=== PATIENT | female | born 1960 | race Caucasian/White ===

== ENCOUNTER → 2017-10-12 07:47 | Outpatient (CLI) | payer OTHER, SELFPAY ==
--- NOTE | 2017-10-12 07:53 | RAD_ITS ---
STUDY: X-RAY - RIGHT CLAVICLE REASON FOR EXAM: Female, 57 years old. Mass of the anterior base of the neck. TECHNIQUE: 3 view(s) of the clavicle. COMPARISON: None. FINDINGS: Normal clavicle. Normal acromioclavicular articulation. Normal visualized sternoclavicular articulation. Normal visualized pulmonary apex. RAD/Clavicle IMPRESSION: No apparent bony abnormality of the clavicle or ribs in the [id number]. The sternoclavicular joint is a difficult joint to assess on plain film radiography. If pathology of that joint is suspected, arthritic changes such as protruding hypertrophic osteophytes, joint alignment, etc. are better imaged on CT exam. Electronically Signed: Jennifer Galindo MD at 20:42 EDT , Service support ,
== END ==
PROVIDERS: Family Provider Internal Medicine; PCP Internal Medicine; Visit Provider Nurse Practitioner Gerontology
DX: R22.2 Localized swelling, mass and lump, trunk (principal)
CPT/HCPCS: 73000

== ENCOUNTER → 2017-10-17 15:55 | Outpatient (CLI) | payer OTHER, SELFPAY ==
--- NOTE | 2017-10-17 16:03 | US_ITS ---
STUDY: THYROID ULTRASOUND REASON FOR EXAM: Female, 57 years old. Right supraclavicular neck mass. Mass palpable. TECHNIQUE: Ultrasound evaluation of the thyroid was performed with real-time and static strauss-scale imaging. COMPARISON: Right clavicle October 12, 2017. FINDINGS: There is a palpable abnormality overlying the head of the clavicle/supraclavicular region, in correlation with the drawling made by the animal herder, and the position of the the BB marker noted on the right clavicle series. No mass or cyst identified. Subjectively the animal herder reported irregular appearance of the right-sided soft tissue when compared to the contralateral side. US/Head/Neck Soft Tissue IMPRESSION: No mass or cyst medial right supraclavicular region. Consider correlation with CT of the neck with contrast, if not contraindicated. Electronically Signed: Patel Hinds MD at 5:17 EDT , Service support ,
== END ==
PROVIDERS: Family Provider Internal Medicine; PCP Internal Medicine; Visit Provider Nurse Practitioner Gerontology
DX: R22.2 Localized swelling, mass and lump, trunk (principal)
CPT/HCPCS: 76536

== ENCOUNTER → 2017-11-03 16:33 | Outpatient (CLI) | payer OTHER, SELFPAY ==
--- NOTE | 2017-11-03 16:36 | CT_ITS ---
STUDY: CT SOFT TISSUE NECK WITH CONTRAST REASON FOR EXAM: Female, 57 years old. Right clavicular enlargement x 1 month. No prior surgery, cancer, diabetes or hypertension.. RADIATION DOSAGE (If Supplied By Facility): CTDIvol = ( 27.75 ) mGy, DLP = ( 880.15 ) mGycm TECHNIQUE: The patient was scanned in a multi-detector CT scanner. High resolution transaxial imaging was performed following intravenous administration of 100mL ml of Isovue 300 contrast material. Sagittal and coronal images were reconstructed. Individualized dose optimization techniques were used for this CT. COMPARISON: None. FINDINGS: Normal bilateral parotid glands. Normal bilateral gas specialist spaces. Normal bilateral parapharyngeal spaces. Normal bilateral carotid spaces. Normal bilateral sublingual and submandibular glands and spaces. Normal visualized nasopharynx. Normal retropharyngeal space. Normal perivertebral space. Normal visualized bilateral faucial tonsils. The visualized tongue, tongue base and oropharynx are normal. The visualized cervical lymph nodes (levels I-) are within normal size limits, and maintain normal morphology. There is no demonstrated solid or cystic mass lesion. There is no abnormal contrast enhancement. Normal epiglottis, bilateral vallecula and hypopharynx. The pre-epiglottic and paraglottic adipose spaces are normal. Normal visualized bilateral piriform sinuses, aryepiglottic folds, vocal cords, and arytenoid-cricoid articulations. Normal subglottic trachea. Normal bilateral lobes of the thyroid gland. Normal visualized pulmonary apices. Normal visualized paranasal sinuses. There is multilevel degenerative changes of the cervical spine. There is degenerative changes of the right clavicular manubrial junction. CT/Soft Tissue Neck WITH Contrast IMPRESSION: No masses or lymphadenopathy. Electronically Signed: Claudia Remy MD at 15:55 EDT Tel , Service support ,
== END ==
PROVIDERS: Family Provider Internal Medicine; PCP Internal Medicine; Visit Provider Nurse Practitioner Gerontology
DX: M89.319 Hypertrophy of bone, unspecified shoulder (principal)
CPT/HCPCS: 70491; Q9967

== ENCOUNTER → 2018-03-27 14:12 | Outpatient (CLI) | payer OTHER, SELFPAY ==
--- NOTE | 2018-03-27 14:14 | BI_ITS ---
MAMMOGRAPHY - BILATERAL SCREENING REASON FOR EXAM: Female, 57 years old. Routine annual screening examination. PERTINENT HISTORY: Non-contributory. TECHNIQUE: Digital bilateral breast cassie (3D mammographic acquisition) in the CC and MLO projections. 2-D mediolateral oblique (MLO) and craniocaudad (CC) views of both breasts were obtained. CAD: Full Field Digital Mammography with Computer Added Detection was performed. COMPARISON: Comparison is made with prior examination dated February 27, 2008. FINDINGS: Breast Composition: The breasts are almost entirely fatty. There are stable scattered subcentimeter nodular densities in both breasts suggestive of possible tiny cysts or intramammary lymph nodes. Correlation with ultrasound is recommended. Stable small bilateral axillary lymph nodes. No other significant abnormalities are identified. There has been no significant change since the prior study. BI/SCREENING MAMM (CAD), BILAT IMPRESSION: Stable bilateral screening mammogram. Correlation with ultrasound of both breasts is recommended to evaluate the several small nodular densities in both breasts. ASSESSMENT CATEGORY: BIRADS Category 0: Incomplete. Need additional imaging evaluation. A letter regarding these results will be sent to the patient by the facility within 30 days. Approximately 10% of breast cancers are not detected by mammography. A normal mammogram should not delay biopsy of a clinically suspicious abnormality. [id number] Electronically Signed: Prakash Rivas MD at 15:48 EST Tel [phone], Service support ,
--- NOTE | 2018-03-27 14:21 | BD_ITS ---
STUDY: DUAL ENERGY X-RAY ABSORPTIOMETRY / DXA REASON FOR EXAM: Female, 57 years old. The patient is postmenopausal. Loss of height. TECHNIQUE: Bone Mineral Density (BMD) measurements of lumbar spine and bilateral hips were obtained. COMPARISON: None. FINDINGS: Lumbar Spine (L1-L4): g/cm2 (1.143) / T-score (-0.2) / Z-score (0.9) Findings are suggestive of normal bone density with a low fracture risk. Left Femur Total: g/cm2 (0.973) / T-score (-0.3) / Z-score (0.6) Left Femoral Neck: g/cm2 (0.878) / T-score (-1.2) / Z-score (0.0) Right Femur Total: g/cm2 (0.936) / T-score (-0.6) / Z-score (0.3) Right Femoral Neck: g/cm2 (0.899) / T-score (-1.0) / Z-score (0.2) BD/Dexa Bone Density Study IMPRESSION: The patient is considered osteopenic as outlined below according to World [place] Organization (WHO) criteria with a low fracture risk. Reference Information: The T-score is the number of standard deviations above or below the standard which is normal for young adults at their peak bone mineral density. The World Health Organization (WHO) interprets the T-scores as follows: Above -1 Normal bone density Between -1 and -2.5 Osteopenia Equal to / or below -2.5 Osteoporosis As a practical clinical guideline, osteopenia may be graded as follows: Mild -1 through -1.5 Moderate -1.6 through -2.0 Severe -2.1 through -2.4 The Z-score is the number of standard deviations above or below age-matched controls. A Z-score of less than -1.5 would be considered abnormal. References: 1. NIH Osteoporosis and Related Bone Diseases http://www.osteo.org 2. International Society for Clinical Densitometry http://www.iscd.org 3. National Osteoporosis Foundation http://www.nof.org Electronically Signed: Prakash Rivas MD at 15:49 EST Tel [phone], Service support ,
--- OUTSIDE RECORDS SUMMARY | 2018-06-29 01:54 | XMS RPT_ITS ---
:1960 Author Organization OHIP Care Team Providers Name Role Phone NEYHART KEENE, LETICIA Attending Unavailable NEYHART KEENE, LETICIA Attending Unavailable SHARON, INOCENCIA (COFFEE BAR ATTENDANT) Referring Unavailable SHARON, INOCENCIA (COFFEE BAR ATTENDANT) Attending Unavailable Michelle DO, Kristen Attending Unavailable Michelle DO, Kristen Consulting Unavailable Neyhart-Keene, Leticia Attending Unavailable Neyhart-Keene, Leticia Referring Unavailable Michelle, Kristen Primary Care Unavailable Michelle, Kristen Attending Unavailable Michelle, Kristen Referring Unavailable Michelle, Kristen Primary Care Unavailable Martinez, Morena SOFTWARE QUALITY ASSURANCE ENGINEER-C Attending Unavailable Martinez, Morena SOFTWARE QUALITY ASSURANCE ENGINEER-C Referring Unavailable Michelle, Kristen Primary Care Unavailable Martinez, Morena SOFTWARE QUALITY ASSURANCE ENGINEER-C Attending Unavailable Martinez, Morena SOFTWARE QUALITY ASSURANCE ENGINEER-C Referring Unavailable Michelle, Kristen Primary Care Unavailable Martinez, Morena SOFTWARE QUALITY ASSURANCE ENGINEER-C Attending Unavailable Martinez, Morena SOFTWARE QUALITY ASSURANCE ENGINEER-C Referring Unavailable Michelle, Kristen Primary Care Unavailable Michelle, Kristen Attending Unavailable Michelle, Kristen Referring Unavailable Michelle, Kristen Primary Care Unavailable PROBLEMS PROBLEMS DATE TYPE CONDITION / CODE ATTENDING STATUS SOURCE 03/19/2018 Active Unknown / NEYHART Active [facility] 03/08/2018 Active Postmenopausal NA Active [facility] bleeding / [facility] N95.0(ICD-10) Repository 03/08/2018 Active Polyp of cervix NA Active [facility] uteri / [facility] N84.1(ICD-10) Repository PROCEDURES PROCEDURES No Procedure Records FoundRESULTS RESULTS CNOV Observed: 04/13/2018 Status: COMPLETED Source: [place] 4:10 PM [facility] REPOSITORY Office Visit (WOOB) LIZ SANDHU ([id number]) 1960 F Date Time Provider Department 04/13/18 4:10 PM LETICIA TAO WOOB During your visit today, we recorded the following information about you: Blood pressure Weight 144/86 144.7 kg Leticia Potts MD 04/13/2018 4:47 PM Signed SUBJECTIVE: 57 year old female presents for 2 week post-op exam. Denies fever, chills, dysuria or abnormal discharge post op. OBJECTIVE: Incision: None Gen: female in NAD PLAN: RTO for annual exams and PRN BENIGN pathology reviewed- Proliferative EM reviewed. Endocervical polyp- Leiomyoma fragments. I have reviewed and updated past medical and surgical history, medications and allergies. Leticia Potts MD Referring Provider: SELF [200] Allergies As of Date: 04/13/2018 (No Known Allergies) Date Reviewed: 04/13/2018 Reviewed by: Juanita Green Ma - Fully Assessed Reason for Visit: Post-Op Visit [1236] Primary Visit Diagnosis:PMB (postmenopausal bleeding) [N95.0] Other Visit Diagnosis:Thickened endometrium [R93.89] Problem List As Of Date 04/13/2018 Noted Resolved Uterine prolapse without mention of vaginal wal*INVALID FOR* Vulvar pruritus [L29.2] INVALID FOR* Vulval lesion [N90.89] INVALID FOR* Encounter Status:Closed by LETICIA KEENE MD on 04/13/18 PROGRESS Observed: 04/13/2018 Status: COMPLETED Source: [place] 4:08 PM [facility] RE[facility] O ID: [id number] Author: Leticia Keene Service: (none) Author Type: Physician Type: Progress Notes Filed: 04/13/2018 4:47 PM Note Text: SUBJECTIVE: 57 year old female presents for 2 week post-op exam. Denies fever, chills, dysuria or abnormal discharge post op. OBJECTIVE: Incision: None Gen: female in NAD PLAN: RTO for annual exams and PRN BENIGN pathology reviewed- Proliferative EM reviewed. Endocervical polyp- Leiomyoma fragments. I have reviewed and updated past medical and surgical history, medications and allergies. Leticia Potts MD BREAST COMPLETE Observed: 04/02/2018 Status: F Source: [place] BILATER[place] 10:22 AM [facility] RE[facility]IT[facility] Imaging Services [facility] [address] Breast Complete Bilateral MR#: [id number] Acct: [id number] Name: LIZ SANDHU Rep #: [id number] : 1960 F 57 From: John Enriquez MD PCP: Kristen Martinez DO Status: REG CLI Study: Breast Complete Bilateral Date of Exam: 04/02/18 Exam# [id number] Ordering Dr: Kristen Martinez DO ADDENDUM by Prakash Rivas MD on 04/12/18 at 1257 ADDENDUM This is an addendum report. Mild dilatation of retroareolar ducts bilaterally. There is a 4 mm x 4 mm x 2 mm cyst at the 3:00 position of the right breast at 3 cm from the nipple. There is a 4 mm x 4 mm x 3 mm cyst at the 10:00 position of the left breast at 5 cm from the nipple. Electronically Signed: Prakash Rivas MD at 12:57 EST Tel [phone], Service support , 04/12/18 1257 Date cc: Kristen Martinez DO * Signed ADDENDUM by Prakash Rivas MD on 04/12/18 at 1257 US/Breast Complete Bilateral 04/12/18 1303 Date cc: Kristen Martinez DO * Signed STUDY: ULTRASOUND BREAST - RIGHT REASON FOR EXAM: Female, 57 years old. TECHNIQUE: Axial and longitudinal images of the RIGHT breast were performed with a high resolution ultrasound transducer. COMPARISON: None. FINDINGS: RIGHT Breast: There is a 0.38 x 0.22 x 0.32 cm hypoechoic slightly irregular lesion at 3:00 o'clock on the right side There is severe 0.35 x 0.34 x 0.4 cm hypoechoic lesion around 10:00 on the left without posterior enhancement or shadowing. Both could be cystic in nature. IMPRESSION: tiny hypoechoic areas in the right and left breast as described above may be cystic in nature follow-up is needed Electronically Signed: John Enriquez, at 16:22 EST Tel , Service support , US/Breast Complete Bilateral CC: Kristen Martinez DO Director Of Rehabilitative Services: Signed OPERATIVE REPORT Observed: 03/29/2018 Status: F Source: [place] 12:58 PM [facility] RE[facility]ITORY [facility] Medical Records Department [address] [place] [address] Operative Report 03/29/18 1253 MR#: [id number] Acct: [id number] Name: LIZ SANDHU Rep #: [id number] : 1960 57 From: Leticia Keene MD PCP: Kristen Martinez DO Status: REG [facility] [place] Location: [place] [address] Report of Operation Date of Procedure: 03/29/18 Pre-Operative Diagnosis: pmb, endocervical polyp Post-Operative Diagnosis: same Surgery/Procedure Performed:: hysteroscopy, D AND C, polypectomy with symphion Description of Surgical Findings:: uterine cavity 8cm, large endocervical polyp appreciated. both tubal ostia visualized. Type of Anesthesia:: MAC Specimen's removed: ECC, endocervical polyp Drains: none Estimated Blood Loss (mL): 5 Fluids Replaced: 800 Description of Procedure: Informed consent was obtained the patient was taken the operating room she was placed in supine position. She was given anesthesia. She was then placed in the [facility] where she was prepped and draped in the normal sterile fashion. bladder drained 25cc urine. At this time the weighted speculum was placed in the posterior fornix of vagina. Single-tooth tenaculum was used to gently grasp the anterior lip the cervix. At this time the uterine cavity was sounded to approximately 8cm. Gentle dilatation was performed once adequate dilatation of the cervix was achieved the hysteroscope using normal saline as a distention medium was placed. large endocervical polyp noted. both tubal ostia visualized. Otherwise no gross abnormalities. This time hysteroscopy was complete. operative symphion resecting device used to removed endocervical polyp down to base. next gentle sharp curettage was performed- scant amt of tissue expelled. This will be sent to pathology for evaluation. Procedure was deemed complete successful there are no complications. Anticipated normal postoperative course. Instrument lap count correct 2. fluid deficit 100cc. Vaginal Sweep was negative. Grafts/Implants Used: none - Complications none - Admit VTE Documentation VTE Present on Admission: Yes VTE Mechan Device Prophylaxis: SCD's VTE Pharm Prophylaxis ordered?: No 03/29/18 1258 <Electronically signed by Leticia Keene MD> Date Leticia Potts MD CC: Leticia Potts MD; Kristen Martinez DO Signed ENDOMETRIAL BX/CURETTINGS Observed: 03/29/2018 Status: F Source: [place] 12:45 PM [facility] RE[facility]ORY Patient: LIZ SANDHU : 1960 (57/F) Acct Num: [id number] Phys: Katlyn BERRIOS,Leticia Unit Num: [id number] Loc: [facility] Specimen: [id number] Received: 03/29/18 - 1506 Spec Type: ENDOM BX/C TISSUES 1 TISSUES: A. Endometrium, NOS B. Endocervical COMMENT B. The lesion may represent fragments of submucosal leiomyoma. GROSS DESCRIPTION A - Received in fixative is one container labeled with the patient's name and designated endometrial curettings. The specimen consists of multiple fragments of winchester hemorrhagic soft tissue that in aggregate measure 2 x 1.5 x 0.1 cm. The specimen is totally submitted in one cassette. B - Received in fixative is one container labeled with the patient's name and designated endocervical polyp. The specimen consists of multiple irregular fragments of [place], indurated tissue that in aggregate measure 3 x 2.5 x 0.3 cm. The entire specimen is submitted in one cassette. / SJ:nevaeh 03/30/18 TC:1 CPT: 18153 x2 HEADER OPERATION: Hysteroscopy, D AND C, polypectomy with Symphion PRE-OP DIAGNOSIS: Endometrial polyp; postmenopausal bleeding TISSUE SUBMITTED: A - Endometrial curettings, B - Endocervical polyp MICROSCOPIC DESCRIPTION Slides are reviewed. MICROSCOPIC DIAGNOSIS A. Endometrial curettings: Proliferative endometrium. Fragments of benign endocervical epithelium. B. Endocervical polyp: Fragments of leiomyoma with hyalinization. Fragments of benign endometrial tissue. Fragments of benign endocervical mucosa. See comment. SJ:nevaeh 04/02/18 Signed Checo Coats MD 04/02/18 <signature on file> Performed By: #### PEMB #### [facility] [address] [place], [address] DISCHARGE INSTRUCTION Observed: 03/29/2018 Status: F Source: [place] 12:16 PM [facility] REPOSITORY [facility] Medical Records Department [address] [place] [address] Instructions for Home/Discharge Instructions 03/29/18 1216 MR#: [id number] Acct: [id number] Name: PHOEBELIZ DOMINGO Rep #: [id number] : 1960 57 From: Leticia Keene MD PCP: Kristen Martinez DO Status: REG [facility] Discharge Diet: No Restrictions Discharge Activity: Return to Normal Activity, May Shower, May Take a Tub Bath - in 2 weeks. Allergies/Adverse Reactions: Allergies No Known Allergies Allergy (Verified 03/27/18 09:45) Medications to take at Discharge NK 03/27/18 Primary Care Physician: Kristen Martinez DO [Primary Care Provider] - Test Results: Test results from this visit will be discussed in further detail at your follow-up appointment, if applicable. 03/29/18 1216 <Electronically signed by Leticia Keene MD> Date Leticia Potts MD CC: Kristen Martienz DO CBC-COMPLETE BLOOD CNT Collected: 03/27/2018 Status: F Source: [place] NO DIFF 3:00 PM [facility] REPOSITORY TYPE CODE TESTS RESULT OUT OF RANGE REFERENCE UNITS LAB L100.1000 4.4-11.0 K/mm3 Normal WBC 6.0 LAB L100.1200 4.2-5.4 M/mm3 Normal RBC 4.69 LAB L100.1300 12.0-15.0 g/dl Normal HGB 14.1 LAB L100.1400 37-47 % Normal HCT 43.5 LAB L100.1500 81-99 fL Normal MCV 92.8 LAB L100.1600 27.0-32.0 pg Normal MCH 30.1 LAB L100.1700 32-36 g/gl Normal MCHC 32.4 LAB L100.1810 11.6-14.6 % Normal RDW CV 14.3 LAB L100.1820 35.1-43.9 fl High RDW SD 48.4 LAB L100.1900 150-450 K/mm3 Normal PLT 268 LAB L100.2000 6.2-12.0 fl Normal MPV 10.9 Performed By: #### L100.0500 #### [facility] [address] [place], [address] SCREENING MAMM (CAD), Observed: 03/27/2018 Status: F Source: [place] BIL[place] 2:14 PM [facility] RE[facility]ITORY [facility] Imaging Services [address] [place] [address] SCREENING MAMM (CAD), BILAT MR#: [id number] Acct: [id number] Name: LIZ SANDHU Rep #: [id number] : 1960 F 57 From: Prakash Rivas MD PCP: Kristen Martinez DO Status: REG CLI Study: SCREENING MAMM (CAD), BILAT Date of Exam: 03/27/18 Exam# [id number] Ordering Dr: Kristen Martinez DO MAMMOGRAPHY - BILATERAL SCREENING REASON FOR EXAM: Female, 57 years old. Routine annual screening examination. PERTINENT HISTORY: Non-contributory. TECHNIQUE: Digital bilateral breast cassie (3D mammographic acquisition) in the CC and MLO projections. 2-D mediolateral oblique (MLO) and craniocaudad (CC) views of both breasts were obtained. CAD: Full Field Digital Mammography with Computer Added Detection was performed. COMPARISON: Comparison is made with prior examination dated February 27, 2008. FINDINGS: Breast Composition: The breasts are almost entirely fatty. There are stable scattered subcentimeter nodular densities in both breasts suggestive of possible tiny cysts or intramammary lymph nodes. Correlation with ultrasound is recommended. Stable small bilateral axillary lymph nodes. No other significant abnormalities are identified. There has been no significant change since the prior study. BI/SCREENING MAMM (CAD), BILAT IMPRESSION: Stable bilateral screening mammogram. Correlation with ultrasound of both breasts is recommended to evaluate the several small nodular densities in both breasts. ASSESSMENT CATEGORY: BIRADS Category 0: Incomplete. Need additional imaging evaluation. A letter regarding these results will be sent to the patient by the facility within 30 days. Approximately 10% of breast cancers are not detected by mammography. A normal mammogram should not delay biopsy of a clinically suspicious abnormality. [id number] Electronically Signed: Prakash Rivas MD at 15:48 EST Tel [phone], Service support , CC: Kristen Martinez DO Director Of Rehabilitative Services: Signed DEXA BONE DENSITY Observed: 03/27/2018 Status: F Source: [place] STUDY 2:14 PM [facility] RE[facility]ITORY [facility] Imaging Services [address] [place] [address] Dexa Bone Density Study MR#: [id number] Acct: [id number] Name: LIZ SANDHU Rep #: [id number] : 1960 F 57 From: Prakash Rivas MD PCP: Kristen Martinez DO Status: REG CLI Study: Dexa Bone Density Study Date of Exam: 03/27/18 Exam# [id number] Ordering Dr: Kristen Martinez DO STUDY: DUAL ENERGY X-RAY ABSORPTIOMETRY / DXA REASON FOR EXAM: Female, 57 years old. The patient is postmenopausal. Loss of height. TECHNIQUE: Bone Mineral Density (BMD) measurements of lumbar spine and bilateral hips were obtained. COMPARISON: None. FINDINGS: Lumbar Spine (L1-L4): g/cm2 (1.143) / T-score (-0.2) / Z-score (0.9) Findings are suggestive of normal bone density with a low fracture risk. Left Femur Total: g/cm2 (0.973) / T-score (-0.3) / Z- score (0.6) Left Femoral Neck: g/cm2 (0.878) / T-score (-1.2) / Z- score (0.0) Right Femur Total: g/cm2 (0.936) / T-score (-0.6) / Z- score (0.3) Right Femoral Neck: g/cm2 (0.899) / T-score (-1.0) / Z-score (0.2) BD/Dexa Bone Density Study IMPRESSION: The patient is considered osteopenic as outlined below according to World [place] Organization (WHO) criteria with a low fracture risk. Reference Information: The T-score is the number of standard deviations above or below the standard which is normal for young adults at their peak bone mineral density. The World Health Organization (WHO) interprets the T-scores as follows: Above -1 Normal bone density Between -1 and -2.5 Osteopenia Equal to / or below -2.5 Osteoporosis As a practical clinical guideline, osteopenia may be graded as follows: Mild -1 through -1.5 Moderate -1.6 through -2.0 Severe -2.1 through -2.4 The Z-score is the number of standard deviations above or below age-matched controls. A Z-score of less than -1.5 would be considered abnormal. References: 1. NIH Osteoporosis and Related Bone Diseases http://www.osteo.org 2. International Society for Clinical Densitometry http://www.iscd.org 3. National Osteoporosis Foundation http://www.nof.org Electronically Signed: Prakash Rivas MD at 15:49 EST Tel [phone], Service support , CC: Kristen Martinez DO Director Of Rehabilitative Services: Signed CNCO Observed: 03/21/2018 Status: COMPLETED Source: [place] 12:00 AM [facility] REPOSITORY Letter Text Leticia Keene MD [facility] [address] [place] [phone] 03/21/2018 Liz Sandhu [facility] [place] [id number] [facility]#: [id number] Dear Liz, This letter is to confirm with you the dates and times of your upcoming surgery. You should have received a telephone call notifying you of this information. Surgery 03/29/18 at [facility]. The hospital will call you the day prior to surgery with your arrival time. [facility] will contact you by phone for pre-admission testing on 03/27/18 @ 9:00 a.m. 2 week post-operative appointment at Dr. Leticia Keene's office is scheduled on 04/13/18 @ 11:40 a.m. In addition, we will do a precertification approximately 1 week prior to your surgery. This means we will give your insurance company the medical information they need to make a predetermination. This is not a guarantee of payment and you will need to call your insurance company to verify benefits and coverage. We will only call you if there is a problem. If you have any questions, please feel free to call us at the phone number above. We appreciate your confidence in choosing the [facility] for your medical care and we look forward to seeing you at your next appointment. Thank you, [facility] HISTORY PHYSICAL Observed: 03/19/2018 Status: COMPLETED Source: [place] 4:57 PM [facility] REPOSITORY HNO ID: [id number] Author: Leticia Keene Service: (none) Author Type: Physician Type: HANDP Filed: 03/19/2018 5:04 PM Note Text: Liz Sandhu is a 57 year old female who presents for concerns regarding intermittent PMB- endocervical polyp noted on exam. EMB negative. Pt underwent ENDOSEE today- has large endocervical polyp, unable to remove in office. Pt would like to proceed with removal at [facility]. Pt will be scheduled for Hysteroscopy, DANDC, polypectomy with symphion. Consent signed. PAST MEDICAL HISTORY Diagnosis Date - NEGATIVE MEDICAL HISTORY PAST SURGICAL HISTORY Procedure Laterality Date - NONE FAMILY HISTORY Problem Relation Age of Onset - other (Heart problem [Other]) Father - other (Ascending aorta [Other]) Mother Social History Marital status: Spouse name: Years of education: Number of children: Social History Main Topics Smoking status: Never Smoker Smokeless tobacco: Never Used Alcohol use: Yes Comment: occasion use Drug use: No Sexual activity: Not Currently Partners with: Male No current outpatient prescriptions on file. No current facility-administered medications for this visit. Allergies As of Date: 03/19/2018 (No Known Allergies) Fully Assessed 03/19/2018 REVIEW OF SYSTEMS Abdomen: no pain Bladder: no dysuria .. Expanded ROS: GENERAL: No weight loss, malaise or fevers RESPIRATORY: Negative for cough, hemoptysis, wheezing, COPD, dyspnea or shortness of breath CARDIOVASCULAR: Negative for chest pain, leg swelling, hypertension, CHF or palpitations Allergies and current medication updated:Yes EXAM: BP 136/86 Wt 312 lb (141.5kg) GENERAL: pleasant, female in no apparent distress HEENT: Normocephalic and atraumatic NECK: full range of motion DERMATOLOGY: Normal, without lesions, non-icteric and non-hirsute PELVIC: external genitalia normal, normal Bartholin's glands, urethra, Kitt[place]'s glands, no vulvar lesions, no cervical lesions, good vaginal support, physiologic discharge present, normal appearing perineal body and perianal region. On endosee large endocervical polyp. NEURO: alert and oriented x3,exam grossly non-focal EXTREMITIES: normal ASSESSMENT AND PLAN: Encounter Diagnosis ICD-10-CM 1. Endocervical polyp N84.1 2. PMB (postmenopausal bleeding) N95.0 3. Hysteroscopy, DANDC, polypectomy with symphion - Pt has been counseled on risks/benefits and alternatives of surgery including but not limited to anesthesia, bleeding, infection, injury to pelvic structures including bowel, bladder, ureters and vessels. Pt wishes to proceed with surgery at this time. Leticia Potts MD CNOV Observed: 03/19/2018 Status: COMPLETED Source: [place] 4:10 PM [facility] REPOSITORY Office Visit (WOOB) LIZ SANDHU ([id number]) 1960 F Date Time Provider Department 03/19/18 4:10 PM LETICIA TAO WOOB During your visit today, we recorded the following information about you: Blood pressure Weight 136/86 141.5 kg Leticia Potts MD 03/19/2018 5:04 PM Signed Liz Sandhu presents for hysteroscopy. Indication: Postmenopausal bleeding and enodcervical polyp. Age: [age] year old LMP: No LMP recorded. Patient is postmenopausal. Contraception: none test: n/a VS: BP 136/86 Wt 312 lb (141.5kg) UNIVERSAL PROTOCOL / SAFETY CHECKLIST Procedure to be performed: ENDOSEE Sign in Communication: Completed Time Out: Team Confirms the Correct Patient, Correct Procedure, Correct Site and Site Marking, Correct Position (if applicable), Prep and Dry Time (if applicable). Time: 4:36pm Affirmation of Time Out: YES Sign Out Discussion: Completed OBJECTIVE: Cervix cleaned with betadine. A single tooth tenaculum was used to grasp cervix. Under sterile conditions, using 90 mL normal saline as distention, ENDOSEE hysteroscopy performed without incident. Endometrial lining is atrophic. Large endocervical polyp noted- unable to remove in office. PROCEDURE SUMMARY: Patient tolerated procedure well. ASSESMENT: Postmenopausal bleeding and endocervical polyp lesions on hysteroscopy. PLAN: Hysteroscopic polypectomy, DANDC in the OR. MD Leticia Lucero MD 03/19/2018 5:04 PM Signed Liz Sandhu is a 57 year old female who presents for concerns regarding intermittent PMB- endocervical polyp noted on exam. EMB negative. Pt underwent ENDOSEE today- has large endocervical polyp, unable to remove in office. Pt would like to proceed with removal at [facility]. Pt will be scheduled for Hysteroscopy, DANDC, polypectomy with symphion. Consent signed. PAST MEDICAL HISTORY Diagnosis Date - NEGATIVE MEDICAL HISTORY PAST SURGICAL HISTORY Procedure Laterality Date - NONE FAMILY HISTORY Problem Relation Age of Onset - other (Heart problem [Other]) Father - other (Ascending aorta [Other]) Mother Social History Marital status: Spouse name: Years of education: Number of children: Social History Main Topics Smoking status: Never Smoker Smokeless tobacco: Never Used Alcohol use: Yes Comment: occasion use Drug use: No Sexual activity: Not Currently Partners with: Male No current outpatient prescriptions on file. No current facility-administered medications for this visit. Allergies As of Date: 03/19/2018 (No Known Allergies) Fully Assessed 03/19/2018 REVIEW OF SYSTEMS Abdomen: no pain Bladder: no dysuria .. Expanded ROS: GENERAL: No weight loss, malaise or fevers RESPIRATORY: Negative for cough, hemoptysis, wheezing, COPD, dyspnea or shortness of breath CARDIOVASCULAR: Negative for chest pain, leg swelling, hypertension, CHF or palpitations Allergies and current medication updated:Yes EXAM: BP 136/86 Wt 312 lb (141.5kg) GENERAL: pleasant, female in no apparent distress HEENT: Normocephalic and atraumatic NECK: full range of motion DERMATOLOGY: Normal, without lesions, non-icteric and non-hirsute PELVIC: external genitalia normal, normal Bartholin's glands, urethra, Kittitas's glands, no vulvar lesions, no cervical lesions, good vaginal support, physiologic discharge present, normal appearing perineal body and perianal region. On endosee large endocervical polyp. NEURO: alert and oriented x3,exam grossly non-focal EXTREMITIES: normal ASSESSMENT AND PLAN: Encounter Diagnosis ICD-10-CM 1. Endocervical polyp N84.1 2. PMB (postmenopausal bleeding) N95.0 3. Hysteroscopy, DANDC, polypectomy with symphion - Pt has been counseled on risks/benefits and alternatives of surgery including but not limited to anesthesia, bleeding, infection, injury to pelvic structures including bowel, bladder, ureters and vessels. Pt wishes to proceed with surgery at this time. Leticia Potts MD Referring Provider: SELF [[id number]] Allergies As of Date: 03/19/2018 (No Known Allergies) Date Reviewed: 03/19/2018 Reviewed by: Juanita Green Ma - Fully Assessed Reason for Visit: endosee [Other] Primary Visit Diagnosis:Endocervical polyp [N84.1] Other Visit Diagnosis:PMB (postmenopausal bleeding) [N95.0] Problem List As Of Date 03/19/2018 Noted Resolved Uterine prolapse without mention of vaginal wal*INVALID FOR* Vulvar pruritus [L29.2] INVALID FOR* Vulval lesion [N90.89] INVALID FOR* Medications Discontinued During This Encounter miSOPROStol (CYTOTEC) 200 mcg tablet 4 ta* 0 03/13/2018 03/19/2018 Sig: Take two tablets PO night before procedure and two tablets morning of procedure Disc: Reason for discontinue is not on file. Encounter Status:Closed by LETICIA KEENE MD on 03/19/18 PROGRESS Observed: 03/19/2018 Status: COMPLETED Source: [place] 4:05 PM [facility] REPOSITORY HNO ID: [id number] Author: Leticia Keene Service: (none) Author Type: Physician Type: Progress Notes Filed: 03/19/2018 5:04 PM Note Text: Liz Sandhu presents for hysteroscopy. Indication: Postmenopausal bleeding and enodcervical polyp. Age: [age] year old LMP: No LMP recorded. Patient is postmenopausal. Contraception: none test: n/a VS: BP 136/86 Wt 312 lb (141.5kg) UNIVERSAL PROTOCOL / SAFETY CHECKLIST Procedure to be performed: ENDOSEE Sign in Communication: Completed Time Out: Team Confirms the Correct Patient, Correct Procedure, Correct Site and Site Marking, Correct Position (if applicable), Prep and Dry Time (if applicable). Time: 4:36pm Affirmation of Time Out: YES Sign Out Discussion: Completed OBJECTIVE: Cervix cleaned with betadine. A single tooth tenaculum was used to grasp cervix. Under sterile conditions, using 90 mL normal saline as distention, ENDOSEE hysteroscopy performed without incident. Endometrial lining is atrophic. Large endocervical polyp noted- unable to remove in office. PROCEDURE SUMMARY: Patient tolerated procedure well. ASSESMENT: Postmenopausal bleeding and endocervical polyp lesions on hysteroscopy. PLAN: Hysteroscopic polypectomy, DANDC in the OR. Leticia Potts MD US FEMALE PELVIS Observed: 03/08/2018 Status: F Source: [place] TRANSVAG 9:03 AM [facility] REPOSITORY * * *Final Report* * * DATE OF EXAM: Mar 08 2018 9:03AM [facility] 1060 - US FEMALE PELVIS TRANSVAG / PROCEDURE REASON: multiple diagnoses * * * * Physician Interpretation * * * * EXAMINATION: TRANSVAGINAL AND LIMITED TRANSABDOMINAL PELVIC ULTRASOUND HISTORY: Postmenopausal bleeding Cervical polyp Patient had endometrial biopsy 03/07/2018 1 day prior to this study TECHNIQUE: Sonography of the pelvis was performed by transvaginal and transabdominal (limited) techniques. Images were obtained and stored in a permanent archive. MQ: UFP_1 COMPARISON: None FLMP: Unknown RESULT: Uterus size: 9.4 x 3.8 x 5.2 cm -Orientation: Anteverted -Myometrium: Normal -Endometrial echo complex: 0.7 cm . Heterogeneous some of this may be due to recent biopsy. -Cervix: Polypoid lesion in the endocervical canal measuring 7 x 4 x 5 mm Neither ovary is identified. Pelvis free fluid: None seen IMPRESSION: 1. Study limited due to patient's body habitus 2. Heterogeneous texture of endometrium possibly related to recent biopsy. Other etiologies not excluded 3. Question of endocervical polypoid lesion Director Of Rehabilitative Services: ABDIAS Transcribe Date/Time: Mar 11 2018 7:19A Dictated by : DONTAE OLSON DO This examination was interpreted and the report reviewed and electronically signed by: DONTAE OLSON DO on Mar 11 2018 7:23AM EST [id number] PROGRESS Observed: 03/08/2018 Status: COMPLETED Source: [place] 8:25 AM [facility] REPOSITORY HNO ID: [id number] Author: Jade Jenkins Rdms Service: (none) Author Type: (none) Type: Progress Notes Filed: 03/08/2018 8:49 AM Note Text: Radiology Service Progress Note PATIENT NAME: Liz Sandhu DATE OF SERVICE: March 08, 2018 TIME: 8:25 AM PATIENT IDENTITY VERIFICATION COMPLETED USING TWO (2) METHODS: Patient confirmed name verbally and Date of . PATIENT GENDER DATA: Female. status: : No status: NO. PATIENT RELEVANT IMPLANT DATA REVIEWED: Not Applicable RADIOLOGY DEPARTMENT: Ultrasound PERIPHERAL IV DATA: Not applicable SIGNED BY: Jade Jenkins Rdms March 08, 2018 8:25 AM SURGICAL PATHOLOGY Observed: 03/07/2018 Status: F Source: [place] 3:28 PM [facility] REPOSITORY Specimen originated from [facility] Specimen #: [id number] Submitting Physician: INOCENCIA HERRERA FINAL DIAGNOSIS Endometrial, biopsy - Detached fragments of benign superficial endometrium Comment: The biopsy lacks intervening stroma between the endometrial strips and glands. Therefore, it is not possible to assess architectural arrangement. Rosalina Chase M.D. (Electronic Signature) SPECIMEN SUBMITTED A: ENDOMETRIAL, BIOPSY CLINICAL DATA PMB GROSS DESCRIPTION A. Received in formalin are multiple winchester-brown, soft feathery segments of tissue aggregating to 1.0 x 0.5 x 0.1 cm. Totally submitted in one cassette. Gross examination performed at [facility], [address] [place] [address] 03/09/2018 1:10:05 AM Date of Report: 03/09/2018 Date of Procedure: 03/07/2018 Date of Receipt: 03/08/2018 Submitted by: INOCENCIA HERRERA Location: [facility] Diagnostic interpretation performed at [facility], [facility] [address], [place] [address]. CNOV Observed: 03/07/2018 Status: COMPLETED Source: [place] 3:00 PM [facility] RE[facility] Office Visit (WOOB) LIZ SANDHU ([id number]) 1960 F Date Time Provider Department 03/07/18 3:00 PM INOCENCIA HERRERA (ROBERTO) WOOB During your visit today, we recorded the following information about you: Blood pressure Weight 120/76 143.6 kg Inocencia Herrera APRN.CNP 03/07/2018 3:47 PM Signed 57 year old who presents with complaints of postmenopausal bleeding. LMP: No LMP recorded. Patient is postmenopausal. no menses - postmenopausal Heavy bleeding? No Intermenstrual bleeding/spotting? Yes Dysmenorrhea? No History of fibroids? No History of endometrial polyps? No Sexually active: No PAST MEDICAL HISTORY Diagnosis Date - NEGATIVE MEDICAL HISTORY PAST SURGICAL HISTORY Procedure Laterality Date - NONE FAMILY HISTORY Problem Relation Age of Onset - other (Heart problem [Other]) Father - other (Ascending aorta [Other]) Mother SOCIAL HISTORY Social History Substance Use Topics - Smoking status: Never Smoker - Smokeless tobacco: Never Used - Alcohol use Yes Comment: occasion use REVIEW OF SYSTEMS No recent weight gain or weight loss. Abdomen: No abdominal pain, nausea, vomiting, diarrhea, or constipation. No bloating, early satiety, indigestion, or increased flatulence. Bladder: No dysuria, gross hematuria, urinary frequency, urinary urgency, or incontinence. EXAM: Wt 316 lb 9.6 oz (143.6kg) GENERAL: pleasant, female in no apparent distress CHEST: Normal inspiratory effort PELVIC: external genitalia normal, normal Bartholin's glands, urethra, Kittitas's glands, no vulvar lesions, no cervical lesions, physiologic discharge present, normal appearing perineal body and perianal region, cervical prolapse 2nd degree BIMANUAL: deferred RECTOVAGINAL: deferred. NEURO: alert and oriented x3,exam grossly non-focal ASSESSMENT: -postmenopausal bleeding possible related to cervical polyp PLAN: Endometrial biopsy Pelvic ultrasound Attempt to remove cervical polyp Inocencia Herrera APRN.ROBERTO Sandhu is a 57 year old female who presents today for an endometrial biopsy for post menopausal bleeding. test: n/a UNIVERSAL PROTOCOL / SAFETY CHECKLIST Procedure to be performed: EMB Sign in Communication: Completed Time Out: Team Confirms the Correct Patient, Correct Procedure, Correct Site and Site Marking, Correct Position (if applicable), Prep and Dry Time (if applicable). Time: 1513 Affirmation of Time Out: YES Sign Out Discussion: Completed Yancy Reese LPN PROCEDURE: EXTERNAL GENITALIA: Normal in appearance without lesions VAGINA: cervical polyp noted BIOPSY: Speculum placed into the vagina with excellent visualization of the cervix. Cervix cleaned with betadine. Anterior lip of cervix grasped with single toothed tenaculum. Uterus sounded to 9 cm. Pipelle inserted into the uterus without difficulty and endometrial biopsy obtained. Specimen labeled and sent to pathology. Hemostasis achieved. Procedure Summary: Patient tolerated procedure well. ASSESSMENT: post menopausal bleeding, unable to remove cervical polyp PLAN: Specimens labeled and sent to Pathology. Will notify patient of results in 1-2 weeks. Post-procedure instructions reviewed and written material given to the patient. Pelvic ultrasound for PMB and cervical polyp Inocencia Herrera APRN.ROBERTO Reese LPN 03/07/2018 2:59 PM Signed YOUR RECOVERY After your biopsy you may have: ? Vaginal bleeding (less than a normal menstrual period) ? Mild cramping Do NOT put anything in the vagina for 1 week after your endometrial biopsy. This includes: ? tampons ? douches ? and refraining from having sexual intercourse If you have any discomfort, you may take an over the counter pain medication (motrin, advil, ibuprofen, tylenol, etc). If this does not relieve your discomfort, contact the office. It is okay to wear a sanitary pad until the discharge and spotting stops. RISKS Although problems seldom occur with endometrial biopsies, there can be some complications. You may feel faint during and shortly after the procedure as well as have some bleeding after the procedure. There is also a risk of infection after the procedure. These complications are rare and can be easily treated. You should contact you doctor is you have any of the following: ? Heavy bleeding (more than your normal period) ? Bleeding with clots ? Severe abdominal pain ? Fever (more than 100.4F) ? Foul smelling vaginal discharge RESULTS We will have the results of your biopsy in 1-2 weeks. If you do not hear the results of your biopsy after 2 weeks, please contact the office for the results. If you have any additional questions or concerns please do not hesitate to contact the office. Referring Provider: SELF [200] Allergies As of Date: 03/07/2018 (No Known Allergies) Date Reviewed: 03/07/2018 Reviewed by: Yancy Reese LPN - Fully Assessed Reason for Visit: PMB [Other] Primary Visit Diagnosis:Postmenopausal bleeding [N95.0] Other Visit Diagnosis:Cervical polyp [N84.1] Order(s):ENDOMETRIAL BIOPSY [[id number]] Order #: [id number] SURGICAL PATHOLOGY [[id number]] Order #: [id number] FEMALE PELVIS TRANSVAG [[id number]] Order #: [id number] FUTURE Problem List As Of Date 03/07/2018 Noted Resolved Uterine prolapse without mention of vaginal wal*INVALID FOR* Vulvar pruritus [L29.2] INVALID FOR* Vulval lesion [N90.89] INVALID FOR* Other instructions from your clinician: YOUR RECOVERY After your biopsy you may have: ? Vaginal bleeding (less than a normal menstrual period) ? Mild cramping Do NOT put anything in the vagina for 1 week after your endometrial biopsy. This includes: ? tampons ? douches ? and refraining from having sexual intercourse If you have any discomfort, you may take an over the counter pain medication (motrin, advil, ibuprofen, tylenol, etc). If this does not relieve your discomfort, contact the office. It is okay to wear a sanitary pad until the discharge and spotting stops. RISKS Although problems seldom occur with endometrial biopsies, there can be some complications. You may feel faint during and shortly after the procedure as well as have some bleeding after the procedure. There is also a risk of infection after the procedure. These complications are rare and can be easily treated. You should contact you doctor is you have any of the following: ? Heavy bleeding (more than your normal period) ? Bleeding with clots ? Severe abdominal pain ? Fever (more than 100.4F) ? Foul smelling vaginal discharge RESULTS We will have the results of your biopsy in 1-2 weeks. If you do not hear the results of your biopsy after 2 weeks, please contact the office for the results. If you have any additional questions or concerns please do not hesitate to contact the office. Medications Discontinued During This Encounter clobetasol 0.05 % ointment 15 g 1 01/02/2013 03/07/2018 Route: TOPICAL Sig: Apply 1 application to affected area as directed. Use pea-sized amount. BID for 4 weeks, then daily x 2 weeks then twice weekly. Patient not taking: Reported on 03/07/2018 Disc: Reason for discontinue is not on file. Encounter Status:Closed by INOCENCIA HERRERA on 03/07/18 PROGRESS Observed: 03/07/2018 Status: COMPLETED Source: [place] 2:53 PM [facility] REPOSIT[facility] HNO ID: [id number] Author: Inocencia Connors) Sharon Service: (none) Author Type: Nurse Practitioner Type: Progress Notes Filed: 03/07/2018 3:47 PM Note Text: 57 year old who presents with complaints of postmenopausal bleeding. LMP: No LMP recorded. Patient is postmenopausal. no menses - postmenopausal Heavy bleeding? No Intermenstrual bleeding/spotting? Yes Dysmenorrhea? No History of fibroids? No History of endometrial polyps? No Sexually active: No PAST MEDICAL HISTORY Diagnosis Date - NEGATIVE MEDICAL HISTORY PAST SURGICAL HISTORY Procedure Laterality Date - NONE FAMILY HISTORY Problem Relation Age of Onset - other (Heart problem [Other]) Father - other (Ascending aorta [Other]) Mother SOCIAL HISTORY Social History Substance Use Topics - Smoking status: Never Smoker - Smokeless tobacco: Never Used - Alcohol use Yes Comment: occasion use REVIEW OF SYSTEMS No recent weight gain or weight loss. Abdomen: No abdominal pain, nausea, vomiting, diarrhea, or constipation. No bloating, early satiety, indigestion, or increased flatulence. Bladder: No dysuria, gross hematuria, urinary frequency, urinary urgency, or incontinence. EXAM: Wt 316 lb 9.6 oz (143.6kg) GENERAL: pleasant, female in no apparent distress CHEST: Normal inspiratory effort PELVIC: external genitalia normal, normal Bartholin's glands, urethra, Kittitas's glands, no vulvar lesions, no cervical lesions, physiologic discharge present, normal appearing perineal body and perianal region, cervical prolapse 2nd degree BIMANUAL: deferred RECTOVAGINAL: deferred. NEURO: alert and oriented x3,exam grossly non-focal ASSESSMENT: -postmenopausal bleeding possible related to cervical polyp PLAN: Endometrial biopsy Pelvic ultrasound Attempt to remove cervical polyp Inocencia Herrera APRN.ROBERTO Sandhu is a 57 year old female who presents today for an endometrial biopsy for post menopausal bleeding. test: n/a UNIVERSAL PROTOCOL / SAFETY CHECKLIST Procedure to be performed: EMB Sign in Communication: Completed Time Out: Team Confirms the Correct Patient, Correct Procedure, Correct Site and Site Marking, Correct Position (if applicable), Prep and Dry Time (if applicable). Time: 1513 Affirmation of Time Out: YES Sign Out Discussion: Completed Yancy Reese LPN PROCEDURE: EXTERNAL GENITALIA: Normal in appearance without lesions VAGINA: cervical polyp noted BIOPSY: Speculum placed into the vagina with excellent visualization of the cervix. Cervix cleaned with betadine. Anterior lip of cervix grasped with single toothed tenaculum. Uterus sounded to 9 cm. Pipelle inserted into the uterus without difficulty and endometrial biopsy obtained. Specimen labeled and sent to pathology. Hemostasis achieved. Procedure Summary: Patient tolerated procedure well. ASSESSMENT: post menopausal bleeding, unable to remove cervical polyp PLAN: Specimens labeled and sent to Pathology. Will notify patient of results in 1-2 weeks. Post-procedure instructions reviewed and written material given to the patient. Pelvic ultrasound for PMB and cervical polyp Inocencia Herrera APRN.ROBERTO SOFT TISSUE NECK WITH Observed: 11/03/2017 Status: F Source: [place] CONTRAST 4:36 PM [facility] RE[facility] Imaging Services [address] [place] [id number] Soft Tissue Neck WITH Contrast MR#: [id number] Acct: [id number] Name: LIZ SANDHU Rep #: [id number] : 1960 F 57 From: Claudia Remy PCP: Kristen Martinez DO Status: REG CLI Study: Soft Tissue Neck WITH Contrast Date of Exam: 11/03/17 Exam# [id number] Ordering Dr: Morena Martinez SOFTWARE QUALITY ASSURANCE ENGINEER-C STUDY: CT SOFT TISSUE NECK WITH CONTRAST REASON FOR EXAM: Female, 57 years old. Right clavicular enlargement x 1 month. No prior surgery, cancer, diabetes or hypertension.. RADIATION DOSAGE (If Supplied By Facility): CTDIvol = ( 27.75 ) mGy, DLP = ( 880.15 ) mGycm TECHNIQUE: The patient was scanned in a multi-detector CT scanner. High resolution transaxial imaging was performed following intravenous administration of 100mL ml of Isovue 300 contrast material. Sagittal and coronal images were reconstructed. Individualized dose optimization techniques were used for this CT. COMPARISON: None. FINDINGS: Normal bilateral parotid glands. Normal bilateral wildlife and game protector spaces. Normal bilateral parapharyngeal spaces. Normal bilateral carotid spaces. Normal bilateral sublingual and submandibular glands and spaces. Normal visualized nasopharynx. Normal retropharyngeal space. Normal perivertebral space. Normal visualized bilateral faucial tonsils. The visualized tongue, tongue base and oropharynx are normal. The visualized cervical lymph nodes (levels I-) are within normal size limits, and maintain normal morphology. There is no demonstrated solid or cystic mass lesion. There is no abnormal contrast enhancement. Normal epiglottis, bilateral vallecula and hypopharynx. The pre-epiglottic and paraglottic adipose spaces are normal. Normal visualized bilateral piriform sinuses, aryepiglottic folds, vocal cords, and arytenoid-cricoid articulations. Normal subglottic trachea. Normal bilateral lobes of the thyroid gland. Normal visualized pulmonary apices. Normal visualized paranasal sinuses. There is multilevel degenerative changes of the cervical spine. There is degenerative changes of the right clavicular manubrial junction. CT/Soft Tissue Neck WITH Contrast IMPRESSION: No masses or lymphadenopathy. Electronically Signed: Claudia Remy MD at 15:55 EDT Tel , Service support , CC: ALVIN Martinez; Kristen Martinez DO Director Of Rehabilitative Services: Signed HEAD/NECK SOFT TISSUE Observed: 10/17/2017 Status: F Source: [place] 4:03 PM [facility] RE[facility] Imaging Services [address] [place] [address] Head/Neck Soft Tissue MR#: [id number] Acct: [id number] Name: LIZ SANDHU Rep #: [id number] : 1960 F 57 From: Patel Hinds PCP: Kristen Martinez DO Status: REG CLI Study: Head/Neck Soft Tissue Date of Exam: 10/17/17 Exam# [id number] Ordering Dr: Morena Martinez STUDY: THYROID ULTRASOUND REASON FOR EXAM: Female, 57 years old. Right supraclavicular neck mass. Mass palpable. TECHNIQUE: Ultrasound evaluation of the thyroid was performed with real-time and static strauss-scale imaging. COMPARISON: Right clavicle October 12, 2017. FINDINGS: There is a palpable abnormality overlying the head of the clavicle/supraclavicular region, in correlation with the drawling made by the hot bread baker, and the position of the the BB marker noted on the right clavicle series. No mass or cyst identified. Subjectively the hot bread baker reported irregular appearance of the right-sided soft tissue when compared to the contralateral side. US/Head/Neck Soft Tissue IMPRESSION: No mass or cyst medial right supraclavicular region. Consider correlation with CT of the neck with contrast, if not contraindicated. Electronically Signed: Patel Hinds MD at 5:17 EDT , Service support , CC: ALVIN Martinez; Kristen Martinez DO Director Of Rehabilitative Services: Signed CLAVICLE Observed: 10/12/2017 Status: F Source: [place] 7:53 AM [facility] RE[facility] Imaging Services [address] [place] [address] Clavicle MR#: [id number] Acct: [id number] Name: LIZ SANDHU Rep #: [id number] : 1960 F 57 From: Jennifer Galindo MD PCP: Kristen Martinez DO Status: REG CLI Study: Clavicle Date of Exam: 10/12/17 Exam# [id number] Ordering Dr: Morena Martinez STUDY: X-RAY - RIGHT CLAVICLE REASON FOR EXAM: Female, 57 years old. Mass of the anterior base of the neck. TECHNIQUE: 3 view(s) of the clavicle. COMPARISON: None. FINDINGS: Normal clavicle. Normal acromioclavicular articulation. Normal visualized sternoclavicular articulation. Normal visualized pulmonary apex. RAD/Clavicle IMPRESSION: No apparent bony abnormality of the clavicle or ribs in the rymzv-ly-jfor. The sternoclavicular joint is a difficult joint to assess on plain film radiography. If pathology of that joint is suspected, arthritic changes such as protruding hypertrophic osteophytes, joint alignment, etc. are better imaged on CT exam. Electronically Signed: Jennifer Galindo MD at 20:42 EDT , Service support , CC: ALVIN Martinez; Kristen Martinez DO Director Of Rehabilitative Services: Signed ALLERGIES ALLERGIES DATE TYPE / CODE NAME / CODE REACTION SEVERITY SOURCE 03/27/2018 Drug No Known Unknown [facility] Allergy/416 Allergies/E51182 Hospital 019494(SNOM 0388(RXNORM) Repository ED CT) Drug NO KNOWN [facility] Class/63617 ALLERGIES [address] [place] 1003(SNOMED Repository CT) ENCOUNTERS ENCOUNTERS ADMIT/DISCHARGE ACCOUNT ADMITTING ENCOUNTER LOCATION SOURCE NUMBER CLASS 04/13/2018/04/16/19 [id number] Ambulatory [address] [place] Repository 04/13/2018 7788 Ambulatory Building:[facility] [place] Practices Repository 04/02/2018 [id number] [facility] ing:OPUS Repository 03/29/2018/03/29/[id number] ing:SDCRoom: Repository AC06 03/27/[id number] [facility] ing:OPBD Repository 03/19/2018/03/20/20 [id number] Ambulatory [address] Repository 03/08/2018/03/08/20 [id number] Ambulatory [address] Repository 03/07/2018/03/08/20 [id number] Ambulatory [address] Repository 11/03/[id number] [facility] ing:CT Repository 10/17/2017 [id number] [facility] ing:US Repository 10/12/[id number] [facility] ing:HPRAD Repository PAYERS PAYERS ENCOUNTER GUARANTOR PAYER SUBSCRIBER SOURCE 04/13/2018 Liz Dick [place] Practices GasserDOB: Insurance:Medical GasserDOB: Repository [id number] [facility] [id number] Long Number: [place], [place] [id number] [place], [place] [address]Est: 330) Date: [address]Szd: [id number] [phone] (HP) (HP)Tel: ([phone]) Name:[facility] [phone] () [address], [place] [id number]: 04/13/2018 Secondary Liz MCKENZIE Practices Insurance:Medical GasserDOB: Repository [facility] [id number] Number: 1 Long [id number] [place], [place] Date:2006-04-10 36311Vzn: [id number] ~(3 Name:[facility] [address] () [address] [place] [address] [id number]: 04/02/2018 LIZ Sequeira Primary JOMAR Dickinson [id number] LONG Insurance:[facility] GASSERDOB: [facility] [address]Smfqac [id number] [address]Tel: (330) Number: Repository [phone] () [id number] Date:[id number] [address]BB: 04/02/2018 Secondary NOT GIVENUNK [place] Insurance:SELF PAY [facility] Number: Effective Repository Date:2018-03-28 03/29/2018 LIZ Sequeira Primary JOMAR Dick [place] [id number] LONG Insurance:[facility] GASSERDOB: [facility] [address]Vzocep [id number] [place]ille [id number]: [phone] Number: Repository [phone] () [id number] Date:[id number] [address]TM: 03/29/2018 Secondary NOT GIVENUNK Alok Insurance:SELF PAY [facility] Number: Effective Repository Date:2018-03-21 03/27/2018 LIZ Sequeira Primary JOMAR A Alok [id number] LONG Insurance:UNITED TH GASSERDOB: [facility] [address]Mwakkc [id number] Ville [id number]: [phone] Number: Repository [phone] () [id number] Date:[id number] [address]IC: 03/27/2018 Secondary NOT GIVENUNK Grannis Insurance:SELF PAY [facility] Number: Effective Repository Date:2018-01-24 11/03/2017 LIZ Sequeira Primary JOMAR A Grannis [id number] LONG Insurance:UNITED HLTH GASSERDOB[facility] [place] [id number] [id number] [place]ille [id number]: [phone]) Number: Repository [phone] () [id number] Date:[id number] [address] [address]IW: 11/03/2017 Secondary NOT GIVENUNK Alok Insurance:SELF PAY [facility] Number: Effective Repository Date:2017-10-19 10/17/2017 LIZ Sequeira Primary JOMAR A Grannis [id number] LONG Insurance:UNITED HLTH GASSERDOB: [facility] [id number] [id number] [address]Ext: [phone] Number: Repository [phone] () [id number] Date:[id number] [address]PK: 10/17/2017 Secondary NOT GIVENUNK Grannis Insurance:SELF PAY [facility] Number: Effective Repository Date:2017-10-13 10/12/2017 LIZ Sequeira Primary JOMAR A Grannis [id number] LONG Insurance:UNITED TH GASSERDOB: [facility] [id number] [id number] [address]Kwu: [phone]) Number: Repository [phone] () [id number] Date:[id number] [address]WP: 10/12/2017 Secondary NOT GIVENUNK Alok Insurance:SELF PAY [facility]: Effective Repository Date:2017-10-12
== END ==
PROVIDERS: Family Provider Internal Medicine; PCP Internal Medicine; Referring Provider Internal Medicine; Visit Provider Internal Medicine
DX: Z12.31 Encounter for screening mammogram for malignant neoplasm of breast (principal); Z78.0 Asymptomatic menopausal state
CPT/HCPCS: 77063; 77067; 77080

== ENCOUNTER 2018-03-29 10:58 | Day surgery (SDC) | payer OTHER, SELFPAY ==
[2018-03-27 15:47] LABS: Hematocrit 43.5 % (37-47); Hemoglobin 14.1 g/dl (12.0-15.0); Mean Corp Hgb Conc 32.4 g/gl (32-36); Mean Corpuscular Hgb 30.1 pg (27.0-32.0); Mean Corpuscular Volume 92.8 fL (81-99); Mean Platelet Vol. 10.9 fl (6.2-12.0); Platelet Count 268 K/mm3 (150-450); RBC Distribution Width CV 14.3 % (11.6-14.6); RBC Distribution Width SD 48.4 fl (35.1-43.9); Red Blood Count 4.69 M/mm3 (4.2-5.4)
[2018-03-27 15:49] LABS: Scan Indicated on CBC? Y/N NO
[2018-03-29 11:42] VITALS: BP 153/95; PULSE 73; RESP 16; TEMP 36.2; O2SAT 95; BMI 48.4
--- NOTE | 2018-03-29 12:16 | DCINST_ITS ---
Discharge Diet: No Restrictions Discharge Activity: Return to Normal Activity, May Shower, May Take a Tub Bath - in 2 weeks. Allergies/Adverse Reactions: Allergies No Known Allergies Allergy (Verified 03/27/18 09:45) Medications to take at Discharge NK 03/27/18 Primary Care Physician: Kristen Martinez DO [Primary Care Provider] - Test Results: Test results from this visit will be discussed in further detail at your follow- up appointment, if applicable.
--- NOTE | 2018-03-29 12:45 | EMB_PTH ---
PATIENT: BRITT[place] SANDHU [place] [facility] [id number] AGE/SX: 57/F ROOM: RE03/29/[address]: Dr. Antonella Potts, MDDOB: 1960 BED: DIS: 03/29/2018 SPEC #: [id number] RECD: 03/29/18 15:06 STATUS: BRICE ANDREW #: [id number] ERIN: 03/29/18 12:[address]: Antonella Potts DEPT: SURGICAL PATHOLOGY RECD BY: Sabino Umaña ENTERED: 03/30/18 12:28 SP TYPE: ENDOM BX/C OTHR DR: Dr. Kristen Martinez, Tissues: A - Endometrium, NOS B - Endocervical Procedures: Surgery Specimen Level IV HEADER OPERATION: Hysteroscopy, D & C, polypectomy with Symphion PRE-OP DIAGNOSIS: Endometrial polyp; postmenopausal bleeding TISSUE SUBMITTED: A - Endometrial curettings, B - Endocervical polyp MICROSCOPIC DIAGNOSIS A. Endometrial curettings: Proliferative endometrium. Fragments of benign endocervical epithelium. B. Endocervical polyp: Fragments of leiomyoma with hyalinization. Fragments of benign endometrial tissue. Fragments of benign endocervical mucosa. See comment. HERBERTH:nevaeh 04/02/18 COMMENT B. The lesion may represent fragments of submucosal leiomyoma. MICROSCOPIC DESCRIPTION Slides are reviewed. GROSS DESCRIPTION A - Received in fixative is one container labeled with the patient's name and designated endometrial curettings. The specimen consists of multiple fragments of [place] hemorrhagic soft tissue that in aggregate measure 2 x 1.5 x 0.1 cm. The specimen is totally submitted in one cassette. B - Received in fixative is one container labeled with the patient's name and designated endocervical polyp. The specimen consists of multiple irregular fragments of [place], indurated tissue that in aggregate measure 3 x 2.5 x 0.3 cm. The entire specimen is submitted in one cassette. / HERBERTH:nevaeh 03/30/18 TC:1 CPT: 26529 x2
--- NOTE | 2018-03-29 12:58 | OP.PCM_ITS ---
Report of Operation Date of Procedure: 03/29/18 Pre-Operative Diagnosis: pmb, endocervical polyp Post-Operative Diagnosis: same Surgery/Procedure Performed:: hysteroscopy, D&C, polypectomy with symphion Description of Surgical Findings:: uterine cavity 8cm, large endocervical polyp appreciated. both tubal ostia visualized. Type of Anesthesia:: MAC Specimen's removed: ECC, endocervical polyp Drains: none Estimated Blood Loss (mL): 5 Fluids Replaced: 800 Description of Procedure: Informed consent was obtained the patient was taken the operating room she was placed in supine position. She was given anesthesia. She was then placed in the [facility] where she was prepped and draped in the normal sterile fashion. bladder drained 25cc urine. At this time the weighted speculum was placed in the posterior fornix of vagina. Single-tooth tenaculum was used to gently grasp the anterior lip the cervix. At this time the uterine cavity was sounded to approximately 8cm. Gentle dilatation was performed once adequate dilatation of the cervix was achieved the hysteroscope using normal saline as a distention medium was placed. large endocervical polyp noted. both tubal ostia visualized. Otherwise no gross abnormalities. This time hysteroscopy was complete. operative symphion resecting device used to removed endocervical polyp down to base. next gentle sharp curettage was performed- scant amt of tissue expelled. This will be sent to pathology for evaluation. Procedure was deemed complete successful there are no complications. Anticipated normal postoperative course. Instrument lap count correct ?2. fluid deficit 100cc. Vaginal Sweep was negative. Grafts/Implants Used: none - Complications none - Admit VTE Documentation VTE Present on Admission: Yes VTE Mechan Device Prophylaxis: SCD's VTE Pharm Prophylaxis ordered?: No
[2018-03-29 13:05] VITALS: BP 146/90; BP 153/89; PULSE 64; RESP 16; TEMP 36.6; O2SAT 99
[2018-03-29 13:10] VITALS: BP 138/99; BP 153/89; PULSE 57; RESP 16; O2SAT 100
[2018-03-29 13:15] VITALS: BP 149/88; BP 153/89; PULSE 59; RESP 16; O2SAT 100
[2018-03-29 13:20] VITALS: BP 134/86; BP 153/89; PULSE 51; RESP 16; TEMP 36.6; O2SAT 100
[2018-03-29 14:20] VITALS: BP 153/89
== END 2018-03-29 14:21 | disposition home or self-care (01) ==
LOC: SDC 10:59 → AC 11:00
PROVIDERS: Family Provider Internal Medicine; PCP Internal Medicine; Referring Provider Obstetrics & Gynecology; Visit Provider Obstetrics & Gynecology
PROC: 0UB98ZZ Excision of Uterus, Via Natural or Artificial Opening Endoscopic (ICD-10-PCS; CPT 58558; principal; 2018-03-29 12:35)
DX: D25.9 Leiomyoma of uterus, unspecified (principal)
CPT/HCPCS: 58558; 36415; 85027; 88305; J7120

== ENCOUNTER → 2018-04-02 10:20 | Outpatient (CLI) | payer OTHER, SELFPAY ==
[2018-03-29 11:42] VITALS: BMI 48.4
--- NOTE | 2018-04-02 10:22 | US_ITS ---
STUDY: ULTRASOUND BREAST - RIGHT REASON FOR EXAM: Female, 57 years old. TECHNIQUE: Axial and longitudinal images of the RIGHT breast were performed with a high resolution ultrasound transducer. COMPARISON: None. FINDINGS: RIGHT Breast: There is a 0.38 x 0.22 x 0.32 cm hypoechoic slightly irregular lesion at 3:00 o'clock on the right side There is severe 0.35 x 0.34 x 0.4 cm hypoechoic lesion around 10:00 on the left without posterior enhancement or shadowing. Both could be cystic in nature. IMPRESSION: tiny hypoechoic areas in the right and left breast as described above may be cystic in nature follow-up is needed Electronically Signed: John Enriquez, at 16:22 EST Tel , Service support , US/Breast Complete Bilateral
== END ==
PROVIDERS: Family Provider Internal Medicine; PCP Internal Medicine; Referring Provider Internal Medicine; Visit Provider Internal Medicine
DX: R92.2 Inconclusive mammogram (principal)
CPT/HCPCS: 76641

== ENCOUNTER → 2018-09-26 | Outpatient (CLI) | payer OTHER, SELFPAY ==
--- NOTE | 2018-09-26 13:57 | US_ITS ---
STUDY: ULTRASOUND BREAST - RIGHT REASON FOR EXAM: Female, 58 years old. Follow-up for bilateral breast cysts. TECHNIQUE: Axial and longitudinal images of the RIGHT breast were performed with a high resolution ultrasound transducer. COMPARISON: Comparison is made with prior ultrasound of the right breast dated April 02, 2018. FINDINGS: RIGHT Breast: There is a 5 mm x 5 mm x 3 mm cyst at the 3:00 position of the breast at 3 cm from the nipple. This is unchanged. Retroareolar ductal dilatation. IMPRESSION: Stable cyst in the dilatation of the retroareolar ducts. ASSESSMENT CATEGORY: BIRADS Category 2: Benign. A letter regarding these results will be sent to the patient by the facility within 30 days. Electronically Signed: Prakash Rob, at 15:25 EDT , Service support , STUDY: ULTRASOUND BREAST - LEFT REASON FOR EXAM: Female, 58 years old. Follow-up examination. TECHNIQUE: Axial and longitudinal images of the LEFT breast were performed with a high resolution ultrasound transducer. COMPARISON: None. FINDINGS: LEFT Breast: There is a 3 mm x 3 mm x 2 mm cyst at the 10:00 position the breast at 5 cm from the nipple. Dilated ducts. US/Breast Limited Unilateral IMPRESSION: 3 mm x 3 mm x 2 mm cyst at the 10:00 position of the breast at 5 cm from the nipple. Dilated retroareolar ducts. ASSESSMENT CATEGORY: BIRADS Category 2: Benign. A letter regarding these results will be sent to the patient by the facility within 30 days. Electronically Signed: Prakash Rivas, at 15:27 EDT , Service support ,
== END | disposition home or self-care (01) ==
PROVIDERS: Family Provider Internal Medicine; PCP Internal Medicine
DX: R92.8 Other abnormal and inconclusive findings on diagnostic imaging of breast (principal)
CPT/HCPCS: 76642

== ENCOUNTER 2021-01-13 16:07 | Emergency (ER) | payer OTHER, SELFPAY ==
[2021-01-13 16:08] VITALS: BP 148/95; PULSE 87; RESP 16; TEMP 36.8; O2SAT 100; BMI 45.6
--- NOTE | 2021-01-13 16:21 | EX.ED.DYSGE1 ---
HPI History of Present Illness Chief Complaint: Allergic Reaction Informant: patient Onset/Context/Timing Onset: Today and Hours (1) Context: Sudden Onset Timing: Continuous Quality: Swelling Location: Tongue Worsened by: Nothing Relieved by: Nothing Narrative Narrative: Patient presents with tongue swelling that began today. Patient states it began approximate 1 hour prior to arrival. Patient states that is mainly on the right side of her tongue. Patient states she started Bactrim 2 days ago for wound in her left foot. Patient states she is scheduled to see the wound center for that. Patient denies any prior history of allergies to sulfa. Patient denies any difficulty breathing. Patient states that she has some mild difficulty swallowing due to the tongue swelling but she does not feel any swelling in her throat. Patient denies any sore throat. Patient denies any rhinorrhea. Patient denies any nausea vomiting or diarrhea. Patient denies any chest pain. PFSH PFSH Home Medications prednisone 60 mg PO DAILY #15 tablet 01/13/21 [Rx Last Taken Unknown] Allergy/AdvReac Type Severity Reaction Status Date / Time No Known Allergies Allergy Verified 01/13/21 16:11 Surgical History (Updated 01/13/21 @ 16:[address] Bud Grossman DO) History of hysteroscopy Social History Smoking Status: Never smoker ROS ROS ED Constitutional Constitutional ED: Denies chills or fever(s) Eyes Eyes: Denies blurry vision or change in vision ENT ENT ED: Denies rhinorrhea or sore throat Cardiovascular Cardiovascular: Denies chest pain or palpitations Respiratory/Chest Respiratory/Chest: Denies cough or dyspnea Gastrointestinal Gastrointestinal: Denies nausea or vomiting Genitourinary Genitourinary ED: Denies dysuria or hematuria Musculoskeletal Musculoskeletal: Denies back pain or neck pain Integumentary Denies abscess or rash Neurologic Neurologic: Denies headache(s) or weakness Allergic/Immunologic Allergic/Immunologic ED: Reports tongue swelling; Denies mouth swelling or urticaria EXAM Physical Exam Const Vital Signs: 01/13/21 16:08 01/13/21 17:13 01/13/21 17:18 Temperature 98.3 F Temperature Source Temporal Pulse Rate 87 Respiratory Rate 16 Blood Pressure 148/95 H 180/110 H 171/85 H Blood Pressure Mean 112 133 113 Pulse Ox 100 99 99 Oxygen Delivery Method Room Air Room Air 01/13/21 19:27 Temperature Temperature Source Pulse Rate 68 Respiratory Rate Blood Pressure 140/76 H Blood Pressure Mean 97 Pulse Ox 96 Oxygen Delivery Method Room Air Positive well nourished and well developed General Appearance ED: well developed HEENT Reports moist mucous membranes HEENT Narrative: There is some edema over the right side of the tongue. There is no edema on the left side. Oropharynx is clear. Airway is patent. Neck supple and no JVD Extremity normal to inspection Neuro oriented x3, CN's II-XII intact bilaterally and no sensory deficits noted Sensorium / Orientation: alert Motor Exam: strength 5/5 throughout Psych mental status grossly normal MDM MDM MDM Narrative Medical decision making narrative: Patient was given a dose of prednisone here. Patient was observed in the emergency department. Patient's tongue swelling began to improve. Patient is feeling better on reevaluation. Patient was given a prescription for prednisone. Patient was also given a prescription for Keflex and was instructed to stop taking the Bactrim. Patient was instructed to follow-up with her primary care physician in 5 to 7 days. Patient was instructed return if worse in any way. Patient understood and was agreeable with the plan. All questions were answered. Discharge Plan Triage Chief Complaint: Allergic Reaction ED Provider: Bud Grossman Dx/Rx/DC Orders Clinical Impression: Angioedema Instructions: ED Angioedema Prescriptions: New prednisone 20 MG tablet 60 mg PO DAILY Qty: 15 RF: 0 Primary Care Provider: Kristen Martinez Referrals: Kristen Martinez DO [Primary Care Provider] - 5-7 Days Disposition Disposition: Home, Self Care
[2021-01-13] MEDS: predniSONE 20 MG Tablet 60 MG PO (16:25)
[2021-01-13 17:13] VITALS: BP 180/110; O2SAT 99
[2021-01-13 17:18] VITALS: BP 171/85; O2SAT 99
[2021-01-13 19:27] VITALS: BP 140/76; PULSE 68; O2SAT 96
[2021-01-13 19:50] VITALS: BP 150/80; PULSE 74; O2SAT 94
[2021-01-13 20:01] VITALS: BP 150/80; PULSE 67; RESP 16; O2SAT 95
== END 2021-01-13 20:04 | disposition home or self-care (01) ==
PROVIDERS: Emergency Provider Emergency Medicine; PCP Internal Medicine
DX: T78.3XXA Angioneurotic edema, initial encounter (principal); Z79.2 Long term (current) use of antibiotics
CPT/HCPCS: 99283

== ENCOUNTER → 2021-01-23 06:58 | Outpatient (CLI) | payer OTHER, SELFPAY ==
[2021-01-23 07:26] LABS: Absolute Lymphocyte Count 1.84 X10^3/uL (0.83-4.51); Absolute Neutrophil Count 3.2 X10^3/uL (2.0-7.7); Basophil# 0.02 X10^3/uL; Basophil% 0.4 % (0-1); Eosinophils% 3.5 % (0-5); Hematocrit 45.7 % (37-47); Hemoglobin 14.8 g/dL (12.0-15.0); Lymphocyte # 1.84 X10^3/ul (0.83-4.51); Lymphocyte % 32.5 % (19-41); Mean Corp Hgb Conc 32.4 g/dL (32-36); Mean Corpuscular Hgb 30.6 pg (27.0-32.0); Mean Corpuscular Volume 94.4 fL (81-99); Mean Platelet Vol. 10.2 fl (6.2-12.0); Monocyte# 0.39 X10^3/uL; Monocyte% 6.9 % (0-10); NRBC Flagged by Analyzer 0 % (0-5); Neutrophil % 56.5 % (47-70); Platelet Count 296 K/mm3 (150-450); RBC Distribution Width CV 13.9 % (11.6-14.6); RBC Distribution Width SD 48.4 fl (35.1-43.9); Red Blood Count 4.84 M/mm3 (4.2-5.4); White Blood Count 5.7 K/mm3 (4.4-11.0)
[2021-01-23 07:51] LABS: ALB/GLOB Ratio 0.8 RATIO (0.9-2.4); AST(SGOT) 25 U/L (15-37); Alanine Aminotransfer ALT/SGPT 37 U/L (13-56); Albumin, Serum 3.3 g/dL (3.2-5.0); Alkaline Phosphatase 64 U/L (45-117); Anion Gap 6 (5-15); BUN 16 mg/dL (7-18); BUN/Creat Ratio 15.8 RATIO (10-20); CRP 3.74 mg/L (0.0-3.0); Calcium,Total 8.8 mg/dL (8.5-10.1); Chloride 109 mmol/L (98-107); Creatinine, Serum 1.01 mg/dL (0.55-1.02); EST Glomerular Filtration Rate 59 mL/min (>60); Est Glom Filt Rate - Afr Amer 72 mL/min (>60); Glucose 108 mg/dL (74-106); Potassium 4.3 mmol/L (3.5-5.1); Prealbumin 18.5 mg/dL (20.0-40.0); Protein, Total 7.3 g/dL (6.4-8.2); Rheumatoid Factor < 10.0 IU/mL (<15); Sodium Level 141 mmol/L (136-145); Thyroid Stim Hormone (TSH) 9.76 uIU/mL (0.358-3.74); Uric Acid 5.6 mg/dL (2.6-6.0)
[2021-01-23 08:01] LABS: Erythrocyte Sedimentation Rate 15 mm/hr (0-30)
[2021-01-23 08:12] LABS: Hemoglobin A1c 5.6 % (3.8-5.6)
[2021-01-26 17:06] LABS: ANTINUCLEAR ANTIBODIES DIRECT Negative (Negative)
== END ==
PROVIDERS: PCP Internal Medicine; Visit Provider Family Medicine
DX: L97.929 Non-pressure chronic ulcer of unspecified part of left lower leg with unspecified severity (principal); L97.919 Non-pressure chronic ulcer of unspecified part of right lower leg with unspecified severity
CPT/HCPCS: 36415; 80053; 83036; 84134; 84443; 84550; 85025; 85652; 86038; 86140; 86225; 86235; 86431

== ENCOUNTER 2021-02-05 10:45 | Outpatient (RCR) | payer OTHER, SELFPAY ==
[2021-01-15 08:29] VITALS: BP 159/99; PULSE 102; RESP 18; TEMP 36.4; BMI 45.6
--- NOTE | 2021-01-15 13:14 | HP.PCM_ITS ---
History of Present Illness Date of Service: 01/15/21 Chief Complaint: nonhealing wounds to B/L lower legs History of Wound: Liz is a 60 yo pleasant woman that presents to the wound healing center today for evaluation and treatment of nonhealing wounds to her bilateral lower legs referred by her PCP Dr. Martinez. Liz states that these have been present since November. They started as mosquito bites and have never really healed. She continues to keep developing blisters and then areas that scab and then seem to heal but new areas develop. She was initially treated with cefdinir and did not have any improvement. She then was treated with Bactrim which caused her tongue to swell after 2 doses. She was treated for allergic reaction with prednisone and was referred here for further evaluation and treatment. Liz denies any previous history of having problems healing and also does not take any daily medications or have a history of any chronic medical conditions. She is active and works at [employer]. Spends a lot of time gardening and mowing. She denies use of chemicals or changes to skin products. She has tried applying triple antibiotic ointment, salves and vaseline to the areas without any improvement. She washes daily with antibacterial soap. She denies any fever, chills, odor or increased erythema. [facility] Medical History (Updated 01/15/21 @ 13:[address] Itzel Fisher DO) Angioedema Allergy/AdvReac Type Severity Reaction Status Date / Time sulfamethoxazole Allergy Swelling Verified 01/15/21 08:28 [From Bactrim] trimethoprim [From Bactrim] Allergy Swelling Verified 01/15/21 08:28 Surgical History History of hysteroscopy Social History Smoking Status: Never smoker ROS Constitutional Constitutional: Denies chills, fatigue, fever(s) or weakness Eyes Eyes: Denies blurry vision or loss of vision ENT HEENT: Denies dizziness, ear pain or headache(s) Cardiovascular Cardiovascular: Denies chest pain or edema Respiratory/Chest Respiratory/Chest: Denies cough or dyspnea Gastrointestinal Gastrointestinal: Denies abdominal pain, diarrhea, nausea or vomiting Musculoskeletal Musculoskeletal: Denies difficulty walking, extremity pain or numbness Integumentary Integumentary: Reports skin ulcer and wounds; Denies unusual bruising Neurologic Neurologic: Denies dizziness or headache(s) Psychiatric Psychiatric: Denies anxiety, depression or suicidal ideation Endocrine Endocrinology: Denies cold intolerance or heat intolerance Hematologic/Lymphatic Hematologic/Lymphatic: Denies easy bleeding or easy bruising Vital Signs Vital Signs Vital Signs: 01/15/21 08:29 Temperature 97.5 F L Temperature Source Temporal Pulse Rate 102 H Respiratory Rate 18 Blood Pressure 159/99 H Blood Pressure Mean 119 Blood Pressure Source Monitor Blood Pressure Position Semi-Fowlers Blood Pressure Location Left Arm Weight Weight: 136.078 kg Body Mass Index (BMI) 45.6 Physical Exam Const alert, oriented x3 and no apparent distress General Appearance: cooperative and comfortable HEENT normocephalic and head/scalp atraumatic Mouth: oral and palatal mucosa normal Eyes General Eye: normal appearance of both eyes Lymph Lymphatic: no lymphedema noted Resp normal respiratory effort Effort and Inspection: able to speak in complete sentences Auscultation: clear to auscultation bilaterally Cardio regular rate and regular rhythm GI soft to palpation Inspection: central obesity Extremity normal capillary refill General Extremity: edema bilateral lower extremity Details: mild Skin General Skin Exam: eschar and other pustular lesions b/l lower legs Neuro oriented x3 and no focal motor deficits Psych mental status grossly normal, thought process normal, cooperative and affect normal Debridement Note Debridement Note Wound debrided: right calf cluster Laterality: Right Type of Debridement: Excisional debridement Anesthesia Used: 4% Lidocaine Solution Depth: Down to and including healthy tissue and in the subcutaneous layer Percentage of wound debrided: 100 Instrument Used: 3mm curette Tissue Removed: Yellow slough, devitalized tissue Severity: Fat Layer Exposed Amount of bleeding with debridement: Mild Bleeding Controlled with: Compression and gauze Patient tolerated procedure: Patient tolerated procedure well Post-Debridement Measurements and Additional Note: Post-Debridement Measurements/Treatment - Nurse 1 - General Ulcer Assessment Start: 01/15/21 08:27 Freq: Status: Active Protocol: NATHALIE Activity Type Activity Date Activity User E-Sign Co-Sign Detail Recorded Client Recorded Date Recorded By Document 01/15/21 08:29 RB [id number] 01/15/21 08:37 RB 01/15/21 08:29 - Today's Visit Information Type of service Initial Visit Arrival Mode Ambulatory Transfer Assistance None Patient Identification Verified (Name & Yes ) Patient Requires Transmission-Based No Precautions Height and Weight Height 5 ft 8 in Weight 136.078 kg Weight in Pounds 300.0 lbs Body Mass Index (BMI) 45.6 BMI Classification Obese BSA - Laure 2.43 Vital Signs Temperature (97.8 F-99.1 F) 97.5 F L Temperature Source Temporal Pulse Rate (60-100) 102 H Pulse Location Monitor Respiratory Rate (12-18) 18 Respiratory rate source Observation Blood Pressure (90/60-120/80) 159/99 H Blood Pressure Mean 119 Source Monitor Position Semi-Fowlers Blood Pressure Location Left Arm History Since Last Visit- (Skip if this is Patient's initial visit) Have you changed medications since your No last visit? Any new allergies or adverse reactions No Had a fall/change in ADL's that may No increase risk of falls Signs or symptoms of abuse and/or No neglect since last visit Have you been in the hospital since your No last visit? Has dressing in place as prescribed Yes Has compression in place as prescribed No Has offloadiing in place as prescribed No Experienced any changes in pain level or No management Pain Scale: 0-10 Numeric Is Patient Pain Free? Yes Lower Extremity Assessment/ Foot Assessment/ Toe Nail Assessment Right -Posterior Tibial Palpable Yes -Posterior Tibial Doppler Multiphasic -Dorsalis Pedis Palpable Yes -Dorsalis Pedis Doppler Multiphasic -Extremity Color Normal -Hair Growth on Legs Yes -Hair Growth on Toes Yes -Temperature of Extremity Warm -Capillary Refill Less than 3 Seconds -Dependent Rubor No -Blanched when Elevated No -Lipodermatosclerosis No -Other Deformity No -Prior Foot Ulcer No -Charcot Joint No -Prior Amputation No -Thick No -Discolored No -Deformed No -Improper Length & Hygeine Yes Left -Posterior Tibial Palpable Yes -Posterior Tibial Doppler Multiphasic -Dorsalis Pedis Palpable Yes -Dorsalis Pedis Doppler Multiphasic -Extremity Color Normal -Hair Growth on Legs Yes -Hair Growth on Toes Yes -Temperature of Extremity Warm -Capillary Refill Less than 3 Seconds -Dependent Rubor No -Blanched when Elevated No -Lipodermatosclerosis No -Other Deformity No -Prior Foot Ulcer No -Charcot Joint No -Prior Amputation No -Thick No -Discolored No -Deformed No -Improper Length & Hygeine Yes Neuropathy Assessment Feet - Top Side and Bottom <Entered> (a) Communication Assessment Preferred language Lithuanian Inspector Poising Required No Able to Read Yes Able to Write Yes Communication Tools None Caregiver Communication Skills No Impairment Impairment Right Hearing Abillity Normal Left Hearing Abillity Normal Visual Assistive Devices Glasses, Contacts Teaching Assessment Preferences Verbal,Written, Audio/Visual Barriers to Learning None Willingness to Engage in Self Management Med Activies Readiness to Engage in Self Management Med Activities Anxiety Level Calm Cooperation Cooperative Perception Coherent Interest in Health Problem Asks Questions Education Importance Acknowledges Need Does Patient Smoke tobacco or other No substances Smoking Status Never smoker Is Patient Diabetic No Functional Assessment Recent Decline in Ability to Perform Denies Any Declines Culture/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 Customer Service Cashier to contact place of restorationism No Teaching: Wound Center *Welcome to the Wound Center -Person Taught Patient -Teaching Method Discussion, Demonstration -Response to teaching Verbalize understanding (a) 1 - + throughout - Nurse 1 - General Ulcer Measurement Start: 01/15/21 08:27 Freq: Status: Active Protocol: Activity Type Activity Date Activity User E-Sign Co-Sign Detail Recorded Client Recorded Date Recorded By Document 01/15/21 08:29 RB [id number] 01/15/21 08:37 RB 01/15/21 08:29 Wound Center Nurse 1 Lower Limb Edema Present Yes Right Calf (cm) 59.7 Point of Measurement (cm from the medial 25.7 instep) Left Calf (cm) 55 Left Ankle (cm) 26.3 - Nurse 2 - General Ulcer CM Notes Start: 01/15/21 08:27 Freq: Status: Active Protocol: Activity Type Activity Date Activity User E-Sign Co-Sign Detail Recorded Client Recorded Date Recorded By Document 01/15/21 08:50 MW [id number] 01/15/21 09:05 MW 01/15/21 08:50 Wound Center Nurse 2 #2 right calf cluster -Time 09:04 -Correct Patient Yes -Correct Side, Site, Position Yes -Correct Procedure Yes -Procedure Performed Yes -Type of Procedure Debridement -Clinical Debridement Subcutaneous -Tissue Removed Subcutaneous -Post Debridement (cm) - Length 0.7 -Post Debridement (cm) - Width 0.8 -Post Debridement (cm) - Depth 0.1 -Total Square (Post) (cm) 0.56 -Area of Debridement (cm) - Length 0.7 -Area of Debridement (cm) - Width 0.8 -Total Square (Area) (cm) 0.56 -Tunneling No -Undermining/Tunneling No -Circular Undermining No -Wound/Ulcer Outcome Not Healed -Ulcer Cleansing Rinsed/ Irrigated with Saline -Foul Odor after Cleansing No -Bioengineered Tissue No -Bleeding Controlled with Pressure -Offloading No -Treatment Response Procedure Tolerated Well -Debridement - Subq, 1st 20sq cm No #1 left leigh cluster -Time 09:03 -Correct Patient Yes -Correct Side, Site, Position Yes -Correct Procedure Yes -Procedure Performed Yes -Type of Procedure Debridement -Clinical Debridement Subcutaneous -Tissue Removed Subcutaneous -Post Debridement (cm) - Length 6.0 -Post Debridement (cm) - Width 1.0 -Post Debridement (cm) - Depth 0.1 -Total Square (Post) (cm) 6.00 -Area of Debridement (cm) - Length 6.0 -Area of Debridement (cm) - Width 1.0 -Total Square (Area) (cm) 6.00 -Tunneling No -Undermining/Tunneling No -Circular Undermining No -Wound/Ulcer Outcome Not Healed -Ulcer Cleansing Rinsed/ Irrigated with Saline -Foul Odor after Cleansing No -Bioengineered Tissue No -Bleeding Controlled with Pressure -Offloading No -Treatment Response Procedure Tolerated Well -Debridement - Subq, 1st 20sq cm Yes Pain Scale: 0-10 Numeric Is Patient Pain Free? Yes - Nurse 3 - General Ulcer D/C NN Start: 01/15/21 08:27 Freq: Status: Active Protocol: Activity Type Activity Date Activity User E-Sign Co-Sign Detail Recorded Client Recorded Date Recorded By Document 01/15/21 09:20 STEPHANIE [id number] 01/15/21 09:22 STEPHANIE 01/15/21 09:20 Wound Care Nurse 3 Right -Multi-Layered Wrap Application Unna Boot - Right ($) -Compression Wrap Unna Boot ($) ( single) Left -Multi-Layered Wrap Application Unna Boot - Right ($) -Compression Wrap Unna Boot ($) ( single) Pain Scale: 0-10 Numeric Is Patient Pain Free? Yes - Visit Discharge Discharge Condition Stable Ambulatory Status Ambulatory Transportation Private Auto Medication Reconcilliation completed & Yes provided to patient/care provider Clinical Summary of Care Provided Yes Additional Wound Wound debrided: left leigh cluster Laterality: Left Type of Debridement: Excisional debridement Anesthesia Used: 4% Lidocaine Solution Depth: Down to and including healthy tissue and in the subcutaneous layer Percentage of wound debrided: 100 Instrument Used: 3mm curette Tissue Removed: Yellow slough, devitalized tissue Severity: Fat Layer Exposed Amount of bleeding with debridement: Mild Bleeding Controlled with: Compression and gauze Patient tolerated procedure: Patient tolerated procedure well Assessment/Plan Assessment/Plan (1) Venous insufficiency of both lower extremities: CODE(S): I87.2 - Venous insufficiency (chronic) (peripheral) (2) Pustular dermatitis: CODE(S): L30.8 - Other specified dermatitis (3) Nonhealing ulcer of left lower extremity with fat layer exposed: CODE(S): L97.922 - Non-pressure chronic ulcer of unspecified part of left lower leg with fat layer exposed (4) Nonhealing ulcer of right lower extremity with fat layer exposed: CODE(S): L97.912 - Non-pressure chronic ulcer of unspecified part of right lower leg with fat layer exposed (5) Obesity, morbid, BMI 40.0-49.9: CODE(S): E66.01 - Morbid (severe) obesity due to excess calories PLAN: Liz's ulcers were evaluated and debrided today at the wound center as above in the clinical panel. She tolerated the procedure well. Wound culture was taken of the left leigh ulcer and she will be treated with antibiotic based on results. Unsure of the etiology of her skin ulcers/lesions. Possibly folliculitis or pustular dermatitis. Will try treatment with UNNA boot compression and have her come back on Monday for a change in the UNNA boots and to see if she is tolerating them well. She is aware not to get dressings wet. If she is not tolerating them well, then I would recommend treating the ulcers with Promogran and gauze and having her wear tubigrip compression. If there is no improvement with UNNA therapy would recommend biopsy of several lesions and checking labs to evaluate for autoimmune disease, thyroid disorder and diabetes. She was encouraged to increase protein intake in order to promote healing. She was encouraged to elevate her legs at or above the level of her heart when sitting. She was advised to call with any increased pain, erythema, drainage, fever or chills. Will have her follow up in 1 week.
[2021-01-18 15:20] VITALS: BP 156/114; PULSE 100; TEMP 36.2; BMI 45.6
--- NOTE | 2021-01-22 | LES_PTH ---
PATIENT: BRITTANY SANDHU LOC: U#:[id number] AGE/SX: 60/F ROOM: RE02/05/[address]: Dr. Itzel Fisher DO : 1960 BED: DIS: 02/07/2021 SPEC #: [id number] RECD: 01/22/21 10:57 STATUS: BRICE REQ #: [id number] ERIN: 01/22/21 00:[address]: Itzel Fisher DEPT: SURGICAL PATHOLOGY RECD BY: Bandar Das ENTERED: 01/22/21 10:58 SP TYPE: Lesion OTHR DR: Dr. Kristne Martinez DO Tissues: Skin of leg, NOS Procedures: Special Stain Group I Surgery Specimen Level IV AFB Stain (control) GMS Stain (control) HEADER OPERATION: Punch biopsy right calf ulcer PRE-OP DIAGNOSIS: Nonhealing ulcer right calf; pyoderma vs lupus vs SCC TISSUE SUBMITTED: Right calf MICROSCOPIC DIAGNOSIS Skin lesion of right calf, biopsy: Ulceration with associated acute and chronic inflammation and granulation. Fibrinopurulent material. Negative for acid fast bacilli and fungal organisms. See comment. AM:nevaeh 01/25/2021 COMMENT AFB and GMS stains with matched controls were used in the evaluation of this case. MICROSCOPIC DESCRIPTION Slides are reviewed. GROSS DESCRIPTION Received in fixative is one container labeled with the patient's name and designated right calf. The specimen consists of a piece of winchester-pink skin measuring 0.5 x 0.5 x 0.2 cm. The entire specimen is submitted in one cassette. / HERBERTH:nevaeh 01/22/21 TC:2 CPT: 67261, 65175 x2
[2021-01-22 08:46] VITALS: BP 144/98; PULSE 100; RESP 18; TEMP 36.1; BMI 45.6
--- NOTE | 2021-01-22 13:38 | PCM.WC.PN ---
History of Present Illness Date of Service: 01/22/21 Chief Complaint: nonhealing wounds to B/L lower legs History of Wound: Liz is a 60 yo pleasant woman that presents to the wound healing center today for evaluation and treatment of nonhealing wounds to her bilateral lower legs referred by her PCP Dr. Martinez. Liz states that these have been present since November. They started as mosquito bites and have never really healed. She continues to keep developing blisters and then areas that scab and then seem to heal but new areas develop. She was initially treated with cefdinir and did not have any improvement. She then was treated with Bactrim which caused her tongue to swell after 2 doses. She was treated for allergic reaction with prednisone and was referred here for further evaluation and treatment. Liz denies any previous history of having problems healing and also does not take any daily medications or have a history of any chronic medical conditions. She is active and works at [employer]. Spends a lot of time gardening and mowing. She denies use of chemicals or changes to skin products. She has tried applying triple antibiotic ointment, salves and vaseline to the areas without any improvement. She washes daily with antibacterial soap. She denies any fever, chills, odor or increased erythema. Subjective Subjective Liz is seen at the wound healing center today for follow up of nonhealing wounds of her bilateral lower legs. She tolerated treatment with Unna boot therapy for the last week with some improvement in her wounds but generally no change in the measurements of her calves and ankles. Wound culture results were reviewed with her and did not show any infection. She has had occasional pain and itching but no fever, chills or increased drainage or erythema. There are no new wounds since last week. Objective Data Objective Data Vital Signs: Vital Signs Temp Pulse Resp BP 97 F L 100 18 144/98 H 01/22/21 08:46 01/22/21 08:46 01/22/21 08:46 01/22/21 08:46 Weight: 136.078 kg Body Mass Index (BMI) 45.6 Lab / Micro Data Micro: Microbiology 01/15/21 09:00 Wound Abcess - Leg, Left Gram Stain - Final 01/15/21 09:00 Wound Abcess - Leg, Left Wound Culture - Final No growth aerobically. 01/15/21 09:00 Wound Abcess - Leg, Left Anaerobic Culture - Final No growth in 5 days. Physical Exam Const alert, oriented x3 and no apparent distress General Appearance: cooperative and comfortable HEENT normocephalic and head/scalp atraumatic Head and Scalp: normal to inspection and normocephalic Eyes General Eye: normal appearance of both eyes Lymph Lymphatic: no lymphedema noted Resp normal respiratory effort Effort and Inspection: able to speak in complete sentences Auscultation: clear to auscultation bilaterally Cardio regular rate and regular rhythm GI soft to palpation Inspection: central obesity Extremity normal capillary refill General Extremity: edema bilateral lower extremity Details: mild Skin General Skin Exam: dermatitis Wounds: wounds noted Wound Narrative: as in clinical panel Neuro oriented x3 and no focal motor deficits Psych mental status grossly normal and thought process normal Debridement Note Debridement Note Wound debrided: right leigh cluster Laterality: Right Type of Debridement: Excisional debridement Anesthesia Used: 4% Lidocaine Solution Depth: Down to and including healthy tissue and in the subcutaneous layer Percentage of wound debrided: 100 Instrument Used: 3mm curette Tissue Removed: Yellow slough, devitalized tissue Severity: Fat Layer Exposed Amount of bleeding with debridement: Mild Bleeding Controlled with: Compression and gauze Patient tolerated procedure: Patient tolerated procedure well Post-Debridement Measurements and Additional Note: Post-Debridement Measurements/Treatment - Nurse 1 - General Ulcer Assessment Start: 01/15/21 08:27 Freq: Status: Active Protocol: FABIAN.ADONIS Activity Type Activity Date Activity User E-Sign Co-Sign Detail Recorded Client Recorded Date Recorded By Document 01/15/21 08:29 RB [id number] 01/15/21 08:37 RB Document 01/18/21 15:20 AK [id number] 01/18/21 15:22 AK Document 01/22/21 08:46 RB [id number] 01/22/21 08:49 RB 01/15/21 01/18/21 01/22/21 08:29 15:20 08:46 - Today's Visit Information Type of service Initial Visit Nurse-only Follow-up Visit Visit (Physician/FORENSIC LOCKSMITH ) Arrival Mode Ambulatory Ambulatory Ambulatory Transfer Assistance None None Patient Identification Verified (Name & Yes Yes Yes ) Patient Requires Transmission-Based No No No Precautions Safety Precautions NA Height and Weight Height 5 ft 8 in Weight 136.078 kg Weight in Pounds 300.0 lbs Body Mass Index (BMI) 45.6 45.6 45.6 BMI Classification Obese Obese Obese BSA - Laure 2.43 Vital Signs Temperature (97.8 F-99.1 F) 97.5 F L 97.2 F L 97 F L Temperature Source Temporal Temporal Temporal Pulse Rate (60-100) 102 H 100 100 Pulse Location Monitor Monitor Monitor Respiratory Rate (12-18) 18 18 Respiratory rate source Observation Observation Blood Pressure (90/60-120/80) 159/99 H 156/114 H 144/98 H Blood Pressure Mean (mm Hg) 119 128 113 Source Monitor Monitor Monitor Position Semi-Fowlers Semi-Fowlers Blood Pressure Location Left Arm Left Arm History Since Last Visit- (Skip if this is Patient's initial visit) Have you changed medications since your No No No last visit? Any new allergies or adverse reactions No No No Had a fall/change in ADL's that may No No No increase risk of falls Signs or symptoms of abuse and/or No No No neglect since last visit Have you been in the hospital since your No No No last visit? Has dressing in place as prescribed Yes Yes Yes Has compression in place as prescribed No Yes Yes Has offloadiing in place as prescribed No N/A No Experienced any changes in pain level or No No No management Left Footwear Regular Shoe Regular Shoe Right Footwear Regular Shoe Regular Shoe Pain Scale: 0-10 Numeric Is Patient Pain Free? Yes Yes Lower Extremity Assessment/ Foot Assessment/ Toe Nail Assessment Right -Posterior Tibial Palpable Yes -Posterior Tibial Doppler Multiphasic -Dorsalis Pedis Palpable Yes -Dorsalis Pedis Doppler Multiphasic -Extremity Color Normal -Hair Growth on Legs Yes -Hair Growth on Toes Yes -Temperature of Extremity Warm -Capillary Refill Less than 3 Seconds -Dependent Rubor No -Blanched when Elevated No -Lipodermatosclerosis No -Other Deformity No -Prior Foot Ulcer No -Charcot Joint No -Prior Amputation No -Thick No -Discolored No -Deformed No -Improper Length & Hygeine Yes Left -Posterior Tibial Palpable Yes -Posterior Tibial Doppler Multiphasic -Dorsalis Pedis Palpable Yes -Dorsalis Pedis Doppler Multiphasic -Extremity Color Normal -Hair Growth on Legs Yes -Hair Growth on Toes Yes -Temperature of Extremity Warm -Capillary Refill Less than 3 Seconds -Dependent Rubor No -Blanched when Elevated No -Lipodermatosclerosis No -Other Deformity No -Prior Foot Ulcer No -Charcot Joint No -Prior Amputation No -Thick No -Discolored No -Deformed No -Improper Length & Hygeine Yes Neuropathy Assessment Feet - Top Side and Bottom <Entered> (a) Communication Assessment Preferred language Kinyarwanda Caser Required No Able to Read Yes Able to Write Yes Communication Tools None Caregiver Communication Skills No Impairment Impairment Right Hearing Abillity Normal Left Hearing Abillity Normal Visual Assistive Devices Glasses, Contacts Teaching Assessment Preferences Verbal,Written, Audio/Visual Barriers to Learning None Willingness to Engage in Self Management Med Activies Readiness to Engage in Self Management Med Activities Anxiety Level Calm Cooperation Cooperative Perception Coherent Interest in Health Problem Asks Questions Education Importance Acknowledges Need Does Patient Smoke tobacco or other No substances Smoking Status Never smoker Is Patient Diabetic No Functional Assessment Recent Decline in Ability to Perform Denies Any Declines Culture/Christian/Die Trouble Shooter Cultural/Christian Needs that may affect No Treatment Plan Would you allow our hospital kiln transfer operator to No meet you for the purpose of spiritual/ emotional support? Die Trouble Shooter to contact place of jew No Teaching: Wound Center *Welcome to the Wound Center -Person Taught Patient -Teaching Method Discussion, Demonstration -Response to teaching Verbalize understanding (a) 1 - + throughout WC - Nurse 1 - General Ulcer Measurement Start: 01/15/21 08:27 Freq: Status: Active Protocol: Activity Type Activity Date Activity User E-Sign Co-Sign Detail Recorded Client Recorded Date Recorded By Document 01/15/21 08:29 [id number] 01/15/21 08:37 RB Document 01/22/21 08:46 [id number] 01/22/21 08:49 RB 01/15/21 01/22/21 08:29 08:46 #2 right calf cluster -Combined with other wound No -Current Size (cm) - Length 3 -Current Size (cm) - Width 0.5 -Current Size (cm) - Depth 0.1 -Total Square Cm 1.5 -Tunneling No -Undermining/Tunneling No -Circular Undermining No -Exudate Amt Medium -Exudate Type Serosanguineous -Wound Margin Distinct, Outline Attached -Granulation Amt Medium (34-66%) -Granulation Quality [place] -Slough/Fibrin Yes -Necrosis Amt Large (67-100%) -Necrotic Tissue Type Eschar -Structure Exposed N/A -Texture (Cecelia-wound Skin Appearance) Assessed, Scarring -Moisture (Cecelia-wound Skin Appearance) Assessed -Color (Cecelia-wound Skin Appearance) Assessed -Temperature (Cecelia-wound Skin No Abnormality Appearance) (Pt Warm) -Tenderness on Palpation (Cecelia-wound No Skin Appearance) -Ulcer Cleansing Wound Cleanser -Foul Odor after Cleansing No -Anesthetic Used 4% Lidocaine Solution #1 left leigh cluster -Combined with other wound No -Current Size (cm) - Length 10.5 -Current Size (cm) - Width 7 -Current Size (cm) - Depth 0.1 -Total Square Cm 73.5 -Tunneling No -Undermining/Tunneling No -Circular Undermining No -Exudate Amt Medium -Exudate Type Serosanguineous -Wound Margin Distinct, Outline Attached -Granulation Amt Medium (34-66%) -Granulation Quality [place] -Slough/Fibrin Yes -Necrosis Amt Small (1-33%) -Necrotic Tissue Type Adherent Slough -Structure Exposed N/A -Texture (Cecelia-wound Skin Appearance) Assessed, Scarring -Moisture (Cecelia-wound Skin Appearance) Assessed -Color (Cecelia-wound Skin Appearance) Assessed -Temperature (Cecelia-wound Skin No Abnormality Appearance) (Pt Warm) -Tenderness on Palpation (Cecelia-wound No Skin Appearance) -Ulcer Cleansing Wound Cleanser -Foul Odor after Cleansing No -Anesthetic Used 4% Lidocaine Solution Wound Center Nurse 1 Lower Limb Edema Present Yes Yes Right Calf (cm) 59.7 64.5 Right Ankle (cm) 27 Point of Measurement (cm from the medial 25.7 instep) Left Calf (cm) 55 56 Left Ankle (cm) 26.3 27.5 WC - Nurse 2 - General Ulcer CM Notes Start: 01/15/21 08:27 Freq: Status: Active Protocol: Activity Type Activity Date Activity User E-Sign Co-Sign Detail Recorded Client Recorded Date Recorded By Document 01/15/21 08:50 MW [id number] 01/15/21 09:05 MW Document 01/22/21 08:57 MW [id number] 01/22/21 09:29 MW 01/15/21 01/22/21 08:50 08:57 Wound Center Nurse 2 #3 right leigh cluster -Time 09:09 -Correct Patient Yes -Correct Side, Site, Position Yes -Correct Procedure Yes -Procedure Performed Yes -Type of Procedure Debridement -Clinical Debridement Subcutaneous -Tissue Removed Subcutaneous -Post Debridement (cm) - Length 2.0 -Post Debridement (cm) - Width 2.7 -Post Debridement (cm) - Depth 0.1 -Total Square (Post) (cm) 5.40 -Area of Debridement (cm) - Length 2.0 -Area of Debridement (cm) - Width 2.7 -Total Square (Area) (cm) 5.40 -Tunneling No -Undermining/Tunneling No -Circular Undermining No -Wound/Ulcer Outcome Not Healed -Ulcer Cleansing Rinsed/ Irrigated with Saline -Foul Odor after Cleansing No -Bioengineered Tissue No -Bleeding Controlled with Pressure -Offloading No -Treatment Response Procedure Tolerated Well -Debridement - Subq, 1st 20sq cm No #2 right calf cluster -Time 09:04 09:08 -Correct Patient Yes Yes -Correct Side, Site, Position Yes Yes -Correct Procedure Yes Yes -Procedure Performed Yes -Type of Procedure Debridement Debridement -Clinical Debridement Subcutaneous Subcutaneous -Tissue Removed Subcutaneous Subcutaneous -Post Debridement (cm) - Length 0.7 3.3 -Post Debridement (cm) - Width 0.8 0.5 -Post Debridement (cm) - Depth 0.1 0.1 -Total Square (Post) (cm) 0.56 1.65 -Area of Debridement (cm) - Length 0.7 3.3 -Area of Debridement (cm) - Width 0.8 0.5 -Total Square (Area) (cm) 0.56 1.65 -Tunneling No No -Undermining/Tunneling No No -Circular Undermining No No -Wound/Ulcer Outcome Not Healed Not Healed -Ulcer Cleansing Rinsed/ Rinsed/ Irrigated with Irrigated with Saline Saline -Foul Odor after Cleansing No No -Bioengineered Tissue No No -Bleeding Controlled with Pressure Pressure -Offloading No No -Treatment Response Procedure Procedure Tolerated Well Tolerated Well -Debridement - Subq, 1st 20sq cm No Yes #1 left leigh cluster -Time 09:03 09:09 -Correct Patient Yes Yes -Correct Side, Site, Position Yes Yes -Correct Procedure Yes Yes -Procedure Performed Yes Yes -Type of Procedure Debridement Debridement -Clinical Debridement Subcutaneous Subcutaneous -Tissue Removed Subcutaneous Subcutaneous -Post Debridement (cm) - Length 6.0 5.5 -Post Debridement (cm) - Width 1.0 0.9 -Post Debridement (cm) - Depth 0.1 0.1 -Total Square (Post) (cm) 6.00 4.95 -Area of Debridement (cm) - Length 6.0 5.5 -Area of Debridement (cm) - Width 1.0 0.9 -Total Square (Area) (cm) 6.00 4.95 -Tunneling No No -Undermining/Tunneling No No -Circular Undermining No No -Wound/Ulcer Outcome Not Healed Not Healed -Ulcer Cleansing Rinsed/ Rinsed/ Irrigated with Irrigated with Saline Saline -Foul Odor after Cleansing No No -Bioengineered Tissue No No -Bleeding Controlled with Pressure Pressure -Offloading No No -Treatment Response Procedure Procedure Tolerated Well Tolerated Well -Debridement - Subq, 1st 20sq cm Yes No Pain Scale: 0-10 Numeric Is Patient Pain Free? Yes Yes WC - Nurse 3 - General Ulcer D/C NN Start: 01/15/21 08:27 Freq: Status: Active Protocol: Activity Type Activity Date Activity User E-Sign Co-Sign Detail Recorded Client Recorded Date Recorded By Document 01/15/21 09:20 JF [id number] 01/15/21 09:22 JF Edit Result 01/15/21 09:20 JF (1) [id number] 01/18/21 09:56 PL Document 01/18/21 15:20 AK [id number] 01/18/21 15:22 AK Document 01/22/21 10:02 RB [id number] 01/22/21 10:03 RB (1) Bilateral - Multi-Layered Wrap Application => Unna Boot - => Bilateral ($) - Unna Boots (Bilat) ($) => 2 Right - Multi-Layered Wrap Application Unna Boot - Right => ($) => - Compression Wrap Unna Boot ($) ( => single) => Left - Multi-Layered Wrap Application Unna Boot - Right => ($) => - Compression Wrap Unna Boot ($) ( => single) => 01/15/21 01/18/21 01/22/21 09:20 15:20 10:02 #3 right leigh cluster -Ulcer Cleansing Rinsed/ Irrigated with Saline -Primary Dressing Applied NonAdherent Contact Layer, Promogran -Primary Dressing Covered/Secured with Dry Gauze,Dry Gauze & Roll Gauze,Secured with Tape -Promogran 1 #2 right calf cluster -Ulcer Cleansing Rinsed/ Irrigated with Saline -Foul Odor after Cleansing No -Negative Pressure Wound Therapy N/A -Primary Dressing Applied NonAdherent Contact Layer -Other Dressing promogran -Primary Dressing Covered/Secured with Dry Gauze,Dry Gauze & Roll Gauze,Secured with Tape #1 left leigh cluster -Ulcer Cleansing Soap and Water -Foul Odor after Cleansing No -Negative Pressure Wound Therapy N/A -Primary Dressing Applied NonAdherent Contact Layer -Other Dressing promogran -Primary Dressing Covered/Secured with Dry Gauze,Dry Gauze & Roll Gauze,Secured with Tape Wound Care Nurse 3 Bilateral -Lotion applied to leg before No compression wrap -Multi-Layered Wrap Application Unna Boot - Unna Boot - Bilateral ($) Bilateral ($) -Unna Boots (Bilat) ($) 2 2 -Other jhonatan Vital Signs Temperature (97.8 F-99.1 F) 97.2 F L Temperature Source Temporal Pulse Rate (60-100) 100 Pulse Location Monitor Blood Pressure (90/60-120/80) 156/114 H Blood Pressure Mean (mm Hg) 128 Source Monitor Pain Scale: 0-10 Numeric Is Patient Pain Free? Yes WC - Visit Discharge Discharge Condition Stable Stable Stable Ambulatory Status Ambulatory Ambulatory Ambulatory Transportation Private Auto Private Auto Private Auto Medication Reconcilliation completed & Yes Yes No provided to patient/care provider Clinical Summary of Care Provided Yes Yes Yes Additional Wound Wound debrided: right calf cluster Laterality: Right Type of Debridement: Excisional debridement Anesthesia Used: 4% Lidocaine Solution Depth: Down to and including healthy tissue and in the subcutaneous layer Percentage of wound debrided: 100 Instrument Used: 3mm curette and - (5 mm punch biopsy) Tissue Removed: Yellow slough, devitalized tissue Severity: Fat Layer Exposed Amount of bleeding with debridement: Moderate Bleeding Controlled with: Compression and gauze and Silver Nitrate Patient tolerated procedure: Patient tolerated procedure well Additional Wound Wound debrided: left leigh cluster Laterality: Left Type of Debridement: Excisional debridement Anesthesia Used: 4% Lidocaine Solution Depth: Down to and including healthy tissue and in the subcutaneous layer Percentage of wound debrided: 100 Instrument Used: 3mm curette Tissue Removed: Yellow slough, devitalized tissue Severity: Fat Layer Exposed Amount of bleeding with debridement: Mild Bleeding Controlled with: Compression and gauze Patient tolerated procedure: Patient tolerated procedure well Assessment/Plan Assessment/Plan (1) Venous insufficiency of both lower extremities: CODE(S): I87.2 - Venous insufficiency (chronic) (peripheral) (2) Pustular dermatitis: CODE(S): L30.8 - Other specified dermatitis (3) Nonhealing ulcer of left lower extremity with fat layer exposed: CODE(S): L97.922 - Non-pressure chronic ulcer of unspecified part of left lower leg with fat layer exposed (4) Nonhealing ulcer of right lower extremity with fat layer exposed: CODE(S): L97.912 - Non-pressure chronic ulcer of unspecified part of right lower leg with fat layer exposed (5) Obesity, morbid, BMI 40.0-49.9: CODE(S): E66.01 - Morbid (severe) obesity due to excess calories PLAN: Liz's ulcers were evaluated and debrided today at the wound center as above in the clinical panel. She tolerated the procedure well. Wound culture was negative for infection. Unsure of the etiology of her skin ulcers/lesions. Possibly folliculitis or pustular dermatitis or lupus. Punch biopsy performed today on the right calf cluster. Area anesthetized with 3 cc 2% lidocaine injected into the subcutaneous tissue at the site of biopsy after area cleaned with betadine. 5 mm punch biopsy performed of lateral aspect of inferior wound without difficulty. Biopsy lifted with forceps and based excised with 15 blade scalpel. Bleeding controlled with pressure and gauze and silver nitrate used to cauterize the biopsy site. Tissue placed in formalin and sent to pathology for evaluation. Due to no improvement of her edema with Unna boot treatment, will change her dressings to Promogran covered with adaptic and gauze and secured either with roll gauze or an JHONATAN bandage. Labs also ordered to evaluate for autoimmune disease, thyroid disorder and diabetes. She was encouraged to increase protein intake in order to promote healing. She was encouraged to elevate her legs at or above the level of her heart when sitting. She was advised to call with any increased pain, erythema, drainage, fever or chills. Will have her follow up in 1 week.
[2021-01-29 11:28] VITALS: BP 166/91; PULSE 74; TEMP 36.7; BMI 45.6
--- NOTE | 2021-01-29 13:10 | WC ---
ladonna applied bilateral lower ext.
--- NOTE | 2021-01-29 15:21 | PCM.WC.PN ---
History of Present Illness Date of Service: 01/29/21 Chief Complaint: nonhealing wounds to B/L lower legs History of Wound: Liz is a 60 yo pleasant woman that presents to the wound healing center today for evaluation and treatment of nonhealing wounds to her bilateral lower legs referred by her PCP Dr. Martinez. Liz states that these have been present since November. They started as mosquito bites and have never really healed. She continues to keep developing blisters and then areas that scab and then seem to heal but new areas develop. She was initially treated with cefdinir and did not have any improvement. She then was treated with Bactrim which caused her tongue to swell after 2 doses. She was treated for allergic reaction with prednisone and was referred here for further evaluation and treatment. Liz denies any previous history of having problems healing and also does not take any daily medications or have a history of any chronic medical conditions. She is active and works at [employer]. Spends a lot of time gardening and mowing. She denies use of chemicals or changes to skin products. She has tried applying triple antibiotic ointment, salves and vaseline to the areas without any improvement. She washes daily with antibacterial soap. She denies any fever, chills, odor or increased erythema. Subjective Subjective Liz is seen at the wound healing center today for follow up of nonhealing wounds of her bilateral lower legs. She tolerated Promogran and adaptic. Biopsy done last week and is healing well. Biopsy results showed acute and chronic inflammation. Labs did not reveal and rheumatologic reason for her ulcers/wounds or poor healing. She has had occasional pain and itching but no fever, chills or increased drainage or erythema. There are no new wounds since last week. Objective Data Objective Data Vital Signs: Vital Signs Temp Pulse Resp BP 98.0 F 74 18 166/91 H 01/29/21 11:28 01/29/21 11:28 01/22/21 08:46 01/29/21 11:28 Weight: 136.078 kg Body Mass Index (BMI) 45.6 Lab / Micro Data Micro: Microbiology 01/15/21 09:00 Wound Abcess - Leg, Left Gram Stain - Final 01/15/21 09:00 Wound Abcess - Leg, Left Wound Culture - Final No growth aerobically. 01/15/21 09:00 Wound Abcess - Leg, Left Anaerobic Culture - Final No growth in 5 days. Physical Exam Const alert, oriented x3 and no apparent distress General Appearance: cooperative and comfortable HEENT normocephalic and head/scalp atraumatic Eyes General Eye: normal appearance of both eyes Lymph Lymphatic: no lymphedema noted Resp normal respiratory effort Effort and Inspection: able to speak in complete sentences Auscultation: clear to auscultation bilaterally Cardio regular rate and regular rhythm GI soft to palpation Inspection: central obesity Extremity normal capillary refill General Extremity: edema bilateral lower extremity Details: mild Skin General Skin Exam: eschar, dermatitis and other pustular lesions b/l lower legs Wounds: wounds noted Wound Narrative: as in clinical panel Neuro oriented x3 and no focal motor deficits Psych mental status grossly normal, thought process normal, cooperative and affect normal Debridement Note Debridement Note Wound debrided: right leigh Laterality: Right No debridement was completed: No debridement was completed today (healed) Post-Debridement Measurements and Additional Note: Post-Debridement Measurements/Treatment - Nurse 1 - General Ulcer Assessment Start: 01/15/21 08:27 Freq: Status: Active Protocol: NATHALIE Activity Type Activity Date Activity User E-Sign Co-Sign Detail Recorded Client Recorded Date Recorded By Document 01/15/21 08:29 RB [id number] 01/15/21 08:37 RB Document 01/18/21 15:20 AK [id number] 01/18/21 15:22 AK Document 01/22/21 08:46 RB [id number] 01/22/21 08:49 RB Document 01/29/21 11:28 KR [id number] 01/29/21 11:38 KR 01/15/21 01/18/21 01/22/21 08:29 15:20 08:46 - Today's Visit Information Type of service Initial Visit Nurse-only Follow-up Visit Visit (Physician/HIGHWAY INSPECTOR ) Arrival Mode Ambulatory Ambulatory Ambulatory Transfer Assistance None None Patient Identification Verified (Name & Yes Yes Yes ) Patient Requires Transmission-Based No No No Precautions Safety Precautions NA Height and Weight Height 5 ft 8 in Weight 136.078 kg Weight in Pounds 300.0 lbs Body Mass Index (BMI) 45.6 45.6 45.6 BMI Classification Obese Obese Obese BSA - Laure 2.43 Vital Signs Temperature (97.8 F-99.1 F) 97.5 F L 97.2 F L 97 F L Temperature Source Temporal Temporal Temporal Pulse Rate (60-100) 102 H 100 100 Pulse Location Monitor Monitor Monitor Respiratory Rate (12-18) 18 18 Respiratory rate source Observation Observation Blood Pressure (90/60-120/80) 159/99 H 156/114 H 144/98 H Blood Pressure Mean (mm Hg) 119 128 113 Source Monitor Monitor Monitor Position Semi-Fowlers Semi-Fowlers Blood Pressure Location Left Arm Left Arm History Since Last Visit- (Skip if this is Patient's initial visit) Have you changed medications since your No No No last visit? Any new allergies or adverse reactions No No No Had a fall/change in ADL's that may No No No increase risk of falls Signs or symptoms of abuse and/or No No No neglect since last visit Have you been in the hospital since your No No No last visit? Has dressing in place as prescribed Yes Yes Yes Has compression in place as prescribed No Yes Yes Has offloadiing in place as prescribed No N/A No Experienced any changes in pain level or No No No management Left Footwear Regular Shoe Regular Shoe Right Footwear Regular Shoe Regular Shoe Pain Scale: 0-10 Numeric Is Patient Pain Free? Yes Yes Lower Extremity Assessment/ Foot Assessment/ Toe Nail Assessment Right -Posterior Tibial Palpable Yes -Posterior Tibial Doppler Multiphasic -Dorsalis Pedis Palpable Yes -Dorsalis Pedis Doppler Multiphasic -Extremity Color Normal -Hair Growth on Legs Yes -Hair Growth on Toes Yes -Temperature of Extremity Warm -Capillary Refill Less than 3 Seconds -Dependent Rubor No -Blanched when Elevated No -Lipodermatosclerosis No -Other Deformity No -Prior Foot Ulcer No -Charcot Joint No -Prior Amputation No -Thick No -Discolored No -Deformed No -Improper Length & Hygeine Yes Left -Posterior Tibial Palpable Yes -Posterior Tibial Doppler Multiphasic -Dorsalis Pedis Palpable Yes -Dorsalis Pedis Doppler Multiphasic -Extremity Color Normal -Hair Growth on Legs Yes -Hair Growth on Toes Yes -Temperature of Extremity Warm -Capillary Refill Less than 3 Seconds -Dependent Rubor No -Blanched when Elevated No -Lipodermatosclerosis No -Other Deformity No -Prior Foot Ulcer No -Charcot Joint No -Prior Amputation No -Thick No -Discolored No -Deformed No -Improper Length & Hygeine Yes Neuropathy Assessment Feet - Top Side and Bottom <Entered> (a) Communication Assessment Preferred language [place] [employer] Required No Able to Read Yes Able to Write Yes Communication Tools None Caregiver Communication Skills No Impairment Impairment Right Hearing Abillity Normal Left Hearing Abillity Normal Visual Assistive Devices Glasses, Contacts Teaching Assessment Preferences Verbal,Written, Audio/Visual Barriers to Learning None Willingness to Engage in Self Management Med Activies Readiness to Engage in Self Management Med Activities Anxiety Level Calm Cooperation Cooperative Perception Coherent Interest in Health Problem Asks Questions Education Importance Acknowledges Need Does Patient Smoke tobacco or other No substances Smoking Status Never smoker Is Patient Diabetic No Functional Assessment Recent Decline in Ability to Perform Denies Any Declines 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 Cover Making Machine Operator to contact place of taoism No Teaching: Wound Center *Welcome to the Wound Center -Person Taught Patient -Teaching Method Discussion, Demonstration -Response to teaching Verbalize understanding 01/29/21 11:28 WC - Today's Visit Information Type of service Follow-up Visit (Physician/HIGHWAY INSPECTOR ) Arrival Mode Ambulatory Transfer Assistance Patient Identification Verified (Name & Yes ) Patient Requires Transmission-Based Precautions Safety Precautions Height and Weight Height Weight Weight in Pounds Body Mass Index (BMI) 45.6 BMI Classification Obese [facility] - Laure Vital Signs Temperature (97.8 F-99.1 F) 98.0 F Temperature Source Temporal Pulse Rate (60-100) 74 Pulse Location Monitor Respiratory Rate (12-18) Respiratory rate source Blood Pressure (90/60-120/80) 166/91 H Blood Pressure Mean (mm Hg) 116 Source Monitor Position Semi-Fowlers Blood Pressure Location Right Arm History Since Last Visit- (Skip if this is Patient's initial visit) Have you changed medications since your No last visit? Any new allergies or adverse reactions No Had a fall/change in ADL's that may No increase risk of falls Signs or symptoms of abuse and/or No neglect since last visit Have you been in the hospital since your No last visit? Has dressing in place as prescribed Yes Has compression in place as prescribed Yes Has offloadiing in place as prescribed N/A Experienced any changes in pain level or No management Left Footwear Regular Shoe Right Footwear Regular Shoe Pain Scale: 0-10 Numeric Is Patient Pain Free? Yes Lower Extremity Assessment/ Foot Assessment/ Toe Nail Assessment Right -Posterior Tibial Palpable -Posterior Tibial Doppler -Dorsalis Pedis Palpable -Dorsalis Pedis Doppler -Extremity Color -Hair Growth on Legs -Hair Growth on Toes -Temperature of Extremity -Capillary Refill -Dependent Rubor -Blanched when Elevated -Lipodermatosclerosis -Other Deformity -Prior Foot Ulcer -Charcot Joint -Prior Amputation -Thick -Discolored -Deformed -Improper Length & Hygeine Left -Posterior Tibial Palpable -Posterior Tibial Doppler -Dorsalis Pedis Palpable -Dorsalis Pedis Doppler -Extremity Color -Hair Growth on Legs -Hair Growth on Toes -Temperature of Extremity -Capillary Refill -Dependent Rubor -Blanched when Elevated -Lipodermatosclerosis -Other Deformity -Prior Foot Ulcer -Charcot Joint -Prior Amputation -Thick -Discolored -Deformed -Improper Length & Hygeine Neuropathy Assessment Feet - Top Side and Bottom Communication Assessment Preferred body man Required Able to Read Able to Write Communication Tools Caregiver Communication Skills Impairment Right Hearing Abillity Left Hearing Abillity Visual Assistive Devices Teaching Assessment Preferences Barriers to Learning Willingness to Engage in Self Management Activies Readiness to Engage in Self Management Activities Anxiety Level Cooperation Perception Interest in Health Problem Education Importance Does Patient Smoke tobacco or other substances Smoking Status Is Patient Diabetic Functional Assessment Recent Decline in Ability to Perform 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 Cover Making Machine Operator to contact place of taoism Teaching: Wound Center *Welcome to the Wound Center -Person Taught -Teaching Method -Response to teaching (a) 1 - + throughout WC - Nurse 1 - General Ulcer Measurement Start: 01/15/21 08:27 Freq: Status: Active Protocol: Activity Type Activity Date Activity User E-Sign Co-Sign Detail Recorded Client Recorded Date Recorded By Document 01/15/21 08:29 RB [id number] 01/15/21 08:37 RB Document 01/22/21 08:46 RB [id number] 01/22/21 08:49 RB Document 01/29/21 11:28 KR [id number] 01/29/21 11:38 KR 01/15/21 01/22/21 01/29/21 08:29 08:46 11:28 #3 right leigh cluster -Current Size (cm) - Length 5 -Current Size (cm) - Width 0.6 -Current Size (cm) - Depth 0.1 -Total Square Cm 3.0 -Exudate Amt Small -Exudate Type Serosanguineous -Wound Margin Distinct, Outline Attached -Granulation Amt Small (1-33%) -Granulation Quality Red -Necrosis Amt None Present (0 %) -Texture (Cecelia-wound Skin Appearance) Assessed, Scarring -Moisture (Cecelia-wound Skin Appearance) No Abnormality, Assessed -Color (Cecelia-wound Skin Appearance) No Abnormality, Assessed -Temperature (Cecelia-wound Skin No Abnormality Appearance) (Pt Warm) -Tenderness on Palpation (Cecelia-wound No Skin Appearance) -Ulcer Cleansing Rinsed/ Irrigated with Saline -Foul Odor after Cleansing No -Anesthetic Used 4% Lidocaine Solution #2 right calf cluster -Combined with other wound No -Current Size (cm) - Length 3 0.1 -Current Size (cm) - Width 0.5 0.1 -Current Size (cm) - Depth 0.1 0.1 -Total Square Cm 1.5 0.01 -Tunneling No -Undermining/Tunneling No -Circular Undermining No -Exudate Amt Medium None Present -Exudate Type Serosanguineous -Wound Margin Distinct, Distinct, Outline Outline Attached Attached -Granulation Amt Medium (34-66%) Small (1-33%) -Granulation Quality [place] -Slough/Fibrin Yes -Necrosis Amt Large (67-100%) None Present (0 %) -Necrotic Tissue Type Eschar -Structure Exposed N/A -Texture (Cecelia-wound Skin Appearance) Assessed, Assessed, Scarring Scarring -Moisture (Cecelia-wound Skin Appearance) Assessed No Abnormality, Assessed -Color (Cecelia-wound Skin Appearance) Assessed No Abnormality, Assessed -Temperature (Cecelia-wound Skin No Abnormality No Abnormality Appearance) (Pt Warm) (Pt Warm) -Tenderness on Palpation (Cecelia-wound No No Skin Appearance) -Ulcer Cleansing Wound Cleanser Rinsed/ Irrigated with Saline -Foul Odor after Cleansing No No -Anesthetic Used 4% Lidocaine 4% Lidocaine Solution Solution #1 left leigh cluster -Combined with other wound No -Current Size (cm) - Length 10.5 2.9 -Current Size (cm) - Width 7 0.6 -Current Size (cm) - Depth 0.1 0.1 -Total Square Cm 73.5 1.74 -Tunneling No -Undermining/Tunneling No -Circular Undermining No -Exudate Amt Medium Small -Exudate Type Serosanguineous Serosanguineous -Wound Margin Distinct, Distinct, Outline Outline Attached Attached -Granulation Amt Medium (34-66%) Medium (34-66%) -Granulation Quality [place] Red -Slough/Fibrin Yes -Necrosis Amt Small (1-33%) None Present (0 %) -Necrotic Tissue Type Adherent Slough -Structure Exposed N/A -Texture (Cecelia-wound Skin Appearance) Assessed, Assessed, Scarring Scarring -Moisture (Cecelia-wound Skin Appearance) Assessed No Abnormality, Assessed -Color (Cecelia-wound Skin Appearance) Assessed No Abnormality, Assessed -Temperature (Cecelia-wound Skin No Abnormality No Abnormality Appearance) (Pt Warm) (Pt Warm) -Tenderness on Palpation (Cecelia-wound No No Skin Appearance) -Ulcer Cleansing Wound Cleanser Rinsed/ Irrigated with Saline -Foul Odor after Cleansing No No -Anesthetic Used 4% Lidocaine 4% Lidocaine Solution Solution Wound Center Nurse 1 Lower Limb Edema Present Yes Yes Right Calf (cm) 59.7 64.5 68 Right Ankle (cm) 27 32 Point of Measurement (cm from the medial 25.7 instep) Left Calf (cm) 55 56 63 Left Ankle (cm) 26.3 27.5 30 WC - Nurse 2 - General Ulcer CM Notes Start: 01/15/21 08:27 Freq: Status: Active Protocol: Activity Type Activity Date Activity User E-Sign Co-Sign Detail Recorded Client Recorded Date Recorded By Document 01/15/21 08:50 MW [id number] 01/15/21 09:05 MW Document 01/22/21 08:57 MW [id number] 01/22/21 09:29 MW Document 01/29/21 12:44 MW [id number] 01/29/21 12:59 MW 01/15/21 01/22/21 01/29/21 08:50 08:57 12:44 Wound Center Nurse 2 #4 left posterior cluster -Time 12:52 -Correct Patient Yes -Correct Side, Site, Position Yes -Correct Procedure Yes -Procedure Performed Yes -Type of Procedure Debridement -Clinical Debridement Subcutaneous -Tissue Removed Subcutaneous -Post Debridement (cm) - Length 8.5 -Post Debridement (cm) - Width 0.5 -Post Debridement (cm) - Depth 0.1 -Total Square (Post) (cm) 4.25 -Area of Debridement (cm) - Length 8.5 -Area of Debridement (cm) - Width 0.5 -Total Square (Area) (cm) 4.25 -Tunneling No -Undermining/Tunneling No -Circular Undermining No -Wound/Ulcer Outcome Not Healed -Ulcer Cleansing Rinsed/ Irrigated with Saline -Foul Odor after Cleansing No -Bioengineered Tissue No -Bleeding Controlled with Pressure -Offloading No -Treatment Response Procedure Tolerated Well -Debridement - Subq, 1st 20sq cm No #3 right leigh cluster -Time 09: 12:46 -Correct Patient Yes Yes -Correct Side, Site, Position Yes Yes -Correct Procedure Yes Yes -Procedure Performed Yes No -Type of Procedure Debridement -Clinical Debridement Subcutaneous -Tissue Removed Subcutaneous -Post Debridement (cm) - Length 2.0 0 -Post Debridement (cm) - Width 2.7 0 -Post Debridement (cm) - Depth 0.1 0 -Total Square (Post) (cm) 5.40 0 -Area of Debridement (cm) - Length 2.0 -Area of Debridement (cm) - Width 2.7 -Total Square (Area) (cm) 5.40 -Tunneling No No -Undermining/Tunneling No No -Circular Undermining No No -Wound/Ulcer Outcome Not Healed Healed- Epithelialized -Ulcer Cleansing Rinsed/ Irrigated with Saline -Foul Odor after Cleansing No -Bioengineered Tissue No -Bleeding Controlled with Pressure -Offloading No -Treatment Response Procedure Tolerated Well -Debridement - Subq, 1st 20sq cm No #2 right calf cluster -Time 09:04 09:08 12:47 -Correct Patient Yes Yes Yes -Correct Side, Site, Position Yes Yes Yes -Correct Procedure Yes Yes Yes -Procedure Performed Yes Yes -Type of Procedure Debridement Debridement Debridement -Clinical Debridement Subcutaneous Subcutaneous Subcutaneous -Tissue Removed Subcutaneous Subcutaneous Subcutaneous -Post Debridement (cm) - Length 0.7 3.3 3.1 -Post Debridement (cm) - Width 0.8 0.5 1.3 -Post Debridement (cm) - Depth 0.1 0.1 0.2 -Total Square (Post) (cm) 0.56 1.65 4.03 -Area of Debridement (cm) - Length 0.7 3.3 3.1 -Area of Debridement (cm) - Width 0.8 0.5 1.3 -Total Square (Area) (cm) 0.56 1.65 4.03 -Tunneling No No No -Undermining/Tunneling No No No -Circular Undermining No No No -Wound/Ulcer Outcome Not Healed Not Healed Not Healed -Ulcer Cleansing Rinsed/ Rinsed/ Rinsed/ Irrigated with Irrigated with Irrigated with Saline Saline Saline -Foul Odor after Cleansing No No No -Bioengineered Tissue No No No -Bleeding Controlled with Pressure Pressure Pressure -Offloading No No No -Treatment Response Procedure Procedure Procedure Tolerated Well Tolerated Well Tolerated Well -Debridement - Subq, 1st 20sq cm No Yes No #1 left leigh cluster -Time 09:03 09:09 12:47 -Correct Patient Yes Yes Yes -Correct Side, Site, Position Yes Yes Yes -Correct Procedure Yes Yes Yes -Procedure Performed Yes Yes Yes -Type of Procedure Debridement Debridement Debridement -Clinical Debridement Subcutaneous Subcutaneous Subcutaneous -Tissue Removed Subcutaneous Subcutaneous Subcutaneous -Post Debridement (cm) - Length 6.0 5.5 5.2 -Post Debridement (cm) - Width 1.0 0.9 0.7 -Post Debridement (cm) - Depth 0.1 0.1 0.1 -Total Square (Post) (cm) 6.00 4.95 3.64 -Area of Debridement (cm) - Length 6.0 5.5 5.2 -Area of Debridement (cm) - Width 1.0 0.9 0.7 -Total Square (Area) (cm) 6.00 4.95 3.64 -Tunneling No No No -Undermining/Tunneling No No No -Circular Undermining No No No -Wound/Ulcer Outcome Not Healed Not Healed Not Healed -Ulcer Cleansing Rinsed/ Rinsed/ Rinsed/ Irrigated with Irrigated with Irrigated with Saline Saline Saline -Foul Odor after Cleansing No No No -Bioengineered Tissue No No No -Bleeding Controlled with Pressure Pressure Pressure -Offloading No No No -Treatment Response Procedure Procedure Procedure Tolerated Well Tolerated Well Tolerated Well -Debridement - Subq, 1st 20sq cm Yes No No Pain Scale: 0-10 Numeric Is Patient Pain Free? Yes Yes Yes - Nurse 3 - General Ulcer D/C NN Start: 01/15/21 08:27 Freq: Status: Active Protocol: Activity Type Activity Date Activity User E-Sign Co-Sign Detail Recorded Client Recorded Date Recorded By Document 01/15/21 09:20 JF [id number] 01/15/21 09:22 JF Edit Result 01/15/21 09:20 JF (1) [id number] 01/18/21 09:56 PL Document 01/18/21 15:20 AK [id number] 01/18/21 15:22 AK Document 01/22/21 10:02 RB [id number] 01/22/21 10:03 RB Document 01/29/21 13:06 ML [id number] 01/29/21 13:10 ML (1) Bilateral - Multi-Layered Wrap Application => Unna Boot - => Bilateral ($) - Unna Boots (Bilat) ($) => 2 Right - Multi-Layered Wrap Application Unna Boot - Right => ($) => - Compression Wrap Unna Boot ($) ( => single) => Left - Multi-Layered Wrap Application Unna Boot - Right => ($) => - Compression Wrap Unna Boot ($) ( => single) => 01/15/21 01/18/21 01/22/21 09:20 15:20 10:02 #4 left posterior cluster -Ulcer Cleansing -Primary Dressing Applied -Other Dressing -Primary Dressing Covered/Secured with #3 right leigh cluster -Ulcer Cleansing Rinsed/ Irrigated with Saline -Primary Dressing Applied NonAdherent Contact Layer, Promogran -Primary Dressing Covered/Secured with Dry Gauze,Dry Gauze & Roll Gauze,Secured with Tape -Promogran 1 #2 right calf cluster -Ulcer Cleansing Rinsed/ Irrigated with Saline -Foul Odor after Cleansing No -Negative Pressure Wound Therapy N/A -Primary Dressing Applied NonAdherent Contact Layer -Other Dressing promogran -Primary Dressing Covered/Secured with Dry Gauze,Dry Gauze & Roll Gauze,Secured with Tape -Promogran #1 left leigh cluster -Ulcer Cleansing Soap and Water -Foul Odor after Cleansing No -Negative Pressure Wound Therapy N/A -Primary Dressing Applied NonAdherent Contact Layer -Other Dressing promogran -Primary Dressing Covered/Secured with Dry Gauze,Dry Gauze & Roll Gauze,Secured with Tape -Promogran Wound Care Nurse 3 Bilateral -Lotion applied to leg before No compression wrap -Multi-Layered Wrap Application Unna Boot - Unna Boot - Bilateral ($) Bilateral ($) -Unna Boots (Bilat) ($) 2 2 -Other jhonatan Vital Signs Temperature (97.8 F-99.1 F) 97.2 F L Temperature Source Temporal Pulse Rate (60-100) 100 Pulse Location Monitor Blood Pressure (90/60-120/80) 156/114 H Blood Pressure Mean (mm Hg) 128 Source Monitor Pain Scale: 0-10 Numeric Is Patient Pain Free? Yes WC - Visit Discharge Discharge Condition Stable Stable Stable Ambulatory Status Ambulatory Ambulatory Ambulatory Transportation Private Auto Private Auto Private Auto Medication Reconcilliation completed & Yes Yes No provided to patient/care provider Clinical Summary of Care Provided Yes Yes Yes 01/29/21 13:06 #4 left posterior cluster -Ulcer Cleansing Rinsed/ Irrigated with Saline -Primary Dressing Applied C Hydrogel ($) -Other Dressing adaptic -Primary Dressing Covered/Secured with Dry Gauze, Secured with Tape #3 right leigh cluster -Ulcer Cleansing -Primary Dressing Applied -Primary Dressing Covered/Secured with -Promogran #2 right calf cluster -Ulcer Cleansing Rinsed/ Irrigated with Saline -Foul Odor after Cleansing -Negative Pressure Wound Therapy -Primary Dressing Applied Promogran -Other Dressing adaptic -Primary Dressing Covered/Secured with Dry Gauze,Dry Gauze & Roll Gauze,Secured with Tape -Promogran 1 #1 left leigh cluster -Ulcer Cleansing Rinsed/ Irrigated with Saline -Foul Odor after Cleansing -Negative Pressure Wound Therapy -Primary Dressing Applied Promogran -Other Dressing adaptic -Primary Dressing Covered/Secured with Dry Gauze,Dry Gauze & Roll Gauze,Secured with Tape -Promogran 0 Wound Care Nurse 3 Bilateral -Lotion applied to leg before compression wrap -Multi-Layered Wrap Application -Unna Boots (Bilat) ($) -Other Vital Signs Temperature (97.8 F-99.1 F) Temperature Source Pulse Rate (60-100) Pulse Location Blood Pressure (90/60-120/80) Blood Pressure Mean (mm Hg) Source Pain Scale: 0-10 Numeric Is Patient Pain Free? WC - Visit Discharge Discharge Condition Stable Ambulatory Status Ambulatory Transportation Medication Reconcilliation completed & No provided to patient/care provider Clinical Summary of Care Provided Yes 01/29/21 13:10 Wound Center by Sadie Blankenship ace bilateral lower ext. Initialized on 01/29/21 13:10 - END OF NOTE Additional Wound Wound debrided: right medial/posterior calf cluster Laterality: Right Type of Debridement: Excisional debridement Anesthesia Used: 4% Lidocaine Solution, 5% Lidocaine Gel and Cetacaine Depth: Down to and including healthy tissue and in the subcutaneous layer Percentage of wound debrided: 100 Instrument Used: 3mm curette Tissue Removed: Yellow slough, devitalized tissue Severity: Fat Layer Exposed Amount of bleeding with debridement: Mild Bleeding Controlled with: Compression and gauze Patient tolerated procedure: Patient tolerated procedure well Additional Wound Wound debrided: left leigh cluster Laterality: Left Type of Debridement: Excisional debridement Anesthesia Used: 4% Lidocaine Solution Depth: Down to and including healthy tissue and in the subcutaneous layer Percentage of wound debrided: 100 Instrument Used: 3mm curette Tissue Removed: Yellow slough, devitalized tissue Severity: Fat Layer Exposed Amount of bleeding with debridement: Mild Bleeding Controlled with: Compression and gauze Patient tolerated procedure: Patient tolerated procedure well Additional Wound Wound debrided: left posterior calf cluster Laterality: Left Type of Debridement: Excisional debridement Anesthesia Used: 4% Lidocaine Solution and 5% Lidocaine Gel Depth: Down to and including healthy tissue and in the subcutaneous layer Percentage of wound debrided: 100 Instrument Used: 3mm curette Tissue Removed: Yellow slough, devitalized tissue Severity: Fat Layer Exposed Amount of bleeding with debridement: Mild Bleeding Controlled with: Pressure and Compression and gauze Patient tolerated procedure: Patient tolerated procedure well Assessment/Plan Assessment/Plan (1) Venous insufficiency of both lower extremities: CODE(S): I87.2 - Venous insufficiency (chronic) (peripheral) (2) Pustular dermatitis: CODE(S): L30.8 - Other specified dermatitis (3) Nonhealing ulcer of left lower extremity with fat layer exposed: CODE(S): L97.922 - Non-pressure chronic ulcer of unspecified part of left lower leg with fat layer exposed (4) Nonhealing ulcer of right lower extremity with fat layer exposed: CODE(S): L97.912 - Non-pressure chronic ulcer of unspecified part of right lower leg with fat layer exposed (5) Obesity, morbid, BMI 40.0-49.9: CODE(S): E66.01 - Morbid (severe) obesity due to excess calories PLAN: Liz's ulcers were evaluated and debrided today at the wound center as above in the clinical panel. She tolerated the procedure well. Wound culture was negative for infection. Biopsy results and labs reviewed with the patient. She was advised to call her PCP regarding elevated TSH. Unsure of the etiology of her skin ulcers/lesions. Possibly folliculitis or pustular dermatitis. Will continue to have her use dressings of Promogran to anterior wounds and use hydrogel to posterior wounds and cover with adaptic and gauze and secured either with roll gauze or an JHONATAN bandage. She was encouraged to increase protein intake in order to promote healing. She was encouraged to elevate her legs at or above the level of her heart when sitting. She was advised to call with any increased pain, erythema, drainage, fever or chills. Will have her follow up in 1 week.
[2021-02-05 11:10] VITALS: BP 179/77; PULSE 75; RESP 18; TEMP 36; BMI 45.6
--- NOTE | 2021-02-05 13:16 | PN.PCM_ITS ---
History of Present Illness Date of Service: 02/05/21 Chief Complaint: nonhealing wounds to B/L lower legs History of Wound: Liz is a 60 yo pleasant woman that presents to the wound healing center today for evaluation and treatment of nonhealing wounds to her bilateral lower legs referred by her PCP Dr. Martinez. Liz states that these have been present since November. They started as mosquito bites and have never really healed. She continues to keep developing blisters and then areas that scab and then seem to heal but new areas develop. She was initially treated with cefdinir and did not have any improvement. She then was treated with Bactrim which caused her tongue to swell after 2 doses. She was treated for allergic reaction with prednisone and was referred here for further evaluation and treatment. Liz denies any previous history of having problems healing and also does not take any daily medications or have a history of any chronic medical conditions. She is active and works at [employer]. Spends a lot of time gardening and mowing. She denies use of chemicals or changes to skin products. She has tried applying triple antibiotic ointment, salves and vaseline to the areas without any improvement. She washes daily with antibacterial soap. She denies any fever, chills, odor or increased erythema. Subjective Subjective Liz is seen at the wound healing center today for follow up of nonhealing wounds of her bilateral lower legs. She tolerated Promogran and adaptic. Biopsy results showed acute and chronic inflammation. Labs did not reveal any rheumatologic reason for her ulcers/wounds or poor healing. She has had occasional pain and itching but no fever, chills or increased drainage or erythema. There are no new wounds since last week. Objective Data Objective Data Vital Signs: Vital Signs Temp Pulse Resp BP 96.8 F L 75 18 179/77 H 02/05/21 11:10 02/05/21 11:10 02/05/21 11:10 02/05/21 11:10 Weight: 136.078 kg Body Mass Index (BMI) 45.6 Lab / Micro Data Micro: Microbiology 01/15/21 09:00 Wound Abcess - Leg, Left Gram Stain - Final 01/15/21 09:00 Wound Abcess - Leg, Left Wound Culture - Final No growth aerobically. 01/15/21 09:00 Wound Abcess - Leg, Left Anaerobic Culture - Final No growth in 5 days. Physical Exam Const alert, oriented x3 and no apparent distress General Appearance: cooperative and comfortable HEENT normocephalic and head/scalp atraumatic Eyes General Eye: normal appearance of both eyes Lymph Lymphatic: no lymphedema noted Resp normal respiratory effort Effort and Inspection: able to speak in complete sentences Auscultation: clear to auscultation bilaterally Cardio regular rate and regular rhythm GI soft to palpation Inspection: central obesity Extremity normal capillary refill General Extremity: edema bilateral lower extremity Details: mild Skin General Skin Exam: eschar, dermatitis and other pustular lesions b/l lower legs Wounds: wounds noted Wound Narrative: as in clinical panel Neuro oriented x3 and no focal motor deficits Psych mental status grossly normal, thought process normal, cooperative and affect normal Debridement Note Debridement Note Wound debrided: Left posterior calf cluster Laterality: Left Type of Debridement: Selective debridement Anesthesia Used: 4% Lidocaine Solution Depth: Down to and including healthy tissue and in the subcutaneous layer Percentage of wound debrided: 100 Instrument Used: - (gauze) Tissue Removed: Yellow slough, devitalized tissue Severity: Fat Layer Exposed Amount of bleeding with debridement: Mild Bleeding Controlled with: Compression and gauze Patient tolerated procedure: Patient tolerated procedure well Post-Debridement Measurements and Additional Note: Post-Debridement Measurements/Treatment WC - Nurse 1 - General Ulcer Assessment Start: 01/15/21 08:27 Freq: Status: Active Protocol: NATHALIE Activity Type Activity Date Activity User E-Sign Co-Sign Detail Recorded Client Recorded Date Recorded By Document 01/15/21 08:29 RB [id number] 01/15/21 08:37 RB Document 01/18/21 15:20 AK [id number] 01/18/21 15:22 AK Document 01/22/21 08:46 RB [id number] 01/22/21 08:49 RB Document 01/29/21 11:28 KR [id number] 01/29/21 11:38 KR Document 02/05/21 11:10 RB [id number] 02/05/21 11:16 RB 01/15/21 01/18/21 01/22/21 08:29 15:20 08:46 - Today's Visit Information Type of service Initial Visit Nurse-only Follow-up Visit Visit (Physician/WEATHERSEAL TECHNICIAN ) Arrival Mode Ambulatory Ambulatory Ambulatory Transfer Assistance None None Patient Identification Verified (Name & Yes Yes Yes ) Patient Requires Transmission-Based No No No Precautions Safety Precautions NA Height and Weight Height 5 ft 8 in Weight 136.078 kg Weight in Pounds 300.0 lbs Body Mass Index (BMI) 45.6 45.6 45.6 BMI Classification Obese Obese Obese BSA - Laure 2.43 Vital Signs Temperature (97.8 F-99.1 F) 97.5 F L 97.2 F L 97 F L Temperature Source Temporal Temporal Temporal Pulse Rate (60-100) 102 H 100 100 Pulse Location Monitor Monitor Monitor Respiratory Rate (12-18) 18 18 Respiratory rate source Observation Observation Blood Pressure (90/60-120/80) 159/99 H 156/114 H 144/98 H Blood Pressure Mean (mm Hg) 119 128 113 Source Monitor Monitor Monitor Position Semi-Fowlers Semi-Fowlers Blood Pressure Location Left Arm Left Arm History Since Last Visit- (Skip if this is Patient's initial visit) Have you changed medications since your No No No last visit? Any new allergies or adverse reactions No No No Had a fall/change in ADL's that may No No No increase risk of falls Signs or symptoms of abuse and/or No No No neglect since last visit Have you been in the hospital since your No No No last visit? Has dressing in place as prescribed Yes Yes Yes Has compression in place as prescribed No Yes Yes Has offloadiing in place as prescribed No N/A No Experienced any changes in pain level or No No No management Left Footwear Regular Shoe Regular Shoe Right Footwear Regular Shoe Regular Shoe Pain Scale: 0-10 Numeric Is Patient Pain Free? Yes Yes Lower Extremity Assessment/ Foot Assessment/ Toe Nail Assessment Right -Posterior Tibial Palpable Yes -Posterior Tibial Doppler Multiphasic -Dorsalis Pedis Palpable Yes -Dorsalis Pedis Doppler Multiphasic -Extremity Color Normal -Hair Growth on Legs Yes -Hair Growth on Toes Yes -Temperature of Extremity Warm -Capillary Refill Less than 3 Seconds -Dependent Rubor No -Blanched when Elevated No -Lipodermatosclerosis No -Other Deformity No -Prior Foot Ulcer No -Charcot Joint No -Prior Amputation No -Thick No -Discolored No -Deformed No -Improper Length & Hygeine Yes Left -Posterior Tibial Palpable Yes -Posterior Tibial Doppler Multiphasic -Dorsalis Pedis Palpable Yes -Dorsalis Pedis Doppler Multiphasic -Extremity Color Normal -Hair Growth on Legs Yes -Hair Growth on Toes Yes -Temperature of Extremity Warm -Capillary Refill Less than 3 Seconds -Dependent Rubor No -Blanched when Elevated No -Lipodermatosclerosis No -Other Deformity No -Prior Foot Ulcer No -Charcot Joint No -Prior Amputation No -Thick No -Discolored No -Deformed No -Improper Length & Hygeine Yes Neuropathy Assessment Feet - Top Side and Bottom <Entered> (a) Communication Assessment Preferred language [place] Financial Sales Consultant Required No Able to Read Yes Able to Write Yes Communication Tools None Caregiver Communication Skills No Impairment Impairment Right Hearing Abillity Normal Left Hearing Abillity Normal Visual Assistive Devices Glasses, Contacts Teaching Assessment Preferences Verbal,Written, Audio/Visual Barriers to Learning None Willingness to Engage in Self Management Med Activies Readiness to Engage in Self Management Med Activities Anxiety Level Calm Cooperation Cooperative Perception Coherent Interest in Health Problem Asks Questions Education Importance Acknowledges Need Does Patient Smoke tobacco or other No substances Smoking Status Never smoker Is Patient Diabetic No Functional Assessment Recent Decline in Ability to Perform Denies Any Declines Culture/Mandaen/Senior Game Advisor Cultural/Mandaen Needs that may affect No Treatment Plan Would you allow our hospital unstacker to No meet you for the purpose of spiritual/ emotional support? Senior Game Advisor to contact place of [facility] No Teaching: Wound Center *Welcome to the Wound Center -Person Taught Patient -Teaching Method Discussion, Demonstration -Response to teaching Verbalize understanding 01/29/21 02/05/21 11:28 11:10 WC - Today's Visit Information Type of service Follow-up Visit Follow-up Visit (Physician/WEATHERSEAL TECHNICIAN (Physician/WEATHERSEAL TECHNICIAN ) ) Arrival Mode Ambulatory Ambulatory Transfer Assistance None Patient Identification Verified (Name & Yes Yes ) Patient Requires Transmission-Based No Precautions Safety Precautions Height and Weight Height Weight Weight in Pounds Body Mass Index (BMI) 45.6 45.6 BMI Classification Obese Obese BSA - Laure Vital Signs Temperature (97.8 F-99.1 F) 98.0 F 96.8 F L Temperature Source Temporal Temporal Pulse Rate (60-100) 74 75 Pulse Location Monitor Monitor Respiratory Rate (12-18) 18 Respiratory rate source Observation Blood Pressure (90/60-120/80) 166/91 H 179/77 H Blood Pressure Mean (mm Hg) 116 111 Source Monitor Monitor Position Semi-Fowlers Semi-Fowlers Blood Pressure Location Right Arm Left Arm History Since Last Visit- (Skip if this is Patient's initial visit) Have you changed medications since your No No last visit? Any new allergies or adverse reactions No No Had a fall/change in ADL's that may No No increase risk of falls Signs or symptoms of abuse and/or No No neglect since last visit Have you been in the hospital since your No No last visit? Has dressing in place as prescribed Yes Yes Has compression in place as prescribed Yes No Has offloadiing in place as prescribed N/A No Experienced any changes in pain level or No No management Left Footwear Regular Shoe Right Footwear Regular Shoe Pain Scale: 0-10 Numeric Is Patient Pain Free? Yes Yes Lower Extremity Assessment/ Foot Assessment/ Toe Nail Assessment Right -Posterior Tibial Palpable -Posterior Tibial Doppler -Dorsalis Pedis Palpable -Dorsalis Pedis Doppler -Extremity Color -Hair Growth on Legs -Hair Growth on Toes -Temperature of Extremity -Capillary Refill -Dependent Rubor -Blanched when Elevated -Lipodermatosclerosis -Other Deformity -Prior Foot Ulcer -Charcot Joint -Prior Amputation -Thick -Discolored -Deformed -Improper Length & Hygeine Left -Posterior Tibial Palpable -Posterior Tibial Doppler -Dorsalis Pedis Palpable -Dorsalis Pedis Doppler -Extremity Color -Hair Growth on Legs -Hair Growth on Toes -Temperature of Extremity -Capillary Refill -Dependent Rubor -Blanched when Elevated -Lipodermatosclerosis -Other Deformity -Prior Foot Ulcer -Charcot Joint -Prior Amputation -Thick -Discolored -Deformed -Improper Length & Hygeine Neuropathy Assessment Feet - Top Side and Bottom Communication Assessment Preferred relationship assoc Required Able to Read Able to Write Communication Tools Caregiver Communication Skills Impairment Right Hearing Abillity Left Hearing Abillity Visual Assistive Devices Teaching Assessment Preferences Barriers to Learning Willingness to Engage in Self Management Activies Readiness to Engage in Self Management Activities Anxiety Level Cooperation Perception Interest in Health Problem Education Importance Does Patient Smoke tobacco or other substances Smoking Status Is Patient Diabetic Functional Assessment Recent Decline in Ability to Perform Culture/Mandaen/Senior Game Advisor Cultural/Mandaen Needs that may affect Treatment Plan Would you allow our hospital unstacker to meet you for the purpose of spiritual/ emotional support? Senior Game Advisor to contact place of [facility] Teaching: Wound Center *Welcome to the Wound Center -Person Taught -Teaching Method -Response to teaching (a) 1 - + throughout WC - Nurse 1 - General Ulcer Measurement Start: 01/15/21 08:27 Freq: Status: Active Protocol: Activity Type Activity Date Activity User E-Sign Co-Sign Detail Recorded Client Recorded Date Recorded By Document 01/15/21 08:29 RB [id number] 01/15/21 08:37 RB Document 01/22/21 08:46 RB [id number] 01/22/21 08:49 RB Document 01/29/21 11:28 KR [id number] 01/29/21 11:38 KR Document 02/05/21 11:10 RB [id number] 02/05/21 11:16 RB 01/15/21 01/22/21 01/29/21 08:29 08:46 11:28 #4 left posterior cluster -Combined with other wound -Current Size (cm) - Length -Current Size (cm) - Width -Current Size (cm) - Depth -Total Square Cm -Tunneling -Undermining/Tunneling -Circular Undermining -Exudate Amt -Exudate Type -Wound Margin -Granulation Amt -Granulation Quality -Slough/Fibrin -Necrosis Amt -Necrotic Tissue Type -Structure Exposed -Texture (Cecelia-wound Skin Appearance) -Moisture (Cecelia-wound Skin Appearance) -Color (Cecelia-wound Skin Appearance) -Temperature (Cecelia-wound Skin Appearance) -Tenderness on Palpation (Cecelia-wound Skin Appearance) -Ulcer Cleansing -Foul Odor after Cleansing -Anesthetic Used #3 right leigh cluster -Current Size (cm) - Length 5 -Current Size (cm) - Width 0.6 -Current Size (cm) - Depth 0.1 -Total Square Cm 3.0 -Exudate Amt Small -Exudate Type Serosanguineous -Wound Margin Distinct, Outline Attached -Granulation Amt Small (1-33%) -Granulation Quality Red -Necrosis Amt None Present (0 %) -Texture (Cecelia-wound Skin Appearance) Assessed, Scarring -Moisture (Cecelia-wound Skin Appearance) No Abnormality, Assessed -Color (Cecelia-wound Skin Appearance) No Abnormality, Assessed -Temperature (Cecelia-wound Skin No Abnormality Appearance) (Pt Warm) -Tenderness on Palpation (Cecelia-wound No Skin Appearance) -Ulcer Cleansing Rinsed/ Irrigated with Saline -Foul Odor after Cleansing No -Anesthetic Used 4% Lidocaine Solution #2 right calf cluster -Combined with other wound No -Current Size (cm) - Length 3 0.1 -Current Size (cm) - Width 0.5 0.1 -Current Size (cm) - Depth 0.1 0.1 -Total Square Cm 1.5 0.01 -Tunneling No -Undermining/Tunneling No -Circular Undermining No -Exudate Amt Medium None Present -Exudate Type Serosanguineous -Wound Margin Distinct, Distinct, Outline Outline Attached Attached -Granulation Amt Medium (34-66%) Small (1-33%) -Granulation Quality [place] -Slough/Fibrin Yes -Necrosis Amt Large (67-100%) None Present (0 %) -Necrotic Tissue Type Eschar -Structure Exposed N/A -Texture (Cecelia-wound Skin Appearance) Assessed, Assessed, Scarring Scarring -Moisture (Cecelia-wound Skin Appearance) Assessed No Abnormality, Assessed -Color (Cecelia-wound Skin Appearance) Assessed No Abnormality, Assessed -Temperature (Cecelia-wound Skin No Abnormality No Abnormality Appearance) (Pt Warm) (Pt Warm) -Tenderness on Palpation (Cecelia-wound No No Skin Appearance) -Ulcer Cleansing Wound Cleanser Rinsed/ Irrigated with Saline -Foul Odor after Cleansing No No -Anesthetic Used 4% Lidocaine 4% Lidocaine Solution Solution #1 left leigh cluster -Combined with other wound No -Current Size (cm) - Length 10.5 2.9 -Current Size (cm) - Width 7 0.6 -Current Size (cm) - Depth 0.1 0.1 -Total Square Cm 73.5 1.74 -Tunneling No -Undermining/Tunneling No -Circular Undermining No -Exudate Amt Medium Small -Exudate Type Serosanguineous Serosanguineous -Wound Margin Distinct, Distinct, Outline Outline Attached Attached -Granulation Amt Medium (34-66%) Medium (34-66%) -Granulation Quality [place] Red -Slough/Fibrin Yes -Necrosis Amt Small (1-33%) None Present (0 %) -Necrotic Tissue Type Adherent Slough -Structure Exposed N/A -Texture (Cecelia-wound Skin Appearance) Assessed, Assessed, Scarring Scarring -Moisture (Cecelia-wound Skin Appearance) Assessed No Abnormality, Assessed -Color (Cecelia-wound Skin Appearance) Assessed No Abnormality, Assessed -Temperature (Cecelia-wound Skin No Abnormality No Abnormality Appearance) (Pt Warm) (Pt Warm) -Tenderness on Palpation (Cecelia-wound No No Skin Appearance) -Ulcer Cleansing Wound Cleanser Rinsed/ Irrigated with Saline -Foul Odor after Cleansing No No -Anesthetic Used 4% Lidocaine 4% Lidocaine Solution Solution Wound Center Nurse 1 Lower Limb Edema Present Yes Yes Right Calf (cm) 59.7 64.5 68 Right Ankle (cm) 27 32 Point of Measurement (cm from the medial 25.7 instep) Left Calf (cm) 55 56 63 Left Ankle (cm) 26.3 27.5 30 02/05/21 11:10 #4 left posterior cluster -Combined with other wound No -Current Size (cm) - Length 0.1 -Current Size (cm) - Width 0.1 -Current Size (cm) - Depth 0.1 -Total Square Cm 0.01 -Tunneling No -Undermining/Tunneling No -Circular Undermining No -Exudate Amt Large -Exudate Type Serosanguineous -Wound Margin Flat & Intact -Granulation Amt Medium (34-66%) -Granulation Quality [place] -Slough/Fibrin Yes -Necrosis Amt Small (1-33%) -Necrotic Tissue Type Adherent Slough -Structure Exposed N/A -Texture (Cecelia-wound Skin Appearance) Assessed -Moisture (Cecelia-wound Skin Appearance) Assessed -Color (Cecelia-wound Skin Appearance) Assessed -Temperature (Cecelia-wound Skin No Abnormality Appearance) (Pt Warm) -Tenderness on Palpation (Cecelia-wound No Skin Appearance) -Ulcer Cleansing Wound Cleanser -Foul Odor after Cleansing No -Anesthetic Used 4% Lidocaine Solution #3 right leigh cluster -Current Size (cm) - Length -Current Size (cm) - Width -Current Size (cm) - Depth -Total Square Cm -Exudate Amt -Exudate Type -Wound Margin -Granulation Amt -Granulation Quality -Necrosis Amt -Texture (Cecelia-wound Skin Appearance) -Moisture (Cecelia-wound Skin Appearance) -Color (Cecelia-wound Skin Appearance) -Temperature (Cecelia-wound Skin Appearance) -Tenderness on Palpation (Cecelia-wound Skin Appearance) -Ulcer Cleansing -Foul Odor after Cleansing -Anesthetic Used #2 right calf cluster -Combined with other wound No -Current Size (cm) - Length 3 -Current Size (cm) - Width 1 -Current Size (cm) - Depth 0.1 -Total Square Cm 3 -Tunneling No -Undermining/Tunneling No -Circular Undermining No -Exudate Amt Medium -Exudate Type Serosanguineous -Wound Margin Flat & Intact -Granulation Amt Medium (34-66%) -Granulation Quality [place] -Slough/Fibrin Yes -Necrosis Amt Small (1-33%) -Necrotic Tissue Type Adherent Slough -Structure Exposed N/A -Texture (Cecelia-wound Skin Appearance) Assessed -Moisture (Cecelia-wound Skin Appearance) Assessed -Color (Cecelia-wound Skin Appearance) Assessed -Temperature (Cecelia-wound Skin No Abnormality Appearance) (Pt Warm) -Tenderness on Palpation (Cecelia-wound No Skin Appearance) -Ulcer Cleansing Wound Cleanser -Foul Odor after Cleansing No -Anesthetic Used 4% Lidocaine Solution #1 left leigh cluster -Combined with other wound No -Current Size (cm) - Length 5.3 -Current Size (cm) - Width 1 -Current Size (cm) - Depth 0.1 -Total Square Cm 5.3 -Tunneling No -Undermining/Tunneling No -Circular Undermining No -Exudate Amt Medium -Exudate Type Serosanguineous -Wound Margin Flat & Intact -Granulation Amt Medium (34-66%) -Granulation Quality [place] -Slough/Fibrin Yes -Necrosis Amt Medium (34-66%) -Necrotic Tissue Type Adherent Slough -Structure Exposed N/A -Texture (Cecelia-wound Skin Appearance) Assessed -Moisture (Cecelia-wound Skin Appearance) Assessed -Color (Cecelia-wound Skin Appearance) Assessed -Temperature (Cecelia-wound Skin No Abnormality Appearance) (Pt Warm) -Tenderness on Palpation (Cecelia-wound No Skin Appearance) -Ulcer Cleansing Wound Cleanser -Foul Odor after Cleansing No -Anesthetic Used 4% Lidocaine Solution Wound Center Nurse 1 Lower Limb Edema Present Yes Right Calf (cm) 59 Right Ankle (cm) 28 Point of Measurement (cm from the medial instep) Left Calf (cm) 59 Left Ankle (cm) 27.5 WC - Nurse 2 - General Ulcer CM Notes Start: 01/15/21 08:27 Freq: Status: Active Protocol: Activity Type Activity Date Activity User E-Sign Co-Sign Detail Recorded Client Recorded Date Recorded By Document 01/15/21 08:50 MW [id number] 01/15/21 09:05 MW Document 01/22/21 08:57 MW [id number] 01/22/21 09:29 MW Document 01/29/21 12:44 MW [id number] 01/29/21 12:59 MW Edit Result 01/29/21 12:44 MW (1) [id number] 02/02/21 15:19 PL Document 02/05/21 11:22 MW [id number] 02/05/21 11:32 MW (1) #1 left leigh cluster - Debridement - Subq, 1st 20sq cm No => Yes 01/15/21 01/22/21 01/29/21 08:50 08:57 12:44 Wound Center Nurse 2 #4 left posterior cluster -Time 12:52 -Correct Patient Yes -Correct Side, Site, Position Yes -Correct Procedure Yes -Procedure Performed Yes -Type of Procedure Debridement -Clinical Debridement Subcutaneous -Tissue Removed Subcutaneous -Post Debridement (cm) - Length 8.5 -Post Debridement (cm) - Width 0.5 -Post Debridement (cm) - Depth 0.1 -Total Square (Post) (cm) 4.25 -Area of Debridement (cm) - Length 8.5 -Area of Debridement (cm) - Width 0.5 -Total Square (Area) (cm) 4.25 -Tunneling No -Undermining/Tunneling No -Circular Undermining No -Wound/Ulcer Outcome Not Healed -Ulcer Cleansing Rinsed/ Irrigated with Saline -Foul Odor after Cleansing No -Bioengineered Tissue No -Bleeding Controlled with Pressure -Offloading No -Treatment Response Procedure Tolerated Well -Debridement - Open, 1st 20sq cm -Debridement - Subq, 1st 20sq cm No #3 right leigh cluster -Time 09:09 12:46 -Correct Patient Yes Yes -Correct Side, Site, Position Yes Yes -Correct Procedure Yes Yes -Procedure Performed Yes No -Type of Procedure Debridement -Clinical Debridement Subcutaneous -Tissue Removed Subcutaneous -Post Debridement (cm) - Length 2.0 0 -Post Debridement (cm) - Width 2.7 0 -Post Debridement (cm) - Depth 0.1 0 -Total Square (Post) (cm) 5.40 0 -Area of Debridement (cm) - Length 2.0 -Area of Debridement (cm) - Width 2.7 -Total Square (Area) (cm) 5.40 -Tunneling No No -Undermining/Tunneling No No -Circular Undermining No No -Wound/Ulcer Outcome Not Healed Healed- Epithelialized -Ulcer Cleansing Rinsed/ Irrigated with Saline -Foul Odor after Cleansing No -Bioengineered Tissue No -Bleeding Controlled with Pressure -Offloading No -Treatment Response Procedure Tolerated Well -Debridement - Subq, 1st 20sq cm No #2 right calf cluster -Time 09:04 09:08 12:47 -Correct Patient Yes Yes Yes -Correct Side, Site, Position Yes Yes Yes -Correct Procedure Yes Yes Yes -Procedure Performed Yes Yes -Type of Procedure Debridement Debridement Debridement -Clinical Debridement Subcutaneous Subcutaneous Subcutaneous -Tissue Removed Subcutaneous Subcutaneous Subcutaneous -Post Debridement (cm) - Length 0.7 3.3 3.1 -Post Debridement (cm) - Width 0.8 0.5 1.3 -Post Debridement (cm) - Depth 0.1 0.1 0.2 -Total Square (Post) (cm) 0.56 1.65 4.03 -Area of Debridement (cm) - Length 0.7 3.3 3.1 -Area of Debridement (cm) - Width 0.8 0.5 1.3 -Total Square (Area) (cm) 0.56 1.65 4.03 -Tunneling No No No -Undermining/Tunneling No No No -Circular Undermining No No No -Wound/Ulcer Outcome Not Healed Not Healed Not Healed -Ulcer Cleansing Rinsed/ Rinsed/ Rinsed/ Irrigated with Irrigated with Irrigated with Saline Saline Saline -Foul Odor after Cleansing No No No -Bioengineered Tissue No No No -Bleeding Controlled with Pressure Pressure Pressure -Offloading No No No -Treatment Response Procedure Procedure Procedure Tolerated Well Tolerated Well Tolerated Well -Debridement - Open, 1st 20sq cm -Debridement - Subq, 1st 20sq cm No Yes No #1 left leigh cluster -Time 09:03 09:09 12:47 -Correct Patient Yes Yes Yes -Correct Side, Site, Position Yes Yes Yes -Correct Procedure Yes Yes Yes -Procedure Performed Yes Yes Yes -Type of Procedure Debridement Debridement Debridement -Clinical Debridement Subcutaneous Subcutaneous Subcutaneous -Tissue Removed Subcutaneous Subcutaneous Subcutaneous -Post Debridement (cm) - Length 6.0 5.5 5.2 -Post Debridement (cm) - Width 1.0 0.9 0.7 -Post Debridement (cm) - Depth 0.1 0.1 0.1 -Total Square (Post) (cm) 6.00 4.95 3.64 -Area of Debridement (cm) - Length 6.0 5.5 5.2 -Area of Debridement (cm) - Width 1.0 0.9 0.7 -Total Square (Area) (cm) 6.00 4.95 3.64 -Tunneling No No No -Undermining/Tunneling No No No -Circular Undermining No No No -Wound/Ulcer Outcome Not Healed Not Healed Not Healed -Ulcer Cleansing Rinsed/ Rinsed/ Rinsed/ Irrigated with Irrigated with Irrigated with Saline Saline Saline -Foul Odor after Cleansing No No No -Bioengineered Tissue No No No -Bleeding Controlled with Pressure Pressure Pressure -Offloading No No No -Treatment Response Procedure Procedure Procedure Tolerated Well Tolerated Well Tolerated Well -Debridement - Open, 1st 20sq cm -Debridement - Subq, 1st 20sq cm Yes No Yes Pain Scale: 0-10 Numeric Is Patient Pain Free? Yes Yes Yes 02/05/21 11:22 Wound Center Nurse 2 #4 left posterior cluster -Time 11:25 -Correct Patient Yes -Correct Side, Site, Position Yes -Correct Procedure Yes -Procedure Performed Yes -Type of Procedure Debridement -Clinical Debridement Epidermis / Dermis -Tissue Removed Epidermis -Post Debridement (cm) - Length 8.5 -Post Debridement (cm) - Width 0.4 -Post Debridement (cm) - Depth 0.1 -Total Square (Post) (cm) 3.40 -Area of Debridement (cm) - Length 8.5 -Area of Debridement (cm) - Width 0.4 -Total Square (Area) (cm) 3.40 -Tunneling No -Undermining/Tunneling No -Circular Undermining No -Wound/Ulcer Outcome Not Healed -Ulcer Cleansing Rinsed/ Irrigated with Saline -Foul Odor after Cleansing No -Bioengineered Tissue No -Bleeding Controlled with Pressure -Offloading No -Treatment Response Procedure Tolerated Well -Debridement - Open, 1st 20sq cm Yes -Debridement - Subq, 1st 20sq cm #3 right leigh cluster -Time -Correct Patient -Correct Side, Site, Position -Correct Procedure -Procedure Performed -Type of Procedure -Clinical Debridement -Tissue Removed -Post Debridement (cm) - Length -Post Debridement (cm) - Width -Post Debridement (cm) - Depth -Total Square (Post) (cm) -Area of Debridement (cm) - Length -Area of Debridement (cm) - Width -Total Square (Area) (cm) -Tunneling -Undermining/Tunneling -Circular Undermining -Wound/Ulcer Outcome -Ulcer Cleansing -Foul Odor after Cleansing -Bioengineered Tissue -Bleeding Controlled with -Offloading -Treatment Response -Debridement - Subq, 1st 20sq cm #2 right calf cluster -Time 11:26 -Correct Patient Yes -Correct Side, Site, Position Yes -Correct Procedure Yes -Procedure Performed Yes -Type of Procedure Debridement -Clinical Debridement Epidermis / Dermis -Tissue Removed Epidermis -Post Debridement (cm) - Length 3.0 -Post Debridement (cm) - Width 1.1 -Post Debridement (cm) - Depth 0.1 -Total Square (Post) (cm) 3.30 -Area of Debridement (cm) - Length 3.0 -Area of Debridement (cm) - Width 1.1 -Total Square (Area) (cm) 3.30 -Tunneling No -Undermining/Tunneling No -Circular Undermining No -Wound/Ulcer Outcome Not Healed -Ulcer Cleansing Rinsed/ Irrigated with Saline -Foul Odor after Cleansing No -Bioengineered Tissue No -Bleeding Controlled with Pressure -Offloading No -Treatment Response -Debridement - Open, 1st 20sq cm No -Debridement - Subq, 1st 20sq cm #1 left leigh cluster -Time 11:26 -Correct Patient Yes -Correct Side, Site, Position Yes -Correct Procedure Yes -Procedure Performed Yes -Type of Procedure Debridement -Clinical Debridement Epidermis / Dermis -Tissue Removed Epidermis -Post Debridement (cm) - Length 0.6 -Post Debridement (cm) - Width 0.5 -Post Debridement (cm) - Depth 0.1 -Total Square (Post) (cm) 0.30 -Area of Debridement (cm) - Length 0.6 -Area of Debridement (cm) - Width 0.5 -Total Square (Area) (cm) 0.30 -Tunneling No -Undermining/Tunneling No -Circular Undermining No -Wound/Ulcer Outcome Not Healed -Ulcer Cleansing Rinsed/ Irrigated with Saline -Foul Odor after Cleansing No -Bioengineered Tissue No -Bleeding Controlled with Pressure -Offloading No -Treatment Response Procedure Tolerated Well -Debridement - Open, 1st 20sq cm No -Debridement - Subq, 1st 20sq cm Pain Scale: 0-10 Numeric Is Patient Pain Free? Yes WC - Nurse 3 - General Ulcer D/C NN Start: 01/15/21 08:27 Freq: Status: Active Protocol: Activity Type Activity Date Activity User E-Sign Co-Sign Detail Recorded Client Recorded Date Recorded By Document 01/15/21 09:20 JF [id number] 01/15/21 09:22 JF Edit Result 01/15/21 09:20 JF (1) [id number] 01/18/21 09:56 PL Document 01/18/21 15:20 AK [id number] 01/18/21 15:22 AK Document 01/22/21 10:02 RB [id number] 01/22/21 10:03 RB Document 01/29/21 13:06 ML [id number] 01/29/21 13:10 ML Document 02/05/21 11:52 BMF [id number] 02/05/21 11:53 BMF (1) Bilateral - Multi-Layered Wrap Application => Unna Boot - => Bilateral ($) - Unna Boots (Bilat) ($) => 2 Right - Multi-Layered Wrap Application Unna Boot - Right => ($) => - Compression Wrap Unna Boot ($) ( => single) => Left - Multi-Layered Wrap Application Unna Boot - Right => ($) => - Compression Wrap Unna Boot ($) ( => single) => 01/15/21 01/18/21 01/22/21 09:20 15:20 10:02 #4 left posterior cluster -Ulcer Cleansing -Foul Odor after Cleansing -Primary Dressing Applied -Other Dressing -Primary Dressing Covered/Secured with -Promogran #3 right leigh cluster -Ulcer Cleansing Rinsed/ Irrigated with Saline -Primary Dressing Applied NonAdherent Contact Layer, Promogran -Primary Dressing Covered/Secured with Dry Gauze,Dry Gauze & Roll Gauze,Secured with Tape -Promogran 1 #2 right calf cluster -Ulcer Cleansing Rinsed/ Irrigated with Saline -Foul Odor after Cleansing No -Negative Pressure Wound Therapy N/A -Primary Dressing Applied NonAdherent Contact Layer -Other Dressing promogran -Primary Dressing Covered/Secured with Dry Gauze,Dry Gauze & Roll Gauze,Secured with Tape -Promogran #1 left leigh cluster -Ulcer Cleansing Soap and Water -Foul Odor after Cleansing No -Negative Pressure Wound Therapy N/A -Primary Dressing Applied NonAdherent Contact Layer -Other Dressing promogran -Primary Dressing Covered/Secured with Dry Gauze,Dry Gauze & Roll Gauze,Secured with Tape -Promogran Wound Care Nurse 3 Bilateral -Lotion applied to leg before No compression wrap -Multi-Layered Wrap Application Unna Boot - Unna Boot - Bilateral ($) Bilateral ($) -Compression Wrap -Unna Boots (Bilat) ($) 2 2 -Other dago Treatment Response Vital Signs Temperature (97.8 F-99.1 F) 97.2 F L Temperature Source Temporal Pulse Rate (60-100) 100 Pulse Location Monitor Blood Pressure (90/60-120/80) 156/114 H Blood Pressure Mean (mm Hg) 128 Source Monitor Pain Scale: 0-10 Numeric Is Patient Pain Free? Yes WC - Visit Discharge Discharge Condition Stable Stable Stable Ambulatory Status Ambulatory Ambulatory Ambulatory Transportation Private Auto Private Auto Private Auto Medication Reconcilliation completed & Yes Yes No provided to patient/care provider Clinical Summary of Care Provided Yes Yes Yes 01/29/21 02/05/21 13:06 11:52 #4 left posterior cluster -Ulcer Cleansing Rinsed/ Rinsed/ Irrigated with Irrigated with Saline Saline -Foul Odor after Cleansing No -Primary Dressing Applied C Hydrogel ($) NonAdherent Contact Layer, Promogran -Other Dressing adaptic -Primary Dressing Covered/Secured with Dry Gauze, Dry Gauze & Secured with Roll Gauze, Tape Secured with Tape -Promogran 1 #3 right leigh cluster -Ulcer Cleansing -Primary Dressing Applied -Primary Dressing Covered/Secured with -Promogran #2 right calf cluster -Ulcer Cleansing Rinsed/ Rinsed/ Irrigated with Irrigated with Saline Saline -Foul Odor after Cleansing No -Negative Pressure Wound Therapy -Primary Dressing Applied Promogran NonAdherent Contact Layer, Promogran -Other Dressing adaptic -Primary Dressing Covered/Secured with Dry Gauze,Dry Dry Gauze & Gauze & Roll Roll Gauze, Gauze,Secured Secured with with Tape Tape -Promogran 1 0 #1 left leigh cluster -Ulcer Cleansing Rinsed/ Rinsed/ Irrigated with Irrigated with Saline Saline -Foul Odor after Cleansing No -Negative Pressure Wound Therapy -Primary Dressing Applied Promogran NonAdherent Contact Layer, Promogran -Other Dressing adaptic -Primary Dressing Covered/Secured with Dry Gauze,Dry Dry Gauze & Gauze & Roll Roll Gauze, Gauze,Secured Secured with with Tape Tape -Promogran 0 0 Wound Care Nurse 3 Bilateral -Lotion applied to leg before compression wrap -Multi-Layered Wrap Application -Compression Wrap Dago Wrap -Unna Boots (Bilat) ($) -Other Treatment Response Procedure Tolerated Well Vital Signs Temperature (97.8 F-99.1 F) Temperature Source Pulse Rate (60-100) Pulse Location Blood Pressure (90/60-120/80) Blood Pressure Mean (mm Hg) Source Pain Scale: 0-10 Numeric Is Patient Pain Free? Yes WC - Visit Discharge Discharge Condition Stable Stable Ambulatory Status Ambulatory Ambulatory Transportation Private Auto Medication Reconcilliation completed & No provided to patient/care provider Clinical Summary of Care Provided Yes 01/29/21 13:10 Wound Center by Sadie Blankenship ace applied bilateral lower ext. Initialized on 01/29/21 13:10 - END OF NOTE Additional Wound Wound debrided: right medial calf cluster Laterality: Right Type of Debridement: Selective debridement Anesthesia Used: 4% Lidocaine Solution Depth: Down to and including healthy tissue and in the subcutaneous layer Percentage of wound debrided: 100 Instrument Used: - (gauze) Tissue Removed: Yellow slough, devitalized tissue Severity: Fat Layer Exposed Amount of bleeding with debridement: Mild Bleeding Controlled with: Compression and gauze Patient tolerated procedure: Patient tolerated procedure well Additional Wound Wound debrided: Left leigh cluster Laterality: Left Type of Debridement: Selective debridement Anesthesia Used: 4% Lidocaine Solution Depth: Down to and including healthy tissue and in the subcutaneous layer Percentage of wound debrided: 100 Instrument Used: - (gauze) Tissue Removed: Yellow slough, devitalized tissue Severity: Fat Layer Exposed Amount of bleeding with debridement: Mild Bleeding Controlled with: Compression and gauze Patient tolerated procedure: Patient tolerated procedure well Assessment/Plan Assessment/Plan (1) Venous insufficiency of both lower extremities: CODE(S): I87.2 - Venous insufficiency (chronic) (peripheral) (2) Pustular dermatitis: CODE(S): L30.8 - Other specified dermatitis (3) Nonhealing ulcer of left lower extremity with fat layer exposed: CODE(S): L97.922 - Non-pressure chronic ulcer of unspecified part of left lower leg with fat layer exposed (4) Nonhealing ulcer of right lower extremity with fat layer exposed: CODE(S): L97.912 - Non-pressure chronic ulcer of unspecified part of right lower leg with fat layer exposed (5) Obesity, morbid, BMI 40.0-49.9: CODE(S): E66.01 - Morbid (severe) obesity due to excess calories PLAN: Liz's ulcers were evaluated and debrided today at the wound center as above in the clinical panel. She tolerated the procedure well. Unsure of the etiology of her skin ulcers/lesions. Possibly folliculitis or pustular dermatitis. Possibly pyoderma gangrenosum. Will continue to have her use dressings of Promogran to anterior wounds and use hydrogel to posterior wounds and cover with adaptic and gauze and secured either with roll gauze or an DAGO bandage. She was encouraged to increase protein intake in order to promote healing. She was encouraged to elevate her legs at or above the level of her heart when sitting. She was advised to call with any increased pain, erythema, drainage, fever or chills. Will have her follow up in 2 weeks.
== END 2021-02-07 23:59 ==
LOC: WC 10:45
PROVIDERS: PCP Internal Medicine; Referring Provider Family Medicine; Visit Provider Family Medicine
DX: I87.2 Venous insufficiency (chronic) (peripheral) (principal); L97.922 Non-pressure chronic ulcer of unspecified part of left lower leg with fat layer exposed; L97.912 Non-pressure chronic ulcer of unspecified part of right lower leg with fat layer exposed; L30.8 Other specified dermatitis; E66.01 Morbid (severe) obesity due to excess calories; Z68.41 Body mass index [BMI] 40.0-44.9, adult; Z88.2 Allergy status to sulfonamides
CPT/HCPCS: 11042; 29580; 87070; 87075; 87205; 88305; 88312; 97597; 99213; G0463

== ENCOUNTER 2021-02-19 09:00 | Outpatient (RCR) | payer OTHER, SELFPAY ==
[2021-02-08 00:32] VITALS: BP 179/77; PULSE 75; RESP 18; TEMP 36; BMI 45.6
[2021-02-19 09:06] VITALS: BP 171/96; PULSE 82; RESP 18; TEMP 36.8; BMI 45.6
--- NOTE | 2021-02-19 09:53 | PCM.WC.PN ---
History of Present Illness Date of Service: 02/19/21 Chief Complaint: nonhealing wounds to B/L lower legs History of Wound: Liz is a 60 yo pleasant woman that presents to the wound healing center today for evaluation and treatment of nonhealing wounds to her bilateral lower legs referred by her PCP Dr. Martinez. Liz states that these have been present since November. They started as mosquito bites and have never really healed. She continues to keep developing blisters and then areas that scab and then seem to heal but new areas develop. She was initially treated with cefdinir and did not have any improvement. She then was treated with Bactrim which caused her tongue to swell after 2 doses. She was treated for allergic reaction with prednisone and was referred here for further evaluation and treatment. Liz denies any previous history of having problems healing and also does not take any daily medications or have a history of any chronic medical conditions. She is active and works at [employer]. Spends a lot of time gardening and mowing. She denies use of chemicals or changes to skin products. She has tried applying triple antibiotic ointment, salves and vaseline to the areas without any improvement. She washes daily with antibacterial soap. She denies any fever, chills, odor or increased erythema. Subjective Subjective Liz is seen at the wound healing center today for follow up of nonhealing wounds of her bilateral lower legs. She is tolerating Promogran and adaptic to right leg and collagen hydrogel to left leg. Biopsy results showed acute and chronic inflammation. Labs did not reveal any rheumatologic reason for her ulcers/wounds or poor healing. She has had occasional pain and itching but no fever, chills or increased drainage or erythema. There are no new wounds since last visit. Objective Data Objective Data Vital Signs: Vital Signs Temp Pulse Resp BP 98.2 F 82 18 171/96 H 02/19/21 09:06 02/19/21 09:06 02/19/21 09:06 02/19/21 09:06 Weight: 136.078 kg Body Mass Index (BMI) 45.6 Physical Exam Const alert, oriented x3 and no apparent distress General Appearance: cooperative and comfortable Nutritional Appearance: morbidly obese HEENT normocephalic and head/scalp atraumatic Extremity General Extremity: edema bilateral lower extremity Details: moderate Skin Wounds: wounds noted Wound Narrative: as in clinical panel Neuro oriented x3, no focal motor deficits and gait normal Psych mental status grossly normal, thought process normal and cooperative Debridement Note Debridement Note Wound debrided: left posterior cluster Laterality: Left No debridement was completed: No debridement was completed today (due to pyoderma) Post-Debridement Measurements and Additional Note: Post-Debridement Measurements/Treatment FABIAN - Nurse 1 - General Ulcer Assessment Start: 02/19/21 09:06 Freq: Status: Active Protocol: NATHALIE Activity Type Activity Date Activity User E-Sign Co-Sign Detail Recorded Client Recorded Date Recorded By Document 02/19/21 09:06 RB [id number] 02/19/21 09:16 RB 02/19/21 09:06 WC - Today's Visit Information Type of service Follow-up Visit (Physician/DIRECTOR OF 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 ) Arrival Mode Ambulatory Transfer Assistance None Patient Identification Verified (Name & Yes ) Patient Requires Transmission-Based No Precautions Height and Weight Body Mass Index (BMI) 45.6 BMI Classification Obese Vital Signs Temperature (97.8 F-99.1 F) 98.2 F Temperature Source Temporal Pulse Rate (60-100) 82 Pulse Location Monitor Respiratory Rate (12-18) 18 Respiratory rate source Observation Blood Pressure (90/60-120/80) 171/96 H Blood Pressure Mean (mm Hg) 121 Source Monitor Position Sitting Blood Pressure Location Left Forearm History Since Last Visit- (Skip if this is Patient's initial visit) Have you changed medications since your No last visit? Any new allergies or adverse reactions No Had a fall/change in ADL's that may No increase risk of falls Signs or symptoms of abuse and/or No neglect since last visit Have you been in the hospital since your No last visit? Has dressing in place as prescribed Yes Has compression in place as prescribed Yes Has offloadiing in place as prescribed No Experienced any changes in pain level or No management Left Footwear Regular Shoe Right Footwear Regular Shoe Pain Scale: 0-10 Numeric Is Patient Pain Free? Yes - Nurse 1 - General Ulcer Measurement Start: 02/19/21 09:06 Freq: Status: Active Protocol: Activity Type Activity Date Activity User E-Sign Co-Sign Detail Recorded Client Recorded Date Recorded By Document 02/19/21 09:06 RB [id number] 02/19/21 09:16 GURU 02/19/21 09:06 Wound Center Nurse 1 #4 left posterior cluster -Combined with other wound No -Current Size (cm) - Length 0.1 -Current Size (cm) - Width 0.1 -Current Size (cm) - Depth 0.1 -Total Square Cm 0.01 -Tunneling No -Undermining/Tunneling No -Circular Undermining No -Exudate Amt Medium -Exudate Type Serosanguineous -Wound Margin Flat & Intact -Granulation Amt Medium (34-66%) -Granulation Quality Stamping Ground -Slough/Fibrin Yes -Necrosis Amt Small (1-33%) -Necrotic Tissue Type Adherent Slough -Structure Exposed N/A -Texture (Cecelia-wound Skin Appearance) Assessed -Moisture (Cecelia-wound Skin Appearance) Assessed -Color (Cecelia-wound Skin Appearance) Assessed -Temperature (Cecelia-wound Skin No Abnormality Appearance) (Pt Warm) -Tenderness on Palpation (Cecelia-wound No Skin Appearance) -Ulcer Cleansing Wound Cleanser -Foul Odor after Cleansing No -Anesthetic Used 5% Lidocaine Gel #2 right calf cluster -Combined with other wound No -Current Size (cm) - Length 0.1 -Current Size (cm) - Width 0.1 -Current Size (cm) - Depth 0.1 -Total Square Cm 0.01 -Tunneling No -Undermining/Tunneling No -Circular Undermining No -Exudate Amt Small -Exudate Type Serosanguineous -Wound Margin Distinct, Outline Attached -Granulation Amt Medium (34-66%) -Granulation Quality Stamping Ground -Slough/Fibrin Yes -Necrosis Amt Small (1-33%) -Necrotic Tissue Type Adherent Slough -Structure Exposed N/A -Texture (Cecelia-wound Skin Appearance) Assessed -Moisture (Cecelia-wound Skin Appearance) Assessed -Color (Cecelia-wound Skin Appearance) Assessed -Tenderness on Palpation (Cecelia-wound Yes Skin Appearance) -Ulcer Cleansing Wound Cleanser -Foul Odor after Cleansing No -Anesthetic Used 5% Lidocaine Gel #1 left leigh cluster -Combined with other wound No -Current Size (cm) - Length 3 -Current Size (cm) - Width 0.7 -Current Size (cm) - Depth 0.1 -Total Square Cm 2.1 -Tunneling No -Undermining/Tunneling No -Circular Undermining No -Exudate Amt Medium -Exudate Type Serosanguineous -Wound Margin Distinct, Outline Attached -Granulation Amt Medium (34-66%) -Granulation Quality Stamping Ground -Slough/Fibrin Yes -Necrosis Amt Medium (34-66%) -Necrotic Tissue Type Adherent Slough -Structure Exposed N/A -Texture (Cecelia-wound Skin Appearance) Assessed -Moisture (Cecelia-wound Skin Appearance) Assessed -Color (Cecelia-wound Skin Appearance) Assessed -Temperature (Cecelia-wound Skin No Abnormality Appearance) (Pt Warm) -Tenderness on Palpation (Cecelia-wound No Skin Appearance) -Ulcer Cleansing Wound Cleanser -Foul Odor after Cleansing No -Anesthetic Used 5% Lidocaine Gel Lower Limb Edema Present Yes Right Calf (cm) 53.5 Right Ankle (cm) 27.2 Left Calf (cm) 59.5 Left Ankle (cm) 28 FABIAN - Nurse 2 - General Ulcer CM Notes Start: 02/19/21 09:06 Freq: Status: Active Protocol: Activity Type Activity Date Activity User E-Sign Co-Sign Detail Recorded Client Recorded Date Recorded By Document 02/19/21 09:21 MW [id number] 02/19/21 09:27 MW 02/19/21 09:21 Wound Center Nurse 2 #4 left posterior cluster -Time 09:23 -Correct Patient Yes -Correct Side, Site, Position Yes -Correct Procedure Yes -Procedure Performed No -Post Debridement (cm) - Length 0.3 -Post Debridement (cm) - Width 0.3 -Post Debridement (cm) - Depth 0.1 -Total Square (Post) (cm) 0.09 #2 right calf cluster -Time 09:26 -Correct Patient Yes -Correct Side, Site, Position Yes -Correct Procedure Yes -Procedure Performed No -Post Debridement (cm) - Length 0.8 -Post Debridement (cm) - Width 0.8 -Post Debridement (cm) - Depth 0.1 -Total Square (Post) (cm) 0.64 #1 left leigh cluster -Time 09:27 -Correct Patient Yes -Correct Side, Site, Position Yes -Correct Procedure Yes -Procedure Performed No -Post Debridement (cm) - Length 0.5 -Post Debridement (cm) - Width 0.5 -Post Debridement (cm) - Depth 0.1 -Total Square (Post) (cm) 0.25 Pain Scale: 0-10 Numeric Is Patient Pain Free? Yes FABIAN - Nurse 3 - General Ulcer D/C NN Start: 02/19/21 09:06 Freq: Status: Active Protocol: Activity Type Activity Date Activity User E-Sign Co-Sign Detail Recorded Client Recorded Date Recorded By Document 02/19/21 09:41 DL [id number] 02/19/21 09:47 DL 02/19/21 09:41 Wound Care Nurse 3 #4 left posterior cluster -Ulcer Cleansing Soap and Water -Foul Odor after Cleansing No -Primary Dressing Applied NonAdherent Contact Layer -Other Dressing hydrogel -Primary Dressing Covered/Secured with Dry Gauze, Secured with Tape #2 right calf cluster -Ulcer Cleansing Soap and Water -Foul Odor after Cleansing No -Primary Dressing Applied NonAdherent Contact Layer, Promogran Alice Matter -Primary Dressing Covered/Secured with Dry Gauze, Secured with Tape -Promogran Alice Matter 1 #1 left leigh cluster -Ulcer Cleansing Soap and Water -Foul Odor after Cleansing No -Primary Dressing Applied NonAdherent Contact Layer -Other Dressing hydrogel -Primary Dressing Covered/Secured with Dry Gauze, Secured with Tape Treatment Response Procedure Tolerated Well Pain Scale: 0-10 Numeric Is Patient Pain Free? Yes WC - Visit Discharge Discharge Condition Stable Ambulatory Status Ambulatory Transportation Private Auto Notes: Aces left off today per sent home with pt for now to use if edema get worse. Additional Wound Wound debrided: left leigh cluster Laterality: Left Operative Diagnosis: no debridement due to pyoderma Additional Wound Wound debrided: right medial calf cluster Laterality: Right Operative Diagnosis: no debridement - pyoderma Assessment/Plan Assessment/Plan (1) Venous insufficiency of both lower extremities: CODE(S): I87.2 - Venous insufficiency (chronic) (peripheral) (2) Nonhealing ulcer of left lower extremity with fat layer exposed: CODE(S): L97.922 - Non-pressure chronic ulcer of unspecified part of left lower leg with fat layer exposed (3) Nonhealing ulcer of right lower extremity with fat layer exposed: CODE(S): L97.912 - Non-pressure chronic ulcer of unspecified part of right lower leg with fat layer exposed (4) Obesity, morbid, BMI 40.0-49.9: CODE(S): E66.01 - Morbid (severe) obesity due to excess calories (5) Pyoderma gangrenosum: CODE(S): L88 - Pyoderma gangrenosum PLAN: Liz's ulcers were evaluated and debrided today at the wound center as above in the clinical panel. She tolerated the procedure well. Unsure of the etiology of her skin ulcers/lesions. Possibly folliculitis or pustular dermatitis. 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 Will continue to have her use dressings of Promogran to right calf wounds and use hydrogel to posterior wounds and cover with adaptic and gauze and secured either with roll gauze or an JHONATAN bandage. She was encouraged to increase protein intake in order to promote healing. She was encouraged to elevate her legs at or above the level of her heart when sitting. She was advised to call with any increased pain, erythema, drainage, fever or chills. Will have her follow up in 3 weeks.
== END 2021-03-09 23:59 ==
LOC: WC 09:00
PROVIDERS: PCP Internal Medicine; Referring Provider Family Medicine; Visit Provider Family Medicine
DX: I87.2 Venous insufficiency (chronic) (peripheral) (principal); L97.922 Non-pressure chronic ulcer of unspecified part of left lower leg with fat layer exposed; L97.912 Non-pressure chronic ulcer of unspecified part of right lower leg with fat layer exposed; E66.01 Morbid (severe) obesity due to excess calories; L88 Pyoderma gangrenosum; Z68.41 Body mass index [BMI] 40.0-44.9, adult
CPT/HCPCS: 99213; G0463

== ENCOUNTER 2021-02-24 02:41 | Emergency (ER) | payer OTHER, SELFPAY ==
[2021-02-24 02:42] VITALS: BP 193/106; PULSE 101; RESP 18; TEMP 36.1; O2SAT 99; BMI 50.3
--- NOTE | 2021-02-24 02:54 | EDS_ITS ---
HPI History of Present Illness Chief Complaint: Allergic Reaction Narrative Narrative: 60-year-old female presenting with right-sided tongue swelling. She states this started little while ago while she was sleeping. She states she does not take any medicines whatsoever. She had this happen to her a month ago when she was on Bactrim. She took 1 dose of prednisone in the ER and the symptoms did improve. 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 This did resolve on its own after this. Patient has not had return of it. She denies no history of angioedema or allergic reaction. She does not know of any new soaps, dyes, detergents, linens, food etc. Patient states currently her tongue swelling is getting better. PFSH PFSH Medical History Angioedema Venous insufficiency of both lower extremities Home Medications prednisone 50 mg PO DAILY 5 Days #5 tab 02/24/21 [Rx Last Taken Unknown] Allergy/AdvReac Type Severity Reaction Status Date / Time sulfamethoxazole Allergy Swelling Verified 02/24/21 02:47 [From Bactrim] trimethoprim [From Bactrim] Allergy Swelling Verified 02/24/21 02:47 Surgical History History of hysteroscopy Social History Smoking Status: Never smoker ROS ROS ED Constitutional Constitutional ED: Denies chills or fever(s) Eyes Eyes: Denies blurry vision or change in vision ENT ENT ED: Reports other Details: Minor tongue swelling improving ; Denies ear pain or rhinorrhea Cardiovascular Cardiovascular: Denies chest pain or palpitations Respiratory/Chest Respiratory/Chest: Denies cough or dyspnea Gastrointestinal Gastrointestinal: Denies abdominal pain, nausea or vomiting Genitourinary Genitourinary ED: Denies dysuria or hematuria Musculoskeletal Musculoskeletal: Denies arthralgias or myalgias Neurologic Neurologic: Denies headache(s) or paresthesias EXAM Physical Exam Const Vital Signs: 02/24/21 02:42 Temperature 96.9 F L Temperature Source Temporal Pulse Rate 101 H Respiratory Rate 18 Blood Pressure 193/106 H Blood Pressure Mean 135 Pulse Ox 99 Oxygen Delivery Method Room Air Positive well nourished General Appearance ED: NAD HEENT Reports moist mucous membranes HEENT Narrative: Right side of tongue slightly swollen. Oropharynx is patent without stridor. Patient speaking in full sentences. No difficulty swallowing. Lips are nonswollen. Negative for trauma Eyes PERRL and EOMs intact bilaterally Neck no lymphadenopathy and supple Resp normal respiratory effort and clear to auscultation bilaterally Cardio regular rate and regular rhythm GI normal to inspection, nondistended, normoactive bowel sounds Neuro oriented x3, CN's II-XII intact bilaterally and no sensory deficits noted Sensorium / Orientation: alert Motor Exam: strength 5/5 throughout Psych mental status grossly normal Skin no rashes or lesions noted MDM MDM MDM Narrative Medical decision making narrative: Patient is swelling of the right side of her tongue which is actually improving currently. She will be given a dose of prednisone which she states helped her last time. I will give her a prescription for this for home. Since it is already improving I do not believe she is to stay. She is given return precautions. Impression: 1. Tongue swelling Discharge Plan Triage Chief Complaint: Allergic Reaction ED Provider: Mushtaq Gutierrez Dx/Rx/DC Orders Instructions: ED General Allergic Reactions Prescriptions: New prednisone 50 mg tablet 50 mg PO DAILY 5 Days Qty: 5 RF: 0 Primary Care Provider: Kristen Martinez Referrals: Kristen Martinez DO [Primary Care Provider] - Disposition Disposition: Home, Self Care
[2021-02-24] MEDS: predniSONE 20 MG Tablet 60 MG PO (02:55)
== END 2021-02-24 03:34 | disposition home or self-care (01) ==
LOC: ED 03:05
PROVIDERS: Emergency Provider Student in an Organized Health Care Education/Training Program; PCP Internal Medicine
DX: R22.0 Localized swelling, mass and lump, head (principal)
CPT/HCPCS: 99283

== ENCOUNTER 2021-03-26 08:15 | Outpatient (RCR) | payer OTHER, SELFPAY ==
[2021-03-10 00:34] VITALS: BP 171/96; PULSE 82; RESP 18; TEMP 36.8; BMI 45.6
[2021-03-12 08:58] VITALS: BP 171/91; PULSE 80; RESP 18; TEMP 36.2; BMI 45.6
--- NOTE | 2021-03-12 14:14 | PN.PCM_ITS ---
History of Present Illness Date of Service: 03/12/21 Chief Complaint: nonhealing wounds to B/L lower legs History of Wound: Liz is a 60 yo pleasant woman that presents to the wound healing center today for evaluation and treatment of nonhealing wounds to her bilateral lower legs referred by her PCP Dr. Martinez. Liz states that these have been present since November. They started as mosquito bites and have never really healed. She continues to keep developing blisters and then areas that scab and then seem to heal but new areas develop. She was initially treated with cefdinir and did not have any improvement. She then was treated with Bactrim which caused her tongue to swell after 2 doses. She was treated for allergic reaction with prednisone and was referred here for further evaluation and treatment. Liz denies any previous history of having problems healing and also does not take any daily medications or have a history of any chronic medical conditions. She is active and works at [employer]. Spends a lot of time gardening and mowing. She denies use of chemicals or changes to skin products. She has tried applying triple antibiotic ointment, salves and vaseline to the areas without any improvement. She washes daily with antibacterial soap. She denies any fever, chills, odor or increased erythema. Subjective Subjective Liz is seen at the wound healing center today for follow up of nonhealing wounds of her bilateral lower legs. She is tolerating Promogran and adaptic to right leg and collagen hydrogel to left leg. Biopsy results showed acute and chronic inflammation. Labs did not reveal any rheumatologic reason for her ulcers/wounds or poor healing. She has had occasional pain and itching but no fever, chills or increased drainage or erythema. There are no new wounds since last visit. Objective Data Objective Data Vital Signs: Vital Signs Temp Pulse Resp BP 97.1 F L 80 18 171/91 H 03/12/21 08:58 03/12/21 08:58 03/12/21 08:58 03/12/21 08:58 Weight: 136.078 kg Body Mass Index (BMI) 45.6 Physical Exam Const alert, oriented x3 and no apparent distress Nutritional Appearance: morbidly obese HEENT normocephalic and head/scalp atraumatic Mouth: oral and palatal mucosa normal Resp normal respiratory effort Effort and Inspection: able to speak in complete sentences Cardio regular rate and regular rhythm Extremity General Extremity: edema bilateral lower extremity Details: mild Skin Wounds: wounds noted Wound Narrative: as in clinical panel Psych mental status grossly normal, thought process normal, cooperative and affect normal Debridement Note Debridement Note Wound debrided: left posterior cluster Laterality: Left No debridement was completed: No debridement was completed today (healed) Post-Debridement Measurements and Additional Note: Post-Debridement Measurements/Treatment FABIAN - Nurse 1 - General Ulcer Assessment Start: 03/12/21 08:58 Freq: Status: Active Protocol: NATHALIE Activity Type Activity Date Activity User E-Sign Co-Sign Detail Recorded Client Recorded Date Recorded By Document 03/12/21 08:58 [facility] [id number] 03/12/21 09:05 [facility] 03/12/21 08:58 WC - Today's Visit Information Type of service Follow-up Visit (Physician/[employer] ) Arrival Mode Ambulatory Transfer Assistance None Patient Identification Verified (Name & Yes ) Patient Requires Transmission-Based No Precautions Height and Weight Body Mass Index (BMI) 45.6 BMI Classification Obese Vital Signs Temperature (97.8 F-99.1 F) 97.1 F L Temperature Source Temporal Pulse Rate (60-100) 80 Pulse Location Monitor Respiratory Rate (12-18) 18 Respiratory rate source Observation Blood Pressure (90/60-120/80) 171/91 H Blood Pressure Mean (mm Hg) 117 Source Monitor Position Semi-Fowlers Blood Pressure Location Left Arm History Since Last Visit- (Skip if this is Patient's initial visit) Have you changed medications since your No last visit? Any new allergies or adverse reactions No Had a fall/change in ADL's that may No increase risk of falls Signs or symptoms of abuse and/or No neglect since last visit Have you been in the hospital since your No last visit? Has dressing in place as prescribed Yes Has compression in place as prescribed No Has offloadiing in place as prescribed No Experienced any changes in pain level or No management Left Footwear Regular Shoe Right Footwear Regular Shoe Pain Scale: 0-10 Numeric Is Patient Pain Free? Yes FABIAN Emmanuel Nurse 1 - General Ulcer Measurement Start: 03/12/21 08:58 Freq: Status: Active Protocol: Activity Type Activity Date Activity User E-Sign Co-Sign Detail Recorded Client Recorded Date Recorded By Document 03/12/21 08:58 [facility] [id number] 03/12/21 09:05 [facility] 03/12/21 08:58 Wound Center Nurse 1 #4 left posterior cluster -Combined with other wound No -Current Size (cm) - Length 0.1 -Current Size (cm) - Width 0.1 -Current Size (cm) - Depth 0.1 -Total Square Cm 0.01 -Tunneling No -Undermining/Tunneling No -Circular Undermining No -Exudate Amt Small -Exudate Type Serosanguineous -Wound Margin Flat & Intact -Granulation Amt Medium (34-66%) -Granulation Quality [place] -Slough/Fibrin Yes -Necrosis Amt Small (1-33%) -Necrotic Tissue Type Adherent Slough -Structure Exposed N/A -Texture (Cecelia-wound Skin Appearance) Assessed -Moisture (Cecelia-wound Skin Appearance) Assessed -Color (Cecelia-wound Skin Appearance) Assessed -Temperature (Cecelia-wound Skin No Abnormality Appearance) (Pt Warm) -Tenderness on Palpation (Cecelia-wound No Skin Appearance) -Ulcer Cleansing Wound Cleanser -Foul Odor after Cleansing No -Anesthetic Used 4% Lidocaine Solution #2 right medial calf cluster -Combined with other wound No -Current Size (cm) - Length 0.3 -Current Size (cm) - Width 0.3 -Current Size (cm) - Depth 0.1 -Total Square Cm 0.09 -Tunneling No -Undermining/Tunneling No -Circular Undermining No -Exudate Amt Medium -Exudate Type Serosanguineous -Wound Margin Flat & Intact -Granulation Amt Medium (34-66%) -Granulation [place] -Slough/Fibrin Yes -Necrosis Amt Small (1-33%) -Necrotic Tissue Type Adherent Slough -Structure Exposed N/A -Texture (Cecelia-wound Skin Appearance) Assessed -Moisture (Cecelia-wound Skin Appearance) Assessed -Color (Cecelia-wound Skin Appearance) Assessed -Temperature (Cecelia-wound Skin No Abnormality Appearance) (Pt Warm) -Tenderness on Palpation (Cecelia-wound No Skin Appearance) -Ulcer Cleansing Wound Cleanser -Foul Odor after Cleansing No -Anesthetic Used 4% Lidocaine Solution #1 left leigh cluster -Combined with other wound No -Current Size (cm) - Length 0.1 -Current Size (cm) - Width 0.1 -Current Size (cm) - Depth 0.1 -Total Square Cm 0.01 -Tunneling No -Undermining/Tunneling No -Circular Undermining No -Exudate Amt Medium -Exudate Type Serosanguineous -Wound Margin Flat & Intact -Granulation Amt Medium (34-66%) -Granulation Quality [place] -Slough/Fibrin Yes -Necrosis Amt Small (1-33%) -Necrotic Tissue Type Adherent Slough -Structure Exposed N/A -Texture (Cecelia-wound Skin Appearance) Assessed -Moisture (Cecelia-wound Skin Appearance) Assessed -Color (Cecelia-wound Skin Appearance) Assessed -Temperature (Cecelia-wound Skin No Abnormality Appearance) (Pt Warm) -Tenderness on Palpation (Cecelia-wound No Skin Appearance) -Ulcer Cleansing Wound Cleanser -Foul Odor after Cleansing No -Anesthetic Used 4% Lidocaine Solution Lower Limb Edema Present Yes Right Calf (cm) 62.1 Right Ankle (cm) 27.9 Left Calf (cm) 56.7 Left Ankle (cm) 27.8 WC - Nurse 2 - General Ulcer CM Notes Start: 03/12/21 08:58 Freq: Status: Active Protocol: Activity Type Activity Date Activity User E-Sign Co-Sign Detail Recorded Client Recorded Date Recorded By Document 03/12/21 09:41 [id number] 03/12/21 09:54 03/12/21 09:41 Wound Center Nurse 2 5-right leigh ulcer cluster -Time 09:52 -Correct Patient Yes -Correct Side, Site, Position Yes -Correct Procedure Yes -Procedure Performed Yes -Type of Procedure Debridement -Clinical Debridement Subcutaneous -Tissue Removed Subcutaneous -Post Debridement (cm) - Length 0.5 -Post Debridement (cm) - Width 0.5 -Post Debridement (cm) - Depth 0.2 -Total Square (Post) (cm) 0.25 -Area of Debridement (cm) - Length 0.5 -Area of Debridement (cm) - Width 0.5 -Total Square (Area) (cm) 0.25 -Tunneling No -Undermining/Tunneling No -Circular Undermining No -Wound/Ulcer Outcome Not Healed -Ulcer Cleansing Rinsed/ Irrigated with Saline -Foul Odor after Cleansing No -Bioengineered Tissue No -Bleeding Controlled with Pressure -Offloading No -Treatment Response Procedure Tolerated Well -Debridement - Subq, 1st 20sq cm No #4 left posterior cluster -Correct Patient No -Correct Side, Site, Position No -Correct Procedure No -Procedure Performed No -Post Debridement (cm) - Length 0 -Post Debridement (cm) - Width 0 -Post Debridement (cm) - Depth 0 -Total Square (Post) (cm) 0 -Area of Debridement (cm) - Length 0 -Area of Debridement (cm) - Width 0 -Total Square (Area) (cm) 0 -Tunneling No -Undermining/Tunneling No -Wound/Ulcer Outcome Healed- Epithelialized #2 right medial calf cluster -Time 09:45 -Correct Patient Yes -Correct Side, Site, Position Yes -Correct Procedure Yes -Procedure Performed Yes -Type of Procedure Debridement -Clinical Debridement Subcutaneous -Tissue Removed Subcutaneous -Post Debridement (cm) - Length 2 -Post Debridement (cm) - Width 2.5 -Post Debridement (cm) - Depth 0.2 -Total Square (Post) (cm) 5.0 -Area of Debridement (cm) - Length 2 -Area of Debridement (cm) - Width 2.5 -Total Square (Area) (cm) 5.0 -Tunneling No -Undermining/Tunneling No -Circular Undermining No -Wound/Ulcer Outcome Not Healed -Ulcer Cleansing Rinsed/ Irrigated with Saline -Foul Odor after Cleansing No -Bioengineered Tissue No -Bleeding Controlled with Pressure -Offloading No -Treatment Response Procedure Tolerated Well -Debridement - Subq, 1st 20sq cm Yes #1 left leigh cluster -Correct Patient No -Correct Side, Site, Position No -Correct Procedure No -Procedure Performed No -Post Debridement (cm) - Length 0 -Post Debridement (cm) - Width 0 -Post Debridement (cm) - Depth 0 -Total Square (Post) (cm) 0 -Area of Debridement (cm) - Length 0 -Area of Debridement (cm) - Width 0 -Total Square (Area) (cm) 0 -Wound/Ulcer Outcome Healed- Epithelialized Pain Scale: 0-10 Numeric Is Patient Pain Free? Yes WC - Nurse 3 - General Ulcer D/C NN Start: 03/12/21 08:58 Freq: Status: Active Protocol: Activity Type Activity Date Activity User E-Sign Co-Sign Detail Recorded Client Recorded Date Recorded By Document 03/12/21 09:58 RB [id number] 03/12/21 10:00 RB 03/12/21 09:58 Wound Care Nurse 3 5-right leigh ulcer cluster -Other Dressing hydrogel -Primary Dressing Covered/Secured with Dry Gauze, Secured with Tape #2 right medial calf cluster -Primary Dressing Applied C Hydrogel ($) -Other Dressing hydrogel -Primary Dressing Covered/Secured with Dry Gauze, Secured with Tape Right -Tubular Bandage Single Layer -Size of Tubigrip Used Size F -Size F ($) 1 Left -Tubular Bandage Single Layer -Size of Tubigrip Used Size F -Size F ($) 1 Pain Scale: 0-10 Numeric Is Patient Pain Free? Yes WC - Visit Discharge Discharge Condition Stable Ambulatory Status Ambulatory Transportation Private Auto Medication Reconcilliation completed & No provided to patient/care provider Clinical Summary of Care Provided Yes Additional Wound Wound debrided: left leigh Laterality: Left Operative Diagnosis: no debridement - healed Additional Wound Wound debrided: right leigh cluster Laterality: Right Type of Debridement: Excisional debridement Anesthesia Used: 4% Lidocaine Solution and 5% Lidocaine Gel Depth: Down to and including healthy tissue and in the subcutaneous layer Percentage of wound debrided: 100 Instrument Used: - (2 mm) Tissue Removed: Yellow slough, devitalized tissue Severity: Fat Layer Exposed Amount of bleeding with debridement: Mild Bleeding Controlled with: Compression and gauze Patient tolerated procedure: Patient tolerated procedure well Additional Wound Wound debrided: right medial calf cluster Laterality: Right Type of Debridement: Excisional debridement Anesthesia Used: 4% Lidocaine Solution Depth: Down to and including healthy tissue and in the subcutaneous layer Percentage of wound debrided: 100 Instrument Used: - (2 mm curette) Tissue Removed: Yellow slough, devitalized tissue Severity: Fat Layer Exposed Amount of bleeding with debridement: Mild Bleeding Controlled with: Compression and gauze Patient tolerated procedure: Patient tolerated procedure well Assessment/Plan Assessment/Plan (1) Venous insufficiency of both lower extremities: CODE(S): I87.2 - Venous insufficiency (chronic) (peripheral) (2) Pustular dermatitis: CODE(S): L30.8 - Other specified dermatitis (3) Nonhealing ulcer of left lower extremity with fat layer exposed: CODE(S): L97.922 - Non-pressure chronic ulcer of unspecified part of left lower leg with fat layer exposed (4) Nonhealing ulcer of right lower extremity with fat layer exposed: CODE(S): L97.912 - Non-pressure chronic ulcer of unspecified part of right lower leg with fat layer exposed (5) Obesity, morbid, BMI 40.0-49.9: CODE(S): E66.01 - Morbid (severe) obesity due to excess calories (6) Pyoderma gangrenosum: CODE(S): L88 - Pyoderma gangrenosum PLAN: Liz's ulcers were evaluated and debrided today at the wound center as above in the clinical panel. She tolerated the procedure well. Unsure of the etiology of her skin ulcers/lesions. Possibly folliculitis or pust ular dermatitis. 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 Will continue to have her use hydrogel to wounds and cover with adaptic and gauze. Will have her use single layer tubigrip compression. She was encouraged to increase protein intake in order to promote healing. She was encouraged to elevate her legs at or above the level of her heart when sitting. She was advised to call with any increased pain, erythema, drainage, fever or chills. Will have her follow up in 2 weeks.
[2021-03-26 08:16] VITALS: BP 174/97; PULSE 88; RESP 18; TEMP 36.1; BMI 45.6
--- NOTE | 2021-03-26 21:17 | PN.PCM_ITS ---
History of Present Illness Date of Service: 03/26/21 Chief Complaint: nonhealing wounds to B/L lower legs History of Wound: Liz is a 60 yo pleasant woman that presents to the wound healing center today for evaluation and treatment of nonhealing wounds to her bilateral lower legs referred by her PCP Dr. Martinez. Liz states that these have been present since November. They started as mosquito bites and have never really healed. She continues to keep developing blisters and then areas that scab and then seem to heal but new areas develop. She was initially treated with cefdinir and did not have any improvement. She then was treated with Bactrim which caused her tongue to swell after 2 doses. She was treated for allergic reaction with prednisone and was referred here for further evaluation and treatment. Liz denies any previous history of having problems healing and also does not take any daily medications or have a history of any chronic medical conditions. She is active and works at [employer]. Spends a lot of time gardening and mowing. She denies use of chemicals or changes to skin products. She has tried applying triple antibiotic ointment, salves and vaseline to the areas without any improvement. She washes daily with antibacterial soap. She denies any fever, chills, odor or increased erythema. Objective Data Objective Data Vital Signs: Vital Signs Temp Pulse Resp BP 97 F L 88 18 174/97 H 03/26/21 08:16 03/26/21 08:16 03/26/21 08:16 03/26/21 08:16 Weight: 136.078 kg Body Mass Index (BMI) 45.6 Physical Exam Const alert, oriented x3 and no apparent distress Nutritional Appearance: morbidly obese HEENT normocephalic and head/scalp atraumatic Resp normal respiratory effort Effort and Inspection: able to speak in complete sentences Cardio regular rate and regular rhythm Extremity General Extremity: edema bilateral lower extremity Details: mild Skin Wounds: wounds noted Wound Narrative: as in clinical panel Psych mental status grossly normal, thought process normal, cooperative and affect normal Debridement Note Debridement Note Wound debrided: right leigh cluster Laterality: Right Type of Debridement: Excisional debridement Anesthesia Used: 4% Lidocaine Solution Depth: Down to and including healthy tissue and in the subcutaneous layer Percentage of wound debrided: 100 Instrument Used: 3mm curette Tissue Removed: Yellow slough, devitalized tissue Severity: Fat Layer Exposed Amount of bleeding with debridement: Mild Bleeding Controlled with: Compression and gauze Patient tolerated procedure: Patient tolerated procedure well Post-Debridement Measurements and Additional Note: Post-Debridement Measurements/Treatment - Nurse 1 - General Ulcer Assessment Start: 03/12/21 08:58 Freq: Status: Active Protocol: NARINDERT Activity Type Activity Date Activity User E-Sign Co-Sign Detail Recorded Client Recorded Date Recorded By Document 03/12/21 08:58 [facility] [id number] 03/12/21 09:05 BM Document 03/26/21 08:16 [id number] 03/26/21 08:26 RB 03/12/21 03/26/21 08:58 08:16 WC - Today's Visit Information Type of service Follow-up Visit Follow-up Visit (Physician/SILVER [employer]IXER (Physician/SILVER [employer] MIXER ) ) Arrival Mode Ambulatory Ambulatory Transfer Assistance None None Patient Identification Verified (Name & Yes Yes ) Patient Requires Transmission-Based No No Precautions Height and Weight Body Mass Index (BMI) 45.6 45.6 BMI Classification Obese Obese Vital Signs Temperature (97.8 F-99.1 F) 97.1 F L 97 F L Temperature Source Temporal Temporal Pulse Rate (60-100) 80 88 Pulse Location Monitor Monitor Respiratory Rate (12-18) 18 18 Respiratory rate source Observation Observation Blood Pressure (90/60-120/80) 171/91 H 174/97 H Blood Pressure Mean (mm Hg) 117 122 Source Monitor Monitor Position Semi-Fowlers Semi-Fowlers Blood Pressure Location Left Arm Left Arm History Since Last Visit- (Skip if this is Patient's initial visit) Have you changed medications since your No No last visit? Any new allergies or adverse reactions No No Had a fall/change in ADL's that may No No increase risk of falls Signs or symptoms of abuse and/or No No neglect since last visit Have you been in the hospital since your No No last visit? Has dressing in place as prescribed Yes Yes Has compression in place as prescribed No Yes Has offloadiing in place as prescribed No No Experienced any changes in pain level or No No management Left Footwear Regular Shoe Right Footwear Regular Shoe Pain Scale: 0-10 Numeric Is Patient Pain Free? Yes Yes - Nurse 1 - General Ulcer Measurement Start: 03/12/21 08:58 Freq: Status: Active Protocol: Activity Type Activity Date Activity User E-Sign Co-Sign Detail Recorded Client Recorded Date Recorded By Document 03/12/21 08:58 [facility] [id number] 03/12/21 09:05 BM Document 03/26/21 08:16 RB [id number] 03/26/21 08:26 RB 03/12/21 03/26/21 08:58 08:16 Wound Center Nurse 1 5-right leigh ulcer cluster -Combined with other wound No -Current Size (cm) - Length 0.1 -Current Size (cm) - Width 0.1 -Current Size (cm) - Depth 0.1 -Total Square Cm 0.01 -Tunneling No -Undermining/Tunneling No -Circular Undermining No -Exudate Amt Small -Exudate Type Serosanguineous -Wound Margin Flat & Intact -Granulation Amt Medium (34-66%) -Granulation Quality [place] -Necrosis Amt Small (1-33%) -Necrotic Tissue Type Adherent Slough -Structure Exposed N/A -Texture (Cecelia-wound Skin Appearance) Scarring -Moisture (Cecelia-wound Skin Appearance) Assessed -Color (Cecelia-wound Skin Appearance) Assessed -Temperature (Cecelia-wound Skin No Abnormality Appearance) (Pt Warm) -Tenderness on Palpation (Cecelia-wound No Skin Appearance) -Ulcer Cleansing Wound Cleanser -Foul Odor after Cleansing No -Anesthetic Used 4% Lidocaine Solution #4 left posterior cluster -Combined with other wound No -Current Size (cm) - Length 0.1 -Current Size (cm) - Width 0.1 -Current Size (cm) - Depth 0.1 -Total Square Cm 0.01 -Tunneling No -Undermining/Tunneling No -Circular Undermining No -Exudate Amt Small -Exudate Type Serosanguineous -Wound Margin Flat & Intact -Granulation Amt Medium (34-66%) -Granulation Quality [place] -Slough/Fibrin Yes -Necrosis Amt Small (1-33%) -Necrotic Tissue Type Adherent Slough -Structure Exposed N/A -Texture (Cecelia-wound Skin Appearance) Assessed -Moisture (Cecelia-wound Skin Appearance) Assessed -Color (Cecelia-wound Skin Appearance) Assessed -Temperature (Cecelia-wound Skin No Abnormality Appearance) (Pt Warm) -Tenderness on Palpation (Cecelia-wound No Skin Appearance) -Ulcer Cleansing Wound Cleanser -Foul Odor after Cleansing No -Anesthetic Used 4% Lidocaine Solution #2 right medial calf cluster -Combined with other wound No -Current Size (cm) - Length 0.3 0.1 -Current Size (cm) - Width 0.3 0.1 -Current Size (cm) - Depth 0.1 0.1 -Total Square Cm 0.09 0.01 -Tunneling No No -Undermining/Tunneling No No -Circular Undermining No No -Exudate Amt Medium Small -Exudate Type Serosanguineous Serosanguineous -Wound Margin Flat & Intact Flat & Intact -Granulation Amt Medium (34-66%) Medium (34-66%) -Granulation Quality [place] Dover -Slough/Fibrin Yes Yes -Necrosis Amt Small (1-33%) Small (1-33%) -Necrotic Tissue Type Adherent Slough Adherent Slough -Structure Exposed N/A N/A -Texture (Cecelia-wound Skin Appearance) Assessed Assessed, Scarring -Moisture (Cecelia-wound Skin Appearance) Assessed Assessed -Color (Cecelia-wound Skin Appearance) Assessed Assessed -Temperature (Cecelia-wound Skin No Abnormality No Abnormality Appearance) (Pt Warm) (Pt Warm) -Tenderness on Palpation (Cecelia-wound No No Skin Appearance) -Ulcer Cleansing Wound Cleanser Wound Cleanser -Foul Odor after Cleansing No No -Anesthetic Used 4% Lidocaine 4% Lidocaine Solution Solution #1 left leigh cluster -Combined with other wound No -Current Size (cm) - Length 0.1 -Current Size (cm) - Width 0.1 -Current Size (cm) - Depth 0.1 -Total Square Cm 0.01 -Tunneling No -Undermining/Tunneling No -Circular Undermining No -Exudate Amt Medium -Exudate Type Serosanguineous -Wound Margin Flat & Intact -Granulation Amt Medium (34-66%) -Granulation Quality [place] -Slough/Fibrin Yes -Necrosis Amt Small (1-33%) -Necrotic Tissue Type Adherent Slough -Structure Exposed N/A -Texture (Cecelia-wound Skin Appearance) Assessed -Moisture (Cecelia-wound Skin Appearance) Assessed -Color (Cecelia-wound Skin Appearance) Assessed -Temperature (Cecelia-wound Skin No Abnormality Appearance) (Pt Warm) -Tenderness on Palpation (Cecelia-wound No Skin Appearance) -Ulcer Cleansing Wound Cleanser -Foul Odor after Cleansing No -Anesthetic Used 4% Lidocaine Solution Lower Limb Edema Present Yes Yes Right Calf (cm) 62.1 59 Right Ankle (cm) 27.9 29 Left Calf (cm) 56.7 59.5 Left Ankle (cm) 27.8 29 WC - Nurse 2 - General Ulcer CM Notes Start: 03/12/21 08:58 Freq: Status: Active Protocol: Activity Type Activity Date Activity User E-Sign Co-Sign Detail Recorded Client Recorded Date Recorded By Document 03/12/21 09:41 JF [id number] 03/12/21 09:54 JF Document 03/26/21 08:48 MW [id number] 03/26/21 08:56 MW 03/12/21 03/26/21 09:41 08:48 Wound Center Nurse 2 #6 left leigh cluster -Time 08:55 -Correct Patient Yes -Correct Side, Site, Position Yes -Correct Procedure Yes -Procedure Performed Yes -Type of Procedure Debridement -Clinical Debridement Subcutaneous -Tissue Removed Subcutaneous -Post Debridement (cm) - Length 0.5 -Post Debridement (cm) - Width 0.3 -Post Debridement (cm) - Depth 0.2 -Total Square (Post) (cm) 0.15 -Area of Debridement (cm) - Length 0.5 -Area of Debridement (cm) - Width 0.3 -Total Square (Area) (cm) 0.15 -Tunneling No -Undermining/Tunneling No -Circular Undermining No -Wound/Ulcer Outcome Not Healed -Ulcer Cleansing Rinsed/ Irrigated with Saline -Foul Odor after Cleansing No -Bioengineered Tissue No -Bleeding Controlled with Pressure -Offloading No -Treatment Response Procedure Tolerated Well -Debridement - Subq, 1st 20sq cm No 5-right leigh ulcer cluster -Time 09:52 08:53 -Correct Patient Yes Yes -Correct Side, Site, Position Yes Yes -Correct Procedure Yes Yes -Procedure Performed Yes Yes -Type of Procedure Debridement Debridement -Clinical Debridement Subcutaneous Subcutaneous -Tissue Removed Subcutaneous Subcutaneous -Post Debridement (cm) - Length 0.5 0.7 -Post Debridement (cm) - Width 0.5 0.5 -Post Debridement (cm) - Depth 0.2 0.1 -Total Square (Post) (cm) 0.25 0.35 -Area of Debridement (cm) - Length 0.5 0.7 -Area of Debridement (cm) - Width 0.5 0.5 -Total Square (Area) (cm) 0.25 0.35 -Tunneling No No -Undermining/Tunneling No No -Circular Undermining No No -Wound/Ulcer Outcome Not Healed Not Healed -Ulcer Cleansing Rinsed/ Rinsed/ Irrigated with Irrigated with Saline Saline -Foul Odor after Cleansing No No -Bioengineered Tissue No No -Bleeding Controlled with Pressure Pressure -Offloading No No -Treatment Response Procedure Procedure Tolerated Well Tolerated Well -Debridement - Subq, 1st 20sq cm No Yes #4 left posterior cluster -Correct Patient No -Correct Side, Site, Position No -Correct Procedure No -Procedure Performed No -Post Debridement (cm) - Length 0 -Post Debridement (cm) - Width 0 -Post Debridement (cm) - Depth 0 -Total Square (Post) (cm) 0 -Area of Debridement (cm) - Length 0 -Area of Debridement (cm) - Width 0 -Total Square (Area) (cm) 0 -Tunneling No -Undermining/Tunneling No -Wound/Ulcer Outcome Healed- Epithelialized #2 right medial calf cluster -Time 09:45 08:53 -Correct Patient Yes Yes -Correct Side, Site, Position Yes Yes -Correct Procedure Yes Yes -Procedure Performed Yes Yes -Type of Procedure Debridement Debridement -Clinical Debridement Subcutaneous Subcutaneous -Tissue Removed Subcutaneous Subcutaneous -Post Debridement (cm) - Length 2 0.3 -Post Debridement (cm) - Width 2.5 0.3 -Post Debridement (cm) - Depth 0.2 0.1 -Total Square (Post) (cm) 5.0 0.09 -Area of Debridement (cm) - Length 2 0.3 -Area of Debridement (cm) - Width 2.5 0.3 -Total Square (Area) (cm) 5.0 0.09 -Tunneling No No -Undermining/Tunneling No No -Circular Undermining No No -Wound/Ulcer Outcome Not Healed Not Healed -Ulcer Cleansing Rinsed/ Rinsed/ Irrigated with Irrigated with Saline Saline -Foul Odor after Cleansing No No -Bioengineered Tissue No No -Bleeding Controlled with Pressure Pressure -Offloading No No -Treatment Response Procedure Procedure Tolerated Well Tolerated Well -Debridement - Subq, 1st 20sq cm Yes No #1 left leigh cluster -Correct Patient No -Correct Side, Site, Position No -Correct Procedure No -Procedure Performed No -Post Debridement (cm) - Length 0 -Post Debridement (cm) - Width 0 -Post Debridement (cm) - Depth 0 -Total Square (Post) (cm) 0 -Area of Debridement (cm) - Length 0 -Area of Debridement (cm) - Width 0 -Total Square (Area) (cm) 0 -Wound/Ulcer Outcome Healed- Epithelialized Pain Scale: 0-10 Numeric Is Patient Pain Free? Yes Yes - Nurse 3 - General Ulcer D/C NN Start: 03/12/21 08:58 Freq: Status: Active Protocol: Activity Type Activity Date Activity User E-Sign Co-Sign Detail Recorded Client Recorded Date Recorded By Document 03/12/21 09:58 RB [id number] 03/12/21 10:00 RB Document 03/26/21 09:12 RB [id number] 03/26/21 09:14 RB 03/12/21 03/26/21 09:58 09:12 Wound Care Nurse 3 #6 left leigh cluster -Ulcer Cleansing Wound Cleanser -Primary Dressing Applied Promogran -Other Dressing hydrogel -Primary Dressing Covered/Secured with Dry Gauze, Secured with Tape -Promogran 1 5-right leigh ulcer cluster -Ulcer Cleansing Wound Cleanser -Other Dressing hydrogel promogran then hydrogel -Primary Dressing Covered/Secured with Dry Gauze, Dry Gauze, Secured with Secured with Tape Tape #2 right medial calf cluster -Ulcer Cleansing Wound Cleanser -Primary Dressing Applied C Hydrogel ($) -Other Dressing hydrogel promogran then hydrogel -Primary Dressing Covered/Secured with Dry Gauze, Dry Gauze, Secured with Secured with Tape Tape Right -Tubular Bandage Single Layer Single Layer -Size of Tubigrip Used Size F Size F -Size F ($) 1 1 Left -Tubular Bandage Single Layer Single Layer -Size of Tubigrip Used Size F Size F -Size F ($) 1 1 Treatment Response Procedure Tolerated Well Pain Scale: 0-10 Numeric Is Patient Pain Free? Yes Yes WC - Visit Discharge Discharge Condition Stable Stable Ambulatory Status Ambulatory Ambulatory Transportation Private Auto Private Auto Medication Reconcilliation completed & No No provided to patient/care provider Clinical Summary of Care Provided Yes Yes Additional Wound Wound debrided: right medial calf cluster Laterality: Right Type of Debridement: Excisional debridement Anesthesia Used: 4% Lidocaine Solution Depth: Down to and including healthy tissue and in the subcutaneous layer Percentage of wound debrided: 100 Instrument Used: 3mm curette Tissue Removed: Yellow slough, devitalized tissue Severity: Fat Layer Exposed Amount of bleeding with debridement: Mild Bleeding Controlled with: Compression and gauze Patient tolerated procedure: Patient tolerated procedure well Additional Wound Wound debrided: left calf cluster Laterality: Left Type of Debridement: Excisional debridement Anesthesia Used: 4% Lidocaine Solution Depth: Down to and including healthy tissue Percentage of wound debrided: 100 Instrument Used: 3mm curette Tissue Removed: Yellow slough, devitalized tissue Severity: Fat Layer Exposed Amount of bleeding with debridement: Mild Bleeding Controlled with: Compression and gauze Patient tolerated procedure: Patient tolerated procedure well Assessment/Plan Assessment/Plan (1) Venous insufficiency of both lower extremities: CODE(S): I87.2 - Venous insufficiency (chronic) (peripheral) (2) Pustular dermatitis: CODE(S): L30.8 - Other specified dermatitis (3) Nonhealing ulcer of left lower extremity with fat layer exposed: CODE(S): L97.922 - Non-pressure chronic ulcer of unspecified part of left lower leg with fat layer exposed (4) Nonhealing ulcer of right lower extremity with fat layer exposed: CODE(S): L97.912 - Non-pressure chronic ulcer of unspecified part of right lower leg with fat layer exposed (5) Obesity, morbid, BMI 40.0-49.9: CODE(S): E66.01 - Morbid (severe) obesity due to excess calories (6) Pyoderma gangrenosum: CODE(S): L88 - Pyoderma gangrenosum PLAN: Liz's ulcers were evaluated and debrided today at the wound center as above in the clinical panel. She tolerated the procedure well. Unsure of the etiology of her skin ulcers/lesions. Possibly folliculitis or pustular dermatitis. 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 Will continue to have her use hydrogel to wounds and cover with adaptic and gauze. Will have her use single layer tubigrip compression. She was encouraged to increase protein intake in order to promote healing. She was encouraged to elevate her legs at or above the level of her heart when sitting. She was advised to call with any increased pain, erythema, drainage, fever or chills. Will have her follow up in 2 weeks.
== END 2021-04-09 23:59 ==
LOC: WC 08:15
PROVIDERS: PCP Internal Medicine; Referring Provider Family Medicine; Visit Provider Family Medicine
DX: I87.2 Venous insufficiency (chronic) (peripheral) (principal); L30.8 Other specified dermatitis; L97.912 Non-pressure chronic ulcer of unspecified part of right lower leg with fat layer exposed; L97.922 Non-pressure chronic ulcer of unspecified part of left lower leg with fat layer exposed; E66.01 Morbid (severe) obesity due to excess calories; L88 Pyoderma gangrenosum; Z68.41 Body mass index [BMI] 40.0-44.9, adult
CPT/HCPCS: 11042

== ENCOUNTER → 2022-04-14 | Outpatient (CLI) | payer OTHER, SELFPAY ==
[2022-04-19 16:17] LABS: HPV APTIMA, High Risk Negative (Negative)
== END | disposition home or self-care (01) ==
PROVIDERS: PCP Internal Medicine; Visit Provider Obstetrics & Gynecology
DX: Z12.4 Encounter for screening for malignant neoplasm of cervix (principal); Z78.0 Asymptomatic menopausal state
CPT/HCPCS: 87624; 88175; G0145

== ENCOUNTER → 2022-04-29 | Outpatient (CLI) | payer OTHER, SELFPAY ==
--- NOTE | 2022-04-29 14:42 | BI_ITS ---
MAMMOGRAPHY - BILATERAL SCREENING REASON FOR EXAM: Female, 61 years old. Routine annual screening examination. PERTINENT HISTORY: Non-contributory. TECHNIQUE: Digital bilateral breast ashok (3D mammographic acquisition) in the CC and MLO projections. 2-D mediolateral oblique (MLO) and craniocaudad (CC) views of both breasts were obtained. CAD: Full Field Digital Mammography with Computer Added Detection was performed. COMPARISON: Comparison is made with prior study dated 03/27/2018. FINDINGS: Breast Composition: The breasts are almost entirely fatty. There are no dominant masses or suspicious calcifications. Stable benign-appearing bilateral axillary lymph nodes. No other significant abnormalities are identified. There has been no significant change since the prior study. BI/SCRN MAMM (CAD)W/ASHOK BILAT IMPRESSION: Stable bilateral screening mammogram. Yearly follow-up mammogram recommended. (A) ASSESSMENT CATEGORY: BIRADS Category 2: Benign. A letter regarding these results will be sent to the patient by the facility within 30 days. Approximately 10% of breast cancers are not detected by mammography. A normal mammogram should not delay biopsy of a clinically suspicious abnormality. [id number] Electronically Signed: Prakash Rivas MD at 15:37 EST ,
== END | disposition home or self-care (01) ==
LOC: OPBI 14:42
PROVIDERS: PCP Internal Medicine; Referring Provider Obstetrics & Gynecology; Visit Provider Obstetrics & Gynecology
DX: Z12.31 Encounter for screening mammogram for malignant neoplasm of breast (principal)
CPT/HCPCS: 77063; 77067

== ENCOUNTER → 2022-12-28 | Outpatient (CLI) | payer OTHER, SELFPAY ==
[2022-12-28 16:15] LABS: Thyroid Stim Hormone (TSH) 7.98 uIU/mL (0.358-3.74)
== END | disposition home or self-care (01) ==
LOC: LAB 14:19
PROVIDERS: PCP Internal Medicine; Referring Provider Internal Medicine; Visit Provider Internal Medicine
DX: R79.89 Other specified abnormal findings of blood chemistry (principal)
CPT/HCPCS: 36415; 84443

== ENCOUNTER → 2023-02-06 | Outpatient (CLI) | payer OTHER, SELFPAY ==
--- NOTE | 2023-02-06 07:40 | RAD_ITS ---
STUDY: X-RAY - ESOPHAGUS (BARIUM SWALLOW) WITH FLUOROSCOPY REASON FOR EXAM: Female, 62 years old. DYSPHAGIA -- -- INTERMITTENT DYSPHAGIA, FEELS LIKE FOOD STICKS MID ESOPH, SYMPTOMS HAVE IMPROVED SOME SINCE BEING PUT ON MEDS TECHNIQUE: 19 view(s) of the esophagus were obtained following swallowing of barium. FLUOROSCOPY TIME (if supplied): (36 seconds) minutes/seconds. 36.05 mGy COMPARISON: None. FINDINGS: There is no demonstrated esophageal foreign body. Is evidence of narrowing at the gastroesophageal junction. The patient ingested a 12 mm tablet at bedtime. The tablet is trapped at the gastroesophageal junction. Normal gastroesophageal junction, without a demonstrated hiatal hernia. There is atherosclerotic calcification of the aortic arch with tortuosity of the descending aorta. Normal visualized pulmonary parenchyma. Normal visualized osseous structures of the thorax. RAD/Esophagus Dual Contrast IMPRESSION: Narrowing at the gastroesophageal junction with trapping of the ingested 12 mm tablet of barium. Endoscopic correlation recommended. Electronically Signed: Prakash Rivas MD at 9:10 EDT ,
== END | disposition home or self-care (01) ==
LOC: RAD 07:39
PROVIDERS: PCP Internal Medicine; Referring Provider Internal Medicine; Visit Provider Internal Medicine
DX: R13.10 Dysphagia, unspecified (principal)
CPT/HCPCS: 74221

== ENCOUNTER → 2023-11-10 | Outpatient (CLI) | payer OTHER, SELFPAY ==
[2023-11-10 16:07] LABS: Albumin, Serum 2.8 g/dL (3.2-5.0); BUN 12 mg/dL (7-18); Calcium,Total 8.8 mg/dL (8.5-10.1); Chloride 107 mmol/L (98-107); EST Glomerular Filtration Rate 59 mL/min (>60); Est Glom Filt Rate - Afr Amer 72 mL/min (>60); Glucose 107 mg/dL (74-106); Phosphorus 2.7 mg/dL (2.5-4.9); Potassium 3.6 mmol/L (3.5-5.1); Sodium Level 142 mmol/L (136-145)
== END | disposition home or self-care (01) ==
PROVIDERS: PCP Internal Medicine
DX: E87.6 Hypokalemia (principal)
CPT/HCPCS: 36415; 80069

== ENCOUNTER → 2023-12-22 | Outpatient (CLI) | payer OTHER, SELFPAY ==
--- NOTE | 2023-12-22 13:44 | VDLE_ITS ---
Reason For Study: LYMPHEDEMA RIGHT LEFT GSV is normal. GSV is normal. CFV is compressible, spontaneous, phasic, CFV is compressible, spontaneous, phasic, competent and demonstrates normal competent, and demonstrates normal augmentation. augmentation. FV is compressible, spontaneous, phasic, FV is compressible, spontaneous, phasic, competent and demonstrates normal competent and demonstrates normal augmentation. augmentation. POP V is compressible, spontaneous, phasic, POP V is compressible, spontaneous, phasic, competent and demonstrates normal competent and demonstrates normal augmentation. augmentation. T/P Trunk is compressible. T/P Trunk is compressible. PTV is compressible. PTV is compressible. RT PerV is compressible. LT PerV is compressible. Procedure This is a venous duplex using B-mode, color flow and spectral Doppler. Exam performed in department. A preliminary report was called and/or faxed to Dr. Martinez @ [phone] @ 14:40. VL/Venous Duplex US - Diaz Extrem Interpretation Summary Deep veins of the lower extremities are bilaterally patent and compressible seg mentally. There is no evidence of deep vein thrombosis on either side. Valvular competence appears in tact within the proximal deep venous systems bilaterally. The great saphenous veins appear bila terally patent and compressible segmentally. Ordering Physician: Kristen Martinez Referring Physician: Kristen Martinez Performed By: Salima Iglesias, RDCS, RVT
== END | disposition home or self-care (01) ==
LOC: CVS 13:43
PROVIDERS: PCP Internal Medicine; Referring Provider Internal Medicine; Visit Provider Internal Medicine
DX: I89.0 Lymphedema, not elsewhere classified (principal)
CPT/HCPCS: 93970

== ENCOUNTER 2024-01-08 14:30 | Outpatient (RCR) | payer OTHER, SELFPAY ==
--- NOTE | 2023-11-15 15:57 | HP.PTEVAL ---
Patient's Visit Information Visit Information Visit Information: BRITTANY SANDHU is a 63 year old F referred to Physical Therapy by Dr. Kristen Martinez DO with a diagnosis of Generalized weakness. Date of Evaluation: 11/15/23 Physical Therapist: Bud Montiel, TONIT, OCS, CSCS Visit Plan Frequency: 2x /Week Duration: 4-6 Weeks Plan: 2x/week x 4 -6 starting aquatic for balance and confidence with gait, strength of core and LE emphasizing hips flexion, step ups, may progress to gym after 4 weeks if doing well. Pt to visit doctor regarding swollen legs HEP: given LAQ, AP and seated flexion today and please give HEP at counter as soon as tolerates. Subjective Subjective: Was in hospital due to dehydration from sphincter problem and was in there 4 days and got out two weeks ago. She had been hard to eat and vomitting and dehydrated for months prior though. Had procedure to try and fix it and seems to be better. Got out of hospital around 10/28 and trying to get strength back for last couplke weeks and not bouncing back quick. Sleep is OK, no pain. Feels tired and weak. 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 Moving around can be a challenge. Basic aDLS: dressing and bathroom are I, Cannot step into tub to take a shower, maybe dangerous. lives alone in one story and 3 steps enter with railing x 2. Steps are one at a time and weak, has knee OA. hobbies: reading sewing crocheting and they are good. Exercises: none Yard work: not able right now. No falls but feels wobbly. Feels 30% better since leaving hospital. Objective Objective: B legs swollen with pitting slight edema and says that was not that way last week upon seeing doctor, Pt to let doctor know. Sit to stand with with UE only Steps preferring to use R LE adn needing rails to pull and push and steady. Hips very weak flexion at 3/5, abd and ext at 3+ B. no pain. knees L painful to extend 3+ and R 4-, flexion 3+ B without pain AROM 0-100 degrees OL and 0-105 R. ankles wFL B LE ptting edema and swollen adn patient to let doctor know as this is new. reflexes 2/3 achilles B sensation LE WFL to gross lgiht touch. UE aROM weak but WFL at shoulders. hard time elevating hips in sitting, scoots easily. Balance/Special Test Scores Functional Gait Assessment Score: 20 % Disability: 33.3400 Lower Extremity Functional Score: 19 TUG Test Time Seconds: 18 Goals Goal 1:: FGA 24/30 Goal Time Frame: 4-6 Weeks Goal 2:: TUG 12 or less Goal Time Frame: 4-6 Weeks Goal 3:: I approp Poool /gym gneeral ex to maintain health Goal Time Frame: 4-6 Weeks Goal 4:: Pt feel 90% back to normal activity Goal Time Frame: 4-6 Weeks Goal 5:: LEFS 40 or above Goal Time Frame: 4-6 Weeks Rehabilitation Potential Physical Therapy Diagnosis: weakness effecting function Rehabilitation Potential: Fair Anticipated Interventions Patient/Client Instruction: Educate patient on: Condition and Plan of Care For the Purpose of:: To improve muscle performance and motor function, To increase tolerance to activity/condition/position, To improve ability of physical actions for home/community/work/leisure and To improve gait and locomotor functions Therapeutic Exercise to Include: Strength training, Balance training, Flexibilty training, In an aquatic setting, Passive ROM and Active ROM For the Purpose of:: To increase ROM, To improve nutrient delivery to tissue, To improve muscle performance and motor function, To increase tolerance to activity/condition/position, To improve gait and locomotor functions and To improve safety Text: Thank you for the opportunity to evaluate your patient. For Medicare and Medicare HMO plans, please review the plan of care and approve it. It will need to be FAXED BACK to us at [phone] for Medicare purposes. For Medicare only, by signing this I certify the plan of care. Please let me know if there are questions or concerns regarding this plan of care. Physician Signature: Date:
--- NOTE | 2024-01-08 15:19 | HP.PTDCSUM ---
Discharge Summary D/C summary: It has been my pleasure to treat BRITTANY SANDHU referred by Dr. Kristen Martinez DO, with the diagnosis of Generalized weakness for a total of 15 visit(s). Discharge Date: 01/08/24 Please see the following information for a summary of their discharge status. Subjective Subjective: Doing pretty good. Gym exercises are harder than the pool. Joined [employer] for a month and will continue in gym. Not sure she can be dedicated to the pool. 3x/week. No pain, discomfort in knees transiently. Sleep is OK. Activities at home are pretty normal but increased time. Back to normal activities as prior to sickness, just slow.To Michelle in February. Pain Bilat knees: Pain Intensity (Out of 10): 1 Overall Improvement % Improvement: 95 Objective Objective/Function: FGa is same, TUG is 2 seconds better. Overall feeling better and back to normal activity with slower speed and less confidence. Feels like she can continue on her own in gym as member. Goals Goal 1:: FGA Goal Progress: Progressing Goal 2:: TUG 12 or less Goal Progress: Goal Met Goal 3:: I approp Po[place] /gym gneeral ex to maintain health Goal Progress: Goal Met Goal 4:: Pt feel 90% back to normal activity Goal Progress: 98 Goal 5:: LEFS 40 or above Goal Progress: Goal Met in past Plan Plan: d/c to gym ex D/C Information d/c sentence: If there are questions or concerns regarding this patient's physical therapy, please feel free to call me at [phone]. Thank you for the referral of this patient. Sincerely, Bud Montiel, DPT, OCS, CSCS Balance/Gait/Functional tests Balance/Special Test Scores Functional Gait Assessment Score: 22 % Disability: 26.6700 Lower Extremity Functional Score: 36 TUG Test Time Seconds: 12 Tug Test: <20 sec.=mostly independent Improvement % Improvement: 95
== END 2024-01-08 15:40 | disposition home or self-care (01) ==
LOC: PT 14:30
PROVIDERS: PCP Internal Medicine; Referring Provider Internal Medicine; Visit Provider Internal Medicine
DX: R53.1 Weakness (principal)
CPT/HCPCS: 97110; 97113; 97161; 97530

== ENCOUNTER → 2024-01-30 | Outpatient (CLI) | payer OTHER, SELFPAY ==
--- NOTE | 2024-01-30 14:37 | VDLE_ITS ---
Reason For Study: BLE Swelling RIGHT LEFT CFV is compressible, spontaneous, phasic, CFV is compressible, spontaneous, phasic, competent and demonstrates normal competent, and demonstrates normal augmentation. augmentation. FV is compressible, spontaneous, phasic, FV is compressible, spontaneous, phasic, competent and demonstrates normal competent and demonstrates normal augmentation. augmentation. POP V is compressible, spontaneous, phasic, POP V is compressible, spontaneous, phasic, competent and demonstrates normal competent and demonstrates normal augmentation. augmentation. T/P Trunk is compressible. T/P Trunk is compressible. PTV is compressible. PTV is compressible. RT PerV is compressible. LT PerV is compressible. SFJ is competent and measures 0.81 cm. SFJ is competent and measures 0.77 cm. GSV proximal thigh measures 0.65 x 0.66 cm. GSV proximal thigh measures 0.55 x 0.54 cm. GSV at knee measures 0.40 x 0.43 cm. GSV at knee measures 0.41 x 0.39 cm. GSV is competent throughout. GSV is competent throughout. SSV mid calf is competent and measures 0.44 x SSV mid calf is competent and measures 0.38 x 0.44 cm. 0.41 cm. Procedure Exam performed in department. This is a venous duplex using B-mode, color flow and spectral Doppler. The exam was diagnostic. Patient was scanned in reverse Trendelenburg position during reflux assessment. VL/Venous Duplex US - Diaz Extrem Interpretation Summary Deep veins of the bilateral lower extremities are patent and compressible segme ntally. There is no evidence of bilateral lower extremity deep vein thrombosis. The bilateral great saphenous veins appear patent and compressible segmentally. Negative for reflux bilateral Ordering Physician: Sujata Isidro Referring Physician: Kristen Martinez M.D. Performed By: Irving Chiang RVT
== END | disposition home or self-care (01) ==
LOC: CVS 14:36
PROVIDERS: PCP Internal Medicine; Referring Provider Physician Assistant; Visit Provider Physician Assistant
DX: R60.0 Localized edema (principal)
CPT/HCPCS: 93970

== ENCOUNTER 2024-08-15 08:48 | Outpatient (RCR) | payer SELFPAY | END 2024-09-07 23:59 | LOC: NS 08:48 | PROVIDERS: PCP Internal Medicine | DX: Z71.3 Dietary counseling and surveillance (principal) ==

== ENCOUNTER → 2024-11-26 | Outpatient (CLI) | payer MEDICARE, OTHER, SELFPAY ==
--- NOTE | 2024-11-26 14:52 | BI_ITS ---
EXAM: SCRN MAMM (CAD)W/ASHOK BILAT DATE: 11/26/2024 CLINICAL HISTORY: F, Age 64 y/o , SCRN MAMM (CAD)W/ASHOK BILAT TECHNIQUE: SCRN MAMM (CAD)W/ASHOK BILAT COMPARISON: Prior exam(s) were compared FINDINGS: TISSUE DENSITY: There are scattered areas of fibroglandular density. Bilateral Breast Mammographic Findings: No suspicious masses, calcifications or other abnormalities are identified. BI/SCRN MAMM (CAD)W/ASHOK BILAT IMPRESSION: No mammographic evidence of malignancy in either breast OVERALL FINAL ASSESSMENT BI-RADS 1: NEGATIVE. RECOMMENDATION: Routine annual follow-up in 1 Year A letter with findings and recommendations will be mailed to the patient. Reading Location: [id number]
== END | disposition home or self-care (01) ==
LOC: OPBI 14:46
PROVIDERS: PCP Internal Medicine; Referring Provider Internal Medicine; Visit Provider Internal Medicine
DX: Z12.31 Encounter for screening mammogram for malignant neoplasm of breast (principal)
CPT/HCPCS: 77063; 77067

== ENCOUNTER → 2025-01-07 | Outpatient (CLI) | payer MEDICARE, OTHER, SELFPAY ==
--- NOTE | 2025-01-07 14:45 | BD_ITS ---
PROCEDURE: DEXA BONE DENSITY STUDY 01/07/2025 REASON FOR EXAM: F, age 64 y/o . Postmenopausal screening. TECHNIQUE: Procedure Code: BDDBD Modality: DX Procedure: DEXA BONE DENSITY STUDY COMPARISON: 2017 FINDINGS: BMD and T-SCORES Lumbar spine: 0.943 g/cm2, T-score -0.9 Levels: L1 through L4 Change from prior: Decrease of 10.4%. Left femoral neck: 0.666 g/cm2, T-score -1.6 Femoral neck comparison data not recommended for monitoring change. Prior T-score Left total hip: 0.846 g/cm2, T-score -0.8 Change from prior: Decrease of 6.8%. Right femoral neck: 0.720 g/cm2, T-score -1.2 Femoral neck comparison data not recommended for monitoring change. Prior T-score Right total hip: 0.831 g/cm2, T-score -0.9 Change from prior: Decrease of 4.7%. The World Health Organization has defined the following categories based on bone density: Normal bone density: T-score equal to or greater than -1.0 Osteopenia: T-score between -1.0 and -2.5 Osteoporosis: T-score equal to or less than -2.5 FRAX (or Comparable) Fracture Risk Assessment: 10 Year Probability of Fracture: Major Osteoporotic Fracture: 12% Hip Fracture: 0.9% (Note: FRAX is not to be reported in setting of normal range bone density, osteoporosis on DEXA, known history of osteoporosis, prior osteoporotic hip or vertebral fracture, or for any patient undergoing pharmacological treatment for bone loss.) The National Osteoporosis Foundation (NOF) recommends pharmacological treatment for patients with a FRAX 10-year risk of 3% or higher for a hip fracture, or 20% or higher for a major osteoporotic fracture, to prevent osteoporosis and reduce fracture risk. The patient does not meet the pharmacological treatment recommendations for prevention of osteoporosis. BD/Dexa Bone Density Study IMPRESSION: OSTEOPENIA. Recommend follow-up as clinically warranted. Reading Location: [id number]
== END | disposition home or self-care (01) ==
LOC: OPBD 14:45
PROVIDERS: PCP Internal Medicine; Referring Provider Internal Medicine; Visit Provider Internal Medicine
DX: Z78.0 Asymptomatic menopausal state (principal)
CPT/HCPCS: 77080

== ENCOUNTER → 2025-02-05 | Outpatient (CLI) | payer MEDICARE, OTHER, SELFPAY ==
--- OUTSIDE RECORDS SUMMARY | 2025-02-05 06:51 | XMS RPT_ITS | CCD ---
Author Organization [facility] Care Team Providers Care Mathematician Research Name Role Phone Glory Kamara Mathew Unavailable Glory Kamara Mathew Unavailable Kristen Santiago Unavailable Kali Winslow Unavailable Gilbert Raya Unavailable Dipti Carrasquillo Unavailable Unavailable Unavailable Unavailable Gwyn Silva Unavailable long, wen Unavailable Unavailable ADILSON, INOCENCIA (CONTENT SPECIALIST) Unavailable Unavailable ADILSON, INOCENCIA (CONTENT SPECIALIST) Unavailable Unavailable NEYHART JASSI ANTONELLA Unavailable Unavail able ANTONELLA TAO Unavailable Unavail able Kristen Santiago Unavailable Luigi, wen Unavailable Unavailable Gravius, Litzy Unavailable Unavailable Unavailable Unavailable Gravius, Litzy Unavailable Unavailable Kristen Santiago Primary Care Provider [phone] Kristen Santiago DO Unavailable Dr. Sabra Daugherty Unavailable Migel OLSEN, Morena Unavailable Unavailable Fredo Briscoe LPN Unavailable Unavailable Toya Stout CNP Unavailable Unavailable [facility] Unava ilable Viridiana Hugo LPN Unavailable Unavailable Kristen Santiago DO Unavailable [phone] Kristen Santiago DO Attending Unavailable Kristen Santiago DO Consulting Unavailable Dr. Kristen Santiago Primary Care Provider Dr. Kristen Santiago Referring Provider Dr. Pat Castro Attending Provider Dr. Kali Winslow Unavailable [phone] [facility] Unavailable Unavailable PAMELA MCCORMICK, DR PETERSON Primary Care [phone] NAYLA BERRIOS, DR HAILE Attending Unavailabl e PAMELA DO, DR PETERSON Primary Care Unavailab le Pamela DO, Kristen Berg Primary Care Provider Pamela DO, Kristen Berg Primary Care Provider OLASEHINDE, MARIVEL O Referring Unavailab KRISTEN Garcia Primary Care Unavailable Kristen Santiago DO Unavailable [phone] Kristen Santiago DO Primary Care Provider [phone] ALEJANDRO SEGOVIA Attending Unavailable OLASEHINDE, MARIVEL O Referring Unavailab STEVEN Dixon Attending Unavailable OLASEHISTACIEE, MARIVEL O Referring Unavailab le KRISTEN SANTIAGO Primary Care Unavailable STEVEN COBIAN Attending Unavailable KRISTEN SANTIAGO Primary Care Unavailable Pretty Gonzales RN Unavailable Unavailab le Pamela MCCORMICK, Dr. Peterson Primary Care Provider Referred, Self Attending Provider Unavailable KALI WINSLOW Referring Unavailable ADOMPMARIUSZ CABALLERO Admitting Unavailabl e OLASEHINDE, MARIVEL O Attending Unavailab GIA Farnsworth Referring Unavailable STEVEN COBIAN Admitting Unavailable STEVEN COBIAN Attending Unavailable KRISTEN SANTIAGO Primary Care Unavailable KRISTEN SANTIAGO Primary Care Unavailable STEVEN COBIAN Attending Unavailable STEVEN COBIAN Referring Unavailable KRISTEN SANTIAGO Primary Care Unavailable Pamela MCCORMICK, Dr. Peterson Attending Provider [phone] Pamela MCCORMICK, Dr. Peterson Referring Provider [phone] Kristen Santiago DO Unavailable [phone] Kristen Santiago Primary Care Unavailable Referred, Self Attending Unavailable Referred, Self Attending Unavailable Ami Santiagohleen Primary Care Unavailable Pamela, Kristen Referring Unavailable Pamela, Kristen Attending Unavailable Pamela, Kristen Primary Care Unavailable Pamela, Kristen Primary Care Unavailable Pamela, Kristen Referring Unavailable Pamela, Kristen Attending Unavailable Pamela, Kristen Referring Unavailable Pamela, Kristen Primary Care Unavailable Sujata Isidro Attending Unavailable Allergies Allergy Classification Reported Allergen(s) Allergy Type Date of Onset Reaction(s) Facility (13 sources) Sulfamethoxazole; Translations: [SULFAMETHOXAZOLE] Drug Allergy 1 [facility] (13 sources) Trimethoprim; Translations: [TRIMETHOPRIM] Drug Allergy 1 [facility] (1 source) Sulfamethoxazole Drug Allergy 4 [facility] (1 source) Trimethoprim Drug Allergy 4 [facility] Medications Current Medications Medication Drug Class(es) Dates Sig (Normalized) Sig (Original) acetaminophen 325 mg oral tablet (1 source) Start: 02-09-2024 take 1 tablet by mouth every six hours 650 mg, oral, Every 6 hours, First dose on Mon02/09/24 at 1845, If ordered PRN for pain, nurse is permitted to administer this medication for higher pain scores based on patient preference? Yes docusate sodium 50 mg / sennosides, fdc 8.6 mg oral tablet (1 source) Start: 02-09-2024 0.4 ml enoxaparin sodium 100 mg/ml prefilled syringe (1 source) Low Molecular Weight Heparin Start: 02-10-2024 inject 40 mg by subcutaneous injection once daily 40 mg, subcutaneous, Daily, First dose on Mon02/10/24 at 0900 fluconazole 200 mg oral tablet (20 sources) Azole Antifungal Start: 02-05-2024 End: 02-10-2024 take 1 tablet by mouth once fluconazole (Diflucan) 200 mg tablet Indications: Achalasia Take 1 tablet (200 mg) by mouth 1 time for 1 dose. 1 tablet 02/05/2024 02/10/2024 Discontinued (Stop Taking at Discharge) Start: 09-24-2012 End: 12-26-2012 DIFLUCAN, 150MG (Oral Tablet ) 1 Tablet qod x 4 doses for 0 days Quantity: 4 {Tablet} Refills: 0 Ordered: 18-Sep-2013 Start : 24-Sep-2012 End : 26-Dec-2012 Inactive Start: 10-12-2006 End: 10-04-2007 take 1 tablet by mouth once daily DIFLUCAN, 100MG (Oral Tablet) 1 (one) Tablet Daily for 0 days Quantity: 3 {Tablet} Refills: 0 Ordered: 12-Oct-2006 Morena Lainez RN Start : 12-Oct-2006 End : 04-Oct-2007 Inactive furosemide 20 mg oral tablet (8 sources) Loop Diuretic Start: 12-01-2023 take 1 tablet by mouth once daily furosemide (Lasix) 20 mg tablet Take 1 tablet (20 mg) by mouth once daily. 12/01/2023 Active ibuprofen 200 mg oral tablet (1 source) Nonsteroidal Anti-inflammatory Drug ibuprofen (ADVIL;MOTRIN) 200 MG tablet Take 200 mg by mouth as needed for Pain 0 Active levothyroxine sodium 0.075 mg oral tablet (20 sources) l-Thyroxine Start: 02-10-2024 take 75 ug by mouth once daily 75 mcg, oral, Daily, First dose on 02/10/24 at 0600 Start: 01-10-2024 Levothyroxine 50 mcg capsule Discontinued 75 ug PO DAILY January 10, 2024 2:26pm Start: 11-01-2023 End: 01-06-2024 take 1.5 tablets by mouth in the morning levothyroxine (Synthroid, Levoxyl) 50 mcg tablet Indications: Hypothyroidism, unspecified type Take 1.5 tablets (75 mcg) by mouth early in the morning.. 45 tablet 1 12/07/2023 10:59 AM EDT 11/01/2023 Active Start: 01-11-2023 Synthroid 50 m cg oral tablet 1 (one) Tablet qd empty stomach and 2tabs on monday for 30 days Quantity: 34 {Tablet} Refills: 3 Ordered: 11-Jan-2023 Kristen Santiago DO, DO, Kathleen Start : 11-Jan-2023 Active Comments: needs #34 - disregard prev rx dispensing #30 Start: 04-14-2022 End: 01-10-2024 take 1 capsule by mouth once daily Levothyroxine 50 mcg capsule Discontinued 50 ug PO DAILY April 14, 2022 1:00am January 10, 2024 2:27pm Start: 02-04-2022 take 1 tablet by santiago th once daily Synthroid 50 MCG Oral Tablet 1 (one) Tablet qd empty stomach for 0 days Quantity: 30 {Tablet} Refills: 3 Ordered: 04-Feb-2022 Kristen Santiago DO, DO, Kathleen Start : 04-Feb-2022 Active Start: 04-08-2021 End: 01-20-2022 take 1 tablet by mouth once daily Synthroid 50 MCG Oral Tablet 1 (one) Tablet qd empty stomach for 0 days Quantity: 30 {Tablet} Refills: 3 Ordered: 20-Jan-2022 Fredo Briscoe LPN Start : 08-Apr-2021 End : 20-Jan-2022 Inactive Comment on above: needs #34 - disregar d prev rx dispensing #30 Naloxone (1 source) Opioid Antagonist Start: 02-09-2024 nystatin [id number] unt/ml oral suspension (20 sources) Polyene Antifungal Start: 02-05-2024 End: 02-10-2024 take 5 mL by mouth four times daily nystatin (Mycostatin) 100,000 unit/mL suspension Indications: Achalasia Take 5 mL (500,000 Units) by mouth 4 times a day for 3 days. 60 mL 02/05/2024 02/10/2024 Discontinued (Stop Taking at Discharge) Start: 10-12-2006 End: 09-24-2012 NYAMYC, [id number]/GM (Exter nal Powder) apply to affected area Powder bid for 0 days Quantity: 1 {Gram(s)} Refills: 0 Ordered: 24-Sep-2012 Morena Lainez RN Start : 21-Oct-2010 End : 24-Sep-2012 Inactive Comments: one large bottle Start: 10-12-2006 End: 10-21-2010 NYSTATIN (External Powder) U AD Powder Twice daily for 0 days Quantity: 1 {Powder} Refills: 0 Ordered: 12-Oct-2006 Kristen Santiago DO, DO, Kathleen Start : 12-Oct-2006 End : 21-Oct-2010 Discontinued Comments: This order discontinued per [facility]. Comment on above: one large bottle This order discontin ued per [facility]. Ondansetron (1 source) Serotonin-3 Receptor Antagonist Start: 02-09-20 take 1 tablet by mouth every eight hours as needed ondansetron (Zofran) tablet 4 mg oxyCODONE hydrochloride 5 mg oral tablet (1 source) Opioid Agonist Start: 02-09-20 take 1 tablet by mouth every four hours as needed pantoprazole 40 mg delayed release oral tablet (1 source) Proton Pump Inhibitor Start: 02-10-20 take 40 mg by mouth once daily before breakfast 40 mg, oral, Daily before breakfast, First dose on 02/10/24 at 0700, Do not crush, chew, or split. traMADol hydrochloride 50 mg oral tablet (5 sources) Opioid Agonist Start: 02-09-20 take 1 tablet by mouth every six hours for pain traMADol (Ultram) 50 mg tablet Indications: Achalasia of cardia Take 1 tablet (50 mg) by mouth every 6 hours if needed for severe pain (7 - 10). 15 tablet 02/10/2024 Active Completed/Discontinued Medications Medication Drug Class(es) Dates Sig (Normalized) Sig (Original) amoxicillin 875 mg / clavulanate 125 mg oral tablet (13 sources) Penicillin-class Antibacterial Start: 05-06-2013 End: 10-12-2017 take 1 tablet by mouth twice daily Augmentin 875-125 MG Oral Tablet 1 Tablet bid for 0 days Quantity: 20 {Tablet} Refills: 0 Ordered: 12-Oct-2017 Fredo Briscoe LPN Start : 06-May-2013 End : 12-Oct-2017 Inactive barium sulfate (E-Z-Paque) 96 % (w/w) suspension 176 mL (1 source) Start: 12-04-2023 End: 12-04-2023 take 176 mL by mouth once 176 mL, oral, Once in imaging, Starting on Mon12/04/23 at 0955, For 1 dose barium sulfate (EZ HD BARIUM) 98 % suspension 347 mL (1 source) Start: 12-04-2023 End: 12-04-2023 347 mL (rounded from 346.9388 mL = 340 g), oral, Once in imaging, Starting on Mon12/04/23 at 0954, For 1 dose butenafine hydrochloride 10 mg/ml topical cream (13 sources) Benzylamine Antifungal Start: 10-21-2010 End: 09-24-2012 LOTRIMIN ULTRA, 1% (External Cream) apply to affected area Cream qd for 0 days Quantity: 30 {Gram(s)} Refills: 0 Ordered: 24-Sep-2012 Morena Lainez RN Start : 21-Oct-2010 End : 24-Sep-2012 Inactive calcium chloride 0.0014 meq/ml / potassium chloride 0.004 meq/ml / sodium chloride 0.103 meq/ml / sodium lactate 0.028 meq/ml injectable solution (2 sources) Start: 02-09-2024 End: 02-10-2024 take 50 mL intravenously every hour 50 mL/hr, intravenous, Continuous, Starting on Mon02/09/24 at 1900, For 10 hours, To finish current bag that's already running cefdinir 300 mg oral capsule (7 sources) Cephalosporin Antibacterial Start: 12-25-2020 End: 01-04-2021 take 1 capsule by mouth twice daily Cefdinir 300 MG Oral Capsule 1 (one) Capsule bid for 10 days Quantity: 20 {Capsule} Refills: 0 Ordered: 25-Dec-2020 Girish Toya Start : 25-Dec-2020 End : 04-Jan-2021 Inactive Start: 08-10-2020 take 1 capsule by [facility] twice daily Cefdinir 300 MG Oral Capsule 1 (one) Capsule bid for 10 days Quantity: 20 {Capsule} Refills: 0 Ordered: 10-Aug-2020 Girish MEJIAToya Start : 10-Aug-2020 Active crisaborole 0.02 mg/mg topical ointment (7 sources) Start: 05-10-2019 End: 08-10-2020 Eucrisa 2 % External Ointment 1 Application to affected area on knee and left arm for 0 days Quantity: 15 {Gram} Refills: 1 Ordered: 10-Aug-2020 Fredo Briscoe LPN Start : 10-May-2019 End : 10-Aug-2020 Inactive diphenhydrAMINE hydrochloride 25 mg oral tablet (13 sources) Histamine-1 Receptor Antagonist Start: 12-26-2012 End: 10-12-2017 take 1 tablet by mouth every eight hours as needed BENADRYL, 25MG (Oral Tablet) 1 Tablet Tablet q8 hrs prn for 0 days Quantity: 30 {Tablet} Refills: 0 Ordered: 12-Oct-2017 Fredo Briscoe LPN Start : 26-Dec-2012 End : 12-Oct-2017 Discontinued Comments: This order discontinued per [facility]. Comment on above: This order discontin ued per [facility]. econazole nitrate 10 mg/ml topical cream (13 sources) Azole Antifungal Start: 10-12-2006 End: 10-21-2010 SPECTAZOLE, 1% (External Cream) UAD Cream QHS / HS for 0 days Quantity: 45 {Cream} Refills: 0 Ordered: 12-Oct-2006 Kristen Santiago DO Pamela MCCORMICK Kristen Start : 12-Oct-2006 End : 21-Oct-2010 Discontinued Comments: This order discontinued per [facility]. Comment on above: This order discontin ued per [facility]. 1 ml HYDROmorphone hydrochloride 1 mg/ml cartridge (1 source) Opioid Agonist Start: 02-09-2024 End: 02-09-2024 0.5 mg, intravenous, Every 5 min PRN, pain severe (7-10), first line, Starting on Mon02/09/24 at 1023, Recovery (only), Max total of 4 mg regardless of dose. iohexol (OMNIPaque) 12 mg iodine/mL oral contrast 500 mL (1 source) Start: 12-04-2023 End: 12-04-2023 500 mL, oral, Once in imaging, Starting on Mon12/04/23 at 0924, For 1 dose, Administer over 20-60 minutes as directed by imaging protocol and/or imaging provider. CONTRAST - for procedural imaging use only. levocetirizine dihydrochloride 5 mg oral tablet (13 sources) Histamine-1 Receptor Antagonist Start: 12-26-2012 End: 10-12-2017 take 1 tablet by mouth once daily Xyzal 5 MG Oral Tablet 1 Tablet Tablet daily for 0 days Quantity: 30 {Tablet} Refills: 0 Ordered: 12-Oct-2017 Fredo Briscoe LPN Start : 26-Dec-2012 End : 12-Oct-2017 Inactive lidocaine hydrochloride 0.02 mg/mg topical gel (2 sources) Antiarrhythmic, Amide Local Anesthetic Start: 10-23-2023 End: 10-24-2023 As needed, Starting on Mon10/23/23 at 0725, Intraprocedure loratadine 10 mg oral tablet (13 sources) Start: 12-26-2012 End: 10-12-2017 take 1 tablet by mouth once daily Claritin 10 MG Oral Tablet 1 Tablet daily for 360 days Refills: 0 Ordered: 12-Oct-2017 Fredo Briscoe LPN Start : 26-Dec-2012 End : 12-Oct-2017 Inactive 10 ml methocarbamol 100 mg/ml injection (1 source) Muscle Relaxant Start: 02-09-2024 End: 02-09-2024 1,000 mg, intravenous, Administer over 5 Minutes, Once, On Mon02/09/24 at 1100, For 1 dose, Recovery (only) Start: 02-09-2024 End: 02-09-2024 1,000 mg, intravenous, Admin ister over 5 Minutes, Once, On Mon02/09/24 at 1100, For 1 dose, Recovery (only) methylPREDNISolone 4 mg oral tablet (13 sources) Corticosteroid Start: 12-26-2012 End: 05-06-2013 MEDROL, 4MG (Oral Tablet) 1 Tablet TAD for 0 days Quantity: 1 {Package(s)} Refills: 0 Ordered: 06-May-2013 Morena Lainez RN Start : 26-Dec-2012 End : 06-May-2013 Inactive mometasone furoate 0.05 mg/actuat metered dose nasal spray (13 sources) Corticosteroid Start: 10-21-2010 End: 09-24-2012 NASONEX, 50MCG/ACT (Nasal Suspension) 2 (two) Suspension qd for 0 days Quantity: 1 {Suspension} Refills: 0 Ordered: 24-Sep-2012 Morena Lainez RN Start : 21-Oct-2010 End : 24-Sep-2012 Inactive omeprazole 40 mg delayed release oral capsule (14 sources) Proton Pump Inhibitor Start: 01-11-2023 take 1 capsule by mouth once daily Omeprazole 40 mg capsule,delayed release(DR/EC) Discontinued 40 mg PO daily January 10, 2024 12:00am oxygen (O2) therapy (1 source) Start: 02-09-2024 End: 02-09-2024 inhalation, Continuous - Inhalation, First dose on Mon02/09/24 at 1045, Recovery (only), Device: Nasal Cannula, Rate in liters per minute: Other, Custom Value: 1-6 LPM, Keep O2 Sat Above: 92% predniSONE 50 mg oral tablet (12 sources) Start: 02-24-2021 End: 12-23-2021 take 1 tablet by mouth once daily Prednisone 50 mg tablet Discontinued 50 mg PO DAILY 5 5 0 February 24, 2021 1:00am December 23, 2021 3:28pm Start: 01-13-2021 End: 01-15-2021 take 3 tablets by mouth once daily Prednisone 20 MG tablet Discontinued 60 mg PO DAILY 15 January 13, 2021 12:00am January 15, 2021 8:29am Start: 01-13-2021 End: 01-15-2021 take 60 mg by mouth once daily Prednisone Discontinued 60 MG PO DAILY January 13, 2021 12:00am January 15, 2021 8:29am 1000 ml sodium chloride 9 mg/ml injection (1 source) Start: 02-12-2019 End: 02-12-2019 0.9 % sodium chloride infusion sulfamethoxazole 800 mg / trimethoprim 160 mg oral tablet (6 sources) Dihydrofolate Reductase Inhibitor Antibacterial, Sulfonamide Antimicrobial Start: 01-11-2021 End: 04-08-2021 take 1 tablet by mouth once daily Bactrim DS 800-160 MG Oral Tablet 1 (one) Tablet daily, for 0 days Quantity: 20 {Tablet} Refills: 0 Ordered: 08-Apr-2021 Viridiana Hugo LPN Start : 11-Jan-2021 End : 08-Apr-2021 Inactive terbinafine 250 mg oral tablet (13 sources) Allylamine Antifungal Start: 12-26-2012 take 1 tablet by mouth once daily TERBINAFINE HCL, 250MG (Oral Tablet) 1 daily (250 MG) Start : 26-Dec-2012 Inactive NEGATED: Highlighted row has not occurred!drug or medication (6 sources) No Known Historical Medications NEGATED: Highlighted row has not occurred!No Known Historical Medications (2 sources) No Known Historical Medications Problems Active Problems Problem Classification Problem Date Documented Da te Episodic/Chronic Administrative/social admission (18 sources) Medical examinations/reports status; Translations: [Patient encounter status] Resolved: 8 11-15-2017 Episodic Allergic reactions (20 sources) Urticaria; Translations: [Eczema] Resolved: 8 11-15-2017 Episodic Anxiety disorders (20 sources) Anxiety; Translations: [Anxiety] Resolved: 8 11-15-2017 Chronic Chronic ulcer of skin (12 sources) Ulcer of lower extremity; Translations: [Non-pressure chronic ulcer of unspecified part of left lower leg with fat layer exposed] 01-15-2021 Chronic Contraceptive and procreative management (20 sources) Unspecified contraceptive management; Translations: [Contraception ] Resolved: 8 11-15-2017 Episodic Esophageal disorders (15 sources) Gastroesophageal reflux disease; Translations: [Chronic GERD] Onset: 4 01-11-2023 Chronic Comment on above: intermittent and ran dom so never took meds Esophageal disorders (20 sources) Achalasia of cardia; Translations: [Achalasia of esophagus] Onset: 4 Resolved: 4 Episodic Joint disorders and dislocations; trauma-related (2 sources) Derangement of knee; Translations: [Unspecified internal derangement of left knee] Onset: 7 08-10-2016 Chronic Menopausal disorders (1 source) Postmenopausal bleeding; Translations: [Postmenopausal bleeding] Onset: 8 Chronic Mycoses (20 sources) Candidiasis; Translations: [Onychomycosis] Onset: 1 Resolved: 8 11-15-2017 Episodic Nonspecific chest pain (20 sources) Chest pain; Translations: [Chest pain] Resolved: 8 11-15-2017 Episodic Comment on above: PT THINKS STRESS REL ATED AND HAS NOT RECURRED Other bone disease and musculoskeletal deformities (14 sources) Hypertrophy of bone, unspecified shoulder; Translations: [Large clavicle] 04-09-2018 Episodic Other connective tissue disease (12 sources) Pain in right foot; Translations: [Right foot pain] Resolved: 2 08-10-2020 Episodic Other diseases of veins and lymphatics (6 sources) Venous insufficiency of leg; Translations: [Venous insufficiency (chronic) (peripheral)] 01-15-2021 Episodic Other female genital disorders (1 source) Polyp of cervix uteri; Translations: [Polyp of cervix uteri] Onset: 8 Episodic Other gastrointestinal disorders (8 sources) Dysphagia; Translations: [Dysphagia] 01-11-2023 Episodic Other inflammatory condition of skin (20 sources) Itching ; Translations: [Itching] Resolved: 8 11-15-2017 Episodic Other inflammatory condition of skin (18 sources) Pruritus of vagina; Translations: [Vaginal itching] Resolved: 8 11-15-2017 Episodic Other injuries and conditions due to external causes (11 sources) Multiple open wounds of multiple body regions; Translations: [Multiple open wounds of multiple body regions] Resolved: 2 04-08-2021 Episodic Comment on above: b./l lower extrem - from mosquito bites not healing and celluilitis - Other injuries and conditions due to external causes (6 sources) Angioedema; Translations: [Angioneurotic edema, initial encounter] 01-21-2021 Episodic Other non-traumatic joint disorders (18 sources) Disorder of joint of shoulder region; Translations: [Enlargement of sternoclavicular joint, right] 04-09-2018 Episodic Other nutritional; endocrine; and metabolic disorders (20 sources) Body mass index 40+ - severely obese; Translations: [BMI 45.0-49.9, adult] Resolved: 1 04-09-2018 Chronic Other nutritional; endocrine; and metabolic disorders (18 sources) Body mass index 30+ - obesity; Translations: [BMI 36.0-36.9,adult] Resolved: 8 04-09-2018 Chronic Other nutritional; endocrine; and metabolic disorders (1 source) Morbid obesity 05-05-2023 Chronic Other screening for suspected conditions (not mental disorders or infectious disease) (20 sources) Other abnormal and inconclusive findings on diagnostic imaging of breast; Translations: [Ultrasonography of breast abnormal] Onset: 5 Resolved: 0 04-09-2018 Episodic Comment on above: last mamm apr 2022 Other skin disorders (16 sources) Skin lesion; Translations: [Non-healing skin lesion] Resolved: 2 04-08-2021 Episodic Other skin disorders (5 sources) Mass of neck; Translations: [Supraclavicular mass] Episodic Other upper respiratory disease (8 sources) Pain in throat Episodic Other upper respiratory infections (20 sources) Sore throat symptom; Translations: [Acute sinusitis] 04-09-2018 Episodic Prolapse of female genital organs (11 sources) Third degree uterine prolapse; Translations: [Complete uterovaginal prolapse] Onset: 3 12-31-2021 Chronic Comment on above: discussed surgical m anagement, due to anatomy and severity- not a candidate for a pessary. discussed surgery if desired but consider weight loss prior. Residual codes; unclassified (20 sources) Postmenopausal state; Translations: [Postmenopausal (Renamed from Postmenopausal status)] 04-09-2018 Episodic Residual codes; unclassified (20 sources) Non-smoker; Translations: [Nonsmoker] 08-10-2020 Episodic Residual codes; unclassified (4 sources) Influenza vaccination declined; Translations: [Influenza vaccination declined (Renamed from Refused influenza vaccine)] 01-11-2023 Episodic Residual codes; unclassified (2 sources) Bilateral lower limb edema; Translations: [Localized edema] 01-11-2024 Episodic Residual codes; unclassified (1 source) Asymptomatic menopausal state; Translations: [Asymptomatic menopausal state] Onset: Episodic Skin and subcutaneous tissue infections (20 sources) Cellulitis; Translations: [Cellulitis] Resolved: 2 08-10-2020 Episodic Thyroid disorders (20 sources) Hypothyroidism; Translations: [Adult hypothyroidism] Onset: 4 04-08-2021 Chronic Unclassified (16 sources) Encounter for screening for lipid disorder; Translations: [Patient encounter status] 04-09-2018 Unclassified (20 sources) Yeast Infection: Candidiasis of Unspecified Site (112.9) Unclassified (20 sources) Unclassified (20 sources) Screening status; Translations: [Encounter for screening for malignant neoplasm of colon (Renamed from Special screening for malignant neoplasms, colon)] 04-09-2018 Unclassified (20 sources) Patient encounter status; Translations: [Encounter for screening mammogram for breast cancer (Renamed from Encounter for screening mammogram for malignant neoplasm of breast)] Resolved: 8 04-09-2018 Unclassified (20 sources) Non-smoker; Translations: [Nonsmoker] 04-09-2018 Unclassified (8 sources) Onchomycosis (110.1) Unclassified (8 sources) Vaginal Itching (698.1) Unclassified (20 sources) BMI 45.0-49.9, adult Unclassified (17 sources) Abnormal ultrasound of breast Unclassified (16 sources) Postmenopausal (Renamed from Postmenopausal status) Unclassified (1 source) Unknown / UNK(Unknown) Onset: 8 Past or Other Problems Problem Classification Problem Date Documented Da te Episodic/Chronic Abdominal pain (6 sources) Generalized abdominal pain; Translations: [Generalized abdominal pain] Onset: 4 Episodic Fluid and electrolyte disorders (11 sources) Hypokalemia; Translations: [Hypokalemia] Onset: 4 11-01-2023 Episodic Nausea and vomiting (12 sources) Regurgitation; Translations: [Vomiting, unspecified] Onset: 4 Resolved: 4 02-10-2024 Episodic Other bone disease and musculoskeletal deformities (4 sources) Large clavicle; Translations: [Clavicle enlargement] 10-01-2018 Other connective tissue disease (2 sources) Bursitis of knee; Translations: [Other bursitis of knee, left knee] Onset: 7 07-14-2016 Episodic Other female genital disorders (3 sources) Lesion of vulva; Translations: [Other specified noninflammatory disorders of vulva and perineum] Onset: 3 11-14-2012 Episodic Other gastrointestinal disorders (2 sources) Dysphagia, unspecified; Translations: [Dysphagia, unspecified] Onset: 4 Episodic Other inflammatory condition of skin (3 sources) Pruritus of vulva; Translations: [Pruritus vulvae] Onset: 3 11-14-2012 Episodic Other nutritional; endocrine; and metabolic disorders (4 sources) Abnormal weight loss; Translations: [Abnormal weight loss] Onset: 4 Episodic Other nutritional; endocrine; and metabolic disorders (2 sources) Weight loss; Translations: [Abnormal weight loss] 11-23-2023 Episodic Unclassified (13 sources) Pregnancies (); Translations: [Pregnancies ()] 04-09-2018 Comment on above: 2 Unclassified (2 sources) Patient examined; Translations: [School physical exam] 04-09-2018 Unclassified (8 sources) Well Women Exam (V72.31)( Pap, Mammo, Routine Female and Dexa) (Renamed from Well Woman V72.31 (p,m,d)) Unclassified (13 sources) Unspecified Diagnosis 04-09-2018 Unclassified (8 sources) SCHOOL PHYSICAL (V70.5) Unclassified (8 sources) SINUSITIS, ACUTE NOS (461.9) Unclassified (8 sources) Clavicle enlargement Unclassified (8 sources) BMI 36.0-36.9,adult Unclassified (8 sources) Supraclavicular mass Unclassified (8 sources) Enlargement of sternoclavicular joint, right Unclassified (6 sources) Encntr for general adult medical exam w/o abnormal findings Unclassified (5 sources) BMI 50.0-59.9, adult Unclassified (2 sources) Right foot pain Unclassified (1 source) Abnormal TSH Unclassified (1 source) Adult hypothyroidism Unclassified (2 sources) Non-healing skin lesion Unclassified (1 source) Multiple open wounds of multiple body regions Results Test Name Value Interpretation Reference Range Facility Dexa Bone Density Studyon Dexa Bone Density Study [facility] [address] [place], [place] [id number] Dexa Bone Density Study MR#: [id number] Acct: [id number] Name: LIZ PEREZ Rep #: [id number] : 1960 F 64 From: Cordell Mason MD PCP: Dr. Kristen Santiago DO Status: REG CLI Study: Dexa Bone Density Study Date of Exam: 01/07/25 Exam# [id number] Ordering Dr: Kristen Santiago DO PROCEDURE: DEXA BONE DENSITY STUDY 01/07/2025 REASON FOR EXAM: F, age 64 y/o . Postmenopausal screening. TECHNIQUE: Procedure Code: BDDBD Modality: DX Procedure: DEXA BONE DENSITY STUDY COMPARISON: 2017 FINDINGS: BMD and T-SCORES Lumbar spine: 0.943 g/cm2, T-score -0.9 Levels: L1 through L4 Change from prior: Decrease of 10.4%. Left femoral neck: 0.666 g/cm2, T-score -1.6 Femoral neck comparison data not recommended for monitoring change. Prior T-score Left total hip: 0.846 g/cm2, T-score -0.8 Change from prior: Decrease of 6.8%. Right femoral neck: 0.720 g/cm2, T-score -1.2 Femoral neck comparison data not recommended for monitoring change. Prior T-score Right total hip: 0.831 g/cm2, T-score -0.9 Change from prior: Decrease of 4.7%. The World Health Organization has defined the following categories based on bone density: Normal bone density: T-score equal to or greater than -1.0 Osteopenia: T-score between -1.0 and -2.5 Osteoporosis: T-score equal to or less than -2.5 FRAX (or Comparable) Fracture Risk Assessment: 10 Year Probability of Fracture: Major Osteoporotic Fracture: 12% Hip Fracture: 0.9% (Note: FRAX is not to be reported in setting of normal range bone density, osteoporosis on DEXA, known history of osteoporosis, prior osteoporotic hip or vertebral fracture, or for any patient undergoing pharmacological treatment for bone loss.) The National Osteoporosis Foundation (NOF) recommends pharmacological treatment for patients with a FRAX 10-year risk of 3% or higher for a hip fracture, or 20% or higher for a major osteoporotic fracture, to prevent osteoporosis and reduce fracture risk. The patient does not meet the pharmacological treatment recommendations for prevention of osteoporosis. BD/Dexa Bone Density Study IMPRESSION: OSTEOPENIA. Recommend follow-up as clinically warranted. Reading Location: [id number] CC: Dr. Kristen Santiago DO Hospice [facility] Aide: Signed Normal [facility] Breast imaging reportOrdered By: Eleni Antonio on 11-26-2024 Study report [facility] [address] [place] [address] SCRN MAMM (CAD)W/ASHOK BILAT MR#: [id number] Acct: [id number] Name: LIZ PEREZ Rep #: [id number] : 1960 F 64 From: James Miranda MD PCP: Dr. Kristen Santiago DO Status: RE G CLI Study:SCRN MAMM (CAD)W/ASHOK BILAT Date of Exa m: 11/26/24 Exam# [id number] Ordering Dr: Misha Santiago DO EXAM: SCRN MAMM (CAD)W/ASHOK BILAT DATE: 11/26/2024 CLINICAL HISTORY: F, Age 64 y/o , SCRN MAMM (CAD)W/ASHOK BILAT TECHNIQUE: SCRN MAMM (CAD)W/ASHOK BILAT COMPARISON: Prior exam(s) were compared FINDINGS: TISSUE DENSITY: There are scattered areas of fibroglandular density. Bilateral Breast Mammographic Findings: No suspicious masses, calcifications or other abnormalities are identified. BI/SCRN MAMM (CAD)W/ASHOK BILAT IMPRESSION: No mammographic evidence of malignancy in either breast OVERALL FINAL ASSESSMENT BI-RADS 1: NEGATIVE. RECOMMENDATION: Routine annual follow-up in 1 Year A letter with findings and recommendations will be mailed to the patient. Reading Location: [id number] CC: Dr. Kristen Santiago DO ~ Hospice Home Health Aide: Signed [facility] SCRN MAMM (CAD)W/ASHOK BILATo n 11-26-2024 SCRN MAMM (CAD)W/ASHOK BILAT [facility] Imaging Services [address] [place], [place] [id number] SCRN MAMM (CAD)W/ASHOK BILAT MR#: [id number] Acct: [id number] Name: LIZ PEREZ Rep #: [id number] : 1960 F 64 From: Eleni Magallanes i, MD PCP: Dr. Kristen Santiago DO Status: REG CLI Study: SCRN MAMM (CAD)W/ASHOK BILAT Date of Exam: 11/08 01/02 Exam# [id number] Ordering Dr: Kristen Santiago DO EXAM: SCRN MAMM (CAD)W/ASHOK BILAT DATE: 11/26/2024 CLINICAL HISTORY: F, Age 64 y/o , SCRN MAMM (CAD)W/ASHOK BILAT TECHNIQUE: SCRN MAMM (CAD)W/ASHOK BILAT COMPARISON: Prior exam(s) were compared FINDINGS: TISSUE DENSITY: There are scattered areas of fibroglandular density. Bilateral Breast Mammographic Findings: No suspicious masses, calcifications or other abnormalities are identified. BI/SCRN MAMM (CAD)W/ASHOK BILAT IMPRESSION: No mammographic evidence of malignancy in either breast OVERALL FINAL ASSESSMENT BI-RADS 1: NEGATIVE. RECOMMENDATION: Routine annual follow-up in 1 Year A letter with findings and recommendations will be mailed to the patient. Reading Location: [id number] CC: Dr. Kristen Santiago DO Hospice Home [facility] Aide: Signed Normal [facility] Tg 09-26-2024 Table formatting fro m the original result was not included. Images from the original result were not included. Patient: Liz Perez //[id number] Gender: Female Physician: Effie Stephens MD Age: 64 Referred by: Steven Cobian MD : 1960 Brush Holder Inspector: Marisol Cano RN Height: 5 ft 8 in Medication: Off Weight: 300 lb Date: 09/04/2024 Interpretations This study done off of medications demonstrates minimal GERD with no evidence of pathologic reflux. REFLUX MONITORING SUMMARY Acid Exposure Summary Total Normal Upright Normal Supine Normal Acid exposure time (%) 0.9 <4.9 1.4 <7.3 0.0 <1.4 Longest reflux (min) 11.9 <16.0 11.9 N/A DeMeester Score 4.1 <14.7 Note: pH normal values in the report are from publications wherein subjects are not taking acid suppressive medication, irrespective of the medication selection in the Diary. DETAIL TABLES Total Period Durations (HH:MM) Total Upright Supine Post-prandial Total Time 92:29 67:25 25:04 18:03 Analysis Time 52:27 33:39 18:48 18:03 Analysis Thresholds Ch 1 Threshold, pH 4.0 Acid Reflux Analysis Total Upright Supine Post-prandial Acid exposure time (HH:MM) 00:29 00:29 00:00 00:19 Acid exposure time (%) 0.9 1.4 0.0 1.7 Number of refluxes 7 7 0 4 Number of long refluxes 2 2 0 1 Longest reflux (min) 11.9 11.9 N/A 11.9 DeMeester Score Score Normal* Ch 1 4.1 <14.7 * 95th percentile Day 1 Period Durations (HH:MM) Total Upright Supine Post-prandial Total Time 24:00 15:49 08:11 04:16 Analysis Time 21:33 14:43 06:50 04:16 Analysis Thresholds Ch 1 Threshold, pH 4.0 Acid Reflux Analysis Total Upright Supine Post-prandial Acid exposure time (HH:MM) 00:29 00:29 00:00 00:19 Acid exposure time (%) 2.3 3.3 0.0 7.3 Number of refluxes 7 7 0 4 Number of long refluxes 2 2 0 1 Longest reflux (min) 11.9 11.9 N/A 11.9 DeMeester Score Score Normal* Ch 1 7.3 <14.7 * 95th percentile Day 2 Period Durations (HH:MM) Total Upright Supine Post-prandial Total Time 24:00 15:33 08:27 10:20 Analysis Time 19:58 12:57 07:01 10:20 Analysis Thresholds Ch 1 Threshold, pH 4.0 Acid Reflux Analysis Total Upright Supine Post-prandial Acid exposure time (HH:MM) 00:00 00:00 00:00 00:00 Acid exposure time (%) 0.0 0.0 0.0 0.0 Number of refluxes 0 0 0 0 Number of long refluxes 0 0 0 0 Longest reflux (min) N/A N/A N/A N/A DeMeester Score Score Normal* Ch 1 0.3 <14.7 * 95th percentile Day 3 Period Durations (HH:MM) Total Upright Supine Post-prandial Total Time 24:00 15:34 08:26 03:27 Analysis Time 10:05 05:08 04:57 03:27 Analysis Thresholds Ch 1 Threshold, pH 4.0 Acid Reflux Analysis Total Upright Supine Post-prandial Acid exposure time (HH:MM) 00:00 00:00 00:00 00:00 Acid exposure time (%) 0.0 0.0 0.0 0.0 Number of refluxes 0 0 0 0 Number of long refluxes 0 0 0 0 Longest reflux (min) N/A N/A N/A N/A DeMeester Score Score Normal* Ch 1 0.3 <14.7 * 95th percentile Day 4 Period Durations (HH:MM) Total Upright Total Time 20:29 20:29 Analysis Time 00:52 00:52 Analysis Thresholds Ch 1 Threshold, pH 4.0 Acid Reflux Analysis Total Upright Acid exposure time (HH:MM) 00:00 00:00 Acid exposure time (%) 0.0 0.0 Number of refluxes 0 0 Number of long refluxes 0 0 Longest reflux (min) N/A N/A DeMeester Score Score Normal* Ch 1 0.3 <14.7 * 95th percentile [facility] Work Phone: BRAVOOrdered By: Effie lopez on 09-26-2024 [facility] Work Phone: Flory 09-04-2024 Esophagogastroduodenos copy Table formatting from the original result was not included. Impression The esophagus, stomach and duodenum appeared normal. Healthy previous peroral endoscopic myotomy in the middle third of the esophagus A pH capsule was placed successfully in the esophagus (30 cm from the incisors, 6 cm from the GE junction). Findings The esophagus, stomach and duodenum appeared normal. Healthy previous peroral endoscopic myotomy in the middle third of the esophagus; no bleeding was observed The GE junction was visualized. A pH capsule was placed successfully in the esophagus (30 cm from the incisors, 6 cm from the GE junction). LES widely gaping and patulous s/p POEM. No evidence of esophagitis Recommendation Follow up with me in clinic, due: 09/26/2024 Patient to remain off PPIs for 4 days May use Tums/Rolaids as needed Regular diet Follow up with me in two weeks for discussion of Bruno results Indication Achalasia Post-Op Diagnosis None Staff Staff Role Steven Cobian MD Proceduralist Medications See Anesthesia Record. Preprocedure A history and physical has been performed, and patient medication allergies have been reviewed. The patient's tolerance of previous anesthesia has been reviewed. The risks and benefits of the procedure and the sedation options and risks were discussed with the patient. All questions were answered and informed consent obtained. Details of the Procedure The patient underwent monitored anesthesia care, which was administered by an anesthesia professional. The patient's blood pressure, ECG, ETCO2, heart rate, level of consciousness, oxygen and respirations were monitored throughout the procedure. The scope was introduced through the mouth and advanced to the second part of the duodenum. Retroflexion was performed in the cardia. Prior to the procedure, the patient's H. Pylori status was unknown. The patient experienced no blood loss. The procedure was not difficult. The patient tolerated the procedure well. There were no apparent adverse events. Events Procedure Events Event Event Time ENDO SCOPE IN TIME 09/04/2024 9:21 AM Specimens No specimens collected Procedure Location [facility] [address] [facility] [address] Referring Provider Steven Cobian MD Procedure Provider Steven Cobian MD [facility] EGD Study observation Narryuly ruiz 09-04-2024 Table formatting fro m the original result was not included. Impression The esophagus, stomach and duodenum appeared normal. Healthy previous peroral endoscopic myotomy in the middle third of the esophagus A pH capsule was placed successfully in the esophagus (30 cm from the incisors, 6 cm from the GE junction). Findings The esophagus, stomach and duodenum appeared normal. Healthy previous peroral endoscopic myotomy in the middle third of the esophagus; no bleeding was observed The GE junction was visualized. A pH capsule was placed successfully in the esophagus (30 cm from the incisors, 6 cm from the GE junction). LES widely gaping and patulous s/p POEM. No evidence of esophagitis Recommendation Follow up with me in clinic, due: 09/26/2024 Patient to remain off PPIs for 4 days May use Tums/Rolaids as needed Regular diet Follow up with me in two weeks for discussion of Bruno results Indication Achalasia Post-Op Diagnosis None Staff Staff Role Steven Cobian MD Proceduralist Medications See Anesthesia Record. Preprocedure A history and physical has been performed, and patient medication allergies have been reviewed. The patient's tolerance of previous anesthesia has been reviewed. The risks and benefits of the procedure and the sedation options and risks were discussed with the patient. All questions were answered and informed consent obtained. Details of the Procedure The patient underwent monitored anesthesia care, which was administered by an anesthesia professional. The patient's blood pressure, ECG, ETCO2, heart rate, level of consciousness, oxygen and respirations were monitored throughout the procedure. The scope was introduced through the mouth and advanced to the second part of the duodenum. Retroflexion was performed in the cardia. Prior to the procedure, the patient's H. Pylori status was unknown. The patient experienced no blood loss. The procedure was not difficult. The patient tolerated the procedure well. There were no apparent adverse events. Events Procedure Events Event Event Time ENDO SCOPE IN TIME 09/04/2024 9:21 AM Specimens No specimens collected Procedure Location [facility] [place] [id number] Referring Provider Steven Cobian MD Procedure Provider Steven Cobian MD [facility] Work Phone: [facility] Work Phone: No Panel Informationon 09-04 Radiology Study observation (narrative) [facility] Work Phone: Blood type and Indirect anti body screen panel (Bld)on 02-09-2024 ABO group Nom (Bld) A [facility] Blood group antibody screen Ql Negative [facility] D Ag Ql (Bld) Positive [facility] ABO group Nom (Bld) A Normal [facility] Comment on above: Order Comment: Patie nt admitted for surgery associated with significant blood loss OR per blood bankrequest. Performed By: #### 2 4323-8 #### TIFFANIE Bain ([id number]) [facility] ([facility]) [address] [place] [address] Blood group antibody screen Ql Negative [facility] Comment on above: Order Comment: Patie nt admitted for surgery associated with significant blood loss OR per blood bankrequest. Performed By: #### 2 4323-8 #### TIFFANIE Bain ([id number]) [facility] ([facility]) [address] [place] [address] D Ag Ql (Bld) Positive [facility] Comment on above: Order Comment: Patie nt admitted for surgery associated with significant blood loss OR per blood bankrequest. Performed By: #### 2 4323-8 #### TIFFANIE Bain ([id number]) [facility] ([facility]) [address] [place], [place] [id number] VERAB/VERIFY ABORHon 024 ABO group Nom (Bld) A Normal [facility] Comment on above: Performed By: #### 2 4323-8 #### TIFFANIE Bain ([id number]) [facility] ([facility]) [address] [place] [address] D Ag Ql (Bld) Positive Normal [facility] Comment on above: Performed By: #### 2 4323-8 #### TIFFANIE Bain ([id number]) [facility] ([facility]) [address] [place] [address] Verify ABO/Rh Group Test (VE RAB)on 02-09-2024 ABO group Nom (Bld) A [facility] D Ag Ql (Bld) Positive [facility] CBC panel Auto (Bld)on 01-30 Erythrocyte distribution width (RBC) [Ratio] 13.8 % Normal 11.5-14.5 [facility] Comment on above: Performed By: #### 2 5833-8 #### TIFFANIE Bain ([id number]) [facility] ([facility]) [address] [place] [address] Hematocrit (Bld) [Volume fraction] 43.9 % Normal 36.0-46.0 [facility] Comment on above: Performed By: #### 2 4323-8 #### TIFFANIE Bain ([id number]) [facility] ([facility]) [address] [place] [address] Hemoglobin (Bld) [Mass/Vol] 13.9 g/dL Normal 12.0-16.0 [facility] Comment on above: Performed By: #### 2 5803-8 #### TIFFANIE Bain ([id number]) [facility] ([facility]) [address] [place] [address]282 MCH (RBC) [Entitic mass] 30.3 pg Normal 26.0-34.0 [facility] Comment on above: Performed By: #### 2 8953-8 #### TIFFANIE Bain ([id number]) [facility] ([facility]) [address] [place] [address]01 MCHC (RBC) [Mass/Vol] 31.7 g/dL Low 32.0-36.0 [facility] Comment on above: Performed By: #### 2 0873-8 #### TIFFANIE Bain ([id number]) [facility] ([facility]) [address] [place] [address] MCV (RBC) [Entitic vol] 96 fL Normal 80-100 [facility] Comment on above: Performed By: #### 2 432-8 #### TIFFANIE Bain ([id number]) [facility] ([facility]) [address] [place] [address] 24871 Nucleated RBC/100 WBC (Bld) [Ratio] 0.0 /100 WBCs Normal 0.0-0.0 [facility] Comment on above: Performed By: #### 2 432-8 #### TIFFANIE Bain ([id number]) [facility] ([facility]) [address] [place] [address] Platelets (Bld) [#/Vol] 248 x10*3/uL Normal 150-450 [facility] Comment on above: Performed By: #### 2 432-8 #### TIFFANIE Bain ([id number]) [facility] ([facility]) [address] [place] [address] 16163 RBC (Bld) [#/Vol] 4.59 x10*6/uL Normal 4.00-5.20 [facility] Comment on above: Performed By: #### 2 4323-8 #### TIFFANIE Bain ([id number]) [facility] ([facility]) [address] [place] [address] WBC (Bld) [#/Vol] 5.3 x10*3/uL Normal 4.4-11.3 [facility] Comment on above: Performed By: #### 2 4323-8 #### TIFFANIE Bain ([id number]) [facility] ([facility]) [address] [place] [address] 11931 Comprehensive metabolic 2000 panelon 01-31-2024 Albumin BCP dye [Mass/Vol] 4.0 g/dL Normal 3.4-5.0 [facility] Comment on above: Performed By: #### 2 4323-8 #### TIFFANIE Bain ([id number]) [facility] ([facility]) [address] [place] [address] ALP [Catalytic activity/Vol] 69 U/L Normal 33-136 [facility] Comment on above: Performed By: #### 2 4323-8 #### TIFFANIE BLANCO L ([id number]) [facility] ([facility]) [address] [place] [address] ALT With P-5'-P [Catalytic activity/Vol] 19 U/L Normal 7-45 [facility] Comment on above: Result Comment: Arabella ents treated with Sulfasalazine may generate falsely decreased results for ALT. Performed By: #### 2 4323-8 #### TIFFANIE Bain ([id number]) [facility] ([facility]) [address] [place] [address] Anion gap [Moles/Vol] 12 mmol/L Normal 10-20 [facility] Comment on above: Performed By: #### 2 4323-8 #### TIFFANIE Bain ([id number]) [facility] ([facility]) [address] [place] [address] AST With P-5'-P [Catalytic activity/Vol] 25 U/L Normal 9-39 [facility] Comment on above: Performed By: #### 2 4323-8 #### TIFFANIE Bain ([id number]) [facility] ([facility]) [address] [place] [address] Bilirubin [Mass/Vol] 0.6 mg/dL Normal 0.0-1.2 [facility] Comment on above: Performed By: #### 2 4323-8 #### TIFFANIE Bain ([id number]) [facility] ([facility]) [id number] [place] [address] Calcium [Mass/Vol] 9.5 mg/dL Normal 8.6-10.3 [facility] Comment on above: Performed By: #### 2 4323-8 #### TIFFANIE Bain ([id number]) [facility] ([facility]) [address] [place] [address] Chloride [Moles/Vol] 105 mmol/L Normal 98-107 [facility] Comment on above: Performed By: #### 2 4323-8 #### TIFFANIE PENALOZAER L ([id number]) [facility] ([facility]) [address] [place] [address] CO2 [Moles/Vol] 26 mmol/L Normal 21-32 [facility] Comment on above: Performed By: #### 2 4323-8 #### TIFFANIE BLANCO L ([id number]) [facility] ([facility]) [address] [place] [address] Creatinine [Mass/Vol] 0.77 mg/dL Normal 0.50-1.05 [facility] Comment on above: Performed By: #### 2 4323-8 #### TIFFANIE BLANCO L ([id number]) [facility] ([facility]) [address] [place] [address] Glomerular filtration rate/1.73 sq M.predicted 86 mL/min/1.73m*2 Normal >60 [facility] Comment on above: Result Comment: Calc ulations of estimated GFR are performed using the 2020 CKD-EPI Study Refit equation without the race variable for the IDMS-Traceable creatinine methods. https://jasn.asnjournals.org/content//ASN.06785 62116 Performed By: #### 2 4323-8 #### TIFFANIE BLANCO L ([id number]) [facility] ([facility]) [address] [place] [address] Glucose [Mass/Vol] 99 mg/dL Normal 74-99 [facility] Comment on above: Performed By: #### 2 4323-8 #### TIFFANIE PENALOZAER L ([id number]) [facility] ([facility]) [address] [place] [address] Potassium [Moles/Vol] 4.2 mmol/L Normal 3.5-5.3 [facility] Comment on above: Performed By: #### 2 4323-8 #### TIFFANIE BLANCO L ([id number]) [facility] ([facility]) [address] [place] [address] Protein [Mass/Vol] 6.7 g/dL Normal 6.4-8.2 [facility] Comment on above: Performed By: #### 2 4323-8 #### TIFFANIE BLANCO L ([id number]) [facility] ([facility]) [address] [place] [address] Sodium [Moles/Vol] 139 mmol/L Normal 136-145 [facility] Comment on above: Performed By: #### 2 4323-8 #### TIFFANIE BLANCO L ([id number]) [facility] ([facility]) [address] [place] [address] Urea nitrogen [Mass/Vol] 15 mg/dL Normal 6-23 [facility] Comment on above: Performed By: #### 2 4323-8 #### TIFFANIE Bain ([id number]) [facility] ([facility]) [address] [place] [address] 96003 PT and aPTT panel Coag (PPP) on 01-31-2024 aPTT Coag (PPP) [Time] 32 s Normal 27-38 Un [facility] Comment on above: Order Comment: The A PTT is no longer used for monitoring Unfractionated Heparin Therapy. For monitoring Heparin Therapy, use the Heparin Assay. Performed By: #### 2 4323-8 #### TIFFANIE BLANCO L ([id number]) [facility] ([facility]) [address] [place] [address] 91999 INR Coag (PPP) [Relative time] 1.0 Normal 0.9-1.1 [facility] Comment on above: Order Comment: The A PTT is no longer used for monitoring Unfractionated Heparin Therapy. For monitoring Heparin Therapy, use the Heparin Assay. Performed By: #### 2 4323-8 #### TIFFANIE Bain ([id number]) [facility] ([facility]) [address] [place] [address] 15267 PT Coag (PPP) [Time] 12.1 s Normal 9.8-12.8 [facility] Comment on above: Order Comment: The A PTT is no longer used for monitoring Unfractionated Heparin Therapy. For monitoring Heparin Therapy, use the Heparin Assay. Performed By: #### 2 4323-8 #### TIFFANIE Bain ([id number]) [facility] ([facility]) [address] [place] [address] CT CHEST ABDOMEN PELVIS WO C ONTRASTon 12-04-2023 CT CHEST ABDOMEN PELVIS WO CONTRAST Interpreted By: Susan Oliver, STUDY: CT CHEST ABDOMEN PELVIS WO CONTRAST; 12/04/2023 9:22 am INDICATION: Signs/Symptoms:pre op for achalasis - r/o pseudoachalasia. COMPARISON: None. ACCESSION NUMBER(S): [id number] ORDERING CLINICIAN: MARIVEL GONZALEZ TECHNIQUE: CT of the chest, abdomen, and pelvis was performed. Sagittal and coronal reconstructions were generated. No intravenous contrast given for the examination. FINDINGS: CHEST: Hilar, vessel, and solid organ evaluation limited without IV contrast. CHEST WALL AND LOWER NECK: Subcentimeter bilateral axillary lymph nodes. Portion of the left chest wall excluded from imaging field. MEDIASTINUM AND KAM: Limited hilar assessment on unenhanced exam. No significant mediastinal or hilar adenopathy within limits of unenhanced study. The esophagus is mildly distended with air and has a mildly thickened wall. HEART AND VESSELS: Lack of IV contrast precludes vascular luminal assessment. The heart is normal in size. No significant pericardial effusion. Scattered atherosclerotic calcifications. LUNGS, PLEURA, LARGE AIRWAYS: Moderate emphysematous changes. The central airways are patent. No significant pleural effusion. faint linear densities scattered in both lung short. BONES: Kyphosis and degenerative endplate spurring in the thoracic spine. ABDOMEN/PELVIS: Solid organ and vessel evaluation limited without IV contrast. ABDOMINAL ORGANS: LIVER: No focal lesion within limits of unenhanced exam GALL BLADDER AND BILIARY TREE: No calcified gallstone SPLEEN: No focal lesion within limits of unenhanced exam PANCREAS: No focal lesion within limits of unenhanced exam ADRENALS: No adrenal mass KIDNEYS AND URETERS: No renal mass or hydronephrosis within limits of unenhanced exam BOWEL: Stomach is decompressed. Positive enteric contrast in nondilated loops of small bowel and colon. Mild distal colon diverticulosis. PERITONEUM, RETROPERITONEUM, NODES: No significant free fluid. No free air. No significant retroperitoneal adenopathy within limits of unenhanced exam. VESSELS: Lack of IV contrast precludes vascular luminal assessment. The abdominal aorta is normal in caliber. Trace atherosclerotic calcifications. PELVIS: Artifact related to patient's body habitus slightly limits evaluation. Partially distended bladder and anteverted uterus are grossly normal in contour. Subcentimeter lymph nodes along both pelvic sidewalls. ABDOMINAL WALL: No sizable abdominal wall hernia. Subcentimeter bilateral inguinal lymph nodes. BONES: Scoliosis and degenerative changes of the lumbar spine. IMPRESSION: CHEST: Mildly distended thick-walled esophagus. Correlate with esophagram or endoscopy for possible esophagitis or obstruction/stricture. Emphysematous changes and mild probable scarring or atelectasis in both lungs. ABDOMEN AND PELVIS: No evidence of bowel obstruction or free fluid. Mild distal colon diverticulosis. No definite focal abdominal visceral mass lesion within limits of unenhanced exam. Small presumably reactive lymph nodes in the pelvis and inguinal regions. MACRO: None. Signed by: Susan Oliver 12/05/2023 3:22 PM Dictation workstation: [id number] [facility] GI ESOPHAGRAMon [place] GI ESOPHAGRAM Interpreted By: Gwyn Valdez, STUDY: [place] GI ESOPHAGRAM; 12/04/2023 9:53 am INDICATION: Signs/Symptoms:timed esophogram, evaluate for achalasia. COMPARISON: None. ACCESSION NUMBER(S): [id number] ORDERING CLINICIAN: MARIVEL GONZALEZ TECHNIQUE: Initial pan washer hand radiograph of the esophagus was obtained. Multiple fluoroscopic spot images were obtained after the administration of effervescent crystals and 100 mL of barium contrast. The patient tolerated the procedure well. FINDINGS: Initial pan washer hand image is grossly unremarkable. Fluoroscopic images demonstrate normal peristalsis with free flow of barium through the pharynx and esophagus without evidence of obstruction or stricture. There is no evidence of extraluminal contrast suggestive of leak. No intraluminal mass lesions or hiatal hernia is appreciated. There is no evidence of extrinsic compression of the esophagus or pharynx. Tertiary contractions are seen throughout the mid to distal esophagus, consistent with esophageal dysmotility. There is mild persistent narrowing of the gastroesophageal junction without evidence of obstruction. IMPRESSION: 1. Mild persistent narrowing of the gastroesophageal junction without evidence of obstruction. 2. Findings consistent with esophageal dysmotility. MACRO: None Signed by: Gwyn Valdez 12/04/2023 11:35 AM Dictation workstation: [id number] [facility] RF Esophagus Views W barium contrast Hever 12-04-2023 1. Mild persistent narrowing of the gastroesophageal junction without evidence of obstruction. 2. Findings consistent with esophageal dysmotility. MACRO: None Signed by: Gwyn Valdez 12/04/2023 11:35 AM Dictation workstation: [id number] MMODAL Interpreted By: Gwyn Valdez, STUDY: [place] GI ESOPHAGRAM; 12/04/2023 9:53 am INDICATION: Signs/Symptoms:timed esophogram, evaluate for achalasia. COMPARISON: None. ACCESSION NUMBER(S): [id number] ORDERING CLINICIAN: MARIVEL TAVAREZASEMICK TECHNIQUE: Initial pan washer hand radiograph of the esophagus was obtained. Multiple fluoroscopic spot images were obtained after the administration of effervescent crystals and 100 mL of barium contrast. The patient tolerated the procedure well. FINDINGS: Initial pan washer hand image is grossly unremarkable. Fluoroscopic images demonstrate normal peristalsis with free flow of barium through the pharynx and esophagus without evidence of obstruction or stricture. There is no evidence of extraluminal contrast suggestive of leak. No intraluminal mass lesions or hiatal hernia is appreciated. There is no evidence of extrinsic compression of the esophagus or pharynx. Tertiary contractions are seen throughout the mid to distal esophagus, consistent with esophageal dysmotility. There is mild persistent narrowing of the gastroesophageal junction without evidence of obstruction. [facility] MMODAL Gwyn Valdez MD - 12/04/2023 Interpreted By: Gwyn Valdez, STUDY: [place] GI ESOPHAGRAM; 12/04/2023 9:53 am INDICATION: Signs/Symptoms:timed esophogram, evaluate for achalasia. COMPARISON: None. ACCESSION NUMBER(S): [id number] ORDERING CLINICIAN: MARIVEL OLASEHINDE TECHNIQUE: Initial pan washer hand radiograph of the esophagus was obtained. Multiple fluoroscopic spot images were obtained after the administration of effervescent crystals and 100 mL of barium contrast. The patient tolerated the procedure well. FINDINGS: Initial pan washer hand image is grossly unremarkable. Fluoroscopic images demonstrate normal peristalsis with free flow of barium through the pharynx and esophagus without evidence of obstruction or stricture. There is no evidence of extraluminal contrast suggestive of leak. No intraluminal mass lesions or hiatal hernia is appreciated. There is no evidence of extrinsic compression of the esophagus or pharynx. Tertiary contractions are seen throughout the mid to distal esophagus, consistent with esophageal dysmotility. There is mild persistent narrowing of the gastroesophageal junction without evidence of obstruction. IMPRESSION: 1. Mild persistent narrowing of the gastroesophageal junction without evidence of obstruction. 2. Findings consistent with esophageal dysmotility. MACRO: None Signed by: Gwyn Valdez 12/04/2023 11:35 AM Dictation workstation: [id number] [facility] Work Phone: Radiology Study observation (narrative) [facility] Work Phone: RF Esophagus Views W barium contrast POOrdered By: Gwyn Valdez on 12-04-2023 [facility] Work Phone: Esophageal Manometryon 11-07 Images from the original result were not included. 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 Daily dysphagia to liquids & solids with contents sticking in mid chest. Will vomit after a couple of hours. Experiences thick mucus with a cough and burping. Denies chest pain and heartburn. Rapid Drink Challenge: patient consumed 95cc/200cc H2O in 30 seconds. Details of the Session I have reviewed the indications for the procedure, the manometric recordings for the procedure, and the measured/calculated manometric parameters and other findings included in the accompanying motility nursing note. I concur with the findings indicated on the nurse report except as indicated below: Separate exam findings: - The LES pressure is elevated at 60 mmHg and it does not appear to relax normally with a markedly elevated median IRP at 63 mmHg. The median IRP in the upright swallows is also elevated at 47 mmHg - There is no evidence of a hiatal hernia - The study of the esophageal peristalsis shows complete absent contractility with evidence of panesophageal pressurization in 100% of the swallows. Rapid drink challenge shows an elevated IRP > 12 mmHg accompanied by corral-esophageal pressurization > 20-30 mmHg - The impedance study shows complete bolus transit in 0% of the swallows Procedure Location [facility] [address] [facility] [address] Referring Provider Kali Winslow MD [address] [place] [address] [facility] Work Phone: Esophageal ManometryOrdered By: Hayden Bello on 11-08-2023 [facility] Work Phone: CBC W Auto Differential pane l (Bld)on 11-01-2023 Basophils (Bld) [#/Vol] 0.03 x10*3/uL Normal 0.00-0.10 [facility] Comment on above: Performed By: #### 2 4323-8 #### TIFFANIE BLANCO L ([id number]) [facility] ([facility]) [id number] [place] [address] 51352 Basophils/100 WBC (Bld) 0.5 % Normal 0.0-2.0 [facility] Comment on above: Performed By: #### 2 4323-8 #### TIFFANIE AGUDELOMOTZER L ([id number]) [facility] ([facility]) [id number] [place] [address] 41445 Eosinophils (Bld) [#/Vol] 0.20 x10*3/uL Normal 0.00-0.70 [facility] Comment on above: Performed By: #### 2 4323-8 #### TIFFANIE AGUDELOMOTZER L ([id number]) [facility] ([facility]) [id number] [place] [address] 68928 Eosinophils/100 WBC (Bld) 3.0 % Normal 0.0-6.0 [facility] Comment on above: Performed By: #### 2 4323-8 #### TIFFANIE Bain ([id number]) [facility] ([facility]) [address] [place] [address] 14478 Erythrocyte distribution width (RBC) [Ratio] 14.3 % Normal 11.5-14.5 [facility] Comment on above: Performed By: #### 2 4323-8 #### TIFFANIE Bain ([id number]) [facility] ([facility]) [address] [place] [address] 98841 Hematocrit (Bld) [Volume fraction] 41.9 % Normal 36.0-46.0 [facility] Comment on above: Performed By: #### 2 4323-8 #### TIFFANIE Bain ([id number]) [facility] ([facility]) [address] [place] [address] 75261 Hemoglobin (Bld) [Mass/Vol] 13.4 g/dL Normal 12.0-16.0 [facility] Comment on above: Performed By: #### 2 4323-8 #### TIFFANIE Bain ([id number]) [facility] ([facility]) [address] [place] [address] 28648 Immature granulocytes (Bld) [#/Vol] 0.03 x10*3/uL Normal 0.00-0.70 [facility] Comment on above: Performed By: #### 2 4323-8 #### TIFFANIE Bain ([id number]) [facility] ([facility]) [address] [place] [address] 52316 Immature granulocytes/100 WBC (Bld) 0.5 % Normal 0.0-0.9 [facility] Comment on above: Result Comment: Maritza ture Granulocyte Count (IG) includes promyelocytes, myelocytes and metamyelocytes but does not include bands. Percent differential counts (%) should be interpreted in the context of the absolute cell counts (cells/UL). Performed By: #### 2 4323-8 #### TIFFANIE BLANCO L ([id number]) [facility] ([facility]) [address] [place] [address] 60318 Lymphocytes (Bld) [#/Vol] 1.54 x10*3/uL Normal 1.20-4.80 [facility] Comment on above: Performed By: #### 2 4323-8 #### TIFFANIE Bain ([id number]) [facility] ([facility]) [id number] [place] [address] 43195 Lymphocytes/100 WBC (Bld) 23.5 % Normal 13.0-44.0 [facility] Comment on above: Performed By: #### 2 4323-8 #### TIFFANIE Bain ([id number]) [facility] ([facility]) [address] [place] [address] 42337 MCH (RBC) [Entitic mass] 30.0 pg Normal 26.0-34.0 [facility] Comment on above: Performed By: #### 2 4323-8 #### TIFFANIE Bain ([id number]) [facility] ([facility]) [address] [place] [address] 12231 MCHC (RBC) [Mass/Vol] 32.0 g/dL Normal 32.0-36.0 [facility] Comment on above: Performed By: #### 2 4323-8 #### TIFFANIE Bain ([id number]) [facility] ([facility]) [address] [place] [address] 16136 MCV (RBC) [Entitic vol] 94 fL Normal 80-100 [facility] Comment on above: Performed By: #### 2 4323-8 #### TIFFANIE Bain ([id number]) [facility] ([facility]) [address] [place] [address] 24009 Monocytes (Bld) [#/Vol] 0.36 x10*3/uL Normal 0.10-1.00 [facility] Comment on above: Performed By: #### 2 4323-8 #### TIFFANIE Bain ([id number]) [facility] ([facility]) [address] [place] [address] 18083 Monocytes/100 WBC (Bld) 5.5 % Normal 2.0-10.0 [facility] Comment on above: Performed By: #### 2 4323-8 #### TIFFANIE Bain ([id number]) [facility] ([facility]) [address] [place] [address] 65937 Neutrophils (Bld) [#/Vol] 4.40 x10*3/uL Normal 1.20-7.70 [facility] Comment on above: Result Comment: Perc ent differential counts (%) should be interpreted in the context of the absolute cell counts (cells/uL). Performed By: #### 2 4323-8 #### TIFFANIE Bain ([id number]) [facility] ([facility]) [id number] [place] [address] 76585 Neutrophils/100 WBC (Bld) 67.0 % Normal 40.0-80.0 [facility] Comment on above: Performed By: #### 2 4323-8 #### TIFFANIE Bain ([id number]) [facility] ([facility]) [id number] [place] [address] 30645 Nucleated RBC/100 WBC (Bld) [Ratio] 0.0 /100 WBCs Normal 0.0-0.0 [facility] Comment on above: Performed By: #### 2 4323-8 #### TIFFANIE Bain ([id number]) [facility] ([facility]) [id number] [place] [address] 39977 Platelets (Bld) [#/Vol] 187 x10*3/uL Normal 150-450 [facility] Comment on above: Performed By: #### 2 4323-8 #### TIFFANIE BLANCO L ([id number]) [facility] ([facility]) [address] [place] [address] RBC (Bld) [#/Vol] 4.47 x10*6/uL Normal 4.00-5.20 [facility] Comment on above: Performed By: #### 2 4323-8 #### TIFFANIE Bain ([id number]) [facility] ([facility]) [address] [place] [address] WBC (Bld) [#/Vol] 6.6 x10*3/uL Normal 4.4-11.3 [facility] Comment on above: Performed By: #### 2 4323-8 #### TIFFANIE Bain ([id number]) [facility] ([facility]) [id number] [place] [address] 00947 Magnesiumon 11-01-2023 Magnesium [Mass/Vol] 1.81 mg/dL Normal 1.60-2.40 [facility] Comment on above: Performed By: #### 2 4323-8 #### TIFFANIE Bain ([id number]) [facility] ([facility]) [address] [place] [address] 37091 Renal function 2000 panelon 11-01-2023 Albumin BCP dye [Mass/Vol] 2.9 g/dL Low 3.4-5.0 [facility] Comment on above: Performed By: #### 2 4323-8 #### TIFFANIE Bain ([id number]) [facility] ([facility]) [address] [place] [address] 83185 Anion gap [Moles/Vol] 10 mmol/L Normal 10-20 [facility] Comment on above: Performed By: #### 2 4323-8 #### TIFFANIE Bain ([id number]) [facility] ([facility]) [address] [place] [address] 16667 Calcium [Mass/Vol] 8.2 mg/dL Low 8.6-10.6 [facility] Comment on above: Performed By: #### 2 4323-8 #### TIFFANIE Bain ([id number]) [facility] ([facility]) [id number] [place] [address] 57967 Chloride [Moles/Vol] 103 mmol/L Normal 98-107 [facility] Comment on above: Performed By: #### 2 4323-8 #### TIFFANIE Bain ([id number]) [facility] ([facility]) [id number] [place] [address] 19204 CO2 [Moles/Vol] 30 mmol/L Normal 21-32 [facility] Comment on above: Performed By: #### 2 4323-8 #### TIFFANIE BLANCO L ([id number]) [facility] ([facility]) [address] [place] [address] Creatinine [Mass/Vol] 0.81 mg/dL Normal 0.50-1.05 [facility] Comment on above: Performed By: #### 2 4323-8 #### TIFFANIE BLANCO L ([id number]) [facility] ([facility]) [address] [place] [address] 57429 Glomerular filtration rate/1.73 sq M.predicted 81 mL/min/1.73m*2 Normal >60 [facility] Comment on above: Result Comment: Calc ulations of estimated GFR are performed using the 2020 CKD-EPI Study Refit equation without the race variable for the IDMS-Traceable creatinine methods. https://jasn.asnjournals.org/content///ASN.13588 70671 Performed By: #### 2 4323-8 #### TIFFANIE BLANCO L ([id number]) [facility] ([facility]) [id number] [place] [address] 12695 Glucose [Mass/Vol] 85 mg/dL Normal 74-99 [facility] Comment on above: Performed By: #### 2 4323-8 #### TIFFANIE BLANCO L ([id number]) [facility] ([facility]) [id number] [place] [address] 35072 Phosphate [Mass/Vol] 2.8 mg/dL Normal 2.5-4.9 [facility] Comment on above: Result Comment: The performance characteristics of phosphorus testing in heparinized plasma have been validated by the individual laboratory site where testing is performed. Testing on heparinized plasma is not approved by the FDA; however, such approval is not necessary. Performed By: #### 2 4323-8 #### TIFFANIE Bain ([id number]) [facility] ([facility]) [address] [place] [address] Potassium [Moles/Vol] 3.2 mmol/L Low 3.5-5.3 [facility] Comment on above: Performed By: #### 2 4323-8 #### TIFFANIE Bain ([id number]) [facility] ([facility]) [address] [place] [address] 95535 Sodium [Moles/Vol] 140 mmol/L Normal 136-145 [facility] Comment on above: Performed By: #### 2 4323-8 #### TIFFANIE Bain ([id number]) [facility] ([facility]) [address] [place] [address] 87447 Urea nitrogen [Mass/Vol] 4 mg/dL Low 6-23 [facility] Comment on above: Performed By: #### 2 4323-8 #### TIFFANIE Bain ([id number]) [facility] ([facility]) [address] [place] [address] 02563 CBC panel Auto (Bld)on 10-30 Erythrocyte distribution width (RBC) [Ratio] 14.2 % Normal 11.5-14.5 [facility] Comment on above: Performed By: #### 5 8410-2 #### TIFFANIE Bain ([id number]) [facility] ([facility]) [address] [place] [address] 40482 Hematocrit (Bld) [Volume fraction] 41.9 % Normal 36.0-46.0 [facility] Comment on above: Performed By: #### 5 8410-2 #### TIFFANIE Bain ([id number]) [facility] ([facility]) [address] [place] [address] 15361 Hemoglobin (Bld) [Mass/Vol] 13.9 g/dL Normal 12.0-16.0 [facility] Comment on above: Performed By: #### 5 8410-2 #### TIFFANIE Bain ([id number]) [facility] ([facility]) [address] [place] [address] 78605 MCH (RBC) [Entitic mass] 29.4 pg Normal 26.0-34.0 [facility] Comment on above: Performed By: #### 5 8410-2 #### TIFFANIE Bain ([id number]) [facility] ([facility]) [address] [place] [address] MCHC (RBC) [Mass/Vol] 33.2 g/dL Normal 32.0-36.0 [facility] Comment on above: Performed By: #### 5 8410-2 #### TIFFANIE Bain ([id number]) [facility] ([facility]) [id number] [place] [address] 54745 MCV (RBC) [Entitic vol] 89 fL Normal 80-100 [facility] Comment on above: Performed By: #### 5 8410-2 #### TIFFANIE Bain ([id number]) [facility] ([facility]) [address] [place] [address] 96235 Nucleated RBC/100 WBC (Bld) [Ratio] 0.0 /100 WBCs Normal 0.0-0.0 [facility] Comment on above: Performed By: #### 5 8410-2 #### TIFFANIE Bain ([id number]) [facility] ([facility]) [id number] [place] [address] 69205 Platelets (Bld) [#/Vol] 224 x10*3/uL Normal 150-450 [facility] Comment on above: Performed By: #### 5 8410-2 #### TIFFANIE Bain ([id number]) [facility] ([facility]) [id number] [place] [address] 41443 RBC (Bld) [#/Vol] 4.72 x10*6/uL Normal 4.00-5.20 [facility] Comment on above: Performed By: #### 5 8410-2 #### TIFFANIE BLANCO L ([id number]) [facility] ([facility]) [id number] [place] [address] 58199 WBC (Bld) [#/Vol] 7.4 x10*3/uL Normal 4.4-11.3 [facility] Comment on above: Performed By: #### 5 8410-2 #### TIFFANIE Bain ([id number]) [facility] ([facility]) [address] [place] [address] Flory 10-31-2023 Esophagogastroduodenos copy Table formatting from the original result was not included. 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 The duodenal bulb and 2nd part of the duodenum appeared normal. Findings Moderate dilation in the upper third of the esophagus and middle third of the esophagus. The esophagus is tortuous and dilated with fluid noted and suctioned. Benign-appearing intrinsic stricture (traversable) in the GE junction (GE junction). There is resistance to passing the endoscope into the stomach at the GE junction and this area is narrowed. The mucosa appears normal. This is consistent with diagnosis of achalasia. Injected 100 total units of Botox in the GE junction (GE junction) using a four-quadrant injection method The stomach appeared normal. The duodenal bulb and 2nd part of the duodenum appeared normal. Recommendation Follow up with primary services account manager Follow up as per inpatient team with Dr. Bill and Dr. Ceballos. Indication Regurgitation of stomach contents Staff Staff Role Lev Jhaveri MD Proceduralist Medications See Anesthesia Record. Preprocedure A history and physical has been performed, and patient medication allergies have been reviewed. The patient's tolerance of previous anesthesia has been reviewed. The risks and benefits of the procedure and the sedation options and risks were discussed with the patient. All questions were answered and informed consent obtained. Details of the Procedure The patient underwent monitored anesthesia care, which was administered by an anesthesia professional. The patient's blood pressure, ECG, ETCO2, heart rate, level of consciousness, oxygen and respirations were monitored throughout the procedure. The scope was introduced through the mouth and advanced to the second part of the duodenum. Retroflexion was performed in the cardia. Prior to the procedure, the patient's H. Pylori status was negative. The patient's estimated blood loss was minimal (<5 mL). The procedure was not difficult. The patient tolerated the procedure well. There were no apparent adverse events. Events Procedure Events Event Event Time ENDO SCOPE IN TIME 10/31/2023 1:04 PM ENDO SCOPE OUT TIME 10/31/2023 1:10 PM Specimens No specimens collected Procedure Location [facility] [id number] [place] [id number] Referring Provider Krysta Ceballos MD Procedure Provider Lev Jhaveri MD Normal [facility] Magnesiumon 10-31-2023 Magnesium [Mass/Vol] 1.93 mg/dL Normal 1.60-2.40 [facility] Comment on above: Performed By: #### 1 9123-9 #### TIFFANIE Bain ([id number]) [facility] ([facility]) [id number] [place] [address]242 Renal function 2000 panelon 10-31-2023 Albumin BCP dye [Mass/Vol] 3.5 g/dL Normal 3.4-5.0 [facility] Comment on above: Performed By: #### 2 4362-6 #### TIFFANIE Bain ([id number]) [facility] ([facility]) [address] [place] [address] 72427 Anion gap [Moles/Vol] 12 mmol/L Normal 10-20 [facility] Comment on above: Performed By: #### 2 4362-6 #### TIFFANIE Bain ([id number]) [facility] ([facility]) [address] [place] [address] 00199 Calcium [Mass/Vol] 8.7 mg/dL Normal 8.6-10.6 [facility] Comment on above: Performed By: #### 2 4362-6 #### TIFFANIE Bain ([id number]) [facility] ([facility]) [id number] [place] [address] 49648 Chloride [Moles/Vol] 99 mmol/L Normal 98-107 [facility] Comment on above: Performed By: #### 2 4362-6 #### TIFFANIE Bain ([id number]) [facility] ([facility]) [id number] [place] [address] 07863 CO2 [Moles/Vol] 31 mmol/L Normal 21-32 [facility] Comment on above: Performed By: #### 2 4362-6 #### TIFFANIE Bain ([id number]) [facility] ([facility]) [address] [place] [address] Creatinine [Mass/Vol] 0.79 mg/dL Normal 0.50-1.05 [facility] Comment on above: Performed By: #### 2 4362-6 #### TIFFANIE Bain ([id number]) [facility] ([facility]) [address] [place] [address] Glomerular filtration rate/1.73 sq M.predicted 84 mL/min/1.73m*2 Normal >60 [facility] Comment on above: Result Comment: Calc ulations of estimated GFR are performed using the 2020 CKD-EPI Study Refit equation without the race variable for the IDMS-Traceable creatinine methods. https://jasn.asnjournals.org/content/early//ASN.85616 48285 Performed By: #### 2 4362-6 #### TIFFANIE Bain ([id number]) [facility] ([facility]) [address] [place] [address] Glucose [Mass/Vol] 84 mg/dL Normal 74-99 [facility] Comment on above: Performed By: #### 2 4362-6 #### TIFFANIE Bain ([id number]) [facility] ([facility]) [address] [place] [address] Phosphate [Mass/Vol] 2.9 mg/dL Normal 2.5-4.9 [facility] Comment on above: Result Comment: The performance characteristics of phosphorus testing in heparinized plasma have been validated by the individual laboratory site where testing is performed. Testing on heparinized plasma is not approved by the FDA; however, such approval is not necessary. Performed By: #### 2 4362-6 #### TIFFANIE Bain ([id number]) [facility] ([facility]) [address] [place] [address] Potassium [Moles/Vol] 3.2 mmol/L Low 3.5-5.3 [facility] Comment on above: Performed By: #### 2 4362-6 #### TIFFANIE Bain ([id number]) [facility] ([facility]) [address] [place] [address] Sodium [Moles/Vol] 139 mmol/L Normal 136-145 [facility] Comment on above: Performed By: #### 2 4362-6 #### TIFFANIE Bain ([id number]) [facility] ([facility]) [address] [place] [address] 46733 Urea nitrogen [Mass/Vol] 6 mg/dL Normal 6-23 [facility] Comment on above: Performed By: #### 2 4362-6 #### TIFFANIE Bain ([id number]) [facility] ([facility]) [address] [place] [address] 86763 Comprehensive metabolic 2000 panelon 10-30-2023 Albumin BCP dye [Mass/Vol] 3.2 g/dL Low 3.4-5.0 [facility] Comment on above: Performed By: #### 2 4323-8 #### TIFFANIE Bain ([id number]) [facility] ([facility]) [id number] [place] [address] 72393 ALP [Catalytic activity/Vol] 45 U/L Normal 33-136 [facility] Comment on above: Performed By: #### 2 4323-8 #### TIFFANIE Bain ([id number]) [facility] ([facility]) [id number] [place] [address] 91234 ALT With P-5'-P [Catalytic activity/Vol] 13 U/L Normal 7-45 [facility] Comment on above: Result Comment: Arabella ents treated with Sulfasalazine may generate falsely decreased results for ALT. Performed By: #### 2 4323-8 #### TIFFANIE Bain ([id number]) [facility] ([facility]) [address] [place] [address] 39209 Anion gap [Moles/Vol] 18 mmol/L Normal 10-20 [facility] Comment on above: Performed By: #### 2 4323-8 #### TIFFANIE Bian ([id number]) [facility] ([facility]) [address] [place] [address] AST With P-5'-P [Catalytic activity/Vol] 28 U/L Normal 9-39 [facility] Comment on above: Result Comment: MILD HEMOLYSIS DETECTED. The result may be falsely elevated due to hemolysis or other interferents. Clinical correlation is recommended. Repeat testing may be considered. Performed By: #### 2 4323-8 #### TIFFANIE Bain ([id number]) [facility] ([facility]) [address] [place] [address] Bilirubin [Mass/Vol] 0.8 mg/dL Normal 0.0-1.2 [facility] Comment on above: Performed By: #### 2 4323-8 #### TIFFANIE Bain ([id number]) [facility] ([facility]) [address] [place] [address] Calcium [Mass/Vol] 8.4 mg/dL Low 8.6-10.6 [facility] Comment on above: Performed By: #### 2 4323-8 #### TIFFANIE Bain ([id number]) [facility] ([facility]) [address] [place] [address] Chloride [Moles/Vol] 99 mmol/L Normal 98-107 [facility] Comment on above: Performed By: #### 2 4323-8 #### TIFFANIE Bain ([id number]) [facility] ([facility]) [address] [place] [address] CO2 [Moles/Vol] 26 mmol/L Normal 21-32 [facility] Comment on above: Performed By: #### 2 4323-8 #### TIFFANIE Bain ([id number]) [facility] ([facility]) [address] [place] [address] Creatinine [Mass/Vol] 0.81 mg/dL Normal 0.50-1.05 [facility] Comment on above: Performed By: #### 2 4323-8 #### TIFFANIE Bain ([id number]) [facility] ([facility]) [address] [place] [address] Glomerular filtration rate/1.73 sq M.predicted 81 mL/min/1.73m*2 Normal >60 [facility] Comment on above: Result Comment: Calc ulations of estimated GFR are performed using the 2020 CKD-EPI Study Refit equation without the race variable for the IDMS-Traceable creatinine methods. https://jasn.asnjournals.org/content/early//ASN.80874 20589 Performed By: #### 2 4323-8 #### TIFFANIE Bain ([id number]) [facility] ([facility]) [id number] [place] [address] 48622 Glucose [Mass/Vol] 85 mg/dL Normal 74-99 [facility] Comment on above: Performed By: #### 2 4323-8 #### TIFFANIE Bain ([id number]) [facility] ([facility]) [address] [place] [address] 01778 Potassium [Moles/Vol] 4.0 mmol/L Normal 3.5-5.3 [facility] Comment on above: Result Comment: MILD HEMOLYSIS DETECTED. The result may be falsely elevated due to hemolysis or other interferents. Clinical correlation is recommended. Repeat testing may be considered. Performed By: #### 2 4323-8 #### TIFFANIE Bain ([id number]) [facility] ([facility]) [address] [place] [address] Protein [Mass/Vol] 6.3 g/dL Low 6.4-8.2 [facility] Comment on above: Performed By: #### 2 4323-8 #### TIFFANIE BLANCO L ([id number]) [facility] ([facility]) [id number] [place] [address] 07813 Sodium [Moles/Vol] 139 mmol/L Normal 136-145 [facility] Comment on above: Performed By: #### 2 4323-8 #### TIFFANIE BLANCO L ([id number]) [facility] ([facility]) [address] [place] [address] Urea nitrogen [Mass/Vol] 8 mg/dL Normal 6-23 [facility] Comment on above: Performed By: #### 2 4323-8 #### TIFFANIE Bain ([id number]) [facility] ([facility]) [address] [place] [address] 07872 CBC W Auto Differential pane l (Bld)on 10-29-2023 Basophils (Bld) [#/Vol] 0.04 x10*3/uL Normal 0.00-0.10 [facility] Comment on above: Performed By: #### 5 7021-8 #### TIFFANIE Bain ([id number]) [facility] ([facility]) [address] [place] [address] 31046 Basophils/100 WBC (Bld) 0.4 % Normal 0.0-2.0 [facility] Comment on above: Performed By: #### 5 7021-8 #### TIFFANIE Bain ([id number]) [facility] ([facility]) [address] [place] [address] 04552 Eosinophils (Bld) [#/Vol] 0.14 x10*3/uL Normal 0.00-0.70 [facility] Comment on above: Performed By: #### 5 7021-8 #### TIFFANIE Bain ([id number]) [facility] ([facility]) [address] [place] [address] 26650 Eosinophils/100 WBC (Bld) 1.3 % Normal 0.0-6.0 [facility] Comment on above: Performed By: #### 5 7021-8 #### TIFFANIE Bain ([id number]) [facility] ([facility]) [address] [place] [address] 35075 Erythrocyte distribution width (RBC) [Ratio] 14.1 % Normal 11.5-14.5 [facility] Comment on above: Performed By: #### 5 7021-8 #### TIFFANIE Bain ([id number]) [facility] ([facility]) [address] [place] [address] 74177 Hematocrit (Bld) [Volume fraction] 44.4 % Normal 36.0-46.0 [facility] Comment on above: Performed By: #### 5 7021-8 #### TIFFANIE Bain ([id number]) [facility] ([facility]) [address] [place] [address] 97459 Hemoglobin (Bld) [Mass/Vol] 15.2 g/dL Normal 12.0-16.0 [facility] Comment on above: Performed By: #### 5 7021-8 #### TIFFANIE Bain ([id number]) [facility] ([facility]) [address] [place] [address] 18922 Immature granulocytes (Bld) [#/Vol] 0.04 x10*3/uL Normal 0.00-0.70 [facility] Comment on above: Performed By: #### 5 7021-8 #### TIFFANIE Bain ([id number]) [facility] ([facility]) [address] [place] [address] 72229 Immature granulocytes/100 WBC (Bld) 0.4 % Normal 0.0-0.9 [facility] Comment on above: Result Comment: Maritza ture Granulocyte Count (IG) includes promyelocytes, myelocytes and metamyelocytes but does not include bands. Percent differential counts (%) should be interpreted in the context of the absolute cell counts (cells/UL). Performed By: #### 5 7021-8 #### TIFFANIE Bain ([id number]) [facility] ([facility]) [address] [place] [address] 39270 Lymphocytes (Bld) [#/Vol] 2.25 x10*3/uL Normal 1.20-4.80 [facility] Comment on above: Performed By: #### 5 7021-8 #### TIFFANIE Bain ([id number]) [facility] ([facility]) [address] [place] [address] 66792 Lymphocytes/100 WBC (Bld) 21.5 % Normal 13.0-44.0 [facility] Comment on above: Performed By: #### 5 7021-8 #### TIFFANIE Bain ([id number]) [facility] ([facility]) [address] [place] [address] 23273 MCH (RBC) [Entitic mass] 30.0 pg Normal 26.0-34.0 [facility] Comment on above: Performed By: #### 5 7021-8 #### TIFFANIE Bain ([id number]) [facility] ([facility]) [address] [place] [address] 22247 MCHC (RBC) [Mass/Vol] 34.2 g/dL Normal 32.0-36.0 [facility] Comment on above: Performed By: #### 5 7021-8 #### TIFFANIE Bain ([id number]) [facility] ([facility]) [address] [place] [address] 54414 MCV (RBC) [Entitic vol] 88 fL Normal 80-100 [facility] Comment on above: Performed By: #### 5 7021-8 #### TIFFANIE Bain ([id number]) [facility] ([facility]) [address] [place] [address] 21469 Monocytes (Bld) [#/Vol] 0.61 x10*3/uL Normal 0.10-1.00 [facility] Comment on above: Performed By: #### 5 7021-8 #### TIFFANIE Bain ([id number]) [facility] ([facility]) [address] [place] [address] 68393 Monocytes/100 WBC (Bld) 5.8 % Normal 2.0-10.0 [facility] Comment on above: Performed By: #### 5 7021-8 #### TIFFANIE Bain ([id number]) [facility] ([facility]) [address] [place] [address] 10194 Neutrophils (Bld) [#/Vol] 7.40 x10*3/uL Normal 1.20-7.70 [facility] Comment on above: Result Comment: Perc ent differential counts (%) should be interpreted in the context of the absolute cell counts (cells/uL). Performed By: #### 5 7021-8 #### TIFFANIE Bain ([id number]) [facility] ([facility]) [address] [place] [address] 92161 Neutrophils/100 WBC (Bld) 70.6 % Normal 40.0-80.0 [facility] Comment on above: Performed By: #### 5 7021-8 #### TIFFANIE Bain ([id number]) [facility] ([facility]) [address] [place] [address] 33330 Nucleated RBC/100 WBC (Bld) [Ratio] 0.0 /100 WBCs Normal 0.0-0.0 [facility] Comment on above: Performed By: #### 5 7021-8 #### TIFFANIE Bain ([id number]) [facility] ([facility]) [address] [place] [address] 13356 Platelets (Bld) [#/Vol] 276 x10*3/uL Normal 150-450 [facility] Comment on above: Performed By: #### 5 7021-8 #### TIFFANIE Bain ([id number]) [facility] ([facility]) [address] [place] [address] 21537 RBC (Bld) [#/Vol] 5.07 x10*6/uL Normal 4.00-5.20 [facility] Comment on above: Performed By: #### 5 7021-8 #### TIFFANIE Bain ([id number]) [facility] ([facility]) [address] [place] [address] 11817 WBC (Bld) [#/Vol] 10.5 x10*3/uL Normal 4.4-11.3 [facility] Comment on above: Performed By: #### 5 7021-8 #### TIFFANIE Bain ([id number]) [facility] ([facility]) [address] [place] [address] 26581 Comprehensive metabolic 2000 panelon 10-29-2023 Albumin BCP dye [Mass/Vol] 3.9 g/dL Normal 3.4-5.0 [facility] Comment on above: Performed By: #### 2 4323-8 #### TIFFANIE Bain ([id number]) [facility] ([facility]) [address] [place] [address] ALP [Catalytic activity/Vol] 54 U/L Normal 33-136 [facility] Comment on above: Performed By: #### 2 4323-8 #### TIFFANIE Bain ([id number]) [facility] ([facility]) [id number] [place] [address] 09180 ALT With P-5'-P [Catalytic activity/Vol] 14 U/L Normal 7-45 [facility] Comment on above: Result Comment: Arabella ents treated with Sulfasalazine may generate falsely decreased results for ALT. Performed By: #### 2 4323-8 #### TIFFANIE Bain ([id number]) [facility] ([facility]) [address] [place] [address] 86706 Anion gap [Moles/Vol] 19 mmol/L Normal 10-20 [facility] Comment on above: Performed By: #### 2 4323-8 #### TIFFANIE Bain ([id number]) [facility] ([facility]) [address] [place] [address] 36439 AST With P-5'-P [Catalytic activity/Vol] 22 U/L Normal 9-39 [facility] Comment on above: Performed By: #### 2 4323-8 #### TIFFANIE Bain ([id number]) [facility] ([facility]) [id number] [place] [address] 60090 Bilirubin [Mass/Vol] 0.9 mg/dL Normal 0.0-1.2 [facility] Comment on above: Performed By: #### 2 4323-8 #### TIFFANIE Bain ([id number]) [facility] ([facility]) [id number] [place] [address] 97148 Calcium [Mass/Vol] 9.7 mg/dL Normal 8.6-10.6 [facility] Comment on above: Performed By: #### 2 4323-8 #### TIFFANIE Bain ([id number]) [facility] ([facility]) [address] [place] [address] Chloride [Moles/Vol] 94 mmol/L Low 98-107 [facility] Comment on above: Performed By: #### 2 4323-8 #### TIFFANIE BLANCO L ([id number]) [facility] ([facility]) [address] [place] [address] CO2 [Moles/Vol] 28 mmol/L Normal 21-32 [facility] Comment on above: Performed By: #### 2 4323-8 #### TIFFANIE Bain ([id number]) [facility] ([facility]) [address] [place] [address] Creatinine [Mass/Vol] 0.92 mg/dL Normal 0.50-1.05 [facility] Comment on above: Performed By: #### 2 4323-8 #### TIFFANIE BLANCO L ([id number]) [facility] ([facility]) [address] [place] [address] Glomerular filtration rate/1.73 sq M.predicted 70 mL/min/1.73m*2 Normal >60 [facility] Comment on above: Result Comment: Calc ulations of estimated GFR are performed using the 2020 CKD-EPI Study Refit equation without the race variable for the IDMS-Traceable creatinine methods. https://jasn.asnjournals.org/content//ASN.53804 22435 Performed By: #### 2 4323-8 #### TIFFANIE BLANCO L ([id number]) [facility] ([facility]) [address] [place] [address] Glucose [Mass/Vol] 111 mg/dL High 74-99 [facility] Comment on above: Performed By: #### 2 4323-8 #### TIFFANIE BLANCO L ([id number]) [facility] ([facility]) [address] [place] [address] Potassium [Moles/Vol] 2.6 mmol/L Critically low 3.5-5.3 [facility] Comment on above: Performed By: #### 2 4323-8 #### TIFFANIE BLANCO L ([id number]) [facility] ([facility]) [id number] [place] [address] 45354 Protein [Mass/Vol] 7.6 g/dL Normal 6.4-8.2 [facility] Comment on above: Performed By: #### 2 4323-8 #### TIFFANIE BLANCO L ([id number]) [facility] ([facility]) [address] [place] [address] Sodium [Moles/Vol] 138 mmol/L Normal 136-145 [facility] Comment on above: Performed By: #### 2 4323-8 #### TIFFANIE BLANCO L ([id number]) [facility] ([facility]) [address] [place] [address] 28008 Urea nitrogen [Mass/Vol] 8 mg/dL Normal 6-23 [facility] Comment on above: Performed By: #### 2 4323-8 #### TIFFANIE BLANCO L ([id number]) [facility] ([facility]) [id number] [place] [address] 12072 ECG 12-LEADon 10-29-2023 ECG 12-LEAD Ventricular Rate 66 Atrial Rate 66 P-R Interval 122 QRS Duration 100 Q-T Interval 444 QTC Calculation(Bazett) 465 P [place] 46 R [place] 2 T [place] 27 QRS Count 11 Q Onset 209 P Onset 148 P Offset 196 T Offset 431 QTC Fredericia 458 Diagnosis Normal sinus rhythm Minimal voltage criteria for LVH, may be normal variant ( R in aVL ) Cannot rule out Anterior infarct , age undetermined ST & T wave abnormality, consider lateral ischemia Abnormal ECG No previous ECGs available See ED provider note for full interpretation and clinical correlation Confirmed by Nataliia Lees ([id number]) on 11/01/2023 5:48:26 AM Normal [facility] HbA1c (Bld) [Mass fraction]o n 10-29-2023 Average glucose Estimated from glycated hemoglobin (Bld) [Mass/Vol] 117 mg/dL Normal Not Established [facility] Comment on above: Order Comment: Diagn osis of Diabetes-Adults Non-Diabetic: < or = 5.6% Increased risk for developing diabetes: 5.7-6.4% Diagnostic of diabetes: > or = 6.5% Performed By: #### 4 548-4 #### TIFFANIE Bain ([id number]) [facility] ([facility]) [address] [place] [address] 95165 Hemoglobin A1c/Hemoglobin.to oly 10-29-2023 HbA1c (Bld) [Mass fraction] 5.7 % High see below [facility] Comment on above: Order Comment: Diagn osis of Diabetes-Adults Non-Diabetic: < or = 5.6% Increased risk for developing diabetes: 5.7-6.4% Diagnostic of diabetes: > or = 6.5% Performed By: #### 4 548-4 #### TIFFANIE Bain ([id number]) [facility] ([facility]) [address] [place] [address] 17565 Magnesiumon 10-29-2023 Magnesium [Mass/Vol] 2.02 mg/dL Normal 1.60-2.40 [facility] Comment on above: Performed By: #### 1 9123-9 #### TIFFANIE Bain ([id number]) [facility] ([facility]) [address] [place] [address] 03767 TSH WITH REFLEX TO FREE T4 I F ABNORMALon 10-29-2023 TSH Qn 7.85 m[IU]/L High 0.44-3.98 [facility] Comment on above: Order Comment: TSH t esting is performed using different testing methodology at [facility] (Former[facility])[3] than at other [facility]. Direct result comparisons should only be made within the same method. Performed By: #### T HYDS #### TIFFANIE Bain ([id number]) [facility] ([facility]) [address] [place] [id number] Thyroxine.freeon 10-29-2023 Free T4 [Mass/Vol] 1.29 ng/dL Normal 0.78-1.48 [facility] Comment on above: Order Comment: Thyro xine Free testing is performed using different testing methodology at [facility] ([facility])[3] than at other [facility]. Direct result comparisons should only be made within the same method. Performed By: #### 3 024-7 #### TIFFANIE Bain ([id number]) [facility] ([facility]) [address] [place], [place] [id number] Esophageal Manometryon 10-22 Radiology Study observation (narrative) [facility] Work Phone: CNPNon 08-08-2023 CNPN Telephone (AGGENS4) LIZ PEREZ ([id number]) 1960 F Date Time Provider Department 08/08/23 KADI MUNOZ4 During your visit today, we recorded the following information about you: Jagdeep Quijano, RAÚL 08/08/2023 9:49 AM Signed I called patient and informed her that her insurance is out of network (OON) here at [facility]. I recommended that we cancel her esophageal manometry testing on 08/10 and that she contact Dr. Winslow's office. I suggested Dr. Winslow's office could try to get the manometry scheduled at [facility], as they might be in network. Patient agreed and thanked me for the call. I called Dr. Winslow's office and alerted them to the OON status and cancellation of the esophageal manometry on 08/11/23. I suggested they try to get this patient scheduled at [facility]. They thanked me for the call. Jagdeep Quijano RN Allergies As of Date: 08/08/2023 (No Known Allergies) Date Reviewed: 04/13/2018 Reviewed by: Juanita Green) - Fully Assessed Reason for Visit: Future Appointment [256] Cmt: Esophageal manometry not covered-OON Problem List As Of Date 08/08/2023 Noted Resolved Uterine prolapse without mention of vaginal wal*11/14/2012 Vulvar pruritus [L29.2] 11/14/2012 Vulval lesion [N90.89] 11/14/2012 Encounter Status:Closed by JAGDEEP QUIJANO on 08/08/23 [facility] Paul 07-29-2023 CNPN Telephone (AGGENS4) LIZ PEREZ ([id number]) 1960 F Date Time Provider Department 07/29/23 KADI MUNOZ AGGENS4 During your visit today, we recorded the following information about you: Weight Height 154.2 kg 1.727 m Jagdeep Quijano RN 07/29/2023 12:22 PM Signed I called the patient and verbally discussed and reviewed the information about esophageal manometry. All of patient's questions were answered. Patient agreed to be scheduled on 08/11/23 at 10 AM. I sent the patient written information via [employer] about esophageal manometry and the prep instructions, including holding NSAIDs for 7 days before the test, and directions for the appointment. Patient was informed that she will need to follow up with Dr. Winslow for test results. Jagdeep Quijano RN Allergies As of Date: 07/29/2023 (No Known Allergies) Date Reviewed: 04/13/2018 Reviewed by: Juanita Green (Dionicio) - Fully Assessed Reason for Visit: Future Appointment [256] Cmt: Esophageal mano Problem List As Of Date 07/29/2023 Noted Resolved Uterine prolapse without mention of vaginal wal*11/14/2012 Vulvar pruritus [L29.2] 11/14/2012 Vulval lesion [N90.89] 11/14/2012 Encounter Status:Closed by JAGDEEP QUIJANO on 07/29/23 [facility] No Panel InformationOrdered By: Kristen Santiago on 12-28-2022 Thyroid Stimulating Hormone (TSH) 7.98 uIU/mL 0.358-3.74 [facility] Cervical or vagninal specime n microscopic examination by cytology stain (reported asOrdered By: Dr. Castro on 04-14-2022 Cytology report Cyto stain Doc (Cvx/Vag) Comment . [facility] Comment on above: The Pap smear is a s creening test designed to aid in thedetection of premalignant and malignant conditions of theuterine cervix. It is not a diagnostic procedure andshould not be used as the sole means of detecting cervicalcancer. Both false-positive and false-negative reports dooccur. Detection in cervical specim en of any of human papilloma virus (HPV) 16, 18, 31, 33,Ordered By: Dr. Castro on 04-14-2022 HPV 16+18+31+33+35+39+45+5 1+52+56+58+59+66+68 DNA Probe+sig amp Ql (Cvx) Negative Negative [facility] Comment on above: This nucleic acid am plification test detects fourteen high- risk HPV types (16,18,31,33,35,39,45,51,52,56,58,59,66,68)without differentiation. Laboratory - CytologyOrdered By: Dr. Castro on 04-14-2022 Threat Monitoring Analyst Cyto stain Nom (Cvx/Vag) [ID] Comment . [facility] Comment on above: Glory Singh, Cyto technologist (ASCP) Laboratory - Miscellaneous t estsOrdered By: Dr. Castro on 04-14-2022 Service comment (Unsp spec) [Interp] Comment . [facility] Comment on above: This liquid based Th inPrep(R) pap test was screened withthe use of an image guided system. Service comment (Unsp spec) [Interp] . . [facility] Liquid-based cerv Pap + CT/G C by VIANEY w reflex to high-risk HPV for ASCUSOrdered By: Dr. Castro on 04-14-2022 Cytology report Cyto stain.thin prep Doc (Cvx/Vag) Comment . [facility] Comment on above: Criteria not met, HP V Genotype not performed.Performed at: [address] [id number] Director: Alicia Martel MD, Phone: [phone] at: =[facility] StreetShay brand, [place] [id number] Director: Alicia Martel MD, Phone: [phone] No Panel InformationOrdered By: Dr. Castro on 04-14-2022 Pathology report final diagnosis Narrative Comment . [facility] Comment on above: NEGATIVE FOR INTRAEP ITHELIAL LESION OR MALIGNANCY. T3, FREE (TRIDOTHYRONINE) ([id number])Ordered By: Automobile Mechanic on 01-28-2022 Free T3 [Mass/Vol] 2.7 pg/mL Normal 2.0-4.4 [facility]; [facility] Work Phone: Comment on above: PATIENT NOT FASTINGP ERFORMED BY: [employer] [place] [id number] T4, FREE (THYROXINE) ([id number]) Ordered By: Automobile Mechanic on 01-28-2022 Free T4 [Mass/Vol] 0.85 ng/dL Normal 0.82-1.77 [facility]; [facility] Work Phone: Comment on above: PATIENT NOT FASTINGP ERFORMED BY: [employer] [address] [place] [id number] TSH (35767)Ordered By: ArtsAppe m Transportation Worker on 01-28-2022 TSH Qn 7.930 {uIU/mL} Abnormal 0.450-4.500 [facility]; [facility] Work Phone: Comment on above: PATIENT NOT FASTINGP ERFORMED BY: [employer] [place] [id number] HgA1C , Office ([id number])Ordere d By: Litzy Celeste on 12-25-2020 HbA1c (Bld) [Mass fraction] 5.4 % Normal 4.6 - 7.1 [facility]; [facility] Work Phone: Surgical Pathologyon 019 Surgical Pathology [id number] [facility] PATHOLOGY AND LABORATORY MEDICINE [address] [place] [address]. [place] [address] Fax - FINAL SURGICAL PATHOLOGY REPORT NAME: LIZ PEREZ : 1960 58 Y F BILLING NO.: [id number] LOCATION: [facility] PROCEDURE 02/12/2019 DATE: SURGEON: FCO SON MD RECEIVED 02/12/2019 DATE: ATTENDING: FCO SON MD REPORT DATE: 02/13/2019 COPIES TO: DIAGNOSIS: COLON, MID TRANSVERSE, POLYPECTOMY - BENIGN COLONIC MUCOSA WITH A SMALL REACTIVE LYMPHOID AGGREGATE NEGATIVE FOR DYSPLASIA JAW/KMS1 Signature> CARISSA SANFORD M.D. CLINICAL INFORMATION: Screening for colorectal malignant neoplasm SPECIMEN: COLON POLYP, BIOPSY GROSS DESCRIPTION: Mid transverse Received in formalin are two segments of strauss tissue 0.1 and 0.2 cm. Submitted in toto. (2 ns, 1) JCK/0RW Disclaimer: The following statement applies to all immunohistochemistry, in situ hybridization, molecular studies, and immunofluorescence testing. The use of one or more reagents in the above tests is regulated as an analyte specific reagent (ASR). These tests were developed and their performance characteristics determined by the clinical laboratories of [facility]. They have not been cleared by the US Food and Drug Administration (FDA). The FDA has determined that such clearance or approval is not necessary. All the above immunostains were performed on paraffin embedded tissue. Appropriate positive and negative controls (where applicable) were run in parallel with the patient's specimen; these controls showed expected staining pattern, with acceptable intensity of staining. Immunohistochemical assays have not been validated on decalcified tissues. Results should be interpreted with caution given the raised possibility of false negativity on decalcified specimens. Case reviewed at [address] [address]. DEPARTMENT OF PATHOLOGY AND LABORATORY MEDICINE [place], [place] [address] Normal [facility] CNOVon 04-13-2018 CNOV Office Visit (WOOB) LIZ NIXON ([id number]) 1960 FDate Time Provider Department04/13/18 4:10 PM ANTONELLA TAO WOOB During your visit today, we recorded the following information about you: Blood pressure Weight 144/86 144.7 kgAntonella Potts MD 04/13/2018 4:47 PM SignedSUBJECTIVE:57 year old female presents for 2 week post-op exam. Denies fever, chills,dysuria or abnormal discharge post op.OBJECTIVE:Incision: NoneGen: female in NADPLAN:RTO for annual exams and PRNBENIGN pathology reviewed- Proliferative EM reviewed. Endocervical polyp-Leiomyoma fragments.I have reviewed and updated past medical and surgical history, medications andallergies.Antonella Potts MDReferring Provider: SELF [200]Allergies As of Date: 04/13/2018(No Known Allergies)Date Reviewed: 04/13/2018Reviewed by: Juanita Green Ma - Fully AssessedReason for Visit: Post-Op Visit [1236]Primary Visit Diagnosis:PMB (postmenopausal bleeding) [N95.0] Other Visit Diagnosis:Thickened endometrium [R93.89]Problem List As Of Date 04/13/2018 Noted Resolved Uterine prolapse without mention of vaginal wal*INVALID FOR* Vulvar pruritus [L29.2] INVALID FOR* Vulval lesion [N90.89] INVALID FOR* Status:Closed by ANTONELLA KEENE MD on 04/13/18 Normal [facility] PROGRESSon 04-13-2018 Protein mass conc HNO ID: [id number]: Antonella KeeneService: (none)Author Type: PhysicianType: Progress NotesFiled: 04/13/2018 4:47 PMNote Text:SUBJECTIVE:57 year old female presents for 2 week post-op exam. Denies fever, chills,dysuria or abnormal discharge post op.OBJECTIVE:Incision: NoneGen: female in NADPLAN:RTO for annual exams and PRNBENIGN pathology reviewed- Proliferative EM reviewed. Endocervical polyp-Leiomyoma fragments.I have reviewed and updated past medical and surgical history, medicationsand allergies.Antonella Potts MD Normal [facility] ENDOMETRIAL BX/CURETTINGSon 03-29-2018 ENDOMETRIAL BX/CURETTINGS See Note Normal [facility] Work Phone: Comment on above: Patient: MELANY PEREZ : 1960 (57/F) Acct Num: [id number] Phys: Katlyn BERRIOS,Antonella Unit Num: [id number] Loc: [facility] Specimen: [id number] Received: 03/29/18 - 1506 Spec Type: ENDOM [...] in aggregate measure 2 x 1.5 x 0.1cm. The specimen is totally submitted in one cassette. B - Received in fixative is one container labeled with the patient's name and designated endocervical polyp. The specimen consists of multiple irregular fragments of winchester, indurated tissue that in aggregate measure 3 x 2.5 x 0.3 cm. The entire specimen is submitted in one cassette. / HERBERTH:nevaeh 03/30/18 TC:1 CPT: 96444 x2 HEADER OPERATION: Hysteroscopy, D AND C, [...] SJ:nevaeh 04/02/18 Signed Checo Coats MD 04/02/18 CBC-Complete Blood Cnt No Di ffon 03-27-2018 Erythrocyte distribution width Auto Ratio (RBC) 14.3 % Normal 11.6-14.6 [facility] Work Phone: Hematocrit Auto Volume Fraction (Bld) 43.5 % Normal 37-47 [facility] Work Phone: Hemoglobin mass conc (Bld) 14.1 g/dL Normal 12.0-15.0 [facility] Work Phone: MCH Auto Entitic mass (RBC) 30.1 pg Normal 27.0-32.0 [facility] Work Phone: MCHC Auto mass conc (RBC) 32.4 {g/gl} Normal 32-36 [facility] Work Phone: MCV Auto Entitic volume (RBC) 92.8 fL Normal 81-99 [facility] Work Phone: Platelet mean volume Auto Entitic volume (Bld) 10.9 fL Normal 6.2-12.0 [facility] Work Phone: Platelets Auto #/vol (Bld) 268 10*3/uL Normal 150-450 [facility] Work Phone: RBC Auto #/vol (Bld) 4.69 {M/mm3} Normal 4.2-5.4 Co [facility] Work Phone: WBC Auto #/vol (Bld) 6.0 10*3/uL Normal 4.4-11.0 Com [facility] Work Phone: CBC-Complete Blood Cnt No Diff 48.4 fL Abnormal 35.1-43.9 [facility] Work Phone: CNCOon 03-21-2018 CNCO Letter [facility] [place] [id number]: [phone]/22/2017Melany [address] [id number]#: [id number] Liz, This letter is to confirm with you the dates and times of your upcomingsurgery. You should have received a telephone call notifying you of thisinformation.Surger y 03/29/18 at [facility]. The hospital will call youthe day prior to surgery with your arrival time.[facility] will contact you by phone for pre-admissiontesting on 03/27/18 @ 9:00 a.m.2 week post-operative appointment at Dr. Antonella Keene's office isscheduled on 04/13/18 @ 11:40 a.m. In addition, we will do a precertification approximately 1 week prior toyour surgery. This means we will give your insurance company the medicalinformation they need to make a predetermination. This is not a guarantee ofpayment and you will need to call your insurance company to verify benefitsand coverage. We will only call you if there is a problem. If you have anyquestions, please feel free to call us at the phone number above. We appreciate your confidence in choosing the [facility] for your medical care and we look forward to seeing youat your next appointment.Thank you,[facility] Normal [facility] CNOVon 03-19-2018 CNOV Office Visit (WOOB) GUILLE HERNADEZLIZ Sequeira ([id number]) 1960 FDate Time Provider Egljischrm86/10/18 4:10 PM ANTONELLA TAO During your visit today, we recorded the following information about you: Blood pressure Weight 136/86 141.5 kgAntonella Potts MD 03/19/2018 5:04 PM Kailee Perez presents for hysteroscopy. Indication: Postmenopausal bleedingand enodcervical polyp.Age: [age] year old LMP: No LMP recorded. Patient is postmenopausal. Contraception: nonePregnancy test: n/aVS: BP 136/86 Wt 312 lb (141.5kg)UNIVERSAL PROTOCOL / SAFETY CHECKLISTProcedure to be performed: ENDOSEESign in Communication: CompletedTime Out: Team Confirms the Correct Patient, Correct Procedure, Correct Siteand Site Marking, Correct Position (if applicable), Prep and Dry Time (ifapplicable). Time: 4:36pmAffirmation of Time Out: YESSign Out Discussion: CompletedOBJECTIVE: Cervix cleaned with betadine. A single tooth tenaculum was used tograsp cervix. Under sterile conditions, using 90 mL normal saline asdistention, ENDOSEE hysteroscopy performed without incident. Endometriallining is atrophic. Large endocervical polyp noted- unable to remove in office.PROCEDURE SUMMARY: Patient tolerated procedure well.ASSESMENT: Postmenopausal bleeding and endocervical polyp lesions onhysteroscopy.PLAN: Hysteroscopic polypectomy, DANDC in the OR.Luan Lcuero MD 03/19/2018 5:04 PM SignedLiz Hua Perez is a 57 year old female who presents for concerns regardingintermittent PMB- endocervical polyp noted on exam. EMB negative. Pt underwentENDOSEE today- has large endocervical polyp, unable to remove in office. Ptwould like to proceed with removal at [facility]. Pt will be scheduled forHysteroscopy, DANDC, polypectomy with symphion. Consent signed.PAST MEDICAL HISTORYDiagnosis Date- NEGATIVE MEDICAL HISTORYPAST SURGICAL HISTORYProcedure Laterality Date- NONEFAMILY HISTORYProblem Relation Age of Onset- other (Heart problem [Other]) Father- other (Ascending aorta [Other]) MotherSocial History Marital status: Spouse name: Years of education: Number of children:Social History Main Topics Smoking status: Never Smoker Smokeless tobacco: Never Used Alcohol use: Yes Comment: occasion use Drug use: No Sexual activity: Not Currently Partners with: [place] current outpatient prescriptions on file.No current facility-administered medications for this visit.Allergies As of Date: 03/19/2018(No Known Allergies)Fully Assessed 03/19/2018REVIEW OF SYSTEMSAbdomen: no painBladder: no dysuria ..Expanded ROS: GENERAL: No weight loss, malaise or feversRESPIRATORY: Negative for cough, hemoptysis, wheezing, COPD, dyspnea orshortness of breathCARDIOVASCULAR: Negative for chest pain, leg swelling, hypertension, CHF orpalpitationsAllergie s and current medication updated:YesEXAM: BP 136/86 Wt 312 lb (141.5kg)GENERAL: pleasant, female in no apparent distressHEENT: Normocephalic and atraumaticNECK: full range of motionDERMATOLOGY: Normal, without lesions, non-icteric and non-hirsutePELVIC: external genitalia normal, normal Bartholin's glands, urethra, Weldon Spring'sglands, no vulvar lesions, no cervical lesions, good vaginal support,physiologic discharge present, normal appearing perineal body and perianalregion. On endosee large endocervical polyp.NEURO: alert and oriented x3,exam grossly non-focalEXTREMITIES: normalASSESSMENT AND PLAN:Encounter Diagnosis ICD-10-CM1. Endocervical polyp N84.12. PMB (postmenopausal bleeding) N95.03. Hysteroscopy, DANDC, polypectomy with symphion -Pt has been counseled on risks/benefits and alternatives of surgery includingbut not limited to anesthesia, bleeding, infection, injury to pelvic structuresincluding bowel, bladder, ureters and vessels. Pt wishes to proceed withsurgery at this time.Antonella Stark-LEILA Keeneeferring Provider: SELF [200]Allergies As of Date: 03/19/2018(No Known Allergies)Date Reviewed: 03/19/2018Reviewed by: Juanita Green Ma - Fully AssessedReason for Visit: endosee [Other]Primary Visit Diagnosis:Endocervical polyp [N84.1] Other Visit Diagnosis:PMB (postmenopausal bleeding) [N95.0]Problem List As Of Date 03/19/2018 Noted Resolved Uterine prolapse without mention of vaginal wal*INVALID FOR* Vulvar pruritus [L29.2] INVALID FOR* Vulval lesion [N90.89] INVALID FOR*Medications Discontinued During This Encounter miSOPROStol (CYTOTEC) 200 mcg tablet 4 ta* 0 03/13/2018 03/19/2018 Sig: Take two tablets PO night before procedure and two tablets morning of procedure Disc: Reason for discontinue is not on file. Status:Closed by ANTONELLA KEENE MD on 03/19/18 Normal [facility] HISTORY PHYSICALon HISTORY PHYSICAL HNO ID: [id number]: Antonella KeeneService: (none)Author Type: PhysicianType: HANDPFiled: 03/19/2018 5:04 PMNote Text:Liz Perez is a 57 year old female who presents for concerns regardingintermittent PMB- endocervical polyp noted on exam. EMB negative. Ptunderwent ENDOSEE today- has large endocervical polyp, unable to remove inoffice. Pt would like to proceed with removal at [facility]. Pt will be scheduledfor Hysteroscopy, DANDC, polypectomy with symphion. Consent signed.PAST MEDICAL HISTORYDiagnosis Date- NEGATIVE MEDICAL HISTORYPAST SURGICAL HISTORYProcedure Laterality Date- NONEFAMILY HISTORYProblem Relation Age of Onset- other (Heart problem [Other]) Father- other (Ascending aorta [Other]) MotherSocial History Marital status: Spouse name: Years of education: Number of children:Social History Main Topics Smoking status: Never Smoker Smokeless tobacco: Never Used Alcohol use: Yes Comment: occasion use Drug use: No Sexual activity: Not Currently Partners with: [place] current outpatient prescriptions on file.No current facility-administered medications for this visit.Allergies As of Date: 03/19/2018(No Known Allergies)Fully Assessed 03/19/2018REVIEW OF SYSTEMSAbdomen: no painBladder: no dysuria ..Expanded ROS: GENERAL: No weight loss, malaise or feversRESPIRATORY: Negative for cough, hemoptysis, wheezing, COPD, dyspnea orshortness of breathCARDIOVASCULAR: Negative for chest pain, leg swelling, hypertension, CHFor palpitationsAllergies and current medication updated:YesEXAM: BP 136/86 Wt 312 lb (141.5kg)GENERAL: pleasant, female in no apparent distressHEENT: Normocephalic and atraumaticNECK: full range of motionDERMATOLOGY: Normal, without lesions, non-icteric and non-hirsutePELVIC: external genitalia normal, normal Bartholin's glands, urethra,Weldon Spring's glands, no vulvar lesions, no cervical lesions, good vaginalsupport, physiologic discharge present, normal appearing perineal body andperianal region. On endosee large endocervical polyp.NEURO: alert and oriented x3,exam grossly non-focalEXTREMITIES: normalASSESSMENT AND PLAN:Encounter Diagnosis ICD-10-CM1. Endocervical polyp N84.12. PMB (postmenopausal bleeding) N95.03. Hysteroscopy, DANDC, polypectomy with symphion -Pt has been counseled on risks/benefits and alternatives of surgeryincluding but not limited to anesthesia, bleeding, infection, injury topelvic structures including bowel, bladder, ureters and vessels. Ptwishes to proceed with surgery at this time.Antonella Potts MD Normal [facility] PROGRESSon 03-19-2018 Protein mass conc HNO ID: [id number]: Antonella KeeneService: (none)Author Type: PhysicianType: Progress NotesFiled: 03/19/2018 5:04 PMNote Text:Liz R Chris presents for hysteroscopy. Indication: Postmenopausalbleeding and enodcervical polyp.Age: [age] year old LMP: No LMP recorded. Patient is postmenopausal. Contraception: nonePregnancy test: n/aVS: BP 136/86 Wt 312 lb (141.5kg)UNIVERSAL PROTOCOL / SAFETY CHECKLISTProcedure to be performed: ENDOSEESign in Communication: CompletedTime Out: Team Confirms the Correct Patient, Correct Procedure, CorrectSite and Site Marking, Correct Position (if applicable), Prep and Dry Time(if applicable). Time: 4:36pmAffirmation of Time Out: YESSign Out Discussion: CompletedOBJECTIVE: Cervix cleaned with betadine. A single tooth tenaculum was usedto grasp cervix. Under sterile conditions, using 90 mL normal saline asdistention, ENDOSEE hysteroscopy performed without incident. Endometriallining is atrophic. Large endocervical polyp noted- unable to remove inoffice.PROCEDURE SUMMARY: Patient tolerated procedure well.ASSESMENT: Postmenopausal bleeding and endocervical polyp lesions onhysteroscopy.PLAN: Hysteroscopic polypectomy, DANDC in the OR.Antonella Potts MD [facility] PROGRESSon 03-08-2018 Protein mass conc HNO ID: [id number]: Jade Arnolde: (none)Author Type: (none)Type: Progress NotesFiled: 03/08/2018 8:49 AMNote Text: Radiology Service Progress NotePATIENT NAME: Liz PerezMRN: [id number] OF SERVICE: March 08, 2018TIME: 8:25 AMPATIENT IDENTITY VERIFICATION COMPLETED USING TWO (2) METHODS: Patientconfirmed name verbally and Date of .PATIENT GENDER DATA: Female. status: : NoBreastfeeding status: NO.PATIENT RELEVANT IMPLANT DATA REVIEWED: Not ApplicableRADIOLOGY DEPARTMENT: UltrasoundPERIPHERAL IV DATA: Not applicableSIGNED BY: Jade Oleary2017 8:25 AM [facility] US FEMALE PELVIS TRANSVAGon 03-08-2018 US FEMALE PELVIS TRANSVAG * * *Final Report* * *DATE OF EXAM: Mar 08 2018 9:03AM WRU 1060 - US FEMALE PELVIS TRANSVAG / REASON: multiple diagnoses * * * * Physician Interpretation * * * * EXAMINATION: TRANSVAGINAL AND LIMITED TRANSABDOMINAL PELVIC ULTRASOUNDHISTORY: Postmenopausal bleeding Cervical polypPatient had endometrial biopsy 03/07/2018 1 day prior to this studyTECHNIQUE: Sonography of the pelvis was performed by transvaginal and transabdominal (limited) techniques. Images were obtained and stored in a permanent archive.MQ: [id number]: NoneFLMP: UnknownRESULT:Uterus size: 9.4 x 3.8 x 5.2 cm -Orientation: Anteverted -Myometrium: Normal -Endometrial echo complex: 0.7 cm . Heterogeneous some of this may be due to recent biopsy. -Cervix: Polypoid lesion in the endocervical canal measuring 7 x 4 x 5 mmNeither ovary is identified.Pelvis free fluid: None seenIMPRESSION:1. Study limited due to patient's body habitus2. Heterogeneous texture of endometrium possibly related to recent biopsy. Other etiologies not excluded3. Question of endocervical polypoid lesionTranscriptionist : ABDIAS Transcribe Date/Time: Mar 11 2018 7:19ADictated by : Dayna FRAGA examination was interpreted and the report reviewed and electronically signed by: DONTAE OLSON DO on Mar 11 2018 7:23AM [id number] Normal [facility] CNOVon 03-07-2018 CNOV Office Visit (WOOB) LIZ NIXON ([id number]) 1960 FDate Time Provider Xvgpqioxlu30/28/18 3:00 PM INOCENCIA DE ANDA (ROBERTO) WOOB During your visit today, we recorded the following information about you: Blood pressure Weight 120/76 143.6 kgRenewaleska De Anda APRN.CNP 03/07/2018 3:47 PM Aermpn37 year old who presents with complaints of postmenopausal bleeding.LMP: No LMP recorded. Patient is postmenopausal.no menses - postmenopausalHeavy bleeding? NoIntermenstrual bleeding/spotting? YesDysmenorrhea? NoHistory of fibroids? NoHistory of endometrial polyps? NoSexually active: NoPAST MEDICAL HISTORYDiagnosis Date- NEGATIVE MEDICAL HISTORYPAST SURGICAL HISTORYProcedure Laterality Date- NONEFAMILY HISTORYProblem Relation Age of Onset- other (Heart problem [Other]) Father- other (Ascending aorta [Other]) MotherSOCIAL HISTORYSocial HistorySubstance Use Topics- Smoking status: Never Smoker- Smokeless tobacco: Never Used- Alcohol use Yes Comment: occasion useREVIEW OF SYSTEMSNo recent weight gain or weight loss.Abdomen: No abdominal pain, nausea, vomiting, diarrhea, or constipation. Nobloating, early satiety, indigestion, or increased flatulence.Bladder: No dysuria, gross hematuria, urinary frequency, urinary urgency, orincontinence.EXAM: Wt 316 lb 9.6 oz (143.6kg)GENERAL: pleasant, female in no apparent distressCHEST: Normal inspiratory effortPELVIC: external genitalia normal, normal Bartholin's glands, urethra, Weldon Spring'sglands, no vulvar lesions, no cervical lesions, physiologic discharge present,normal appearing perineal body and perianal region, cervical prolapse 2nd degreeBIMANUAL: deferredRECTOVAGINAL: deferred.NEURO: alert and oriented x3,exam grossly non-focalASSESSMENT:-p ostmenopausal bleeding possible related to cervical polypPLAN:Endometrial biopsyPelvic ultrasoundAttempt to remove cervical polypInocencia De Anda APRN.Selvin Hua Perez is a 57 year old female who presents today for an endometrialbiopsy for post menopausal bleeding. test: n/aUNIVERSAL PROTOCOL / SAFETY CHECKLISTProcedure to be performed: EMBSign in Communication: CompletedTime Out: Team Confirms the Correct Patient, Correct Procedure, Correct Siteand Site Marking, Correct Position (if applicable), Prep and Dry Time (ifapplicable). Time: 1513Affirmation of Time Out: YESSign Out Discussion: Sarah Reese LPNPROCEDURE:EXTERNAL GENITALIA: Normal in appearance without lesionsVAGINA: cervical polyp notedBIOPSY: Speculum placed into the vagina with excellent visualization of thecervix. Cervix cleaned with betadine. Anterior lip of cervix grasped withsingle toothed tenaculum. Uterus sounded to 9 cm. Pipelle inserted into theuterus without difficulty and endometrial biopsy obtained. Specimen labeled andsent to pathology. Hemostasis achieved.Procedure Summary: Patient tolerated procedure well.ASSESSMENT: post menopausal bleeding, unable to remove cervical polypPLAN:Specimens labeled and sent to Pathology. Will notify patient of results in1-2 weeks. Post-procedure instructions reviewed and written material given tothe patient.Pelvic ultrasound for PMB and cervical polypRenee PORFIRIO De Anda.Barbie Reese LPN 03/07/2018 2:59 PM SignedYOUR RECOVERYAfter your biopsy you may have:? Vaginal bleeding (less than a normal menstrual period)? Mild crampingDo NOT put anything in the vagina for 1 week after your endometrial biopsy.This includes:? tampons? douches? and refraining from having sexual intercourseIf you have any discomfort, you may take an over the counter pain medication(motrin, advil, ibuprofen, tylenol, etc). If this does not relieve yourdiscomfort, contact the office.It is okay to wear a sanitary pad until the discharge and spotting stops.RISKSAlthough problems seldom occur with endometrial biopsies, there can be somecomplications. You may feel faint during and shortly after the procedure aswell as have some bleeding after the procedure. There is also a risk ofinfection after the procedure. These complications are rare and can be easilytreated.You should contact you doctor is you have any of the following:? Heavy bleeding (more than your normal period)? Bleeding with clots? Severe abdominal pain? Fever (more than 100.4F)? Foul smelling vaginal dischargeRESULTSWe will have the results of your biopsy in 1-2 weeks. If you do not hear theresults of your biopsy after 2 weeks, please contact the office for theresults.If you have any additional questions or concerns please do not hesitate tocontact the office.Referring Provider: SELF [[id number]]Allergies As of Date: 03/07/2018(No Known Allergies)Date Reviewed: 03/07/2018Reviewed by: Yancy Reese LPN - Fully AssessedReason for Visit: PMB [Other]Primary Visit Diagnosis:Postmenopaus al bleeding [N95.0] Other Visit Diagnosis:Cervical polyp [N84.1]Order(s):ENDOME TRIAL BIOPSY [[id number]] Order #: [id number] SURGICAL PATHOLOGY [[id number]] Order #: [id number] FEMALE PELVIS TRANSVAG [[id number]] Order #: [id number] FUTUREProblem List As Of Date 03/07/2018 Noted Resolved [...] please do not hesitate to contact the office.Medications Discontinued During This Encounter clobetasol 0.05 % ointment 15 g 1 01/02/2013 03/07/2018 Route: TOPICAL Sig: Apply 1 application to affected area as directed. Use pea-sized amount. BID for 4 weeks, then daily x 2 weeks then twice weekly. Patient not taking: Reported on 03/07/2018 Disc: Reason for discontinue is not on file. Status:Closed by INOCENCIA DE ANDA on 03/07/18 Normal [facility] PROGRESSon 03-07-2018 Protein mass conc HNO ID: [id number]: Inocencia Connors) KaitfService: (none)Author Type: Nurse PractitionerType: Progress NotesFiled: 03/07/2018 3:47 PMNote Text:57 year old who presents with complaints of postmenopausalbleeding .LMP: No LMP recorded. Patient is postmenopausal.no menses - postmenopausalHeavy bleeding? NoIntermenstrual bleeding/spotting? YesDysmenorrhea? NoHistory of fibroids? NoHistory of endometrial polyps? NoSexually active: NoPAST MEDICAL HISTORYDiagnosis Date- NEGATIVE MEDICAL HISTORYPAST SURGICAL HISTORYProcedure Laterality Date- NONEFAMILY HISTORYProblem Relation Age of Onset- other (Heart problem [Other]) Father- other (Ascending aorta [Other]) MotherSOCIAL HISTORYSocial HistorySubstance Use Topics- Smoking status: Never Smoker- Smokeless tobacco: Never Used- Alcohol use Yes Comment: occasion useREVIEW OF SYSTEMSNo recent weight gain or weight loss.Abdomen: No abdominal pain, nausea, vomiting, diarrhea, or constipation.No bloating, early satiety, indigestion, or increased flatulence.Bladder: No dysuria, gross hematuria, urinary frequency, urinary urgency,or incontinence.EXAM: Wt 316 lb 9.6 oz (143.6kg)GENERAL: pleasant, female in no apparent distressCHEST: Normal inspiratory effortPELVIC: external genitalia normal, normal Bartholin's glands, urethra,Weldon Spring's glands, no vulvar lesions, no cervical lesions, physiologicdischarge present, normal appearing perineal body and perianal region,cervical prolapse 2nd degreeBIMANUAL: deferredRECTOVAGINAL: deferred.NEURO: alert and oriented x3,exam grossly non-focalASSESSMENT:-p ostmenopausal bleeding possible related to cervical polypPLAN:Endometrial biopsyPelvic ultrasoundAttempt to remove cervical polypRenee Kenia De Andabroderick Perez is a 57 year old female who presents today for anendometrial biopsy for post menopausal bleeding. test: n/aUNIVERSAL PROTOCOL / SAFETY CHECKLISTProcedure to be performed: EMBSign in Communication: CompletedTime Out: Team Confirms the Correct Patient, Correct Procedure, CorrectSite and Site Marking, Correct Position (if applicable), Prep and Dry Time(if applicable). Time: 1513Affirmation of Time Out: YESSign Out Discussion: CompletedYancy Reese LPNPROCEDURE:EXTERNAL GENITALIA: Normal in appearance without lesionsVAGINA: cervical polyp notedBIOPSY: Speculum placed into the vagina with excellent visualization ofthe cervix. Cervix cleaned with betadine. Anterior lip of cervix graspedwith single toothed tenaculum. Uterus sounded to 9 cm. Pipelle insertedinto the uterus without difficulty and endometrial biopsy obtained.Specimen labeled and sent to pathology. Hemostasis achieved.Procedure Summary: Patient tolerated procedure well.ASSESSMENT: post menopausal bleeding, unable to remove cervical polypPLAN:Specimens labeled and sent to Pathology. Will notify patient of resultsin 1-2 weeks. Post-procedure instructions reviewed and written materialgiven to the patient.Pelvic ultrasound for PMB and cervical polypRenee PORFIRIO De Anda.CONTENT SPECIALIST Normal [facility] SURGICAL PATHOLOGYon 03-07- 018 SURGICAL PATHOLOGY [facility]: [id number] Physician: INOCENCIA DE ANDA FINAL DIAGNOSISEndometrial, biopsy - Detached fragments of benign superficial endometriumComment: The biopsy lacks intervening stroma between the endometrial stripsand glands. Therefore, it is not possible to assess architecturalarrangeme nt.Rosalina Chase M.D.(Electronic Signature) SPECIMEN SUBMITTEDA: ENDOMETRIAL, BIOPSY CLINICAL DATAPMBGROSS DESCRIPTIONA. Received in formalin are multiple winchester-brown, soft feathery segments oftissue aggregating to 1.0 x 0.5 x 0.1 cm. Totally submitted in onecassette.Gross examination performed at [facility], [address] [place], [place] [address] 03/09/2018 1:10:05 AMPatient ID #: [id number] of Report: 03/09/2018Date of Procedure: 03/07/2018Date of Receipt: 03/08/2018Submitted by: INOCENCIA METCALFLocation: WOREFDiagnostic interpretation performed at [facility], [address],[place] [address]. Normal [facility] LIPID PANEL ([id number])on 2017 Cholesterol in HDL mass conc 56 mg/dL Normal [facility] Work Phone: Comment on above: PATIENT WAS FASTINGP ERFORMED BY: FELICITY [employer] [address] [place] [id number] Cholesterol in LDL mass conc 97 mg/dL Normal 0-99 [facility] Work Phone: Comment on above: PATIENT WAS FASTINGP ERFORMED BY: FELICITY [employer] [address] [place] [id number] Cholesterol in LDL/Cholesterol in HDL mass ratio 1.7 {ratio} Normal 0.0-3.2 [facility] Work Phone: Comment on above: LDL/HDL Ratio Men Wo men 1/2 Avg.Risk 1.0 1.5 Avg.Risk 3.6 3.2 2X Avg.Risk 6.2 5.0 3X Avg.Risk 8.0 6.1 PATIENT WAS FASTINGP ERFORMED BY: FELICITY [facility] [address]qkjc[address] [place] [id number] Cholesterol in VLDL mass conc 19 mg/dL Normal 5-40 [facility] Work Phone: Comment on above: PATIENT WAS FASTINGP ERFORMED BY: [employer] LabRegalBoxrp [address] [place] [id number] Cholesterol mass conc 172 mg/dL Normal 100-199 [facility] Work Phone: Comment on above: PATIENT WAS FASTINGP ERFORMED BY: FELICITY [facility] Csjaep7801 [facility] [id number] Triglyceride mass conc 94 mg/dL Normal 0-149 Co m[facility] Work Phone: Comment on above: PATIENT WAS FASTINGP ERFORMED BY: [facility] Tvhewb6840 [facility] [id number] Office Visit: Left knee pain on 07-14-2016 Documentation of current medications (procedure) Done Invalid Interpretation Code [facility] Work Phone: Documentation of current medications (procedure) T Invalid Interpretation Code [facility] Work Phone: Rapid Strep Test, Office ([phone])Ordered By: Dipti Carrasquillo on 05-06-2013 S. pyogenes Ag EIA Ql (Throat) Negative [facility]; [facility] Work Phone: S. pyogenes Ag IA Ql (Unsp spec) Negative Normal [facility] Work Phone: Throat Culture ([id number])on Bacteria identified Respiratory culture Nom (Unsp spec) BETAGG Abnormal [facility] Work Phone: Comment on above: Beta hemolytic Strep tococcus, group GModerate growthPenicillin and ampicillin are drugs of choice for treatment ofbeta-hemolytic streptococcal infections. Susceptibility testing ofpenicillins and other beta-lactam agents approved by the FDA fortreatment of beta-hemolytic streptococcal infections need not beperformed routinely because nonsusceptible isolates are extremelyrare in any beta-hemolytic streptococcus and have not been reportedfor Streptococcus pyogenes (group A). (CLSI 2011) PATIENT NOT FASTINGP ERFORMED BY: CB [facility] Reoqzz8249 [facility] [id number] Information: SRC:JULIANNE [id number] Bacteria identified Respiratory culture Nom (Unsp spec) Final report Abnormal [facility] Work Phone: Comment on above: PATIENT NOT FASTINGP ERFORMED BY: CB [facility] Ibhaob8790 [facility] [id number] Information: SRC:JULIANNE [id number] Measles/Mumps/Rubella Immuni tyon 04-22-2009 Measles/Mumps/Rubella Immunity 2.33 {index} Abnormal 0.00-0.90 [facility] Work Phone: Comment on above: Negative <0.91Equivo zack 0.91 - 1.09Positive >1.09.Presence of antibodies to Rubeola is presumptive evidenceof immunity except when active infection is suspected. Measles/Mumps/Rubella Immunity 23 {IU/mL} Normal [facility] Work Phone: Comment on above: Non-immune <5Equivoc al 5 - 9Immune >9 Measles/Mumps/Rubella Immunity 3.09 {index} Abnormal 0.00-0.90 [facility] Work Phone: Comment on above: Negative <0.91Equivo zack 0.91 - 1.09Positive >1.09Presence of antibodies to Mumps is presumptive evidenceof immunity except when active infection is suspected. Varicella-Zoster V Ab, IgGon 04-22-2009 Varicella-Zoster V Ab, IgG 1.79 {index} Abnormal 0.00-0.90 [facility] Work Phone: Comment on above: Negative <0.91Equivo zack 0.91 - 1.09Positive >1.09 BILAT SCRN DIGITAL & CADon 1 04-28-2007 BILAT SCRN DIGITAL & CAD See Note Normal [facility] Work Phone: Comment on above: Exam Number: [id number] BILATERAL SCREENING MAMMOGRAMS PRIOR STUDIESNone. Routine MLO and CC views were acquired. There are scatteredfibroglandular elements present. There is a benign calcification inthe left breast. There is no suspicious cluster ofmicrocalcification, area of architectural distortion or 3-dimensionalspiculated mass. IMPRESSION1. No mammographic evidence for malignancy.2. BIRADS Code 2, benign findings.3. Follow up in 1 year. A letter regarding the results has been sent to the patient. This interpretation was rendered by a radiologist certified under theMammography Quality Standards Act of 1992 (MQSA). The mammograms werealso examined with computer-aided detection software ([id number] Reported By: TYREE NEWBERRY M.D. Pap Lb, rfx HPV all pthon Microscopic observation Other stain Nom (Unsp spec) . Normal [facility] Work Phone: Pathology report final diagnosis Narrative [facility] Normal [facility] Work Phone: Comment on above: NEGATIVE FOR INTRAEP ITHELIAL LESION AND MALIGNANCY.Satisfactory for evaluation. Endocervical and/or squamous metaplasticcells (endocervical component) are present.V72.31 ; Routine gynecological examinationBruce Mayelin Stern Newswriter (ASCP) Pap Lb, rfx HPV all pth PAPSMR Normal [facility] Work Phone: Comment on above: The Pap smear is a s creening test designed to aid in the detection ofpremalignant and malignant conditions of the uterine cervix. It is not adiagnostic procedure and should not be used as the sole means of detectingcervical cancer. Both false-positive and false-negative reports do occur. .The HPV DNA reflex criteria were not met with this specimen resulttherefore, no HPV testing was performed. . MYOCARD PERF SPECT REST/STRE SSon 10-19-2007 MYOCARD PERF SPECT REST/STRESS See Note Normal [facility] Work Phone: Comment on above: Exam Number: [id number] MYOCARDIAL PERFUSION SCAN 14.9 millicuries of Tc99m Sestamibi was injected at rest. The patientthen exercised according to the Arturo protocol for 4 minutesattaining 106% maximum predicted heart rate for a maximum work loadof 5.9 METs. At peak exercise, 43.5 millicuries of Tc99m Sestamibiwas injected. Stress images were then obtained. Stress and restimages were reconstructed and compared in the short axis, verticallong, and horizontal long axes. Gated images were also obtained. Review of the stress images demonstrate reduced perfusion noted in themid-anterior and anteroseptal kothari. The rest of the kothari appear chuy well perfuse. This is present from the stress and resting images.There is adequate thickening of all kothari. The gated ejectionfraction is 64%. The above is suggestive of probable anterior breastwall attenuation. No ischemia is noted. CONCLUSION1. Normal exercise myocardial perfusion scan at a low work load.2. Preserved ejection fraction.3. Anterior breast wall attenuation present. Reported By: LANDRY CHAUDHRY M.D. Vital Signs Date Time Vital Sign Value Performing Clinician Emilie ritterkaya 09-04-2024 10:05-0400 Diastolic blood pressure 78 mm[Hg] Steven Cobian MD Work Phone: [facility] 09-04-2024 10:05-0400 Heart rate 76 /min Steven Cobian MD Work Phone: [facility] 09-04-2024 10:05-0400 Respiratory rate 18 /min Steven Cobian MD Work Phone: [facility] 09-04-2024 10:05-0400 SaO2% (BldA) [Mass fraction] 97 % Steven Cobian MD Work Phone: [facility] 09-04-2024 10:05-0400 Systolic blood pressure 115 mm[Hg] Steven Cobian MD Work Phone: [facility] 09-04-2024 09:35-0400 Body temperature 96.8 [degF] Steven Cobian MD Work Phone: [facility] 09-04-2024 08:40-0400 Body height 172.7 cm Steven Cobian MD Work Phone: [facility] 09-04-2024 08:40-0400 Body mass index (BMI) [Ratio] 45.61 kg/m2 Steven Cobian MD Work Phone: [facility] 09-04-2024 08:40-0400 Body weight 136.08 kg Steven Cobian MD Work Phone: [facility] 02-10-2024 08:08-0400 Body temperature 97.9 [degF] Steven Cobian MD Work Phone: [facility] 02-10-2024 08:08-0400 Diastolic blood pressure 75 mm[Hg] Steven Cobian MD Work Phone: [facility] 02-10-2024 08:08-0400 Heart rate 63 /min Steven Cobian MD Work Phone: [facility] 02-10-2024 08:08-0400 Respiratory rate 16 /min Steven Cobian MD Work Phone: [facility] 02-10-2024 08:08-0400 SaO2% (BldA) [Mass fraction] 98 % Steven Cobian MD Work Phone: [facility] 02-10-2024 08:08-0400 Systolic blood pressure 118 mm[Hg] Steven Cobian MD Work Phone: [facility] 02-09-2024 07:32-0400 Body height 172.7 cm Steven Cobian MD Work Phone: [facility] 02-09-2024 07:32-0400 Body mass index (BMI) [Ratio] 43.81 kg/m2 Steven Cobian MD Work Phone: [facility] 02-09-2024 07:32-0400 Body weight 130.7 kg Steven Cobian MD Work Phone: [facility] 12-07-2023 09:46-0400 Body height 172.7 cm Steven Cobian MD Work Phone: [facility] 12-07-2023 09:46-0400 Body mass index (BMI) [Ratio] 46.47 kg/m2 Steven Cobain MD Work Phone: [facility] 12-07-2023 09:46-0400 Body weight 138.62 kg Steven Cobian MD Work Phone: [facility] 12-07-2023 09:46-0400 Diastolic blood pressure 124 mm[Hg] Steven Cobian MD Work Phone: [facility] 12-07-2023 09:46-0400 Heart rate 90 /min Steven Cobian MD Work Phone: [facility] 12-07-2023 09:46-0400 Respiratory rate 16 /min Steven Cobian MD Work Phone: [facility] 12-07-2023 09:46-0400 Systolic blood pressure 180 mm[Hg] Steven Cobian MD Work Phone: [facility] 11-23-2023 10:36-0400 Body height 172.7 cm Alejandro Segovia MD Work Phone: [facility] 11-23-2023 10:36-0400 Body mass index (BMI) [Ratio] 46.83 kg/m2 Alejandro Segovia MD Work Phone: [facility] 11-23-2023 10:36-0400 Body weight 139.71 kg Alejandro Segovia MD Work Phone: [facility] 10-23-2023 07:54-0400 Diastolic blood pressure 98 mm[Hg] [facility] 10-23-2023 07:54-0400 Heart rate 84 /min [facility] 10-23-2023 07:54-0400 Respiratory rate 18 /min [facility] 10-23-2023 07:54-0400 SaO2% (BldA) [Mass fraction] 95 % [facility] 10-23-2023 07:54-0400 Systolic blood pressure 144 mm[Hg] [facility] 10-23-2023 07:13-0400 Body height 172.7 cm [facility] 10-23-2023 07:13-0400 Body mass index (BMI) [Ratio] 49.42 kg/m2 [facility] 10-23-2023 07:13-0400 Body weight 147.42 kg [facility] 07-29-2023 12:19-0400 Body height 172.7 cm Kadi Munoz MD Work Phone: [facility] 07-29-2023 12:19-0400 Body weight 154.22 kg Kadi Munoz MD Work Phone: [facility] 05-05-2023 09:35-0500 Diastolic Blood Pressure Non-Invasive 100 mm[Hg] DR KALI WINSLOW MD [facility] 05-05-2023 09:35-0500 Heart rate 72 /min DR KALI WINSLOW MD [facility] 05-05-2023 09:35-0500 Respiratory rate 21 /min DR KALI WINSLOW MD [facility] 05-05-2023 09:35-0500 Systolic Blood Pressure Non-Invasive 140 mm[Hg] DR KALI WINSLOW MD [facility] 05-05-2023 09:30-0500 Diastolic Blood Pressure Non-Invasive 89 mm[Hg] DR KALI WINSLOW MD [facility] 05-05-2023 09:30-0500 Heart rate 74 /min DR KALI WINSLOW MD [facility] 05-05-2023 09:30-0500 Respiratory rate 19 /min DR KALI WINSLOW MD [facility] 05-05-2023 09:30-0500 Systolic Blood Pressure Non-Invasive 121 mm[Hg] DR KALI WINSLOW MD [facility] 05-05-2023 09:25-0500 Diastolic Blood Pressure Non-Invasive 60 mm[Hg] DR KALI WINSLOW MD [facility] 05-05-2023 09:25-0500 Heart rate 77 /min DR KALI WINSLOW MD [facility] 05-05-2023 09:25-0500 Respiratory rate 13 /min DR KALI WINSLOW MD [facility] 05-05-2023 09:25-0500 Systolic Blood Pressure Non-Invasive 99 mm[Hg] DR KALI WINSLOW MD [facility] 05-05-2023 09:10-0500 Respiratory Rate - Anes 15 br/min DR KALI WINSLOW MD [facility] 05-05-2023 09:05-0500 Respiratory Rate - Anes 21 br/min DR KALI WINSLOW MD [facility] 05-05-2023 09:00-0500 Respiratory Rate - Anes 19 br/min DR KALI WINSLOW MD [facility] 05-05-2023 07:51-0500 Body height 172.[address] KALI WINSLOW MD [facility] 05-05-2023 07:51-0500 Body temperature 97.52 [degF] DR KALI WINSLOW MD [facility] 05-05-2023 07:51-0500 Body weight [address] KALI WINSLOW MD [facility] 05-05-2023 07:51-0500 Body weight 53.31 kg/m2 DR KALI WINSLOW MD [facility] 01-11-2023 16:01-0400 Body height 172.72 cm [facility]; [facility] Work Phone: 01-11-2023 16:01-0400 Body mass index (BMI) [Ratio] 52.3 kg/m2 [facility]; [facility] Work Phone: 01-11-2023 16:01-0400 Body surface area Derived from formula 2.57 m2 [facility] [facility]; [facility] Work Phone: 01-11-2023 16:01-0400 Body temperature 97.6 [degF] [facility]; [facility] Work Phone: 01-11-2023 16:01-0400 Body weight 156.04 kg [facility]; [facility] Work Phone: 01-11-2023 16:01-0400 Diastolic blood pressure 78 mm[Hg] [facility]; [facility] Work Phone: Comment on above: Patient Position: Sitting; Cuff Location : Left Arm; Cuff Size: Standard 01-11-2023 16:01-0400 Heart rate 68 /min [facility]; [facility] Work Phone: Comment on above: Pattern: Regular 01-11-2023 16:01-0400 Respiratory rate 18 /min [facility]; [facility] Work Phone: Comment on above: Pattern: Unlabored 01-11-2023 16:01-0400 SaO2% (BldA) [Mass fraction] 98 % [facility]; [facility] Work Phone: Comment on above: Room air 01-11-2023 16:01-0400 Systolic blood pressure 132 mm[Hg] [facility]; [facility] Work Phone: Comment on above: Patient Position: Sitting; Cuff Location : Left Arm; Cuff Size: Standard 04-14-2022 14:43-0500 Body height 172.[address] Kristen Santiago Work Phone: [facility] 04-14-2022 14:39-0500 Body mass index (BMI) [Ratio] 51.5 kg/m2 Dr. Kritsen Santiago Work Phone: [facility] 04-14-2022 14:39-0500 Body weight 153.[address] Kristen Santiago Work Phone: [facility] 04-14-2022 14:39-0500 Diastolic blood pressure 102 mm[Hg] Dr. Kristen Santiago Work Phone: [facility] 04-14-2022 14:39-0500 Systolic blood pressure 154 mm[Hg] Dr. Kristen Santiago Work Phone: [facility] 02-04-2022 07:49-0400 Body height 172.72 cm Fredo Briscoe LPN [facility]; [facility] Work Phone: 02-04-2022 07:49-0400 Body mass index (BMI) [Ratio] 53.07 kg/m2 Fredo Briscoe LPN [facility]; [facility] Work Phone: 02-04-2022 07:49-0400 Body surface area Derived from formula 2.59 m2 Fredo Briscoe LPN [facility]; [facility] Work Phone: 02-04-2022 07:49-0400 Body weight 158.32 kg Fredo Briscoe LPN [facility]; [facility] Work Phone: 01-20-2022 13:52-0400 Body height 172.72 cm Fredo Briscoe LPN [facility]; [facility] Work Phone: 01-20-2022 13:52-0400 Body mass index (BMI) [Ratio] 53.07 kg/m2 Fredo Briscoe LPN [facility]; [facility] Work Phone: 01-20-2022 13:52-0400 Body surface area Derived from formula 2.59 m2 Fredo Briscoe LPN [facility]; [facility] Work Phone: 01-20-2022 13:52-0400 Body weight 158.32 kg Fredo Briscoe LPN [facility]; [facility] Work Phone: 04-08-2021 10:38-0500 Body height 172.72 cm Viridiana Hugo [facility]; [facility] Work Phone: Comment on above: pt did not report 12-30-2021 10:38-0500 Body mass index (BMI) [Ratio] 53.07 kg/m2 Viridiana Slarb [employer] [facility]; [facility] Work Phone: Comment on above: pt did not report 04-08-2021 10:38-0500 Body surface area Derived from formula 2.59 m2 Viridiana Slarb [employer] [facility]; [facility] Work Phone: Comment on above: pt did not report 04-08-2021 10:38-0500 Body weight 158.32 kg Viridiana Slarb [employer] [facility]; [facility] Work Phone: Comment on above: pt did not report 01-11-2021 14:56-0400 Body height 172.72 cm Litzy Murrayius [facility]; [facility] Work Phone: 01-11-2021 14:56-0400 Body mass index (BMI) [Ratio] 53.07 kg/m2 Litzy Gravius [facility]; [facility] Work Phone: 01-11-2021 14:56-0400 Body surface area Derived from formula 2.59 m2 Litzy Gravius [facility]; [facility] Work Phone: 01-11-2021 14:56-0400 Body temperature 97.3 [degF] Litzy Celeste [facility] Com[facility]; [facility] Work Phone: Comment on above: Method: Infrared 01-11-2021 14:56-0400 Body weight 158.32 kg Litzy Murrayius [facility]; [facility] Work Phone: 01-11-2021 14:56-0400 Diastolic blood pressure 62 mm[Hg] Litzy Murrayius [facility]; [facility] Work Phone: Comment on above: Patient Position: Sitting; Cuff Location : Left Arm; Cuff Size: Standard 01-11-2021 14:56-0400 Heart rate 95 /min Litzy Terriius [facility]; [facility] Work Phone: Comment on above: Pattern: Regular 01-11-2021 14:56-0400 Respiratory rate 18 /min Litzy Celeste CMA [facility]; [facility] Work Phone: Comment on above: Pattern: Unlabored 01-11-2021 14:56-0400 SaO2% (BldA) [Mass fraction] 98 % Litzy Celeste CMA [facility]; [facility] Work Phone: Comment on above: Room air 01-11-2021 14:56-0400 Systolic blood pressure 112 mm[Hg] Litzy Celeste CMA [facility]; [facility] Work Phone: Comment on above: Patient Position: Sitting; Cuff Location : Left Arm; Cuff Size: Standard 12-25-2020 07:31-0400 Body height 172.72 cm Litzy Celeste CMA [facility]; [facility] Work Phone: 12-25-2020 07:31-0400 Body mass index (BMI) [Ratio] 53.07 kg/m2 Litzy Celeste [employer] [facility]; [facility] Work Phone: 12-25-2020 07:31-0400 Body surface area Derived from formula 2.59 m2 Litzy Celeste [facility]; [facility] Work Phone: 12-25-2020 07:31-0400 Body temperature 97.3 [degF] Litzy Celeste CMA [facility]; [facility] Work Phone: Comment on above: Method: Infrared 12-25-2020 07:31-0400 Body weight 158.32 kg Litzy Celeste [employer] [facility]; [facility] Work Phone: 12-25-2020 07:31-0400 Diastolic blood pressure 78 mm[Hg] Litzy Celeste [facility]; [facility] Work Phone: Comment on above: Patient Position: Sitting; Cuff Location : Left Arm; Cuff Size: Standard 12-25-2020 07:31-0400 Heart rate 84 /min Litzy Celeste CMA [facility]; [facility] Work Phone: Comment on above: Pattern: Regular 12-25-2020 07:31-0400 Respiratory rate 18 /min Litzy Celeste [facility] Com[facility]; [facility] Work Phone: Comment on above: Pattern: Unlabored 12-25-2020 07:31-0400 SaO2% (BldA) [Mass fraction] 96 % Litzy Celeste [facility]; [facility] Work Phone: Comment on above: Room air 12-25-2020 07:31-0400 Systolic blood pressure 128 mm[Hg] Litzy Celeste [facility]; [facility] Work Phone: Comment on above: Patient Position: Sitting; Cuff Location : Left Arm; Cuff Size: Standard 08-10-2020 15:19-0400 Body height 172.72 cm Fredo Briscoe LPN [facility]; [facility] Work Phone: 08-10-2020 15:19-0400 Body mass index (BMI) [Ratio] 53.07 kg/m2 Fredo Briscoe LPN [facility]; [facility] Work Phone: 08-10-2020 15:19-0400 Body surface area Derived from formula 2.59 m2 Fredo Briscoe LPN [facility]; [facility] Work Phone: 08-10-2020 15:19-0400 Body temperature 97.1 [degF] Fredo Briscoe LPN [facility]; [facility] Work Phone: Comment on above: Method: Infrared 08-10-2020 15:19-0400 Body weight 158.32 kg Fredo Briscoe LPN [facility]; [facility] Work Phone: 08-10-2020 15:19-0400 Diastolic blood pressure 78 mm[Hg] Fredo Briscoe LPN [facility]; [facility] Work Phone: Comment on above: Patient Position: Sitting; Cuff Location : Left Arm; Cuff Size: Standard 08-10-2020 15:19-0400 Heart rate 105 /min Fredo Briscoe LPN [facility]; [facility] Work Phone: Comment on above: Pattern: Regular 08-10-2020 15:19-0400 Respiratory rate 16 /min Fredo Luis Felipe [employer] [facility]; [facility] Work Phone: Comment on above: Pattern: Unlabored 08-10-2020 15:19-0400 SaO2% (BldA) [Mass fraction] 96 % Fredo Luis Felipe [facility]; [facility] Work Phone: Comment on above: Room air 08-10-2020 15:19-0400 Systolic blood pressure 130 mm[Hg] Fredo Luis Felipe [facility]; [facility] Work Phone: Comment on above: Patient Position: Sitting; Cuff Location : Left Arm; Cuff Size: Standard 05-10-2019 14:44-0500 Body height 172.72 cm Litzy Celeste [facility]; [facility] Work Phone: 05-10-2019 14:44-0500 Body mass index (BMI) [Ratio] 49.91 kg/m2 Litzy Celeste [facility]; [facility] Work Phone: 05-10-2019 14:44-0500 Body surface area Derived from formula 2.52 m2 Litzy Celeste [facility]; [facility] Work Phone: 05-10-2019 14:44-0500 Body temperature 96.9 [degF] Litzy Celeste [facility] Com[facility]; [facility] Work Phone: Comment on above: Method: Temporal 05-10-2019 14:44-0500 Body weight 148.89 kg Litzy Celeste [facility]; [facility] Work Phone: 05-10-2019 14:44-0500 Diastolic blood pressure 100 mm[Hg] Litzy Celeste [facility]; [facility] Work Phone: Comment on above: Patient Position: Sitting; Cuff Location : Left Arm; Cuff Size: Standard 05-10-2019 14:44-0500 Heart rate 73 /min Litzy Celeste [facility]; [facility] Work Phone: Comment on above: Pattern: Regular 05-10-2019 14:44-0500 Respiratory rate 16 /min Litzy Celeste [facility]; [facility] Work Phone: Comment on above: Pattern: Unlabored 05-10-2019 14:44-0500 SaO2% (BldA) [Mass fraction] 98 % Litzy Celeste [facility]; [facility] Work Phone: Comment on above: Room air 05-10-2019 14:44-0500 Systolic blood pressure 167 mm[Hg] Litzy Celeste [facility]; [facility] Work Phone: Comment on above: Patient Position: Sitting; Cuff Location : Left Arm; Cuff Size: Standard 02-12-2019 08:09-0500 BP Diastolic 91 mm[Hg] [place], [place] 02-12-2019 08:09-0500 BP Systolic 150 mm[Hg] [place], [place] 02-12-2019 08:09-0500 Pulse (Heart Rate) 61 /min [facility], [place] 02-12-2019 08:09-0500 Pulse Oximetry 99 % [facility], [place] 02-12-2019 08:09-0500 Respiratory Rate 20 /min [place], [place] 02-12-2019 07:49-0500 Body Temperature 97.2 [degF] [facility], [place] 02-12-2019 06:43-0500 BMI (Body Mass Index) 45.61 kg/m2 [place], [place] 02-12-2019 06:43-0500 Body weight 136.08 kg [place] 02-12-2019 06:43-0500 Height 172.7 cm [place], [place] 10-01-2018 14:59-0400 BMI (Body Mass Index) 47.78 kg/m2 Litzy Celeste [facility] Work Phone: 10-01-2018 14:59-0400 Body Temperature 98 [degF] Litzy Celeste CMA [facility] Work Phone: 10-01-2018 14:59-0400 Body weight 142.54 kg Litzy Celeste CMA [facility] Work Phone: 10-01-2018 14:59-0400 BP Diastolic 94 mm[Hg] Litzy Celeste CMA [facility] Work Phone: Comment on above: Patient Position: Sitting; Cuff Location : Left Arm; Cuff Size: Standard 10-01-2018 14:59-0400 BP Systolic 147 mm[Hg] Litzy Celeste CMA [facility] Work Phone: Comment on above: Patient Position: Sitting; Cuff Location : Left Arm; Cuff Size: Standard 10-01-2018 14:59-0400 BSA (Body Surface Area) 2.48 m2 Litzy Celeste [employer] [facility] Work Phone: 10-01-2018 14:59-0400 Height 172.72 cm Litzy Celeste CMA [facility] Work Phone: 10-01-2018 14:59-0400 Pulse (Heart Rate) 78 /min Litzy Celeste CMA [facility] Work Phone: Comment on above: Pattern: Regular 10-01-2018 14:59-0400 Pulse Oximetry 95 % Kristen Pamela [facility] Work Phone: Comment on above: Room air 10-01-2018 14:59-0400 Respiratory Rate 18 /min Litzy Celeste CMA [facility] Work Phone: Comment on above: Pattern: Unlabored 10-01-2018 14:59-0400 SaO2% (BldA) [Mass fraction] 95 % Litzy Celeste [employer] [facility]; [facility] Work Phone: Comment on above: Room air 04-09-2018 14:32-0500 BMI (Body Mass Index) 47.78 kg/m2 Dipti Carrasquillo RN [facility] Work Phone: 04-09-2018 14:32-0500 Body Temperature 97.7 [degF] Dipti Carrasquillo RN [facility] Work Phone: Comment on above: Method: Temporal 04-09-2018 14:32-0500 Body weight 142.54 kg Dipti Carrasquillo RN [facility] Work Phone: 04-09-2018 14:32-0500 BP Diastolic 78 mm[Hg] Dipti Carrasquillo RN [facility] Work Phone: Comment on above: Patient Position: Sitting; Cuff Location : Left Arm; Cuff Size: Standard 04-09-2018 14:32-0500 BP Systolic 130 mm[Hg] Dipti Carrasquillo RN [facility] Work Phone: Comment on above: Patient Position: Sitting; Cuff Location : Left Arm; Cuff Size: Standard 04-09-2018 14:32-0500 BSA (Body Surface Area) 2.48 m2 Dipti Carrasquillo RN [facility] Work Phone: 04-09-2018 14:32-0500 Height 172.72 cm Dipti Carrasquillo RN [facility] Work Phone: 04-09-2018 14:32-0500 Pulse (Heart Rate) 84 /min Dipti Carrasquillo RN [facility] Work Phone: Comment on above: Pattern: Regular 04-09-2018 14:32-0500 Pulse Oximetry 97 % Kristen Pamela [facility] Work Phone: Comment on above: Room air 04-09-2018 14:32-0500 Respiratory Rate 16 /min Dipti Carrasquillo RN [facility] Work Phone: Comment on above: Pattern: Unlabored 04-09-2018 14:32-0500 SaO2% (BldA) [Mass fraction] 97 % Dipti Carrasquillo RN [facility]; [facility] Work Phone: Comment on above: Room air 04-09-2018 14:32-0500 Weight 142.54 kg Kristen Pamela [facility] Work Phone: 11-15-2017 13:53-0400 BMI (Body Mass Index) 49 kg/m2 Morena Lainez RN [facility] Work Phone: 11-15-2017 13:53-0400 Body weight 146.17 kg Morena Lainez RN [facility] Work Phone: 11-15-2017 13:53-0400 BP Diastolic 88 mm[Hg] Morena Lainez RN [facility] Work Phone: Comment on above: Patient Position: Sitting; Cuff Location : Left Arm; Cuff Size: Large 11-15-2017 13:53-0400 BP Systolic 124 mm[Hg] Morena Lainez RN [facility] Work Phone: Comment on above: Patient Position: Sitting; Cuff Location : Left Arm; Cuff Size: Large 11-15-2017 13:53-0400 BSA (Body Surface Area) 2.5 m2 Morena Lainez RN [facility] Work Phone: 11-15-2017 13:53-0400 Height 172.72 cm Morena Lainez RN [facility] Work Phone: 11-15-2017 13:53-0400 Pulse (Heart Rate) 71 /min Morena Lainez RN [facility] Work Phone: Comment on above: Pattern: Regular 11-15-2017 13:53-0400 Pulse Oximetry 100 % Kristen Santiago [facility] Work Phone: Comment on above: Room air 11-15-2017 13:53-0400 Respiratory Rate 18 /min Morena Lainez RN [facility] Work Phone: Comment on above: Pattern: Unlabored 11-15-2017 13:53-0400 SaO2% (BldA) [Mass fraction] 100 % Morena Lainez RN [facility]; [facility] Work Phone: Comment on above: Room air 11-15-2017 13:53-0400 Weight 146.17 kg Kristen Pamela [facility] Work Phone: 10-12-2017 07:03-0400 BMI (Body Mass Index) 46.83 kg/m2 Fredo Briscoe LPN [facility] Work Phone: 10-12-2017 07:03-0400 Body Temperature 97 [degF] Fredo Briscoe LPN [facility] Work Phone: 10-12-2017 07:03-0400 Body weight 139.71 kg Fredo Briscoe LPN [facility] Work Phone: 10-12-2017 07:03-0400 BP Diastolic 82 mm[Hg] Fredo Briscoe LPN [facility] Work Phone: Comment on above: Patient Position: Sitting; Cuff Location : Left Arm; Cuff Size: Standard 10-12-2017 07:03-0400 BP Systolic 136 mm[Hg] Fredo Briscoe LPN [facility] [place] [facility] Work Phone: Comment on above: Patient Position: Sitting; Cuff Location : Left Arm; Cuff Size: Standard 10-12-2017 07:03-0400 BSA (Body Surface Area) 2.46 m2 Fredo Briscoe LPN [facility] Work Phone: 10-12-2017 07:03-0400 Height 172.72 cm Fredo Briscoe LPN [facility] Work Phone: 10-12-2017 07:03-0400 Pulse (Heart Rate) 70 /min Fredo Briscoe LPN [facility] Work Phone: Comment on above: Pattern: Regular 10-12-2017 07:03-0400 Pulse Oximetry 95 % Kristen Santiago [facility] [place] [facility] Work Phone: Comment on above: Room air 10-12-2017 07:03-0400 Respiratory Rate 16 /min Fredo Briscoe LPN [facility] Work Phone: Comment on above: Pattern: Unlabored 10-12-2017 07:03-0400 SaO2% (BldA) [Mass fraction] 95 % Fredo Briscoe LPN [facility] [place] [facility]; [facility] Work Phone: Comment on above: Room air 10-12-2017 07:03-0400 Weight 139.71 kg Kristen Andujaron [facility] [place] [facility] Work Phone: 07-14-2016 14:54-0400 BMI (Body Mass Index) 50.17 kg/m2 [facility] Work Phone: 07-14-2016 14:54-0400 Height 172.72 cm Glory Kamara [facility] Work Phone: 07-14-2016 14:54-0400 Weight 149.69 kg Glory Kamara [facility] Work Phone: 05-06-2013 11:04-0500 Body Temperature 99.6 [degF] Morena Lainez RN [facility] Work Phone: Comment on above: Method: Oral 05-06-2013 11:04-0500 Body weight 137.21 kg Morena Lainez RN [facility] Work Phone: 05-06-2013 11:04-0500 BP Diastolic 84 mm[Hg] Morena Lainez RN [facility] Work Phone: Comment on above: Patient Position: Sitting; Cuff Location : Left Arm; Cuff Size: Large 05-06-2013 11:04-0500 BP Systolic 128 mm[Hg] Morena Lainez RN [facility] Work Phone: Comment on above: Patient Position: Sitting; Cuff Location : Left Arm; Cuff Size: Large 05-06-2013 11:04-0500 Pulse (Heart Rate) 71 /min Morena Lainez RN [facility] Work Phone: Comment on above: Pattern: Regular 05-06-2013 11:04-0500 Pulse Oximetry 97 % Kristen Santiago [facility] Work Phone: Comment on above: Room air 05-06-2013 11:04-0500 Respiratory Rate 20 /min Morena Lainez RN [facility] Work Phone: Comment on above: Pattern: Unlabored 05-06-2013 11:04-0500 SaO2% (BldA) [Mass fraction] 97 % Morena Lainez RN [facility]; [facility] Work Phone: Comment on above: Room air 05-06-2013 11:04-0500 Weight 137.21 kg Kristen Santiago [facility] Work Phone: 12-26-2012 15:09-0400 Body weight 137.21 kg Kristen Santiago [facility] [place] [facility] Work Phone: 12-26-2012 15:09-0400 BP Diastolic 80 mm[Hg] Kristen Santiago [facility] [place] [facility] Work Phone: Comment on above: Patient Position: Sitting; Cuff Location : Left Arm; Cuff Size: Standard 12-26-2012 15:09-0400 BP Systolic 124 mm[Hg] Kristen Santiago [facility] [place] [facility] Work Phone: Comment on above: Patient Position: Sitting; Cuff Location : Left Arm; Cuff Size: Standard 12-26-2012 15:09-0400 Pulse (Heart Rate) 82 /min Kristen Santiago [facility] [place] [facility] Work Phone: Comment on above: Pattern: Regular 12-26-2012 15:09-0400 Pulse Oximetry 98 % Kristen Santiago [facility] [place] [facility] Work Phone: Comment on above: Room air 12-26-2012 15:09-0400 SaO2% (BldA) [Mass fraction] 98 % Kristen Santiago DO Work Phone: [facility]; [facility] Work Phone: Comment on above: Room air 12-26-2012 15:09-0400 Weight 137.21 kg Kristen Santiago [facility] [place] [facility] Work Phone: 09-24-2012 14:52-0400 Body Temperature 97.9 [degF] Morena aLinez RN [facility] Work Phone: Comment on above: Method: Oral 09-24-2012 14:52-0400 Body weight 137.21 kg Morena Lainez RN [facility] Work Phone: 09-24-2012 14:52-0400 BP Diastolic 84 mm[Hg] Morena Lainez RN [facility] Work Phone: Comment on above: Patient Position: Sitting; Cuff Location : Left Arm; Cuff Size: Large 09-24-2012 14:52-0400 BP Systolic 122 mm[Hg] Morena Lainez RN [facility] Work Phone: Comment on above: Patient Position: Sitting; Cuff Location : Left Arm; Cuff Size: Large 09-24-2012 14:52-0400 Pulse (Heart Rate) 64 /min Morena Lainez RN [facility] Work Phone: Comment on above: Pattern: Regular 09-24-2012 14:52-0400 Respiratory Rate 20 /min Morena Lainez RN [facility] Work Phone: Comment on above: Pattern: Unlabored 09-24-2012 14:52-0400 Weight 137.21 kg Kristen Santiago [facility] Work Phone: 10-21-2010 13:42-0400 Body Temperature 98.5 [degF] Morena Lainez RN [facility] Work Phone: Comment on above: Method: Oral 10-21-2010 13:42-0400 Body weight 137.21 kg Morena Lainez RN [facility] Work Phone: 10-21-2010 13:42-0400 BP Diastolic 78 mm[Hg] Morena Lainez RN [facility] Work Phone: Comment on above: Patient Position: Sitting; Cuff Location : Left Arm; Cuff Size: Large 10-21-2010 13:42-0400 BP Systolic 128 mm[Hg] Morena Lainez RN [facility] Work Phone: Comment on above: Patient Position: Sitting; Cuff Location : Left Arm; Cuff Size: Large 10-21-2010 13:42-0400 Pulse (Heart Rate) 76 /min Morena Lainez RN [facility] Work Phone: Comment on above: Pattern: Regular 10-21-2010 13:42-0400 Respiratory Rate 20 /min Morena Lainez RN [facility] Work Phone: Comment on above: Pattern: Unlabored 10-21-2010 13:42-0400 Weight 137.21 kg Kristen Santiago [facility] Work Phone: 04-22-2009 14:21-0500 Body weight 137.21 kg Morena Lainez RN [facility] Work Phone: 04-22-2009 14:21-0500 BP Diastolic 98 mm[Hg] Morena Lainez RN [facility] Work Phone: Comment on above: Patient Position: Sitting; Cuff Location : Left Arm; Cuff Size: Large 04-22-2009 14:21-0500 BP Systolic 158 mm[Hg] Morena Lainez RN [facility] Work Phone: Comment on above: Patient Position: Sitting; Cuff Location : Left Arm; Cuff Size: Large 04-22-2009 14:21-0500 Pulse (Heart Rate) 80 /min Morena Lainez RN [facility] Work Phone: Comment on above: Pattern: Regular 04-22-2009 14:21-0500 Respiratory Rate 20 /min Morena Lainez RN [facility] Work Phone: Comment on above: Pattern: Unlabored 04-22-2009 14:21-0500 Weight 137.21 kg Kristen Santiago [facility] Work Phone: 10-31-2007 14:07-0400 Body weight 135.17 kg Morena Lainez RN [facility] Work Phone: 10-31-2007 14:07-0400 BP Diastolic 72 mm[Hg] Morena Lainez RN [facility] Work Phone: Comment on above: Patient Position: Sitting; Cuff Location : Left Arm; Cuff Size: Large 10-31-2007 14:07-0400 BP Systolic 124 mm[Hg] Morena Lainez RN [facility] Work Phone: Comment on above: Patient Position: Sitting; Cuff Location : Left Arm; Cuff Size: Large 10-31-2007 14:07-0400 Head Circumference 0 cm Kristen Andujaron [facility] Work Phone: 10-31-2007 14:07-0400 Head Occipital-frontal circumference 0 cm Morena Lainez RN [facility]; [facility] Work Phone: 10-31-2007 14:07-0400 Height 0 cm Morena Lainez RN [facility] Work Phone: 10-31-2007 14:07-0400 Pulse (Heart Rate) 68 /min Morena Lainez RN [facility] Work Phone: Comment on above: Pattern: Regular 10-31-2007 14:07-0400 Respiratory Rate 20 /min Morena Lainez RN [facility] Work Phone: Comment on above: Pattern: Unlabored 10-31-2007 14:07-0400 Weight 135.17 kg Kristen Santiago [facility] Work Phone: 10-29-2007 14:23-0400 Body Temperature 98.9 [degF] Kristen Santiago [facility] Work Phone: Comment on above: Method: Oral 10-29-2007 14:23-0400 Body weight 136.99 kg Kristen Santiago [facility] Work Phone: 10-29-2007 14:23-0400 BP Diastolic 88 mm[Hg] Kristen Santiago [facility] Work Phone: Comment on above: Patient Position: Sitting; Cuff Location : Left Arm; Cuff Size: Large 10-29-2007 14:23-0400 BP Systolic 138 mm[Hg] Kristen Santiago [facility] Work Phone: Comment on above: Patient Position: Sitting; Cuff Location : Left Arm; Cuff Size: Large 10-29-2007 14:23-0400 Head Circumference 0 cm Kristen Santiago [facility] Work Phone: 10-29-2007 14:23-0400 Head Occipital-frontal circumference 0 cm Kristen Santiago DO Work Phone: [facility]; [facility] Work Phone: 10-29-2007 14:23-0400 Height 0 cm Kristen Santiago [facility] Work Phone: 10-29-2007 14:23-0400 Pulse (Heart Rate) 72 /min Kristen Santiago [facility] Work Phone: Comment on above: Pattern: Regular 10-29-2007 14:23-0400 Respiratory Rate 18 /min Kristen Santiago [facility] Work Phone: Comment on above: Pattern: Unlabored 10-29-2007 14:23-0400 Weight 136.99 kg Kristen Santiago [facility] Work Phone: 10-04-2007 14:52-0400 Body weight 0 kg Morena Lainez RN [facility] Work Phone: 10-04-2007 14:52-0400 BP Diastolic 60 mm[Hg] Morena Lainez RN [facility] Work Phone: Comment on above: Patient Position: Sitting; Cuff Location : Left Arm; Cuff Size: Large 10-04-2007 14:52-0400 BP Systolic 124 mm[Hg] Morena Lainez RN [facility] Work Phone: Comment on above: Patient Position: Sitting; Cuff Location : Left Arm; Cuff Size: Large 10-04-2007 14:52-0400 Head Circumference 0 cm Kristen Santiago [facility] Work Phone: 10-04-2007 14:52-0400 Head Occipital-frontal circumference 0 cm Morena Lainez RN [facility]; [facility] Work Phone: 10-04-2007 14:52-0400 Height 0 cm Morena Lainez RN [facility] Work Phone: 10-04-2007 14:52-0400 Pulse (Heart Rate) 88 /min Morena Lainez RN [facility] Work Phone: Comment on above: Pattern: Regular 10-04-2007 14:52-0400 Respiratory Rate 20 /min Morena Lainez RN Comprehens[facility] Work Phone: Comment on above: Pattern: Unlabored 10-04-2007 14:52-0400 Weight 0 kg Kristen Santiago [facility] Work Phone: 10-12-2006 15:51-0400 Body Temperature 98.5 [degF] Kristen Santiago [facility] Work Phone: Comment on above: Method: Oral 10-12-2006 15:51-0400 Body weight 0 kg Kristen Santiago [facility] Work Phone: 10-12-2006 15:51-0400 BP Diastolic 82 mm[Hg] Kristen Santiago [facility] Work Phone: Comment on above: Patient Position: Sitting; Cuff Location : Right Arm; Cuff Size: Large 10-12-2006 15:51-0400 BP Systolic 130 mm[Hg] Kristen Santiago [facility] Work Phone: Comment on above: Patient Position: Sitting; Cuff Location : Right Arm; Cuff Size: Large 10-12-2006 15:51-0400 Head Circumference 0 cm Kristen Santiago [facility] Work Phone: 10-12-2006 15:51-0400 Head Occipital-frontal circumference 0 cm Kristen Santiago DO Work Phone: [facility]; [facility] Work Phone: 10-12-2006 15:51-0400 Height 0 cm Kristen Santiago [facility] Work Phone: 10-12-2006 15:51-0400 Pulse (Heart Rate) 72 /min Kristen Santiago [facility] Work Phone: Comment on above: Pattern: Regular 10-12-2006 15:51-0400 Respiratory Rate 16 /min Kristen Santiago [facility] Work Phone: Comment on above: Pattern: Unlabored 10-12-2006 15:51-0400 Weight 0 kg Kristen Santiago [facility] Work Phone: Encounters Encounter Date Encounter Type Care Provider Facility Start: 01-07-2025 End: 01-07-2025 ambulatory Kristen Santiago Facility:[facility] Start: 11-26-2024 End: 11-26-[address] Kristen Santiago DO Work Phone: -Outpatient Breast Imaging Start: 11-26-2024 End: 11-26-[address] Kristen Santiago DO -Outpatient Breast Imaging Work Phone: Start: 11-26-2024 End: 11-26-2024 ambulatory Kristen Santiago Facility:[facility] Start: 09-18-2024 ambulatory Self Referred Facility: [facility] Start: 09-04-2024 End: 09-04-2024 Subsequent hospital visit by physician Steven Cobian MD Work Phone: [facility] Comment on above: Achalasia Start: 09-04-2024 End: 09-04-2024 ambulatory STEVEN COBIAN [facility] Start: 08-15-2024 End: 09-07-2024 Discharged Recurring Self Referred -Nutritional Servic es Work Phone: Start: 08-15-2024 End: 09-07-[address] Kristen Santiago DO Work Phone: [facility] Work Phone: Start: 02-26-2024 End: 02-26-2024 Postop follow up visit related to original px Steven Cobian MD Work Phone: [facility] Comment on above: Achalasia (Primary D x) Start: 02-26-2024 End: 02-26-2024 ambulatory STEVEN Erickson [facility] Ambulatory Start: 02-20-2024 ambulatory Kristen Santiago Facilit y:[facility] Start: 02-09-2024 End: 02-10-2024 Subsequent hospital visit by physician Steven Cobian MD Work Phone: [facility] [place] [facility] Comment on above: Achalasia of cardia (Primary Dx) Start: 02-01-2024 ambulatory STEVEN COBIAN [facility] Start: 01-31-2024 End: 01-31-2024 ambulatory KRISTEN SANTIAGO [facility] Start: 12-07-2023 End: 12-07-2023 Office outpatient new 60 minutes Stveen Cobian MD Work Phone: [facility] [place] Comment on above: Achalasia Start: 12-07-2023 End: 12-07-2023 ambulatory STEVEN Erickson [facility] Ambulatory Start: 12-04-2023 End: 12-04-2023 Subsequent hospital visit by physician Kenny Mancini [facility] Comment on above: Achalasia; Weight loss; Generalized abdominal pain Achalasia Start: 12-04-2023 End: 12-04-2023 ambulatory [facility] Start: 11-23-2023 End: 11-23-2023 Office outpatient new 45 minutes Alejandro Segovia MD Work Phone: [facility] Comment on above: Achalasia (Primary D x); Weight loss; Generalized abdominal pain Start: 11-23-2023 End: 11-23-2023 [facility] Start: 10-29-2023 End: 10-29-2023 Emergency department patient visit [facility] Start: 10-29-2023 End: 11-01-2023 Evaluation and management of inpatient MARIUSZ Coello [facility] Start: 10-23-2023 End: 10-23-2023 Subsequent hospital visit by physician [facility] Comment on above: Dysphagia, unspecifi ed; Gastro-esophageal reflux disease without esophagitis Start: 10-23-2023 End: 10-23-2023 ambulatory KALI WINSLOW [facility] Start: 08-08-2023 Telephone encounter Kadi haro MD Work Phone: [facility] Comment on above: Future Appointment ( Esophageal manometry not covered-OON) Start: 07-29-2023 Orders Only Kadi Munoz MD Work Phone: [facility] Comment on above: Dysphagia, unspecifi ed type (Primary Dx); Gastroesophageal reflux disease, unspecified whether esophagitis present Future Appointment ( Esophageal mano) Start: 05-05-2023 End: 05-05-[address] KALI WINSLOW MD Facility:[facility] Start: 05-05-2023 End: 05-05-[address] KALI WINSLOW MD [facility] Start: 02-06-2023 End: 02-06-2023 ambulatory [facility] Work Phone: Start: 02-06-2023 End: 02-06-2023 Patient encounter procedure [facility]-Radiology, [facility] Work Phone: Start: 01-11-2023 End: 01-11-2023 Office outpatient visit 25 minutes Kristen Santiago DO Work Phone: [facility] Start: 12-28-2022 End: 12-28-2022 ambulatory [facility] Work Phone: Start: 12-28-2022 End: 12-28-2022 Patient encounter procedure [facility]-Laboratory Work Phone: Start: 04-29-2022 End: 04-29-[address] Kristen Santiago Work Phone: [facility] Work Phone: Start: 04-29-2022 End: 04-29-[address] Kristen Santiago Work Phone: [facility]-Outpatient Breast Imaging Start: 04-14-2022 End: 04-14-[address] Kristen Santiago Work Phone: [facility] Work Phone: Start: 04-14-2022 End: 04-14-[address] Kristen Santiago Work Phone: [facility]-Laboratory, Specimen Start: 04-14-2022 End: 04-14-[address] Kristen Santiago Work Phone: [facility] Start: 02-04-2022 Review Kristen zaman DO Work Phone: [facility] Start: 02-04-2022 End: 02-04-2022 Office outpatient visit 10 minutes Kristen Santiago DO Work Phone: [facility] Start: 02-02-2022 ambulatory Kristen Santiago DO [facility] Start: 01-20-2022 End: 01-20-2022 Office outpatient visit 10 minutes Kristen Pamela DO Work Phone: [facility] Start: 04-08-2021 End: 04-08-2021 Office outpatient visit 10 minutes Kristen Pamela DO Work Phone: [facility] Start: 01-11-2021 End: 01-11-2021 Office outpatient visit 15 minutes Kristen Pamela DO Work Phone: [facility] Start: 12-25-2020 End: 12-25-2020 Office outpatient visit 15 minutes Kristen Pamela DO Work Phone: [facility] Start: 08-10-2020 Review Kristen Fearo n DO Work Phone: [facility] Start: 08-10-2020 End: 08-10-2020 Office outpatient visit 15 minutes Kristen Pamela DO Work Phone: [facility] Start: 05-10-2019 End: 05-10-2019 Office outpatient visit 15 minutes Kristen Pmaela DO Work Phone: [facility] Start: 02-12-2019 End: 02-13-2019 Subsequent hospital visit by physician Fco Son Work Phone: [facility] Comment on above: Arrived Start: 10-01-2018 End: 10-01-2018 Patient encounter status Kristen Pamela DO Work Phone: [facility] Start: 10-01-2018 End: 10-01-2018 Periodic preventive med est patient 40-64yrs Kristen Pamela [facility] Start: 04-13-2018 End: 04-16-2018 Patient encounter procedure ANTONELLA ELBA KEENE [facility] Start: 04-13-2018 End: 04-13-2018 Phone Encounter Kristenchrystal Andujaron [facility] Start: 04-09-2018 End: 04-09-2018 Office outpatient visit 15 minutes Kristen Pamela [facility] Start: 03-19-2018 End: 03-20-2018 Patient encounter procedure ANTONELLA ELBA KEENE [facility] Start: 03-08-2018 End: 03-08-2018 [facility] Start: 03-07-2018 End: 03-08-2018 Patient [facility] Start: 11-15-2017 End: 11-15-2017 Office outpatient visit 15 minutes Kristenchrystal Santiago [facility] Start: 10-19-2017 End: 10-19-2017 Annotation/Addendum Kristenchrystal Santiago [facility] Start: 10-12-2017 End: 10-12-2017 Office outpatient visit 15 minutes Kristen Santiago [facility] Start: 05-06-2013 End: 05-06-2013 Patient encounter procedure Kristen Santiago [facility] Start: 12-26-2012 End: 12-26-2012 Office outpatient visit 25 minutes Kristenstephanie Santiago [facility] Start: 09-24-2012 End: 09-24-2012 Patient encounter procedure Kristen Pamela [facility] Start: 10-21-2010 End: 10-21-2010 Patient encounter procedure Kristenchrystal Santiago [facility] Start: 04-22-2009 End: 04-22-2009 Patient encounter procedure Kristen Santiago [facility] Start: 10-31-2007 End: 10-31-2007 Medical examinations/reports status Kristen Santiago DO Work Phone: [facility] Start: 10-31-2007 End: 10-31-2007 Patient encounter procedure Kristen Santiago [facility] Start: 10-29-2007 End: 10-29-2007 Patient encounter procedure Kristen Santiago [facility] Start: 10-04-2007 End: 10-04-2007 Patient encounter procedure Kristen Santiago [facility] Start: 10-12-2006 End: 10-12-2006 Office outpatient visit 10 minutes Kristen Pamela [facility] End: 11-15-2017 Patient encounter procedure Morena Lainez RN [facility]; [facility] Work Phone: Patient encounter status Fredo Briscoe LPN [facility]; [facility] Work Phone: Patient encounter status Viridiana Hugo LPN [facility]; [facility] Work Phone: Patient encounter status Fredo Briscoe LPN [facility]; [facility] Work Phone: Patient encounter status Fredo Briscoe LPN [facility]; [facility] Work Phone: Procedures Date Procedure Procedure Detail Performing Clinician Start: 11-26-[address] Kristen Santiago DO Work Phone: Start: 09-04-2024 Esophagogastroduodenoscopy transoral diagnostic Steven Cobian MD Work Phone: Start: 09-04-2024 Gastroesophag reflx test w/telemtry ph eltrd Steven Cobian MD Work Phone: Start: 02-09-2024 PULSE OXIMETRY, SPOT Zeinab Rothman MD Work Phone: Start: 02-09-2024 PULSE OXIMETRY, CONTINUOUS Christine Sommer carcamo MD Work Phone: Start: 02-09-2024 VERAB/VERIFY ABORH Mart Aguila DO Work Phone: Start: 02-09-2024 Blood typing serologic rh (d) Mart weldon DO Work Phone: Start: 12-04-2023 Radiologic exam esophagus single contrast study Marivel Gonzalez MD Work Phone: Start: 10-29-2023 Thyrotropin [Units/volume] in Serum or Plasma Alejandro Segovia MD Work Phone: Start: 10-23-2023 Gastroesophag reflx test w/intrluml imped ubaldotrd Kali Winslow MD Work Phone: Start: 02-06-2023 Radiography of esophagus Start: 04-29-[address] Kristen Santiago Work Phone: Start: 04-29-2022 End: 04-29-2022 SCRN MAMM (CAD)W/ASHOK BILAT Procedure Note: See Note; NOTES: [facility] Imaging Services [address] [place] [id number] SCRN MAMM (CAD)W/ASHOK BILAT MR#: [id number] Acct: [id number] Name: LIZ PEREZ Rep #: [id number] : 1960 F 61 From: Prakash fernandez MD PCP: Dr. Kristen Santiago, DO Status: [facility] Study: SCRN MAMM (CAD)W/ASHOK BILAT Date of Exam: 04/11 Exam# [id number] Ordering Dr: Pat Castro MAMMOGRAPHY - BILATERAL SCREENING REASON FOR EXAM: Female, 61 years old. Routine annual screening examination. PERTINENT HISTORY: Non-contributory. TECHNIQUE: Digital bilateral breast ashok (3D mammographic acquisition) in the CC and MLO projections. 2-D mediolateral oblique (MLO) and craniocaudad (CC) views of both breasts were obtained. CAD: Full Field Digital Mammography with Computer Added Detection was performed. COMPARISON: Comparison is made with prior study dated 03/27/2018. FINDINGS: Breast Composition: The breasts are almost entirely fatty. There are no dominant masses or suspicious calcifications. Stable benign-appearing bilateral axillary lymph nodes. No other significant abnormalities are identified. There has been no significant change since the prior study. BI/SCRN MAMM (CAD)W/ASHOK BILAT IMPRESSION: Stable bilateral screening mammogram. Yearly follow-up mammogram recommended. (A) ASSESSMENT CATEGORY: BIRADS Category 2: Benign. A letter regarding these results will be sent to the patient by the facility within 30 days. Approximately 10% of breast cancers are not detected by mammography. A normal mammogram should not delay biopsy of a clinically suspicious abnormality. [id number] Electronically Signed: Prakash Rivas MD at 15:37 EST , CC: Dr. Kristen Santiago DO; Dr. Pat Castro MD Hosp[facility] Aide: Signed Kristen Santiago DO Work Phone: Start: 04-14-2022 End: 04-14-2022 [place] Office Visit Report Procedure Note: See Note; NOTES: [facility] [address] [place] [address] OFFICE VISIT Date of Service: 04/14/22 MR#: [id number] Acct: [id number] Name: LIZ PEREZ Rep #: [id number] : 1960 Provider: Dr. 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) Chief Complaint: annual Farm[employer] Livestock Required: No Is patient in pain?: No Allergies sulfamethoxazole [From Bactrim] Allergy (Verified 02/24/21 02:47) Swelling trimethoprim [From Bactrim] Allergy (Verified 02/24/21 02:47) Swelling Medications levothyroxine 50 mcg capsule 50 mcg PO DAILY 04/14/22 [History Confirmed 04/14/22] Is last menstrual period known: No Post menopausal: Yes Patient : No [facility] Angioedema Venous insufficiency of both lower extremities Surgical History History of hysteroscopy Family History (Updated 12/23/21 @ 15:29 by Bessie Chavarria) Father CHF (congestive heart failure) Mother Abdominal aortic aneurysm (AAA) Social History (Updated 12/23/21 @ 15:30 by Bessie Chavarria) household members: other details: 3 cats housing: house number of children: 2 current occupational status: employed current occupational exposures/hazards: No pets and animals: Yes Smoking Status: Never smoker alcohol intake: never substance use type: does not use caffeine: Yes what type of physical activity do you participate in: none seatbelt use: always do you feel safe at home: Yes additional social history: - works at 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 Date Name GA/Weeks Outcome Route Bth Weight Gen Labor Lgth Anesthesia Del Locatn Provider FOB Unknown x2 HPI Encounter for routine gynecological examination Details: LIZ PEREZ is a 61 year old who presents for annual exam. Last PAP: [] History of abnormal PAP: [] Last mammogram: [] History of abnormal mammogram: [] Colon cancer screening: [] Other preventative health care screenings: [] ROS Const Constitutional: Reports system reviewed and no additional complaints, except as documented; Denies fatigue or headache(s) Cardio Card: Denies chest pain Resp Resp: Denies cough or dyspnea GI GI: Denies abdominal pain, bloating, change in stool character, constipation, fecal incontinence, nausea or vomiting : Reports prolapse symptoms, urinary incontinence and vaginal dryness; Denies pelvic pain, sexual dysfunction, urinary frequency, urinary urgency, vaginal discharge, vaginal odor or vaginal pruritus Psych Psych: Denies anxiety or depression Exam Const General: cooperative, healthy appearing, comfortable, no acute distress and well developed HENDE Head: normal to inspection, normocephalic and atraumatic Neck Neck: normal visual inspection, full ROM, no lymphadenopathy and trachea midline Thyroid: thyroid normal Chest Chest palpation inspection: normal inspection of the chest Breast inspection: normal inspection of the breasts, normal inspection of the axillae, abnormal inspection of the axilla and abnormal inspection of the breast Resp Effort Inspection: normal respiratory effort GI Inspection: normal to inspection and non-distended Palpation: soft, no hepatosplenomegaly, no hepatomegaly, not rigid and nontender General: bladder normal to palpation External Female Exam: abnormal external appearance (atrophic introitus), normal appearance of the urethra and no lesions Urethra: normal appearance of the urethra Speculum Exam - Vagina: abnormal appearance of the vagina, normal vaginal discharge, vagina atrophic and no lesions Speculum Exam - Cervix: normal appearance of the cervix Bimanual Exam- Vagina Uterus: normal bimanual exam, uterine size normal, bladder normal to palpation, uterine shape normal, uterine mobility normal and non-tender Bimanual Exam- Adnexa, other: normal adnexae, no masses, rectocele, cystocele and vaginal apex descent Pelvic Support: cystocele, rectocele, vaginal apex descent and other (complete procidentia) Skin General: no rashes or lesions noted and atrophy Coding Level of Care Code Off vis,est,prev 40-64yrs Diagnoses Encounter for routine gynecological examination Z01.419 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 discussed surgery if desired but consider weight loss prior. Orders: Orders SCRN MAMM (CAD)W/ASHOK BILAT Today Z12.31 - Encounter for screening mammogram for malignant neoplasm of breast Plan Cervical cancer screening: pap done Breast cancer screening: mamm other health maintenance examination reviewed and orders placed if needed. Encouraged maintenance of a healthy weight and active lifestyle and handout given. Annual exam handout including recommendations for good health guidelines, Calcium/vitamin D recommendations, and basic screening information given. Problem list up to date, see problem list details for any additional plan information. Follow up in one year for annual health maintenance exam or sooner if needed. 04/14/22 1507 <Electronically signed by Pat Castro MD> Date Pat Castro MD Cosigner Signature: Date (if applicable) CC: Kristen Santiago DO Work Phone: Start: 04-14-2022 Microscopic observation [Identifier] in Cervix by Cyto stain Steven Cobian MD Work Phone: Start: 12-23-2021 End: 12-31-2021 [facility] Office Visit Report Procedure Note: See Note; NOTES: [facility] [address] [place] [address] OFFICE VISIT Date of Service: 12/23/21 MR#: [id number] Acct: [id number] Name: LIZ PEREZ Rep #: [id number] : 1960 Provider: Dr. 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 Is patient in pain?: Yes Allergies sulfamethoxazole [From Bactrim] Allergy (Verified 02/24/21 02:47) Swelling trimethoprim [From Bactrim] Allergy (Verified 02/24/21 02:47) Swelling Is last menstrual period known: No Post menopausal: Yes Patient : No : No PFSH Medical History Angioedema Venous insufficiency of both lower extremities Surgical History History of hysteroscopy Family History (Updated 12/23/21 @ 15:29 by Bessie Chavarria) Father CHF (congestive heart failure) Mother Abdominal aortic aneurysm (AAA) Social History (Updated 12/23/21 @ 15:30 by Bessie Chavarria) household members: other details: 3 cats housing: house number of children: 2 current occupational status: employed current occupational exposures/hazards: No pets and animals: Yes Smoking Status: Never smoker alcohol intake: never substance use type: does not use caffeine: Yes what type of physical activity do you participate in: none seatbelt use: always do you feel safe at home: Yes additional social history: - works at a legal [employer] HPI possible prolapse Details: LIZ PEREZ is a 61 year old who presents for uterine prolapse. she has had this for years and wants evaluated now. she is having an increase in pressure and having some intermittent pain into her pelvis. she denies any bleeding or discharge. she denies any recurrent utis. she denies any vaginal itching or burning. History 2 Elective abortions Hx Para 2 Spontaneous abortions Hx # Term Pregnancies Ectopic pregnancies Hx # Pregnancies Multiple births # of living children Past Pregnancies Del. Date Name GA/Weeks Outcome Route Bth Weight Infant Gen [facility] FOB Unknown x2 ROS Const Constitutional: Reports system reviewed and no additional complaints, except as documented; Denies fatigue or headache(s) Cardio Card: Denies chest pain Resp Resp: Denies cough or dyspnea GI GI: Denies abdominal pain, bloating, change in stool character, constipation, fecal incontinence, nausea or vomiting : Reports prolapse symptoms, urinary incontinence and vaginal dryness; Denies pelvic pain, sexual dysfunction, urinary frequency, urinary urgency, vaginal discharge, vaginal odor or vaginal pruritus Psych Psych: Denies anxiety or depression Exam Const General: cooperative, healthy appearing, comfortable, no acute distress and well developed [facility] Head: normal to inspection, normocephalic and atraumatic Neck Neck: normal visual inspection, full ROM, no lymphadenopathy and trachea midline Thyroid: thyroid normal Chest Chest palpation inspection: normal inspection of the chest Breast inspection: normal inspection of the breasts, normal inspection of the axillae, abnormal inspection of the axilla and abnormal inspection of the breast Resp Effort Inspection: normal respiratory effort GI Inspection: normal to inspection and non-distended Palpation: soft, no hepatosplenomegaly, no hepatomegaly, not rigid and nontender General: bladder normal to palpation External Female Exam: abnormal external appearance (atrophic introitus), normal appearance of the urethra and no lesions Urethra: normal appearance of the urethra Speculum Exam - Vagina: abnormal appearance of the vagina, normal vaginal discharge, vagina atrophic and no lesions Speculum Exam - Cervix: normal appearance of the cervix Bimanual Exam- Vagina Uterus: normal bimanual exam, uterine size normal, bladder normal to palpation, uterine shape normal, uterine mobility normal and non-tender Bimanual Exam- Adnexa, other: normal adnexae, no masses, rectocele, cystocele and vaginal apex descent Pelvic Support: cystocele, rectocele, vaginal apex descent and other (complete procidentia) Skin General: no rashes or lesions noted and atrophy Coding Level of Care Code Off vis,new,level 3 Diagnoses Uterine procidentia N81.3 Assessment and Plan Assessment and Plan (1) Uterine procidentia: Status: Acute Comment: discussed surgical management, due to anatomy and severity- not a candidate for a pessary. discussed surgery if desired but consider weight loss prior. Plan Problem list updated and treatment plans were reviewed with the patient and relevant educational handouts given. See problem list details for specific plan information. 12/31/21 0746 <Electronically signed by Pat Castro MD> Date Pat Castro MD Cosigner Signature: Date (if applicable) CC: Kristen Santiago DO Work Phone: Start: 02-24-2021 End: 02-24-2021 Emergency Department Summary Comments: See Note; NOTES: [facility] [address] [place] [address] Emergency Department Summary 02/24/21 MR#: [id number] Acct: [id number] Name: LIZ PEREZ Rep #: [id number] : 1960 60 From: Mushatq Gutierrez DO PCP: Dr. Kristen Santiago DO Status:PRE ER Location: ED HPI History of Present Illness Chief Complaint: Allergic Reaction Narrative Narrative: 60-year-old female presenting with right-sided tongue swelling. She states this started little while ago while she was sleeping. She states she does not take any medicines whatsoever. She had this happen to her a month ago when she was on Bactrim. She took 1 dose of prednisone in the ER and the symptoms did improve. She was given a prescription however she was told by her cleaning specialist and her primary care doctor not to fill it. This did resolve on its own after this. Patient has not had return of it. She denies no history of angioedema or allergic reaction. She does not know of any new soaps, dyes, detergents, linens, food etc. Patient states currently her tongue swelling is getting better. [facility] Medical History Angioedema Venous insufficiency of both lower extremities Home Medications prednisone 50 mg PO DAILY 5 Days #5 tab 02/24/21 [Rx Last Taken Unknown] Allergy/AdvReac Type Severity Reaction Status Date / Time sulfamethoxazole Allergy Swelling Verified 02/24/21 02:47 [From Bactrim] trimethoprim [From Bactrim] Allergy Swelling Verified 02/24/21 02:47 Surgical History History of hysteroscopy Social History Smoking Status: Never smoker ROS ROS ED Constitutional Constitutional ED: Denies chills or fever(s) Eyes Eyes: Denies blurry vision or change in vision ENT ENT ED: Reports other Details: Minor tongue swelling improving ; Denies ear pain or rhinorrhea Cardiovascular Cardiovascular: Denies chest pain or palpitations Respiratory/Chest Respiratory/Chest: Denies cough or dyspnea Gastrointestinal Gastrointestinal: Denies abdominal pain, nausea or vomiting Genitourinary Genitourinary ED: Denies dysuria or hematuria Musculoskeletal Musculoskeletal: Denies arthralgias or myalgias Neurologic Neurologic: Denies headache(s) or paresthesias EXAM Physical Exam Const Vital Signs: 02/24/21 02:42 Temperature 96.9 F L Temperature Source Temporal Pulse Rate 101 H Respiratory Rate 18 Blood Pressure 193/106 H Blood Pressure Mean 135 Pulse Ox 99 Oxygen Delivery Method Room Air Positive well nourished General Appearance ED: NAD HEENT Reports moist mucous membranes HEENT Narrative: Right side of tongue slightly swollen. Oropharynx is patent without stridor. Patient speaking in full sentences. No difficulty swallowing. Lips are nonswollen. Negative for trauma Eyes PERRL and EOMs intact bilaterally Neck no lymphadenopathy and supple Resp normal respiratory effort and clear to auscultation bilaterally Cardio regular rate and regular rhythm GI normal to inspection, nondistended, normoactive bowel sounds Neuro oriented x3, CN's II-XII intact bilaterally and no sensory deficits noted Sensorium / Orientation: alert Motor Exam: strength 5/5 throughout Psych mental status grossly normal Skin no rashes or lesions noted MDM MDM MDM Narrative Medical decision making narrative: Patient is swelling of the right side of her tongue which is actually improving currently. She will be given a dose of prednisone which she states helped her last time. I will give her a prescription for this for home. Since it is already improving I do not believe she is to stay. She is given return precautions. Impression: 1. Tongue swelling Discharge Plan Triage Chief Complaint: Allergic Reaction ED Provider: Mushtaq Gutierrez Dx/Rx/DC Orders Instructions: ED General Allergic Reactions Prescriptions: New prednisone 50 mg tablet 50 mg PO DAILY 5 Days Qty: 5 RF: 0 Primary Care Provider: Kristen Santiago Referrals: Kristen Santiago DO [Primary Care Provider] - Disposition Disposition: Home, Self Care What to do if you have Problems For any increased pain, shortness of breath, bleeding, nausea or vomiting, chest pain, or any unexpected problems, contact your Primary Care Provider. Call [facility] ([phone]) or report to the closest Emergency Room. Call 911 if necessary. 02/24/21 0258 <Electronically signed by Mushtaq Gutierrez DO> Cosigner Signature (if applicable): CC: Dr. Kristen Santiago DO Signed Kristen Santiago DO Work Phone: Start: 01-15-2021 End: 01-15-2021 Wound Ctr History AND Physical Comments: See Note; NOTES: [facility] [address] [place] [id number] H P Exam - Wound Care 01/15/21 1314 MR#: [id number] Acct: [id number] Name: LIZ PEREZ Rep #: [id number] : 1960 60 From: Itzel Fisher DO PCP: Dr. Kristen Santiago DO Status:REG RCR Location: History of Present Illness Date of Service: 01/15/21 Chief Complaint: nonhealing wounds to B/L lower legs History of Wound: Liz is a 60 yo pleasant woman that presents to the wound healing center today for evaluation and treatment of nonhealing wounds to her bilateral lower legs referred by her PCP Dr. Santiago. Liz states that these have been present since November. They started as mosquito bites and have never really healed. She continues to keep developing blisters and then areas that scab and then seem to heal but new areas develop. She was initially treated with cefdinir and did not have any improvement. She then was treated with Bactrim which caused her tongue to swell after 2 doses. She was treated for allergic reaction with prednisone and was referred here for further evaluation and treatment. Liz denies any previous history of having problems healing and also does not take any daily medications or have a history of any chronic medical conditions. She is active and works at [employer]. Spends a lot of time gardening and mowing. She denies use of chemicals or changes to skin products. She has tried applying triple antibiotic ointment, salves and vaseline to the areas without any improvement. She washes daily with antibacterial soap. She denies any fever, chills, odor or increased erythema. [facility] Medical History (Updated 01/15/21 @ 13:[address] Itzel Fisher DO) Angioedema Allergy/AdvReac Type Severity Reaction Status Date / Time sulfamethoxazole Allergy Swelling Verified 01/15/21 08:28 [From Bactrim] trimethoprim [From Bactrim] Allergy Swelling Verified 01/15/21 08:28 Surgical History History of hysteroscopy Social History Smoking Status: Never smoker ROS Constitutional Constitutional: Denies chills, fatigue, fever(s) or weakness Eyes Eyes: Denies blurry vision or loss of vision ENT HEENT: Denies dizziness, ear pain or headache(s) Cardiovascular Cardiovascular: Denies chest pain or edema Respiratory/Chest Respiratory/Chest: Denies cough or dyspnea Gastrointestinal Gastrointestinal: Denies abdominal pain, diarrhea, nausea or vomiting Musculoskeletal Musculoskeletal: Denies difficulty walking, extremity pain or numbness Integumentary Integumentary: Reports skin ulcer and wounds; Denies unusual bruising Neurologic Neurologic: Denies dizziness or headache(s) Psychiatric Psychiatric: Denies anxiety, depression or suicidal ideation Endocrine Endocrinology: Denies cold intolerance or heat intolerance Hematologic/Lymphatic Hematologic/Lymphatic: Denies easy bleeding or easy bruising Vital Signs Vital Signs Vital Signs: 01/15/21 08:29 Temperature 97.5 F L Temperature Source Temporal Pulse Rate 102 H Respiratory Rate 18 Blood Pressure 159/99 H Blood Pressure Mean 119 Blood Pressure Source Monitor Blood Pressure Position Semi-Fowlers Blood Pressure Location Left Arm Weight Weight: 136.078 kg Body Mass Index (BMI) 45.6 Physical Exam Const alert, oriented x3 and no apparent distress General Appearance: cooperative and comfortable HEENT normocephalic and head/scalp atraumatic Mouth: oral and palatal mucosa normal Eyes General Eye: normal appearance of both eyes Lymph Lymphatic: no lymphedema noted Resp normal respiratory effort Effort and Inspection: able to speak in complete sentences Auscultation: clear to auscultation bilaterally Cardio regular rate and regular rhythm GI soft to palpation Inspection: central obesity Extremity normal capillary refill General Extremity: edema bilateral lower extremity Details: mild Skin General Skin Exam: eschar and other pustular lesions b/l lower legs Neuro oriented x3 and no focal motor deficits Psych mental status grossly normal, thought process normal, cooperative and affect normal Debridement Note Debridement Note Wound debrided: right calf cluster Laterality: Right Type of Debridement: Excisional debridement Anesthesia Used: 4% Lidocaine Solution Depth: Down to and including healthy tissue and in the subcutaneous layer Percentage of wound debrided: 100 Instrument Used: 3mm curette Tissue Removed: Yellow slough, devitalized tissue Severity: Fat Layer Exposed Amount of bleeding with debridement: Mild Bleeding Controlled with: Compression and gauze Patient tolerated procedure: Patient tolerated procedure well Post-Debridement Measurements and Additional Note: Post-Debridement Measurements/Treatment - Nurse 1 - General Ulcer Assessment Start: 01/15/21 08:27 Freq: Status: Active Protocol: NATHALIE Activity Type Activity Date Activity User E-Sign Co-Sign Detail Recorded Client Recorded Date Recorded By Document 01/15/21 08:29 RB [id number] 01/15/21 08:37 RB 01/15/21 08:29 - Today's Visit Information Type of service Initial Visit Arrival Mode Ambulatory Transfer Assistance None Patient Identification Verified (Name Yes ) Patient Requires Transmission-Based No Precautions Height and Weight Height 5 ft 8 in Weight 136.078 kg Weight in Pounds 300.0 lbs Body Mass Index (BMI) 45.6 BMI Classification Obese BSA - Laure 2.43 Vital Signs Temperature (97.8 F-99.1 F) 97.5 F L Temperature Source Temporal Pulse Rate (60-100) 102 H Pulse Location Monitor Respiratory Rate (12-18) 18 Respiratory rate source Observation Blood Pressure (90/60-120/80) 159/99 H Blood Pressure Mean 119 Source Monitor Position Semi-Fowlers Blood Pressure Location Left Arm History Since Last Visit- (Skip if this is Patient's initial visit) Have you changed medications since your No last visit? Any new allergies or adverse reactions No Had a fall/change in ADL's that may No increase risk of falls Signs or symptoms of abuse and/or No neglect since last visit Have you been in the hospital since your No last visit? Has dressing in place as prescribed Yes Has compression in place as prescribed No Has offloadiing in place as prescribed No Experienced any changes in pain level or No management Pain Scale: 0-10 Numeric Is Patient Pain Free? Yes Lower Extremity Assessment/ Foot Assessment/ Toe Nail Assessment Right -Posterior Tibial Palpable Yes -Posterior Tibial Doppler Multiphasic -Dorsalis Pedis Palpable Yes -Dorsalis Pedis Doppler Multiphasic -Extremity Color Normal -Hair Growth on Legs Yes -Hair Growth on Toes Yes -Temperature of Extremity Warm -Capillary Refill Less than 3 Seconds -Dependent Rubor No -Blanched when Elevated No -Lipodermatosclerosis No -Other Deformity No -Prior Foot Ulcer No -Charcot Joint No -Prior Amputation No -Thick No -Discolored No -Deformed No -Improper Length Hygeine Yes Left -Posterior Tibial Palpable Yes -Posterior Tibial Doppler Multiphasic -Dorsalis Pedis Palpable Yes -Dorsalis Pedis Doppler Multiphasic -Extremity Color Normal -Hair Growth on Legs Yes -Hair Growth on Toes Yes -Temperature of Extremity Warm -Capillary Refill Less than 3 Seconds -Dependent Rubor No -Blanched when Elevated No -Lipodermatosclerosis No -Other Deformity No -Prior Foot Ulcer No -Charcot Joint No -Prior Amputation No -Thick No -Discolored No -Deformed No -Improper Length Hygeine Yes Neuropathy Assessment Feet - Top Side and Bottom <Entered> (a) Communication Assessment 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 Able to Read Yes Able to Write Yes Communication Tools None Caregiver Communication Skills No Impairment Impairment Right Hearing Abillity Normal Left Hearing Abillity Normal Visual Assistive Devices Glasses, Contacts Teaching Assessment Preferences Verbal,Written, Audio/Visual Barriers to Learning None Willingness to Engage in Self Management Med Activies Readiness to Engage in Self Management Med Activities Anxiety Level Calm Cooperation Cooperative Perception Coherent Interest in Health Problem Asks Questions Education Importance Acknowledges Need Does Patient Smoke tobacco or other No substances Smoking Status Never smoker Is Patient Diabetic No Functional Assessment Recent Decline in Ability to Perform Denies Any Declines Culture/Mandaen/Chaplai n Cultural/Mandaen Needs that may affect No Treatment Plan Would you allow our hospital industrial pipefitter journeyman to No meet you for the purpose of spiritual/ emotional support? Grab Hooker to contact place of restorationist No Teaching: Wound Center *Welcome to the Wound Center -Person Taught Patient -Teaching Method Discussion, Demonstration -Response to teaching Verbalize understanding (a) 1 - + throughout - Nurse 1 - General Ulcer Measurement Start: 01/15/21 08:27 Freq: Status: Active Protocol: Activity Type Activity Date Activity User E-Sign Co-Sign Detail Recorded Client Recorded Date Recorded By Document 01/15/21 08:29 RB [id number] 01/15/21 08:37 RB 01/15/21 08:29 Wound Center Nurse 1 Lower Limb Edema Present Yes Right Calf (cm) 59.7 Point of Measurement (cm from the medial 25.7 instep) Left Calf (cm) 55 Left Ankle (cm) 26.3 - Nurse 2 - General Ulcer CM Notes Start: 01/15/21 08:27 Freq: Status: Active Protocol: Activity Type Activity Date Activity User E-Sign Co-Sign Detail Recorded Client Recorded Date Recorded By Document 01/15/21 08:50 MW [id number] 01/15/21 09:05 MW 01/15/21 08:50 Wound Center Nurse 2 #2 right calf cluster -Time 09:04 -Correct Patient Yes -Correct Side, Site, Position Yes -Correct Procedure Yes -Procedure Performed Yes -Type of Procedure Debridement -Clinical Debridement Subcutaneous -Tissue Removed Subcutaneous -Post Debridement (cm) - Length 0.7 -Post Debridement (cm) - Width 0.8 -Post Debridement (cm) - Depth 0.1 -Total Square (Post) (cm) 0.56 -Area of Debridement (cm) - Length 0.7 -Area of Debridement (cm) - Width 0.8 -Total Square (Area) (cm) 0.56 -Tunneling No -Undermining/Tunneling No -Circular Undermining No -Wound/Ulcer Outcome Not Healed -Ulcer Cleansing Rinsed/ Irrigated with Saline -Foul Odor after Cleansing No -Bioengineered Tissue No -Bleeding Controlled with Pressure -Offloading No -Treatment Response Procedure Tolerated Well -Debridement - Subq, 1st 20sq cm No #1 left leigh cluster -Time 09:03 -Correct Patient Yes -Correct Side, Site, Position Yes -Correct Procedure Yes -Procedure Performed Yes -Type of Procedure Debridement -Clinical Debridement Subcutaneous -Tissue Removed Subcutaneous -Post Debridement (cm) - Length 6.0 -Post Debridement (cm) - Width 1.0 -Post Debridement (cm) - Depth 0.1 -Total Square (Post) (cm) 6.00 -Area of Debridement (cm) - Length 6.0 -Area of Debridement (cm) - Width 1.0 -Total Square (Area) (cm) 6.00 -Tunneling No -Undermining/Tunneling No -Circular Undermining No -Wound/Ulcer Outcome Not Healed -Ulcer Cleansing Rinsed/ Irrigated with Saline -Foul Odor after Cleansing No -Bioengineered Tissue No -Bleeding Controlled with Pressure -Offloading No -Treatment Response Procedure Tolerated Well -Debridement - Subq, 1st 20sq cm Yes Pain Scale: 0-10 Numeric Is Patient Pain Free? Yes - Nurse 3 - General Ulcer D/C NN Start: 01/15/21 08:27 Freq: Status: Active Protocol: Activity Type Activity Date Activity User E-Sign Co-Sign Detail Recorded Client Recorded Date Recorded By Document 01/15/21 09:20 STEPHANIE [id number] 01/15/21 09:22 STEPHANIE 01/15/21 09:20 Wound Care Nurse 3 Right -Multi-Layered Wrap Application Unna Boot - Right ($) -Compression Wrap Unna Boot ($) ( single) Left -Multi-Layered Wrap Application Unna Boot - Right ($) -Compression Wrap Unna Boot ($) ( single) Pain Scale: 0-10 Numeric Is Patient Pain Free? Yes WC - Visit Discharge Discharge Condition Stable Ambulatory Status Ambulatory Transportation Private Auto Medication Reconcilliation completed Yes provided to patient/care provider Clinical Summary of Care Provided Yes Additional Wound Wound debrided: left leigh cluster Laterality: Left Type of Debridement: Excisional debridement Anesthesia Used: 4% Lidocaine Solution Depth: Down to and including healthy tissue and in the subcutaneous layer Percentage of wound debrided: 100 Instrument Used: 3mm curette Tissue Removed: Yellow slough, devitalized tissue Severity: Fat Layer Exposed Amount of bleeding with debridement: Mild Bleeding Controlled with: Compression and gauze Patient tolerated procedure: Patient tolerated procedure well Assessment/Plan Assessment/Plan (1) Venous insufficiency of both lower extremities: CODE(S): I87.2 - Venous insufficiency (chronic) (peripheral) (2) Pustular dermatitis: CODE(S): L30.8 - Other specified dermatitis (3) Nonhealing ulcer of left lower extremity with fat layer exposed: CODE(S): L97.922 - Non-pressure chronic ulcer of unspecified part of left lower leg with fat layer exposed (4) Nonhealing ulcer of right lower extremity with fat layer exposed: CODE(S): L97.912 - Non-pressure chronic ulcer of unspecified part of right lower leg with fat layer exposed (5) Obesity, morbid, BMI 40.0-49.9: CODE(S): E66.01 - Morbid (severe) obesity due to excess calories PLAN: Liz's ulcers were evaluated and debrided today at the wound center as above in the clinical panel. She tolerated the procedure well. Wound culture was taken of the left leigh ulcer and she will be treated with antibiotic based on results. Unsure of the etiology of her skin ulcers/lesions. Possibly folliculitis or pustular dermatitis. Will try treatment with UNNA boot compression and have her come back on Monday for a change in the UNNA boots and to see if she is tolerating them well. She is aware not to get dressings wet. If she is not tolerating them well, then I would recommend treating the ulcers with Promogran and gauze and having her wear tubigrip compression. If there is no improvement with UNNA therapy would recommend biopsy of several lesions and checking labs to evaluate for autoimmune disease, thyroid disorder and diabetes. She was encouraged to increase protein intake in order to promote healing. She was encouraged to elevate her legs at or above the level of her heart when sitting. She was advised to call with any increased pain, erythema, drainage, fever or chills. Will have her follow up in 1 week. 01/15/21 0185 <Electronically signed by Itzel Fisher DO> Cosigner Signature (if applicable): CC: Signed Kristen Santiago DO Work Phone: Start: 01-13-2021 End: 01-14-2021 Emergency Department Summary Comments: See Note; NOTES: [facility] Medical Records Department [address] [place] [address] Emergency Department Summary 01/13/21 MR#: [id number] Acct: [id number] Name: LIZ PEREZ Rep #: [id number] : 1960 60 From: Bud Grossman DO PCP: Dr. Kristen Santiago DO Status:DEP ER Location: ED HPI History of Present Illness Chief Complaint: Allergic Reaction Informant: patient Onset/Context/Timing Onset: Today and Hours (1) Context: Sudden Onset Timing: Continuous Quality: Swelling Location: Tongue Worsened by: Nothing Relieved by: Nothing Narrative Narrative: Patient presents with tongue swelling that began today. Patient states it began approximate 1 hour prior to arrival. Patient states that is mainly on the right side of her tongue. Patient states she started Bactrim 2 days ago for wound in her left foot. Patient states she is scheduled to see the wound center for that. Patient denies any prior history of allergies to sulfa. Patient denies any difficulty breathing. Patient states that she has some mild difficulty swallowing due to the tongue swelling but she does not feel any swelling in her throat. Patient denies any sore throat. Patient denies any rhinorrhea. Patient denies any nausea vomiting or diarrhea. Patient denies any chest pain. PFSH PFSH Home Medications prednisone 60 mg PO DAILY #15 tablet 01/13/21 [Rx Last Taken Unknown] Allergy/AdvReac Type Severity Reaction Status Date / Time No Known Allergies Allergy Verified 01/13/21 16:11 Surgical History (Updated 01/13/21 @ 16:[address] Bud Grossman DO) History of hysteroscopy Social History Smoking Status: Never smoker ROS ROS ED Constitutional Constitutional ED: Denies chills or fever(s) Eyes Eyes: Denies blurry vision or change in vision ENT ENT ED: Denies rhinorrhea or sore throat Cardiovascular Cardiovascular: Denies chest pain or palpitations Respiratory/Chest Respiratory/Chest: Denies cough or dyspnea Gastrointestinal Gastrointestinal: Denies nausea or vomiting Genitourinary Genitourinary ED: Denies dysuria or hematuria Musculoskeletal Musculoskeletal: Denies back pain or neck pain Integumentary Denies abscess or rash Neurologic Neurologic: Denies headache(s) or weakness Allergic/Immunologic Allergic/Immunologic ED: Reports tongue swelling; Denies mouth swelling or urticaria EXAM Physical Exam Const Vital Signs: 01/13/21 16:08 01/13/21 17:13 01/13/21 17:18 Temperature 98.3 F Temperature Source Temporal Pulse Rate 87 Respiratory Rate 16 Blood Pressure 148/95 H 180/110 H 171/85 H Blood Pressure Mean 112 133 113 Pulse Ox 100 99 99 Oxygen Delivery Method Room Air Room Air 01/13/21 19:27 Temperature Temperature Source Pulse Rate 68 Respiratory Rate Blood Pressure 140/76 H Blood Pressure Mean 97 Pulse Ox 96 Oxygen Delivery Method Room Air Positive well nourished and well developed General Appearance ED: well developed HEENT Reports moist mucous membranes HEENT Narrative: There is some edema over the right side of the tongue. There is no edema on the left side. Oropharynx is clear. Airway is patent. Neck supple and no JVD Extremity normal to inspection Neuro oriented x3, CN's II-XII intact bilaterally and no sensory deficits noted Sensorium / Orientation: alert Motor Exam: strength 5/5 throughout Psych mental status grossly normal MDM MDM MDM Narrative Medical decision making narrative: Patient was given a dose of prednisone here. Patient was observed in the emergency department. Patient's tongue swelling began to improve. Patient is feeling better on reevaluation. Patient was given a prescription for prednisone. Patient was also given a prescription for Keflex and was instructed to stop taking the Bactrim. Patient was instructed to follow-up with her primary care physician in 5 to 7 days. Patient was instructed return if worse in any way. Patient understood and was agreeable with the plan. All questions were answered. Discharge Plan Triage Chief Complaint: Allergic Reaction ED Provider: Bud Grossman Dx/Rx/DC Orders Clinical Impression: Angioedema Instructions: ED Angioedema Prescriptions: New prednisone 20 MG tablet 60 mg PO DAILY Qty: 15 RF: 0 Primary Care Provider: Kristen Santiago Referrals: Kristen Santiago DO [Primary Care Provider] - 5-7 Days Disposition Disposition: Home, Self Care What to do if you have Problems For any increased pain, shortness of breath, bleeding, nausea or vomiting, chest pain, or any unexpected problems, contact your Primary Care Provider. Call [facility] ([phone]) or report to the closest Emergency Room. Call 911 if necessary. 01/14/21 0138 <Electronically signed by Bud Grossman DO> Cosigner Signature (if applicable): CC: Dr. Kristen Santiago DO Signed Kristen Santiago DO Work Phone: Start: 08-11-2020 End: 08-12-2020 Foot min 3 Views Comments: See Note; NOTES: [facility] [address] [place] [address] Foot min 3 Views MR#: [id number] Acct: [id number] Name: LIZ PEREZ Rep #: [id number] : 1960 F 60 From: Jamey Eubanks PCP: Dr. Kristen Santiago DO Status: DEP AMB Study: Foot min 3 Views Date of Exam: 08/11/20 Exam# [id number] Ordering Dr: Toya Stout CORE ANALYST CORE ANALYST-C STUDY: X-RAY - RIGHT FOOT CLINICAL: Right foot pain for one month, redness and swelling for 3 days. TECHNIQUE: 3 view(s) of the foot. COMPARISON: None. FINDINGS: There is a plantar calcaneal enthesophyte. Otherwise, unremarkable talus, calcaneus, and tarsal bones. Normal visualized subtalar, talonavicular, calcaneocuboid, and tarsal articulations. There is joint space narrowing of the first through third tarsometatarsal articulations with dorsal osteophytes Normal metatarsi. Normal metatarsophalangeal joint of the great toe. Normal tibial and fibular sesamoid bones. Normal interphalangeal joint of the great toe. Normal phalanges of the great toe. Normal second through fifth metatarsophalangeal joints. Normal interphalangeal joints and phalanges of the lesser toes. The soft tissue structures are unremarkable. 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 Plantar calcaneal enthesophyte. Electronically Signed: Jamey Ceja MD at 14:41 EDT Tel , Service support , CC: ALVIN Stout; Dr. Kristen Santiago DO Hospice Home Health Aide: Signed Toya Maradiaga [facility] Work Phone: Start: 02-12-2019 End: 02-12-[address] Scanning Start: 09-26-2018 End: 09-26-2018 Breast Limited Unilateral Comments: See Note; NOTES: [facility] Imaging Services [address] [place] [address] Breast Limited Unilateral MR#: [id number] Acct: [id number] Name: LIZ PEREZ Rep #: [id number] : 1960 F 58 From: Prakash Rivas MD PCP: Kristen Santiago DO Status: REG CLI Study: Breast Limited Unilateral Date of Exam: 09/26/18 Exam# [id number] Ordering Dr: Gwyn Silva STUDY: ULTRASOUND BREAST - RIGHT REASON FOR EXAM: Female, 58 years old. Follow-up for bilateral breast cysts. TECHNIQUE: Axial and longitudinal images of the RIGHT breast were performed with a high resolution ultrasound transducer. COMPARISON: Comparison is made with prior ultrasound of the right breast dated April 02, 2018. FINDINGS: RIGHT Breast: There is a 5 mm x 5 mm x 3 mm cyst at the 3:00 position of the breast at 3 cm from the nipple. This is unchanged. Retroareolar ductal dilatation. US/Breast Limited Unilateral IMPRESSION: Stable cyst in the dilatation of the retroareolar ducts. ASSESSMENT CATEGORY: BIRADS Category 2: Benign. A letter regarding these results will be sent to the patient by the facility within 30 days. Electronically Signed: Prakash Rivas, at 15:25 EDT , Service support , CC: Kristen Santiago DO; GWYN SILVA [facility] Aide: Signed Kristen Santiago Start: 04-02-2018 End: 04-12-2018 Breast Complete Bilateral Comments: See Note; NOTES: [facility] Imaging Services [address] [place] [address] Breast Complete Bilateral MR#: [id number] Acct: [id number] Name: LIZ PEREZ Rep #: [id number] : 1960 F 57 From: John Enriquez MD PCP: Kristen Santiago DO Status: REG CLI Study: Breast Complete Bilateral Date of Exam: 04/02/18 Exam# [id number] Ordering Dr: Kristen Santiago DO STUDY: ULTRASOUND BREAST - RIGHT REASON FOR [...] support , US/Breast Complete Bilateral CC: Kristen Santiago DO Hospice Home Health Aide: Signed Kristen Santiago Work Phone: Start: 03-29-2018 End: 03-29-2018 Operative Report Comments: See Note; NOTES: [facility] Medical Records Department [address] [place] [address] Operative Report 03/29/18 1253 MR#: [id number] Acct: [id number] Name: LIZ PEREZ Rep #: [id number] : 1960 57 From: Antonella Potts MD PCP: Kristen Santiago DO Status: REG SDC Y Location: [place] [address] Report of Operation Date of Procedure: 03/29/18 [...] anesthesia. She was then placed in the [facility] where she was prepped and [...] ordered?: No 03/29/18 1258 <Electronically signed by Antonella Potts MD> Date Antonella Potts MD CC: Antonella Potts MD; Kristen Santiago DO Signed Kristen Santiago Start: 03-29-2018 End: 03-29-2018 Discharge Instruction Comments: See Note; NOTES: [facility] Medical Records Department [address] [place] [address] Instructions for Home/Discharge Instructions 03/29/186 MR#: [id number] Acct: [id number] Name: CHRISLIZ Hua Rep #: [id number] : 1960 57 From: Antonella Potts MD PCP: Kristen Santiago DO Status: REG [facility] Discharge Diet: No Restrictions Discharge Activity: Return to Normal Activity, May Shower, May Take a Tub Bath - in 2 weeks. Allergies/Adverse Reactions: Allergies No Known Allergies Allergy (Verified 03/27/18 09:45) Medications to take at Discharge NK 03/27/18 Primary Care Physician: Kristen Santiago DO [Primary Care Provider] - Test Results: Test results from this visit will be discussed in further detail at your follow-up appointment, if applicable. 03/29/18 1216 <Electronically signed by Antonella Potts MD> Date Antonella Potts MD CC: Kristen Gutierrez Start: 03-27-2018 End: 03-27-2018 Dexa Bone Density Study Comments: See Note; NOTES: [facility] Imaging Services [address] [place] [address] Dexa Bone Density Study MR#: [id number] Acct: [id number] Name: LIZ PEREZ Rep #: [id number] : 1960 F 57 From: Prakash Rivas MD PCP: Kristen Santiago DO Status: REG CLI Study: Dexa Bone Density Study Date of Exam: 03/27/18 Exam# [id number] Ordering Dr: Kristen Santiago DO STUDY: DUAL ENERGY X-RAY ABSORPTIOMETRY / [...] Total: g/cm2 (0.973) / T-score (-0.3) / Z-score (0.6) Left Femoral Neck: g/cm2 (0.878) / T-score (-1.2) / Z-score (0.0) Right Femur Total: g/cm2 (0.936) / T-score (-0.6) / Z-score (0.3) Right Femoral Neck: g/cm2 (0.899) / [...] Prakash Rivas MD at 15:49 EST Tel [phone], Service support , CC: Kristen Santiago DO Hospice Home Health Aide: Signed Kristen Santiago Work Phone: Start: 03-27-2018 End: 03-27-2018 SCREENING MAMM (CAD), BILAT Comments: See Note; NOTES: [facility] Imaging Services [address] [place] [address] SCREENING MAMM (CAD), BILAT MR#: [id number] Acct: [id number] Name: LIZ PEREZ Hua Rep #: [id number] : 1960 F 57 From: Prakash Rivas MD PCP: Kristen Santiago DO Status: [facility] Study: SCREENING MAMM (CAD), BILAT Date of Exam: 03/27/18 Exam# [id number] Ordering Dr: Kristen Santiago DO MAMMOGRAPHY - BILATERAL SCREENING REASON FOR EXAM: Female, 57 years old. Routine annual screening examination. PERTINENT HISTORY: Non-contributory. TECHNIQUE: Digital bilateral breast ashok (3D mammographic acquisition) in the CC and [...] delay biopsy of a clinically suspicious abnormality. [id number] Electronically Signed: Prakash Rivas MD at 15:48 EST Tel [phone], Service support , CC: Kristen Santiago DO [facility]osp[facility] Home Health Aide: Signed Kristen Santiago Work Phone: Start: 11-03-2017 End: 11-04-2017 Soft Tissue Neck WITH Contrast Comments: See Note; NOTES: [facility] Imaging Services [address] [place] [address] Soft Tissue Neck WITH Contrast MR#: [id number] Acct: [id number] Name: LIZ PEREZ Rep #: [id number] : 1960 F 57 From: Claudia Remy PCP: Kristen Santiago DO Status: REG CLI Study: Soft Tissue Neck WITH Contrast Date of Exam: 11/03/17 Exam# [id number] Ordering Dr: Morena Martinez STUDY: CT SOFT TISSUE NECK WITH CONTRAST [...] FINDINGS: Normal bilateral parotid glands. Normal bilateral shingle inspector spaces. Normal bilateral parapharyngeal spaces. Normal bilateral [...] Service support , CC: ALVIN Martinez; Kristen Santiago DO [facility]osp[facility] Home [facility] Aide: Signed Morena Martinez Start: 10-17-2017 End: 10-18-2017 Head/Neck Soft Tissue Comments: See Note; NOTES: [facility] Imaging Services [address] [place] [address] Head/Neck Soft Tissue MR#: [id number] Acct: [id number] Name: LIZ PEREZ Rep #: [id number] : 1960 F 57 From: Patel Hinds PCP: Kristen Santiago DO Status: REG CLI Study: Head/Neck Soft Tissue Date of Exam: 10/17/17 Exam# [id number] Ordering Dr: Morena Martinez STUDY: THYROID ULTRASOUND REASON FOR EXAM: Female, 57 years old. Right supraclavicular neck mass. Mass palpable. TECHNIQUE: Ultrasound evaluation of the thyroid was performed with real-time and static strauss-scale imaging. COMPARISON: Right clavicle October 12, 2017. FINDINGS: There is a palpable abnormality overlying the head of the clavicle/supraclavicular region, in correlation with the drawling made by the wardrobe stylist, and the position of the the BB marker noted on the right clavicle series. No mass or cyst identified. Subjectively the wardrobe stylist reported irregular appearance of the right-sided soft tissue when compared to the contralateral side. US/Head/Neck Soft Tissue IMPRESSION: No mass or cyst medial right supraclavicular region. Consider correlation with CT of the neck with contrast, if not contraindicated. Electronically Signed: Patel Hinds MD at 5:17 EDT , Service support , CC: ALVIN Martinez; Kristen Santiago DO Hospice Home [facility] Aide: Signed Morena Martinez Start: 10-12-2017 End: 10-12-2017 Clavicle Comments: See Note; NOTES: [facility] Imaging Services [address] [place] [address] Clavicle MR#: [id number] Acct: [id number] Name: LIZ PEREZ Rep #: [id number] : 1960 F 57 From: Jennifer Galindo MD PCP: Kristen Santiago DO Status: REG CLI Study: Clavicle Date of Exam: 10/12/17 Exam# [id number] Ordering Dr: Morena Martinez STUDY: X-RAY - RIGHT CLAVICLE REASON FOR EXAM: Female, 57 years old. Mass of the anterior base of the neck. TECHNIQUE: 3 view(s) of the clavicle. COMPARISON: None. FINDINGS: Normal clavicle. Normal acromioclavicular articulation. Normal visualized sternoclavicular articulation. Normal visualized pulmonary apex. RAD/Clavicle IMPRESSION: No apparent bony abnormality of the clavicle or ribs in the [id number]. The sternoclavicular joint is a difficult joint to assess on plain film radiography. If pathology of that joint is suspected, arthritic changes such as protruding hypertrophic osteophytes, joint alignment, etc. are better imaged on CT exam. Electronically Signed: Jennifer Galindo MD at 20:42 EDT , Service support , CC: ALVIN Martinez; Kristen Santiago DO [facility]osp[facility] Home [facility] Aide: Signed Morena Martinez Start: 07-21-2016 End: 07-21-2016 Inital Evaluation (1) - PT Comments: See Note; NOTES: [facility] [address] [place] [address] [address] [place] [address] Fax REHABILITATION SERVICES INITIAL EVALUATION MR#: [id number] Acct: [id number] Name: LIZ PEREZ Rep #: [id number] : 1960 56 From: Celena Del Rosario PT Referring Dr.: Vanessa Murrieta DO Status: REG RCR Insurance: [facility] Patient's Visit Information LIZ PEREZ is a 56 year old F referred to Physical Therapy by Vanessa Murrieta DO with a diagnosis of Deconditioning, Left Knee OA. Date of Evaluation: 07/21/16 Physical Therapist: Celena Del Rosario PT - Visit Plan Frequency: 1x/Week Duration: 6 Weeks Plan: Therapeutic exercises and activities in an aquatic setting to target increasing BLE strength and left knee motion. Exercises and activties also to target improving balance, posture and endurance for improved gait. Progress exercises based on patient progress and tolerance. Add HEP for patient to carry over activities on land to continue to improve her strength and endurance - Subjective Subjective: Patient presents in therapy today with chief complaint of left knee pain. She states pain has been going on for years but recently flared up a month ago after her leg gave out on her. Pain was so bad after the fall that she needed to use a cane for a couple days after. She states because of her pain and arthritis in the knees she feels weaker and unstable on her feet. She notices that her left leg is giving out more than normal. Leg feels weaker with walking, standing activities, and stair climbing and thats when pain increases. Pain with activity mainly behind knee cap into sharp or achy pain. Patient takes ibuprofen and use a hot pack with pain on occassion. 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 Sensation: Intact to light touch. Palpation: Tenderness to palpation over left knee cap; Swelling in bilateral lower extremities-- moderate around left knee cap. Gait: Patient ambulating with an antalgic gait pattern with decrease stance time on the left using a flat foot progression. Range of Motion: WNL bilaterl hips except limited IR; Right Knee 0-120 Left knee 10-110. Strength: BLE grossly 4+/5 strength except hip flexion 4/5, hip IR/ER 4/5, hip abduction (in sitting) 4/5, hip extension (in standing) 4/5, left knee flexion 4/5 and left knee extension 4/5; Pain with resistance to left knee flexion and extension. SLS: Bilateral SLS 6 seconds with available external support to prevent LOB. - Goals Goal 1:: Patient will increase bilateral hip strength and left knee strength by one muscle grade for improved performance of functional activities Goal Time Frame: 6-8 Weeks Goal 2:: Patient will increase left knee motion to match right for improved mobility Goal Time Frame: 6-8 Weeks Goal 3:: Patient will ambulate 500+ ft without sensation of knee giving out Goal Time Frame: 6-8 Weeks Goal 4:: Patient will increase SLS bilaterally by 5 seconds Goal Time Frame: 6-8 Weeks Goal 5:: Patient will perform therapeutic exercises and activities in an aquatic setting without knee pain Goal Time Frame: 6-8 Weeks Goal 6:: Patient will be independent with HEP Goal Time Frame: 6-8 Weeks - Rehabilitation Potential Physical Therapy Diagnosis: Muscle Weakness, Limited Motion, Impaired Balance and Gait Rehabilitation Potential: Fair - Anticipated Interventions Patient/Client Instruction: Educate patient on: Condition, Plan of Care For the Purpose of:: To decrease pain, To increase ROM, To improve muscle performance and motor function, To improve ability of physical actions for home/community/work/leisu re, To improve gait and locomotor functions, To improve endurance, To improve balance Therapeutic Exercise to Include: Strength training, Endurance training, Balance training, Body mechanics, Postural training, Flexibilty training, Gait and locomotor training, In an aquatic setting For the Purpose of:: To decrease pain, To increase ROM, To improve muscle performance and motor function, To improve ability of physical actions for home/community/work/leisu re, To improve gait and locomotor functions, To improve endurance, To improve balance Functional Training to Include: Gait training For the Purpose of:: To improve gait and locomotor functions, To improve endurance, To improve balance, To improve safety with gait For the Purpose of:: To decrease pain, To decrease swelling/inflammation, To increase ROM Thank you for the opportunity to evaluate your patient. For Medicare and Medicare O plans, please review the plan of care and approve it. It will need to be FAXED BACK to us at [phone] for Medicare purposes. Please let me know if there are questions or concerns regarding this plan of care. Physician Signature: Date: _ <Electronically signed by Celena Del Rosario PT> 07/21/16 1438 CC: Vanessa Murrieta DO; Kristen Santiago DO COLT Signed For Medicare only, by signing this I certify the plan of care. ___ Physicians Signature Date Kristen Santiago Start: 07-14-2016 End: 07-14-2016 Knee 4 or More Views Comments: See Note; NOTES: [facility] Imaging Services [address] [place] [address] Verdana 4d Knee 4 or More Views MR#: [id number] Acct: [id number] Name: LIZ PEREZ Rep #: [id number] : 1960 F 56 From: Rakesh Whitley MD PCP: Kristen Santiago DO Status: REG CLI Study: Knee 4 or More Views Date of Exam: 07/14/16 Exam# [id number] Ordering Dr: Vansesa Murrieta DO STUDY: X-RAY - LEFT KNEE REASON FOR EXAM: Female, 56 years old. No known injury. Pain in the entire left knee mostly anteriorly for about 3 weeks now TECHNIQUE: 4 view(s) of the knee. COMPARISON: None. FINDINGS: Normal visualized distal femur. Normal visualized proximal tibia and fibula. Normal proximal tibiofibular articulation. There is tricompartmental osteoarthritis more severely involving the lateral compartment and patellofemoral joint. There is a small joint effusion The soft tissue structures are unremarkable. RAD/Knee 4 or More Views IMPRESSION: Tricompartmental osteoarthritis more severe in the lateral compartment and patellofemoral joint with a small joint effusion Electronically Signed: Rakesh Whitley MD, FACR at 16:45 EDT , Service support [phone], CC: Vanessa Murrieta DO; Kristen Santiago DO Hospice Home Health Aide: Signed Kristen Santiago Plan of Treatment Date Care Activity Detail Author Start: 02-12-2029 Colon cancer screen colonoscopy Colon cancer screen colonoscopy [place], [place] Start: 02-12-2029 Screening for malignant neoplasm of colon [facility] Start: 01-30-2027 Diabetes mellitus screening Diabetes Screening [facility] Start: 10-28-2026 Diabetes mellitus screening Diabetes Screening [facility] Start: 04-14-2025 Screening for malignant neoplasm of cervix [facility] Start: 12-09-2024 COVID-19 Vaccine ( season) COVID-19 Vaccine ( season) [facility] Start: 12-09-2024 Influenza vaccination [facility] Start: 10-28-2024 Hemoglobin A1c measurement Diabetes: Hemoglobin A1C [facility] Start: 10-28-2024 Thyroid stimulating hormone measurement TSH Level [facility] Start: 2024 Pneumococcal Vaccine: 65+ Years (1 of 1 - PCV) Pneumococcal Vaccine: 65+ Years (1 of 1 - PCV) [facility] Start: 2024 Screening for osteoporosis Bone Density Scan [facility] Start: 02-22-2024 End: 02-22-2024 Patient encounter procedure 02/22/2024 9:20 AM EST Office Visit [facility] [place] [place] [address] [place] [address] [place] [address] [facility] [place] Start: 12-10-2023 COVID-19 Vaccine () COVID-19 Vaccine () [facility] Start: 12-10-2023 Influenza vaccination [facility] Start: 12-07-2023 End: 12-07-2023 Patient encounter procedure 12/07/2023 10:00 AM EDT Office Visit [facility] [place] [address] [facility] [address] [place] [address] [place] [address] [place] [address] [facility] [place] Start: 12-04-2023 End: 12-04-2023 Patient encounter procedure 12/04/2023 9:30 AM EDT Appointment [address] [phone] [facility] Start: 11-23-2023 End: 11-22-2024 CT Abdomen and Pelvis W contrast IV CT abdomen pelvis w IV contrast Imaging Routine Generalized abdominal pain Expected: 11/23/2023, Expires: 11/22/2024 [facility] Service Area Work Phone: Comment on above: Expected: 11/23/2023, Expires: Start: 11-23-2023 End: 11-22-2024 CT Chest W contrast IV CT chest w IV contrast Imaging Routine Achalasia Weight loss Generalized abdominal pain Expected: 11/23/2023, Expires: 11/22/2024 [facility] Work Phone: Comment on above: Expected: 11/23/2023, Expires: Start: 04-10-2023 Behavioral Health Screening Behavioral Health Screening [facility] Start: 01-11-2023 Lipid panel LIPID PANEL (82320) [facility] Work Phone: Start: 01-11-2023 Assay of thyroid stimulating hormone tsh TSH (60678) [facility]; [facility] Work Phone: Comment on above: do in 8weeks =dec week Start: 01-11-2023 Procedure Education Eprescribed prescriptions (G8553) [facility]; [facility] Work Phone: Start: 12-09-2022 Covid-19 Vaccine () Covid-19 Vaccine () [facility] Start: 12-09-2022 COVID-19 Vaccine () COVID-19 Vaccine () [facility] Start: 04-18-2022 Patient referral [facility] Work Phone: Start: 02-04-2022 Procedure Education Eprescribed prescriptions (G8553) [facility]; [facility] Work Phone: Start: 02-04-2022 Provider Instructions for Treatment Reviewed Lab [facility]; [facility] Work Phone: Start: 02-04-2022 Assay of thyroid stimulating hormone tsh TSH ([id number]) [facility]; [facility] Work Phone: Comment on above: do in mid to end of dec Start: 01-20-2022 Assay of free thyroxine T4, FREE (THYROXINE) (87066) [facility]; [facility] Work Phone: Start: 01-20-2022 Assay of triiodothyronine t3 free T3, FREE (TRIDOTHYRONINE) (63467) [facility]; [facility] Work Phone: Start: 01-20-2022 Assay of thyroid stimulating hormone tsh TSH (27223) [facility]; [facility] Work Phone: Start: 01-20-2022 Procedure Education Eprescribed prescriptions (G8553) [facility]; [facility] Work Phone: Start: 04-08-2021 Procedure Education Eprescribed prescriptions (G8553) [facility]; [facility] Work Phone: Start: 04-08-2021 Provider Instructions for Treatment [facility]; [facility] Work Phone: Start: 04-08-2021 Assay of thyroid stimulating hormone tsh TSH (60120) [facility]; [facility] Work Phone: Start: 01-11-2021 Procedure Education Eprescribed prescriptions (G8553) [facility]; [facility] Work Phone: Start: 12-25-2020 Procedure Education Eprescribed prescriptions (G8553) [facility]; [facility] Work Phone: Start: 12-25-2020 Provider Instructions for Treatment Follow up if no improvement or if symptoms worsen [facility]; [facility] Work Phone: Start: 08-10-2020 Procedure Education Eprescribed prescriptions (G8553) [facility]; [facility] Work Phone: Start: 08-10-2020 Provider Instructions for Treatment [facility]; [facility] Work Phone: Start: 2019 RSV High Risk: (Elderly (60+) or Population) (1 - Risk 60-74 years 1-dose series) RSV High Risk: (Elderly (60+) or Population) (1 - Risk 60-74 years 1-dose series) [facility] Start: 2019 RSV patients and/or patients aged 60+ years (1 - 1-dose 60+ series) RSV patients and/or patients aged 60+ years (1 - 1-dose 60+ series) [facility] Start: 2019 RSV Vaccine (1 - 1-dose 60+ series) RSV Vaccine (1 - 1-dose 60+ series) [facility] Start: 05-10-2019 Lipid panel LIPID PANEL (60386) [facility] Work Phone: Start: 12-09-2018 Influenza vaccination Flu vaccine (#1) [place], [place] Start: 10-01-2018 Glucose [Mass/Vol] GLUCOSE (15689) [facility] Work Phone: Start: 10-01-2018 Glucose quantitative blood xcpt reagent strip GLUCOSE (76006) [facility]; [facility] Work Phone: Start: 10-01-2018 Lipoprotein blood mya numbers & subclasses NMR Profile (50372) [facility] Work Phone: Start: 10-01-2018 Procedure Education Eprescribed prescriptions (G8553) [facility] Work Phone: Start: 04-09-2018 Procedure Education Eprescribed prescriptions (G8553) [facility] Work Phone: Start: 04-09-2018 Provider Instructions for Treatment Reviewed Diagnostic Tests [facility] Work Phone: Start: 11-15-2017 Provider Instructions for Treatment [facility] Work Phone: Start: 10-19-2017 Comprehensive metabolic panel METABOLIC PANEL, COMPREHENSIVE (42270) [facility] Work Phone: Start: 10-12-2017 Procedure Education Eprescribed prescriptions (G8553) [facility] Work Phone: Start: 10-12-2017 Provider Instructions for Treatment Follow up - Make appt after diagnostic tests [facility] Work Phone: Start: 07-20-2016 End: 07-20-2016 Physical Therapy General Physical Therapy [facility], [address] [place] [address], [address] [facility] Work Phone: Start: 07-14-2016 End: 07-14-2016 X-ray exam, knee, 4 or more X-Ray, Knee [facility] Work Phone: Start: 05-06-2013 Patient Education Sore throat: diagnosis and treatment [facility] Work Phone: Start: 10-30-2012 Screening for malignant neoplasm of cervix Pap Testing [facility] Start: 10-21-2010 Provider Instructions for Treatment [facility] Work Phone: Start: 2009 Breast cancer screen Breast cancer screen [place], [place] Start: 2009 Pneumococcal vaccination Pneumococcal Vaccine (1 of 1 - PCV) [facility] Start: 2009 Shingles Vaccine (1 of 2) Shingles Vaccine (1 of 2) [place] Start: 2009 Shingrix Vaccine (1 of 2) Shingrix Vaccine (1 of 2) [facility] Start: 2009 Zoster Vaccines (1 of 2) Zoster Vaccines (1 of 2) [facility] Start: 04-22-2009 Antibody varicella-zoster VARICELLA-ZOSTER ANTBODY (24006) [facility] Work Phone: Start: 04-22-2009 Antibody rubeola RUBEOLA ANTIBODY (23051) [facility] Work Phone: Start: 04-22-2009 Antibody rubella RUBELLA ANTIBODY (08979) [facility] Work Phone: Start: 04-22-2009 Antibody mumps MUMPS ANTIBODY (95671) [facility] Work Phone: Start: 10-31-2007 Cytp cerv/vag auto thin layer prep mnl screen Thin prep Pap (74426) [facility] Work Phone: Start: 10-31-2007 Provider Instructions for Treatment [facility] Work Phone: Start: 10-29-2007 Provider Instructions for Treatment Reviewed Diagnostic Tests [facility] Work Phone: Start: 2004 Diabetes Screening Diabetes Screening [facility] Start: 2004 Lipid panel Lipid Screening [facility] Start: 2004 Screening for malignant neoplasm of colon [facility] Start: 1999 Diabetes screen Diabetes screen [place], [place] Start: 1999 Lipid screen Lipid screen [place] Start: 1999 Screening for malignant neoplasm of breast [facility] Start: 1989 Screening for malignant neoplasm of cervix HPV Testing [facility] Start: 1981 DTaP/Tdap/Td Vaccines (1 - Tdap) DTaP/Tdap/Td Vaccines (1 - Tdap) [facility] Start: 1980 Cervical cancer screen Cervical cancer screen [place], [place] Start: 1980 Screening for malignant neoplasm of cervix [facility] Start: 1978 DTaP/Tdap/Td vaccine (1 - Tdap) DTaP/Tdap/Td vaccine (1 - Tdap) [place] Start: 1978 Pneumococcal vaccination Pneumococcal Vaccine (1 of 2 - PCV) [facility] Start: 1978 Urine microalbumin profile DTaP,Tdap,Td Vaccine (1 - Tdap) [facility] Start: 1977 Hepatitis C screening Hepatitis C Screening [facility] Start: 1977 HIV screening HIV Screening [facility] Start: 1974 HIV screen HIV screen [place], [place] Start: 1960 MMR Vaccines (1 of 1 - Standard series) MMR Vaccines (1 of 1 - Standard series) [facility] Start: 1959 Annual wellness visit Welcome to Medicare Visit [facility] Start: 1959 Hepatitis C screen Hepatitis C screen [place], [place] Start: 1959 HIV screening HIV Screening [facility] Start: 1959 Lipid panel Lipid Panel [facility] Start: 1959 Screening for malignant neoplasm of colon [facility] Start: 1959 Screening for osteoporosis Bone Density Scan [facility] Start: 1959 Yearly Adult Physical Yearly Adult Physical [facility] End: 09-04-2024 [facility] Service Area Work Phone: Comment on above: Once for 1 Occurrences starting 09/05/19 until 09/04/2024 End: 09-04-2024 Continuous Pulse oximetry, In Phase 1 Continuous Pulse oximetry, In Phase 1 Respiratory Care Routine Continuous until discontinued starting 09/04/2024 [facility] Service Area Work Phone: Comment on above: Continuous until discontinued starting 0 09/04/2024 End: 12-04-2023 CT Chest and Abdomen and Pelvis WO contrast [facility] Service Area Work Phone: Comment on above: Once for 1 Occurrences starting 12/04/19 until 12/04/2023 Electrocardiogram, 12-lead PRN ACS symptoms Electrocardiogram, 12-lead PRN ACS symptoms ECG Routine As needed until discontinued starting 02/09/2024 [facility] Work Phone: Comment on above: As needed until discontinued starting End: 10-23-2023 Esophageal manometry [facility] Work Phone: Comment on above: Once for 1 Occurrences starting 10/23/19 until 10/23/2023 End: 02-09-2024 Incentive spirometry Instruct Incentive spirometry Instruct Respiratory Care Routine Once for 1 Occurrences starting 02/09/2024 until 02/09/2024 [facility] Work Phone: Comment on above: Once for 1 Occurrences starting 02/09/20 until 02/09/2024 Patient referral [facility] Work Phone: End: 02-12-2019 Surgical Pathology Surgical Pathology Lab Routine Once for 1 Occurrences starting 02/12/2019 until 02/12/[facility] on above: Once for 1 Occurrences starting 02/13/20 until 02/12/2019 Surgical Pathology Surgical Path ology Lab Routine 02/12/2019 7[facility] [facility] Work Phone: [facility] Work Phone: [facility] Work Phone: [facility] Work Phone: [facility] Work Phone: [facility] Work Phone: [facility] Work Phone: [facility] Work Phone: Nonsmoker : Eprescribed prescriptions (G8553) [facility] Work Phone: Sore throat : So re throat: diagnosis and treatment [facility] Work Phone: [facility] Work Phone: [facility] Work Phone: [facility] Work Phone: [facility] Payers Date Payer Category Payer Unknown [id number] 2024 Self-pay [id number] 2024 Medicare MEDICARE PART A AND B [id number] 2024 Medicare [id number] 2024 Self-pay [id number] 2023 Managed Care (Private) [id number] 2020 Unknown [id number] 2018 Unknown 2017 Private Health Insurance [id number] 2006 Unknown [id number] 1959 Unknown [id number] 2.16.840.1.795151.3.579.2. 716 1959 Unknown [id number] 2.16.840.1.511834.3.579.2. 627 1959 Unknown [id number] 2.16.840.1.113011.3.579.2. 1243 1959 Unknown [id number] 2.16.840.1.062515.3.579.2. 1243 1959 Unknown [id number] 2.16.840.1.777928.3.579.2. 1244 1959 Unknown [id number] 2.16.840.1.576804.3.579.2. 1244 1959 Unknown [id number] 2.16.840.1.525856.3.579.2. 1244 1959 Unknown [id number] 2.16.840.1.703756.3.579.2. 124 1959 Unknown [id number] 2.16.840.1.280776.3.579.2. 124 1959 Unknown [id number] 2.16.840.1.326673.3.579.2. 124 1959 Unknown [id number] 2.16.840.1.967117.3.579.2. 1245 1959 Unknown [id number] 2.16.840.1.405133.3.579.2. 124 1959 Unknown [id number] 2.16.840.1.448587.3.579.2. 1245 Unknown [id number] 2.16.840.1.726595.3.579.2. 462 Unknown [id number] 2.16.840.1.352720.3.579.2. 462 Unknown [id number] 2.16.840.1.880951.3.579.2. 462 Unknown [id number] 2.16.840.1.837882.3.579.2. 462 Unknown [id number] 2.16.840.1.134341.3.579.2. 462 Social History Date Type Detail Facility Start: 07-29-2023 End: 02-09-2024 Caffeine Use Caffeine Use [facility] Work Phone: Comment on above: daily Light 3 x week Lives alone 1 Dogx2, Cat Start: 02-12-2019 Tobacco smoking stat us NHIS [facility] Start: 02-12-2019 End: 02-09-2024 Alcohol intake Never [facility] Start: 02-12-2019 History SDOH [facility] Start: 1960 [facility] [place] [place] Start: 04-14-2022 End: 04-14-2022 Tobacco smoking status NHIS Unknown if ever smoked [facility] Start: 1960 Sex Assigned At Female [facility] Start: 05-05-2023 End: 10-23-2023 Tobacco smoking status Never smoked tobacco (finding) [facility] Sex Assigned At Male [facility] Start: 07-29-2023 Alcohol intake Current drinke r of alcohol (finding) [facility] Start: 03-04-2022 National Score (1-100), lower number is lower risk Not on file [facility] Start: 10-23-2023 Tobacco use and exposure Smokeless tobacco non-user [facility] Work Phone: Start: 02-09-2024 End: 09-04-2024 Alcoholic beverage intake Ex-drinker (finding) [facility] Work Phone: Has the [employer], or [employer] threatened to shut off services in your home in past 12Mo No [facility] How often to you hav e a drink containing alcohol? Never [facility] Work Phone: (I/We) worried javan er (my/our) food would run out before (I/we) got money to buy more. Never true [facility] Work Phone: Start: 02-09-2024 Gender identity Identifies as female gender (finding) [facility] Work Phone: Start: 10-13-2023 End: 09-04-2024 Exposure to SARS-CoV-2 (event) Not sure [facility] Work Phone: Goals Date Patient Goal Desired Activity /State Personal health goal Functional Status Date Assessment Result Facility 09-04-2024 [place] - suicide s everity rating scale screener - recent [C-SSRS] [facility] Work Phone: 09-04-2024 [facility]: 09-04-2024 Functional status [facility] Work Phone: 02-09-2024 Functional status [facility] Work Phone: 02-09-2024 [facility] Work Phone: 02-09-2024 Total score [AUDIT-C] 0 02/09/20 24 6:34 PM EDT Fritz Messer RN [facility] Work Phone: 02-09-2024 Functional status 3 02/09/2024 1 0:30 AM EDT Zeinab Rothman MD 3 [facility] Work Phone: 02-09-2024 [facility] Work Phone: 10-31-2023 Patient Health Questionnaire 2 item (PHQ-2) [Reported] [facility] Work Phone: 10-31-2023 Functional status [facility] 10-31-2023 [facility] Work Phone: 10-31-2023 [facility] 10-30-2023 Functional status 2 [facility] 10-30-2023 [facility] Work Phone: 10-29-2023 [facility] 10-29-2023 Functional status [facility] Work Phone: 10-29-2023 [place] - suicide s everity rating scale screener - recent [C-SSRS] [facility] Work Phone: 10-23-2023 Functional status [facility] 10-23-2023 [facility] Work Phone: 05-05-2023 Functional Status Independent Layla [place] 05-05-2023 Functional Status confirmed [facility] Work [facility]: Mental Status Date Assessment Result Facility 02-09-2024 Cognitive function finding Negat svitlana 02/09/2024 5:00 PM EDT Sebastian Frias RN Negative [facility] 05-05-2023 Mental Status Oriented x 4 [facility] 05-05-2023 Mental Status [facility] Work Phone: Clinical Notes 04-14-2022 to 09-04-2024 Steven Cobian MD - 09/04/2024 9:25 AM Jeanette Cobian MD - 09/04/2024 9:25 AM Jeanette Cobian MD - 09/04/2024 9:25 AM Jeanette Cobian MD - 02/26/2024 10:30 AM ESTDischarge Instructions Note Date & Type Note Facility 09-04-2024 History and physical note History Of Present Illness Liz Perez is a 64 y.o. female presenting s/p POEM procedure for Type II achalasia here for EGD with Bruno capsule placement off meds. Patient has been doing very well with resolution of preoperative symptoms. . Past Medical History Medical History[1] Surgical History Surgical History[2] Social History She reports that she has never smoked. She has never used smokeless tobacco. She reports that she does not currently use alcohol. She reports that she does not use drugs. Family History Family History[3] Allergies Sulfamethoxazole and Trimethoprim Review of Systems Constitutional: Negative. HENT: Negative. Respiratory: Negative. Cardiovascular: Negative. Gastrointestinal: Negative. Genitourinary: Negative. Musculoskeletal: Negative. Physical Exam Constitutional: General: She is not in acute distress. Appearance: She is not ill-appearing. Eyes: General: No scleral icterus. Cardiovascular: Rate and Rhythm: Normal rate. Pulmonary: Effort: Pulmonary effort is normal. Abdominal: General: Abdomen is flat. There is no distension. Palpations: Abdomen is soft. Tenderness: There is no abdominal tenderness. There is no guarding. Musculoskeletal: General: Normal range of motion. Cervical back: Normal range of motion. Skin: General: Skin is warm. Neurological: General: No focal deficit present. Last Recorded Vitals Blood pressure 158/81, pulse 71, temperature 36.5 C (97.7 F), temperature source Temporal, resp. rate 17, height 1.727 m (5' 8), weight 136 kg (300 lb), SpO2 99%. Relevant Results Assessment & Plan Achalasia I spent 10 minutes in the professional and overall care of this patient. Steven Cobian MD [1] Past Medical History: Diagnosis Date Dysphagia GERD (gastroesophageal reflux disease) Hypothyroidism [2] Past Surgical History: Procedure Laterality Date COLONOSCOPY ESOPHAGOGASTRODUODENOSCOPY HYSTEROSCOPY [3] No family history on file. [facility] Work Phone: 09-04-2024 History and physical note History Of Present Illness Liz Perez is a 64 y.o. female presenting s/p POEM procedure for Type II achalasia here for EGD with Bruno capsule placement off meds. Patient has been doing very well with resolution of preoperative symptoms. . Past Medical History Medical History[1] Surgical History Surgical History[2] Social History She reports that she has never smoked. She has never used smokeless tobacco. She reports that she does not currently use alcohol. She reports that she does not use drugs. Family History Family History[3] Allergies Sulfamethoxazole and Trimethoprim Review of Systems Constitutional: Negative. HENT: Negative. Respiratory: Negative. Cardiovascular: Negative. Gastrointestinal: Negative. Genitourinary: Negative. Musculoskeletal: Negative. Physical Exam Constitutional: General: She is not in acute distress. Appearance: She is not ill-appearing. Eyes: General: No scleral icterus. Cardiovascular: Rate and Rhythm: Normal rate. Pulmonary: Effort: Pulmonary effort is normal. Abdominal: General: Abdomen is flat. There is no distension. Palpations: Abdomen is soft. Tenderness: There is no abdominal tenderness. There is no guarding. Musculoskeletal: General: Normal range of motion. Cervical back: Normal range of motion. Skin: General: Skin is warm. Neurological: General: No focal deficit present. Last Recorded Vitals Blood pressure 158/81, pulse 71, temperature 36.5 C (97.7 F), temperature source Temporal, resp. rate 17, height 1.727 m (5' 8), weight 136 kg (300 lb), SpO2 99%. Relevant Results Assessment & Plan Achalasia I spent 10 minutes in the professional and overall care of this patient. Steven Cobian MD [1] Past Medical History: Diagnosis Date Dysphagia GERD (gastroesophageal reflux disease) Hypothyroidism [2] Past Surgical History: Procedure Laterality Date COLONOSCOPY ESOPHAGOGASTRODUODENOSCOPY HYSTEROSCOPY [3] No family history on file. documented in this encounter [facility] Work Phone: 09-04-2024 History and physical note History Of Present Illness Liz Perez is a 64 y.o. female presenting s/p POEM procedure for Type II achalasia here for EGD with Bruno capsule placement off meds. Patient has been doing very well with resolution of preoperative symptoms. . Past Medical History Medical History[1] Surgical History Surgical History[2] Social History She reports that she has never smoked. She has never used smokeless tobacco. She reports that she does not currently use alcohol. She reports that she does not use drugs. Family History Family History[3] Allergies Sulfamethoxazole and Trimethoprim Review of Systems Constitutional: Negative. HENT: Negative. Respiratory: Negative. Cardiovascular: Negative. Gastrointestinal: Negative. Genitourinary: Negative. Musculoskeletal: Negative. Physical Exam Constitutional: General: She is not in acute distress. Appearance: She is not ill-appearing. Eyes: General: No scleral icterus. Cardiovascular: Rate and Rhythm: Normal rate. Pulmonary: Effort: Pulmonary effort is normal. Abdominal: General: Abdomen is flat. There is no distension. Palpations: Abdomen is soft. Tenderness: There is no abdominal tenderness. There is no guarding. Musculoskeletal: General: Normal range of motion. Cervical back: Normal range of motion. Skin: General: Skin is warm. Neurological: General: No focal deficit present. Last Recorded Vitals Blood pressure 158/81, pulse 71, temperature 36.5 C (97.7 F), temperature source Temporal, resp. rate 17, height 1.727 m (5' 8), weight 136 kg (300 lb), SpO2 99%. Relevant Results Assessment & Plan Achalasia I spent 10 minutes in the professional and overall care of this patient. Steven Cobian MD [1] Past Medical History: Diagnosis Date Dysphagia GERD (gastroesophageal reflux disease) Hypothyroidism [2] Past Surgical History: Procedure Laterality Date COLONOSCOPY ESOPHAGOGASTRODUODENOSCOPY HYSTEROSCOPY [3] No family history on file. documented in this encounter [facility] Work Phone: 02-26-2024 History of Present illness Narrative Subjective Patient ID: Liz Perez is a 63 y.o. female who presents for follow-up after peroral endoscopic myotomy. A telephone visit (audio only) between the patient and the provider was utilized to provide this telehealth service. Verbal consent was requested and obtained from the patient on this date, 02/26/24, for a telehealth visit. This communication lasted 15 minutes. . Patient is a 63-year-old female with achalasia who underwent a peroral endoscopic myotomy approximately 2 weeks ago. She denies fever, chills, chest pain, shortness of breath, abdominal pain, hematemesis, melena, dark stools, heartburn, reflux, regurgitation, vomiting, nor any dysphagia symptoms. She is tolerating a soft diet without issues. She is taking her proton pump inhibitors once daily. Review of Systems n/c Objective Physical Exam n/a Assessment/Plan Patient is doing very well status post peroral endoscopic myotomy and I recommended she continue to advance her activity level and diet as tolerated. I recommend she stay on once daily proton pump inhibitor and contact the office for any change in symptoms or evidence of bleeding or infection. She will undergo an upper endoscopy with Bruno capsule placement off medications in 6 months. Risks were explained including bleeding, infection, perforation, and premature dislodgment of Bruno capsule. She will otherwise follow-up as needed. Steven Cobian MD 02/26/24 2:20 PM documented in this encounter [facility] Work Phone: 02-10-2024 Hospital course Narrative Discharge Diagnosis Achalasia of digestive tract Issues Requiring Follow-Up Dysphagia, PO tolerance Test Results Pending At Discharge Pending Labs No current pending labs. Hospital Course 63F w/type II achalasia who presented as an outpatient and underwent planned elective POEM procedure with Dr. Cobian on 02/08. Patient did well post-operatively without any issues. She tolerated CLD and was advanced to FLD on POD#1. Able to swallow pills. Pain well controlled, ambulating, and voiding without issue. Plan for discharge home on FLD x1 week and then soft diet until follow-up. Patient should take PPI for the next 6 months. Follow-up with Dr. Cobian in 2 weeks. Pertinent Physical Exam At Time of Discharge Physical Exam Constitutional: Appearance: Normal appearance. HENT: Head: Normocephalic and atraumatic. Cardiovascular: Rate and Rhythm: Normal rate and regular rhythm. Pulmonary: Effort: Pulmonary effort is normal. Breath sounds: Normal breath sounds. Abdominal: General: Abdomen is flat. Palpations: Abdomen is soft. Musculoskeletal: General: Normal range of motion. Neurological: General: No focal deficit present. Mental Status: She is alert and oriented to person, place, and time. Psychiatric: Mood and Affect: Mood normal. Behavior: Behavior normal. Home Medications Medication List START taking these medications omeprazole [address] capsule; Commonly known as: PriLOSEC traMADol 50 mg tablet; Commonly known as: Ultram; Take 1 tablet (50 mg) by mouth every 6 hours if needed for severe pain (7 - 10). CONTINUE taking these medications furosemide 20 mg tablet; Commonly known as: Lasix levothyroxine 50 mcg tablet; Commonly known as: Synthroid, Levoxyl; Take 1.5 tablets (75 mcg) by mouth early in the morning.. ASK your doctor about these medications fluconazole 200 mg tablet; Commonly known as: Diflucan; Take 1 tablet (200 mg) by mouth 1 time for 1 dose.; Ask about: Should I take this medication? nystatin 100,000 unit/mL suspension; Commonly known as: Mycostatin; Take 5 mL (500,000 Units) by mouth 4 times a day for 3 days.; Ask about: Should I take this medication? Outpatient Follow-Up Future Appointments Date Time Provider Department Center 02/22/2024 9:20 AM Steven Cobian MD [id number] Academic Tiffanie Solis MD Cosigned by Steven Cobian MD at 02/10/2024 9:55 AM EDT documented in this encounter [facility] Work Phone: 02-10-2024 Miscellaneous Notes The patient's goals for the shift include pt will remain safe throughout shift The clinical goals for the shift include pt pain will be managed throughout shift Problem: Pain - Adult Goal: Verbalizes/displays adequate comfort level or baseline comfort level Outcome: Progressing Problem: Safety - Adult Goal: Free from fall injury Outcome: Progressing Problem: Fall/Injury Goal: Be free from injury by end of the shift Outcome: Progressing Problem: Pain Goal: Takes deep breaths with improved pain control throughout the shift Outcome: Progressing The patient's goals for the shift include The clinical goals for the shift include Patient will maintain pain less than 5/10 Problem: Safety - Adult Goal: Free from fall injury 02/09/20242305 by Isis Watkins RN Outcome: Progressing 02/09/20242305 by Isis Watkins RN Outcome: Progressing Problem: Discharge Planning Goal: Discharge to home or other facility with appropriate resources 02/09/20242305 by Isis Watkins RN Outcome: Progressing 02/09/20242305 by Isis Watkins RN Outcome: Progressing The patient's goals for the shift include pain control. The clinical goals for the shift include patient will maintain pain level less than 5/10 throughout this shift. Over the shift, the patient did make progress towards her goals and managed her pain with the prescribed pain regime. Postop Check Liz Perez is a 63yo F s/p POEM. Patient is doing well postoperatively. Patient's pain is well-controlled, tolerating a clear liquid diet, and voiding independently. Patient denies N/V, fevers, chills, chest pain, and shortness of breath. O: Vitals as below Vitals: 02/09/24 1700 BP: 168/75 Pulse: 73 Resp: 12 Temp: 37 C (98.6 F) SpO2: 98% General: Awake, alert, conversive Cardiovascular: RR Respiratory/Thorax: even, unlabored on RA Gastrointestinal: soft, NT, ND. Genitourinary: voiding independently Skin: warm, dry Musculoskeletal: KHAN Extremities: no edema, SCDs on Psychological: appropriate mood/affect Assessment/Plan: Liz Perez is a 63yo F s/p POEM. Patient is doing well postoperatively. - pain management with tylenol, tramadol and oxycodone PRN - diet CLD - PPI - strict I&Os - monitor for signs of bleeding - continue management on RNF Zeinab Rothman MD General Surgery PGY3 [facility] [address] POEM Operative Note Date: 02/09/2024 OR Location: [facility] [place] Name: Liz Perez, : 1960, Age: 63 y.o., , Sex: female Diagnosis Pre-op Diagnosis * Achalasia of cardia [K22.0] Post-op Diagnosis * Achalasia of cardia [K22.0] Procedures POEM 11082 - [place] TRANSORAL LOWER ESOPHAGEAL MYOTOMY Surgeons * Steven Cobian - Primary Resident/Fellow/Other Supervisor Mending: Surgeons and Role: * Zeinab Rothman MD - Resident - Assisting * Jl Peña MD - Fellow Staff: Wrecker Driver: Michael Larose Person: Yani Anesthesia Staff: Anesthesiologist: Mart Aguila DO Camper Assembler: Christine Johnson MD Procedure Summary Anesthesia: General ASA: II Estimated Blood Loss: 5mL Intra-op Medications: Administrations occurring from 0820 to 1010 on 02/09/24: Medication Name Total Dose surgical lubricant gel 1 Application sterile water irrigation solution 1,000 mL Unable to Find 43 mL ceFAZolin (Ancef) vial 1 g 3 g dexAMETHasone (Decadron) injection 4 mg/mL 8 mg dexmedeTOMIDine (Precedex) bolus from bag 20 mcg fentaNYL (Sublimaze) injection 50 mcg/mL 100 mcg ketamine injection 50 mg/ 5 mL (10 mg/mL) 50 mg LR bolus Cannot be calculated lidocaine (Xylocaine) injection 2 % 100 mg midazolam PF (Versed) injection 1 mg/mL 2 mg ondansetron (Zofran) 2 mg/mL injection 4 mg propofol (Diprivan) injection 10 mg/mL 320 mg rocuronium (ZeMuron) 50 mg/5 mL injection 70 mg succinylcholine (Anectine) 20 mg/mL injection 200 mg Anesthesia Record Intraprocedure I/O Totals Intake Dexmedetomidine 0.00 mL The total shown is the total volume documented since Anesthesia Start was filed. LR bolus 250.00 mL Total Intake 250 mL Specimen: No specimens collected Drains and/or Catheters: * None in log * Tourniquet Times: Implants: Findings: Dilated esophagus with hypertensive lower esophageal sphincter Indications: Liz Perez is an 63 y.o. female who is having surgery for Achalasia of cardia [K22.0]. The patient was seen in the preoperative area. The risks, benefits, complications, treatment options, non-operative alternatives, expected recovery and outcomes were discussed with the patient. The possibilities of reaction to medication, pulmonary aspiration, injury to surrounding structures, bleeding, recurrent infection, the need for additional procedures, failure to diagnose a condition, and creating a complication requiring transfusion or operation were discussed with the patient. The patient concurred with the proposed plan, giving informed consent. The site of surgery was properly noted/marked if necessary per policy. The patient has been actively warmed in preoperative area. Preoperative antibiotics have been ordered and given within 1 hours of incision. Venous thrombosis prophylaxis have been ordered including bilateral sequential compression devices Procedure Details: Patient was taken to the op room and placed on operating table in supine position. Following duction general acetic patient was intubated endotracheally. Timeout was performed per protocol and she received preoperative IV antibiotics and sequential stockings were placed prior to induction. No chemical DVT prophylaxis was deemed necessary. Endoscope mounted with overtube was advanced into the cervical esophagus. Esophagus was mildly dilated and tortuous in the lower esophageal sphincter was identified and was quite hypertensive but able to be traversed. Retroflexed view showed no inflammatory or neoplastic process. Overtube was advanced. Endoscope was returned to the esophagus after an oblique soft EMR Was placed. EG junction was measured at 40 cm from incisors and starting 14 cm proximal to this at 26 cm from incisors the anterior wall of esophagus was confirmed with instillation of methylene blue into the esophagus and watching it layout posteriorly. On the anterior wall approximate 10 cc of methylene blue with dextrose and epinephrine solution were injected to make a submucosal wheal. A 2 cm longitudinal mucosotomy was created in the endoscope was advanced in the submucosal plane onto the gastric wall for approximately 2 cm as confirmed with retroflexed view in the gastric lumen. Starting 3 cm inferior to the inferior aspect of the mucosotomy, circular muscle fibers were fully divided all the way to the end of the submucosal tunnel. Endoscope was returned to the peoria lumen the lower esophageal sphincter was now widely gaping and patulous. There is no evidence of mucosal injury. Endoscope was returned in the submucosal tunnel and there is notes of bleeding. Mucosotomy was closed with multiple endoscopic clips. Stomach was desufflated and the endoscope and overtube withdrawn without further findings. Dr. Jl Green served as bankruptcy assistant as there was no skilled surgical elastic knitter available for this complex procedure. He participated in the submucosal injection, creation of mucosotomy, submucosal tunnel creation, performance of myotomy, and closure of the mucosotomy. Patient was extubated in the op room and transported to recovery room in stable condition. Complications: None; patient tolerated the procedure well. Disposition: PACU - hemodynamically stable. Condition: stable Additional Details: Attending Attestation: I was present and scrubbed for the entire procedure. Steven Cobian documented in this encounter [facility] Work Phone: 02-10-2024 Plan of care note The patient's goals for the shift include pt will remain safe throughout shift The clinical goals for the shift include pt pain will be managed throughout shift Problem: Pain - Adult Goal: Verbalizes/displays adequate comfort level or baseline comfort level Outcome: Progressing Problem: Safety - Adult Goal: Free from fall injury Outcome: Progressing Problem: Fall/Injury Goal: Be free from injury by end of the shift Outcome: Progressing Problem: Pain Goal: Takes deep breaths with improved pain control throughout the shift Outcome: Progressing [facility] 02-09-2024 Plan of care note The patient's goals for the shift include The clinical goals for the shift include Patient will maintain pain less than 5/10 Problem: Safety - Adult Goal: Free from fall injury 02/09/20242305 by Isis Watkins RN Outcome: Progressing 02/09/2024 230 by Isis Watkins RN Outcome: Progressing Problem: Discharge Planning Goal: Discharge to home or other facility with appropriate resources 02/09/2024 230 by Isis Watkins RN Outcome: Progressing 02/09/2024 230 by Isis Watkins RN Outcome: Progressing [facility] 02-09-2024 Plan of care note The patient's goals for the shift include pain control. The clinical goals for the shift include patient will maintain pain level less than 5/10 throughout this shift. Over the shift, the patient did make progress towards her goals and managed her pain with the prescribed pain regime. [facility] Work Phone: 02-09-2024 Nurse Note .4 Eyes Skin Assessment Reason for assessment? Admission Does the patient have a wound? no Wound RN consult placed? No Preventative foam dressing applied? No Four eyes skin check performed with Dominique Chavez RN. [facility] Work Phone: 02-09-2024 Nurse Note .4 Eyes Skin Assessment Reason for assessment? Admission Does the patient have a wound? no Wound RN consult placed? No Preventative foam dressing applied? No Four eyes skin check performed with Dominique Chavez RN. Report received from [facility] (PACU) at 1712. Patient arrived .......Patient arrives to the unit, stable with family, no pain at this time, Jin made aware. documented in this encounter [facility] Work Phone: 02-09-2024 Nurse Note Report received from [facility] (PACU) at 1712. Patient arrived .......Patient arrives to the unit, stable with family, no pain at this time, Jin made aware. [facility] Work Phone: 02-09-2024 Note Formatting of this n ote is different from the original. Postop Check Liz Chris is a 63yo F s/p POEM. Patient is doing well postoperatively. Patient's pain is well-controlled, tolerating a clear liquid diet, and voiding independently. Patient denies N/V, fevers, chills, chest pain, and shortness of breath. O: Vitals as below Vitals: 02/09/24 1700 BP: 168/75 Pulse: 73 Resp: 12 Temp: 37 C (98.6 F) SpO2: 98% General: Awake, alert, conversive Cardiovascular: RR Respiratory/Thorax: even, unlabored on RA Gastrointestinal: soft, NT, ND. Genitourinary: voiding independently Skin: warm, dry Musculoskeletal: KHAN Extremities: no edema, SCDs on Psychological: appropriate mood/affect Assessment/Plan: Liz Perez is a 63yo F s/p POEM. Patient is doing well postoperatively. - pain management with tylenol, tramadol and oxycodone PRN - diet CLD - PPI - strict I&Os - monitor for signs of bleeding - continue management on RNF Zeinab Rothman MD General Surgery PGY3 [facility] [id number] [facility] Work Phone: 02-09-2024 Note Formatting of this n ote is different from the original. POEM Operative Note Date: 02/09/2024 OR Location: [facility] OR Name: Liz Perez, : 1960, Age: 63 y.o., , Sex: female Diagnosis Pre-op Diagnosis * Achalasia of cardia [K22.0] Post-op Diagnosis * Achalasia of cardia [K22.0] Procedures POEM 31051 - [place] TRANSORAL LOWER ESOPHAGEAL MYOTOMY Surgeons * Steven Cobian - Primary Resident/Fellow/Other Supervisor Mending: Surgeons and Role: * Zeinab Rothman MD - Resident - Assisting * Jl Peña MD - Fellow Staff: Wrecker Driver: Michael Larose Person: Yani Anesthesia Staff: Anesthesiologist: Mart Aguila DO Camper Assembler: Christine Johnson MD Procedure Summary Anesthesia: General ASA: II Estimated Blood Loss: 5mL Intra-op Medications: Administrations occurring from 0820 to 1010 on 02/09/24: Medication Name Total Dose surgical lubricant gel 1 Application sterile water irrigation solution 1,000 mL Unable to Find 43 mL ceFAZolin (Ancef) vial 1 g 3 g dexAMETHasone (Decadron) injection 4 mg/mL 8 mg dexmedeTOMIDine (Precedex) bolus from bag 20 mcg fentaNYL (Sublimaze) injection 50 mcg/mL 100 mcg ketamine injection 50 mg/ 5 mL (10 mg/mL) 50 mg LR bolus Cannot be calculated lidocaine (Xylocaine) injection 2 % 100 mg midazolam PF (Versed) injection 1 mg/mL 2 mg ondansetron (Zofran) 2 mg/mL injection 4 mg propofol (Diprivan) injection 10 mg/mL 320 mg rocuronium (ZeMuron) 50 mg/5 mL injection 70 mg succinylcholine (Anectine) 20 mg/mL injection 200 mg Anesthesia Record Intraprocedure I/O Totals Intake Dexmedetomidine 0.00 mL The total shown is the total volume documented since Anesthesia Start was filed. LR bolus 250.00 mL Total Intake 250 mL Specimen: No specimens collected Drains and/or Catheters: * None in log * Tourniquet Times: Implants: Findings: Dilated esophagus with hypertensive lower esophageal sphincter Indications: Liz Perez is an 63 y.o. female who is having surgery for Achalasia of cardia [K22.0]. The patient was seen in the preoperative area. The risks, benefits, complications, treatment options, non-operative alternatives, expected recovery and outcomes were discussed with the patient. The possibilities of reaction to medication, pulmonary aspiration, injury to surrounding structures, bleeding, recurrent infection, the need for additional procedures, failure to diagnose a condition, and creating a complication requiring transfusion or operation were discussed with the patient. The patient concurred with the proposed plan, giving informed consent. The site of surgery was properly noted/marked if necessary per policy. The patient has been actively warmed in preoperative area. Preoperative antibiotics have been ordered and given within 1 hours of incision. Venous thrombosis prophylaxis have been ordered including bilateral sequential compression devices Procedure Details: Patient was taken to the op room and placed on operating table in supine position. Following duction general acetic patient was intubated endotracheally. Timeout was performed per protocol and she received preoperative IV antibiotics and sequential stockings were placed prior to induction. No chemical DVT prophylaxis was deemed necessary. Endoscope mounted with overtube was advanced into the cervical esophagus. Esophagus was mildly dilated and tortuous in the lower esophageal sphincter was identified and was quite hypertensive but able to be traversed. Retroflexed view showed no inflammatory or neoplastic process. Overtube was advanced. Endoscope was returned to the esophagus after an oblique soft EMR Was placed. EG junction was measured at 40 cm from incisors and starting 14 cm proximal to this at 26 cm from incisors the anterior wall of esophagus was confirmed with instillation of methylene blue into the esophagus and watching it layout posteriorly. On the anterior wall approximate 10 cc of methylene blue with dextrose and epinephrine solution were injected to make a submucosal wheal. A 2 cm longitudinal mucosotomy was created in the endoscope was advanced in the submucosal plane onto the gastric wall for approximately 2 cm as confirmed with retroflexed view in the gastric lumen. Starting 3 cm inferior to the inferior aspect of the mucosotomy, circular muscle fibers were fully divided all the way to the end of the submucosal tunnel. Endoscope was returned to the peoria lumen the lower esophageal sphincter was now widely gaping and patulous. There is no evidence of mucosal injury. Endoscope was returned in the submucosal tunnel and there is notes of bleeding. Mucosotomy was closed with multiple endoscopic clips. Stomach was desufflated and the endoscope and overtube withdrawn without further findings. Dr. Jl Green served as bankruptcy assistant as there was no skilled surgical elastic knitter available for this complex procedure. He participated in the submucosal injection, creation of mucosotomy, submucosal tunnel creation, performance of myotomy, and closure of the mucosotomy. Patient was extubated in the op room and transported to recovery room in stable condition. Complications: None; patient tolerated the procedure well. Disposition: PACU - hemodynamically stable. Condition: stable Additional Details: Attending Attestation: I was present and scrubbed for the entire procedure. Steven Cobian [facility] Work Phone: 02-09-2024 History and physical note History Of Present Illness Liz Perez is a 63 y.o. female presenting with GERD type symptoms, dysphagia-symptoms started in her 20s. EGD with dilation of LES (04/2023), EGD with botox injection of LES (10/2023). Patient presents here today for her POEM procedure. Manometry: Type II achalasia, LES 60, IRP 63. Median IRP 47. Absent contractility, pressurization with 100% of swallows Past Medical History Past Medical History: Diagnosis Date Dysphagia GERD (gastroesophageal reflux disease) Hypothyroidism Surgical History Past Surgical History: Procedure Laterality Date COLONOSCOPY ESOPHAGOGASTRODUODENOSCOPY HYSTEROSCOPY Social History She reports that she has never smoked. She has never used smokeless tobacco. She reports that she does not currently use alcohol. She reports that she does not use drugs. Family History No family history on file. Allergies Sulfamethoxazole and Trimethoprim Review of Systems All other systems reviewed and are negative. Physical Exam Vitals reviewed. Cardiovascular: Rate and Rhythm: Normal rate. Pulmonary: Effort: Pulmonary effort is normal. Abdominal: General: Abdomen is flat. Palpations: Abdomen is soft. Musculoskeletal: General: Normal range of motion. Cervical back: Normal range of motion. Skin: General: Skin is warm. Neurological: General: No focal deficit present. Last Recorded Vitals Blood pressure 143/77, pulse 87, temperature 36.5 C (97.7 F), temperature source Temporal, resp. rate 16, height 1.727 m (5' 8), weight 131 kg (288 lb 2.3 oz), SpO2 100%. Relevant Results Assessment/Plan 63 y.o. female presenting with GERD type symptoms, dysphagia-symptoms started in her 20s. EGD with dilation of LES (04/2023), EGD with botox injection of LES (10/2023). Patient presents here today for her POEM procedure. Patient's History and Physical was reviewed and updated. Plan: - The procedure was explained once again. Questions were sought and answered. - The risks and benefit of the procedure were discussed. The patient is willing proceed. - Consent was reviewed and signed. - Further recommendations after the procedure. Discussed with Dr. Boris Green MD ([facility]) General Surgeon MIS Foregut / Flex Endo Fellow Team Pager #[phone] Cosigned by Steven Cobian MD at 02/09/2024 10:27 AM EDT [facility] Work Phone: 02-09-2024 History and physical note History Of Present Illness Liz Perez is a 63 y.o. female presenting with GERD type symptoms, dysphagia-symptoms started in her 20s. EGD with dilation of LES (04/2023), EGD with botox injection of LES (10/2023). Patient presents here today for her POEM procedure. Manometry: Type II achalasia, LES 60, IRP 63. Median IRP 47. Absent contractility, pressurization with 100% of swallows Past Medical History Past Medical History: Diagnosis Date Dysphagia GERD (gastroesophageal reflux disease) Hypothyroidism Surgical History Past Surgical History: Procedure Laterality Date COLONOSCOPY ESOPHAGOGASTRODUODENOSCOPY HYSTEROSCOPY Social History She reports that she has never smoked. She has never used smokeless tobacco. She reports that she does not currently use alcohol. She reports that she does not use drugs. Family History No family history on file. Allergies Sulfamethoxazole and Trimethoprim Review of Systems All other systems reviewed and are negative. Physical Exam Vitals reviewed. Cardiovascular: Rate and Rhythm: Normal rate. Pulmonary: Effort: Pulmonary effort is normal. Abdominal: General: Abdomen is flat. Palpations: Abdomen is soft. Musculoskeletal: General: Normal range of motion. Cervical back: Normal range of motion. Skin: General: Skin is warm. Neurological: General: No focal deficit present. Last Recorded Vitals Blood pressure 143/77, pulse 87, temperature 36.5 C (97.7 F), temperature source Temporal, resp. rate 16, height 1.727 m (5' 8), weight 131 kg (288 lb 2.3 oz), SpO2 100%. Relevant Results Assessment/Plan 63 y.o. female presenting with GERD type symptoms, dysphagia-symptoms started in her 20s. EGD with dilation of LES (04/2023), EGD with botox injection of LES (10/2023). Patient presents here today for her POEM procedure. Patient's History and Physical was reviewed and updated. Plan: - The procedure was explained once again. Questions were sought and answered. - The risks and benefit of the procedure were discussed. The patient is willing proceed. - Consent was reviewed and signed. - Further recommendations after the procedure. Discussed with Dr. Boris Green MD ([place]) General Surgeon MIS Foregut / Flex Endo Fellow Team Pager #[phone] Cosigned by Steven Cobian MD at 02/09/2024 10:27 AM EDT documented in this encounter [facility] Work Phone: 12-07-2023 History of Present illness Narrative Subjective Patient ID: Liz Perez is a 63 y.o. female who presents for No chief complaint on file.. Patient reports a many year history of intermittent GERD like symptoms with a progression over the last year. She endorses chest pressure/pain with eating/drinking and has had no relief with PPI. Her symptoms have progressed to include regurgitation and dysphagia to soft food which has since progressed to liquids. She also reports weight loss and a recent hospital admission for metabolic derangements and She had underwent esophageal manometry showing type II achalasia and did have an EGD with botox injection of the LES in October 2023 that greatly improved her symptoms. Reports also a prior EGD with dilation of the LES in April that did not provide much relief. Past Medical History: Diagnosis Date Dysphagia GERD (gastroesophageal reflux disease) Hypothyroidism Past Surgical History EGD with dilation of LES (04/2023) EGD with botox injection of LES (10/2023) Tobacco Use: Low Risk (12/07/2023) Patient History Smoking Tobacco Use: Never Smokeless Tobacco Use: Never Passive Exposure: Not on file Review of Systems: 12 systems reviewed and negative except as noted in the HPI. Objective Physical Exam Constitutional: General: She is not in acute distress. HENT: Head: Normocephalic and atraumatic. Eyes: Extraocular Movements: Extraocular movements intact. Cardiovascular: Rate and Rhythm: Normal rate. Pulmonary: Effort: Pulmonary effort is normal. No respiratory distress. Abdominal: General: There is no distension. Palpations: Abdomen is soft. Tenderness: There is no abdominal tenderness. Musculoskeletal: General: Normal range of motion. Right lower leg: Edema present. Left lower leg: Edema present. Skin: General: Skin is warm and dry. Neurological: General: No focal deficit present. Mental Status: She is alert. Psychiatric: Mood and Affect: Mood normal. Esophageal Manometry 10/23/2023 Narrative Images from the original result were not included. 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 Daily dysphagia to liquids & solids with contents sticking in mid chest. Will vomit after a couple of hours. Experiences thick mucus with a cough and burping. Denies chest pain and heartburn. Rapid Drink Challenge: patient consumed 95cc/200cc H2O in 30 seconds. Details of the Session I have reviewed the indications for the procedure, the manometric recordings for the procedure, and the measured/calculated manometric parameters and other findings included in the accompanying motility nursing note. I concur with the findings indicated on the nurse report except as indicated below: Separate exam findings: - The LES pressure is elevated at 60 mmHg and it does not appear to relax normally with a markedly elevated median IRP at 63 mmHg. The median IRP in the upright swallows is also elevated at 47 mmHg - There is no evidence of a hiatal hernia - The study of the esophageal peristalsis shows complete absent contractility with evidence of panesophageal pressurization in 100% of the swallows. Rapid drink challenge shows an elevated IRP > 12 mmHg accompanied by corral-esophageal pressurization > 20-30 mmHg - The impedance study shows complete bolus transit in 0% of the swallows Procedure Location [facility] [address] [facility] [address] Referring Provider Kali Winslow MD [address] [place] [address] Assessment/Plan 63 y/o female who is referred for type II achalasia. She describes symptoms of ERD, regurgitation, progressive dysphagia, and weight loss. She had a good response to EGD with botox and is a good candidate for POEM. Patient is agreeable to the procedure. Discussed the risks including leak, bleeding, infection, GERD, pneumoperitoneum, possible need for subsequent endoscopic or surgical intervention, and possibility of lack of response or recurrence in symptoms. Patient expressed understanding and desire to proceed. We will schedule her for POEM at her convenience. Seen and discussed with Dr. Boris Yin MD 12/07/23 11:56 AM documented in this encounter [facility] Work Phone: 11-23-2023 Evaluation + Plan note Associated Problem(s): Achalasia Type II, has evidence of malnutrion (low albumin), good response to Botox injection - Pt has appt with Dr. Cobian - álvaro r/o pseudoachalasia with CT scan (less likely) Orders: Referral to Gastroenterology CT chest w IV contrast; Future Follow Up In Gastroenterology; Future [facility] Work Phone: 11-23-2023 History of Present illness Narrative Primary Care Provider: No primary care provider on file. Referring Provider: Marivel Gonzalez,* Chief Complaint (Reason for visit): Liz Perez is a 63 y.o. female who presents for ASSESSMENT AND PLAN Assessment & Plan Achalasia Type II, has evidence of malnutrion (low albumin), good response to Botox injection - Pt has appt with Dr. Cobian - álvaro r/o pseudoachalasia with CT scan (less likely) Orders: Referral to Gastroenterology CT chest w IV contrast; Future Follow Up In Gastroenterology; Future Weight loss Orders: CT chest w IV contrast; Future Follow Up In Gastroenterology; Future Generalized abdominal pain Orders: CT abdomen pelvis w IV contrast; Future CT chest w IV contrast; Future Follow Up In Gastroenterology; Future Alejandro Segovia MD 11/23/2023 SUBJECTIVE HPI: History obtained from patient Pt states that she has been Losing weight and experiencing difficulty with swallowing as well as regurgitation of food for the last few months. In July 2023, she went to a local services account manager. She got a barium test done and was supposed to get manometry done. 10/23/23 - manometry -suggestive of type II achalasia 10/31/23 - admitted to [facility] for regurgitation and dysphagia EGD with BOTOX, endoscopic findings are suggestive of achalasia as well Today in office, 4-5 days after Botox, pt was able to swallow solids Now she is starting to feel fullness in chest, but is still able to swallow solid foods She denies any heartburn, or reflux She endorses weight loss 12/03 - time barium swallow appt 12/06 - appt with Past Medical History: Diagnosis Date Dysphagia GERD (gastroesophageal reflux disease) Hypothyroidism No past surgical history on file. Current Outpatient Medications Medication Sig Dispense Refill levothyroxine (Synthroid, Levoxyl) 50 mcg tablet Take 1.5 tablets (75 mcg) by mouth early in the morning.. 45 tablet 1 omeprazole (PriLOSEC) [address] capsule Take 1 capsule (40 mg) by mouth once daily in the morning. Take before meals. Do not crush or chew. No current facility-administered medications for this visit. No Known Allergies OBJECTIVE PHYSICAL EXAM: Ht 1.727 m (5' 8) Wt 140 kg (308 lb) BMI 46.83 kg/m LABS/IMAGING/SCOPES Lab Results Component Value Date WBC 6.6 11/01/2023 HGB 13.4 11/01/2023 HCT 41.9 11/01/2023 MCV 94 11/01/2023 PLT 187 11/01/2023 Lab Results Component Value Date GLUCOSE 85 11/01/2023 CALCIUM 8.2 (L) 11/01/2023 NA 140 11/01/2023 K 3.2 (L) 11/01/2023 CO2 30 11/01/2023 CL 103 11/01/2023 BUN 4 (L) 11/01/2023 CREATININE 0.81 11/01/2023 Lab Results Component Value Date ALT 13 10/30/2023 AST 28 10/30/2023 ALKPHOS 45 10/30/2023 BILITOT 0.8 10/30/2023 Alejandro Segovia MD 11/23/2023 documented in this encounter [facility] Work Phone: 11-23-2023 Miscellaneous Notes Associated Problem(s): Achalasia Type II, has evidence of malnutrion (low albumin), good response to Botox injection - Pt has appt with Dr. Cobian - will r/o pseudoachalasia with CT scan (less likely) Orders: Referral to Gastroenterology CT chest w IV contrast; Future Follow Up In Gastroenterology; Future documented in this encounter [facility] Work Phone: 10-23-2023 Nurse Note Esophageal Manometry Test Referring Provider: Kali Winslow MD [address] [place] [address] Indication: Dysphagia, unspecified type [R13.10] Symptoms: Dysphagia Age: 63 y.o. EMOT catheter calibrated. Procedure explained-all questions answered. Placed 2% lido viscous bilateral nares via syringe. Probe placed left nare without difficulty, placed left lateral position with HOB elevated 20 degrees per/protocol. Probe adjusted for proper positioning. Swallows performed per/protocol, probe removed intact without difficulty. Discharged patient to home in stable condition without complaint. [facility] Work Phone: 10-23-2023 Nurse Note Esophageal Manometry Test Referring Provider: MD [address] [place] [address] Indication: Dysphagia, unspecified type [R13.10] Symptoms: Dysphagia Age: 63 y.o. EMOT catheter calibrated. Procedure explained-all questions answered. Placed 2% lido viscous bilateral nares via syringe. Probe placed left nare without difficulty, placed left lateral position with HOB elevated 20 degrees per/protocol. Probe adjusted for proper positioning. Swallows performed per/protocol, probe removed intact without difficulty. Discharged patient to home in stable condition without complaint. documented in this encounter [facility] Work Phone: 10-23-2023 Nurse Note Esophageal Manometry Test Referring Provider: MD [address] [place] [address] Indication: Dysphagia, unspecified type [R13.10] Symptoms: Dysphagia Age: 63 y.o. EMOT catheter calibrated. Procedure explained-all questions answered. Placed 2% lido viscous bilateral nares via syringe. Probe placed left nare without difficulty, placed left lateral position with HOB elevated 20 degrees per/protocol. Probe adjusted for proper positioning. Swallows performed per/protocol, probe removed intact without difficulty. Discharged patient to home in stable condition without complaint. documented in this encounter [facility] Work Phone: 10-23-2023 Hospital Discharge instructions Amy Pemberton RN - 10/23/2023 7:46 AM EDT Return to normal diet, medications and activities. Today, you may experience slight nasal and throat discomfort along with minimal nosebleed. Follow up with ordering provider, Dr. Kali Winslow, in about two weeks for results. Please call [phone] if you need to speak with the manometry nurse about your test. documented in this encounter [facility] Work Phone: 10-23-2023 Hospital Discharge instructions Amy Pemberton RN - 10/23/2023 7:46 AM EDT Return to normal diet, medications and activities. Today, you may experience slight nasal and throat discomfort along with minimal nosebleed. Follow up with ordering provider, Dr. Kali Winslow, in about two weeks for results. Please call [phone] if you need to speak with the manometry nurse about your test. documented in this encounter [facility] Work Phone: 08-08-2023 Telephone encounter Note I called patient and informed her that her insurance is out of network (OON) here at [facility]. I recommended that we cancel her esophageal manometry testing on 08/10 and that she contact Dr. Winslow's office. I suggested Dr. Winslow's office could try to get the manometry scheduled at [facility], as they might be in network. Patient agreed and thanked me for the call. I called Dr. Winslow's office and alerted them to the OON status and cancellation of the esophageal manometry on 08/11/23. I suggested they try to get this patient scheduled at [facility]. They thanked me for the call. Jagdeep Quijano RN [facility] 08-08-2023 Miscellaneous Notes I called patient and informed her that her insurance is out of network (OON) here at [facility]. I recommended that we cancel her esophageal manometry testing on 08/10 and that she contact Dr. Winslow's office. I suggested Dr. Winslow's office could try to get the manometry scheduled at [facility], as they might be in network. Patient agreed and thanked me for the call. I called Dr. Winslow's office and alerted them to the OON status and cancellation of the esophageal manometry on 08/11/23. I suggested they try to get this patient scheduled at [facility]. They thanked me for the call. Jagdeep Quijano RN documented in this encounter [facility] 07-29-2023 Miscellaneous Notes I called the patient and verbally discussed and reviewed the information about esophageal manometry. All of patient's questions were answered. Patient agreed to be scheduled on 08/11/23 at 10 AM. I sent the patient written information via [employer] about esophageal manometry and the prep instructions, including holding NSAIDs for 7 days before the test, and directions for the appointment. Patient was informed that she will need to follow up with Dr. Winslow for test results. Jagdeep Quijano RN documented in this encounter [facility] 05-05-2023 Hospital Discharge instructions Patient Education 05/05/2023 09:20:57 9 - AO Minor Esophagogastroduodenoscopy (06/21) (CUSTOM) Esophagogastroduodenoscopy This is an endoscopic procedure (a procedure that uses a device like a flexible telescope) that allows your caregiver to view the upper stomach and small bowel. This test allows your caregiver to look at the esophagus. The esophagus carries food from your mouth to your stomach. They can also look at your duodenum. This is the first part of the small intestine that attaches to the stomach. This test is used to detect problems in the bowel such as ulcers and inflammation. MEANING OF TEST Your caregiver will go over the test results with you and discuss the importance and meaning of your results, as well as treatment options and the need for additional tests if necessary. OBTAINING THE TEST RESULTS Your caregiver s office will call you with the results of the test. POST SEDATION INSTRUCTIONS Rest at home today. Since your coordination may be impaired, be cautious on stairways, do not drive any vehicle or operate any heavy machinery, or use any sharp instruments for the remainder of the day. Do not drink any alcoholic beverages or make any major decisions for 24 hours. POST PROCEDURE INSTRUCTIONS Progress slowly with full liquids then resume previous diet and medications. Belching or passing of gas is to be expected. Notify the physician if you have severe chest pain, fever, or if difficulty when swallowing persists. 06/18/13 Custom 05/05/2023 09:20:51 Esophageal Dilatation Esophageal Dilatation Esophageal dilatation, also called esophageal dilation, is a procedure to widen or open (dilate) a blocked or narrowed part of the esophagus. The esophagus is the part of the body that moves food and liquid from the mouth to the stomach. You may need this procedure if: You have a buildup of scar tissue in your esophagus that makes it difficult, painful, or impossible to swallow. This can be caused by gastroesophageal reflux disease (GERD). You have cancer of the esophagus. There is a problem with how food moves through your esophagus. In some cases, you may need this procedure repeated at a later time to dilate the esophagus gradually. Tell a health care provider about: Any allergies you have. All medicines you are taking, including vitamins, herbs, eye drops, creams, and vhgp-tst-jalyrsl medicines. Any problems you or family members have had with anesthetic medicines. Any blood disorders you have. Any surgeries you have had. Any medical conditions you have. Any antibiotic medicines you are required to take before dental procedures. Whether you are or may be . What are the risks? Generally, this is a safe procedure. However, problems may occur, including: Bleeding due to a tear in the lining of the esophagus. A hole (perforation) in the esophagus. What happens before the procedure? Follow instructions from your health care provider about eating or drinking restrictions. Ask your health care provider about changing or stopping your regular medicines. This is especially important if you are taking diabetes medicines or blood thinners. Plan to have someone take you home from the hospital or clinic. Plan to have a responsible adult care for you for at least 24 hours after you leave the hospital or clinic. This is important. What happens during the procedure? You may be given a medicine to help you relax (sedative). A numbing medicine may be sprayed into the back of your throat, or you may gargle the medicine. Your health care provider may perform the dilatation using various surgical instruments, such as: ?Simple dilators. This instrument is carefully placed in the esophagus to stretch it. ?Guided wire bougies. This involves using an endoscope to insert a wire into the esophagus. A dilator is passed over this wire to enlarge the esophagus. Then the wire is removed. ?Balloon dilators. An endoscope with a small balloon at the end is inserted into the esophagus. The balloon is inflated to stretch the esophagus and open it up. The procedure may vary among health care providers and hospitals. What happens after the procedure? Your blood pressure, heart rate, breathing rate, and blood oxygen level will be monitored until the medicines you were given have worn off. Your throat may feel slightly sore and numb. This will improve slowly over time. You will not be allowed to eat or drink until your throat is no longer numb. When you are able to drink, urinate, and sit on the edge of the bed without nausea or dizziness, you may be able to return home. Follow these instructions at home: Take xmdl-kuk-lhhmiik and prescription medicines only as told by your health care provider. Do not drive for 24 hours if you were given a sedative during your procedure. You should have a responsible adult with you for 24 hours after the procedure. Follow instructions from your health care provider about any eating or drinking restrictions. Do not use any products that contain nicotine or tobacco, such as cigarettes and e-cigarettes. If you need help quitting, ask your health care provider. Keep all follow-up visits as told by your health care provider. This is important. Get help right away if you: Have a fever. Have chest pain. Have pain that is not relieved by medication. Have trouble breathing. Have trouble swallowing. Vomit blood. Summary Esophageal dilatation, also called esophageal dilation, is a procedure to widen or open (dilate) a blocked or narrowed part of the esophagus. Plan to have someone take you home from the hospital or clinic. For this procedure, a numbing medicine may be sprayed into the back of your throat, or you may gargle the medicine. Do not drive for 24 hours if you were given a sedative during your procedure. This information is not intended to replace advice given to you by your health care provider. Make sure you discuss any questions you have with your health care provider. Document Released: 05/18/2006 Document Revised: 03/09/2018 Document Reviewed: 01/30/2018 [employer] Patient Education 2020 [employer]. Follow Up Care 03/22/2023 07:45:22 With:KALI WINSLOW Address: [address] [facility] [facility] [address] [place] [address]- [phone] Business (1) When: Unknown [facility] 05-05-2023 Summary of episode note Discharge Instructions Thank you for allowing [facility] to assist you with your healthcare needs. The following is important discharge information regarding your hospital visit. Your Care Team KRISTEN SANTIAGO DO What to do next Follow Up Appointments Follow Up with KALI WINSLOW When Where: [address] [facility] [facility] [address] [place] [address] [phone] [place] (1) Allergies [employer] Esophagogastroduodenoscopy This is an endoscopic procedure (a procedure that uses a device like a flexible telescope) that allows your caregiver to view the upper stomach and small bowel. This test allows your caregiver to look at the esophagus. The esophagus carries food from your mouth to your stomach. They can also look at your duodenum. This is the first part of the small intestine that attaches to the stomach. This test is used to detect problems in the bowel such as ulcers and inflammation. MEANING OF TEST Your caregiver will go over the test results with you and discuss the importance and meaning of your results, as well as treatment options and the need for additional tests if necessary. OBTAINING THE TEST RESULTS Your caregiver s office will call you with the results of the test. POST SEDATION INSTRUCTIONS Rest at home today. Since your coordination may be impaired, be cautious on stairways, do not drive any vehicle or operate any heavy machinery, or use any sharp instruments for the remainder of the day. Do not drink any alcoholic beverages or make any major decisions for 24 hours. POST PROCEDURE INSTRUCTIONS Progress slowly with full liquids then resume previous diet and medications. Belching or passing of gas is to be expected. Notify the physician if you have severe chest pain, fever, or if difficulty when swallowing persists. 06/18/13 Custom Esophageal Dilatation Esophageal dilatation, also called esophageal dilation, is a procedure to widen or open (dilate) a blocked or narrowed part of the esophagus. The esophagus is the part of the body that moves food and liquid from the mouth to the stomach. You may need this procedure if: You have a buildup of scar tissue in your esophagus that makes it difficult, painful, or impossible to swallow. This can be caused by gastroesophageal reflux disease (GERD). You have cancer of the esophagus. There is a problem with how food moves through your esophagus. In some cases, you may need this procedure repeated at a later time to dilate the esophagus gradually. Tell a health care provider about: Any allergies you have. All medicines you are taking, including vitamins, herbs, eye drops, creams, and myue-tfh-qzxoyiw medicines. Any problems you or family members have had with anesthetic medicines. Any blood disorders you have. Any surgeries you have had. Any medical conditions you have. Any antibiotic medicines you are required to take before dental procedures. Whether you are or may be . What are the risks? Generally, this is a safe procedure. However, problems may occur, including: Bleeding due to a tear in the lining of the esophagus. A hole (perforation) in the esophagus. What happens before the procedure? Follow instructions from your health care provider about eating or drinking restrictions. Ask your health care provider about changing or stopping your regular medicines. This is especially important if you are taking diabetes medicines or blood thinners. Plan to have someone take you home from the hospital or clinic. Plan to have a responsible adult care for you for at least 24 hours after you leave the hospital or clinic. This is important. What happens during the procedure? You may be given a medicine to help you relax (sedative). A numbing medicine may be sprayed into the back of your throat, or you may gargle the medicine. Your health care provider may perform the dilatation using various surgical instruments, such as: ? Simple dilators. This instrument is carefully placed in the esophagus to stretch it. ? Guided wire bougies. This involves using an endoscope to insert a wire into the esophagus. A dilator is passed over this wire to enlarge the esophagus. Then the wire is removed. ? Balloon dilators. An endoscope with a small balloon at the end is inserted into the esophagus. The balloon is inflated to stretch the esophagus and open it up. The procedure may vary among health care providers and hospitals. What happens after the procedure? Your blood pressure, heart rate, breathing rate, and blood oxygen level will be monitored until the medicines you were given have worn off. Your throat may feel slightly sore and numb. This will improve slowly over time. You will not be allowed to eat or drink until your throat is no longer numb. When you are able to drink, urinate, and sit on the edge of the bed without nausea or dizziness, you may be able to return home. Follow these instructions at home: Take [id number] and prescription medicines only as told by your health care provider. Do not drive for 24 hours if you were given a sedative during your procedure. You should have a responsible adult with you for 24 hours after the procedure. Follow instructions from your health care provider about any eating or drinking restrictions. Do not use any products that contain nicotine or tobacco, such as cigarettes and e-cigarettes. If you need help quitting, ask your health care provider. Keep all follow-up visits as told by your health care provider. This is important. Get help right away if you: Have a fever. Have chest pain. Have pain that is not relieved by medication. Have trouble breathing. Have trouble swallowing. Vomit blood. Summary Esophageal dilatation, also called esophageal dilation, is a procedure to widen or open (dilate) a blocked or narrowed part of the esophagus. Plan to have someone take you home from the hospital or clinic. For this procedure, a numbing medicine may be sprayed into the back of your throat, or you may gargle the medicine. Do not drive for 24 hours if you were given a sedative during your procedure. This information is not intended to replace advice given to you by your health care provider. Make sure you discuss any questions you have with your health care provider. Document Released: 05/18/2006 Document Revised: 03/09/2018 Document Reviewed: 01/30/2018 [employer] Patient Education 2020 [employer]. Signatures Patient Education Materials 9 - AO Minor Esophagogastroduodenoscopy (06/21) (CUSTOM) Esophageal Dilatation Medication Leaflets My discharge plan and instructions have been reviewed and explained to me and I,LIZ PEREZ understand my current condition and have read and understand these discharge instructions. I have received a written copy of the plan/instructions. If I have questions, I am aware that I should contact my doctor. Patient/Home Assessment Nurse Signature: _ Date/Time: Relationship to Patient: Witness Name/Signature: Date/Time: [facility] 05-05-2023 Anesthesiology Consult note Patient: LIZ PEREZ Age: 62 years Sex: Male : 1960 Associated Diagnoses: None Author: ENOC OLSON Preoperative Information Anesthesia history Patient's history: negative. Family's history: negative. Health Status Allergies: No active allergies have been recorded., No qualifying data available Current medications: (Selected) Inpatient Medications Ordered LR 1,000 mL: 50 mL/hr, Intravenous, Medications (1) Active Scheduled: (0) Continuous: (1) Lactated Ringers 1,000 mL 1,000 mL, Intravenous, 50 mL/hr PRN: (0) Problem list: Medical Morbid obesity / SNOMED CT [id number] / Confirmed, Active Problems (1) Morbid obesity Histories Past Medical History: No active or resolved past medical history items have been selected or recorded. Family History: Hypertension Mother Sister Procedure history: No active procedure history items have been selected or recorded. Social History Social & Psychosocial Habits Alcohol 05/05/2023 Use: Never Substance Abuse 05/05/2023 Use: Never Tobacco 05/05/2023 Tobacco Use: Never (less than 100 in l 05/05/2023 Tobacco Use: Never (less than 100 in l . Physical Examination Vital Signs 05/05/2023 7:51 EST Temperature Temporal Artery 36.4 DegC Respiratory Rate 20 br/min Vital Signs(last 24 hrs) Last Charted BMI53.31 (MAY 05 07:51) Measurements from flowsheet : Measurements 05/05/2023 7:51 EST Height 172.7 cm Admission Weight 159 kg Weight Method Stated [place] Body Weight 68.38 kg BSA Admission 2.59 Body Mass Index 53.31 kg/m2 Pain assessment: Pain Assessment 05/05/2023 7:51 EST Primary Pain Intensity 0 Pain Scale Type 0-10 Pain scale . General: Alert and oriented. Airway: Normal temporomandibular joint mobility. Mallampati classification: II (soft palate, fauces, uvula visible). Dentition Evaluation: Denies loose/chipped teeth. Respiratory: Lungs are clear to auscultation, Respirations are non-labored. Cardiovascular: Normal rate, Regular rhythm. Neurologic: Alert, Oriented. Review / Management Results review: No qualifying data available , Lab results 05/05/2023 7:55 EST Urinary Elimination Voiding, no difficulties IV Present Present Allergies Yes Consent Form Signed Yes Patient Dressed In Hospital gown History & Physical Update On Chart Yes History & Physical On Chart Yes Belongings At Bedside Cell phone, Shirt, Undergarments NPO Status confirmed Patient ID Band on and Verified Yes Implants Verified Yes Pacemaker/AICD Verified Yes Anesthesia Consent Signed Yes Last Fluid Intake 05/04/2023 20:00 Last Food Intake 05/04/2023 18:30 Last Void 05/05/2023 7:27 05/05/2023 7:51 EST Designated Person #1 We May Share PHI GREG [phone] Designated Person #1 Relationship Son Height 172.7 cm Admission Weight 159 kg Weight Method Stated [place] Body Weight 68.38 kg BSA Admission 2.59 Body Mass Index 53.31 kg/m2 Temperature Temporal Artery 36.4 DegC Respiratory Rate 20 br/min Primary Pain Intensity 0 Pain Scale Type 0-10 Pain scale Heart Rhythm Regular Respirations Unlabored Respiratory Pattern Regular Cough None Oxygen Therapy Room air Abdomen Description Non-distended, Soft Abdomen Palpation Non-Tender, Soft Bowel Sounds All Quadrants Present Status N/A Skin Temperature Warm Skin Description [place], Normal for ethnicity, Dry Skin Integrity Intact Neurological Symptoms Patient denies Extremity Movement Equal Characteristics of Speech Clear Level of Consciousness Alert Strength All Extremities Weak Tone All Extremities Normal Sensation All Extremities Intact Affect/Behavior Appropriate, Calm, Cooperative Orientation Oriented x 4 Sensory Deficits None Infectious Disease Symptoms Patient states no symptoms Infectious Disease Recent Exposure No Alcohol and Drug Use No Employee of Institutional Living No 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 SANTIAGO Discharge To, Anticipated Home independently Assistive Device None Positioning Repositions self Mobility Assistance Level Independent Activity Status ADL Awake, Resting Standard Safety ID band on, Bed in low position, Wheels locked Prev Test Positive/Diagnosis w/COVID-19 Yes Previous COVID-19 Positive Date 03/2023 Current Quarantine/Isolated any Illness No Any Contact with Sick Animals/Birds No Traveled Anywhere in Last 30 Days No N/A Personal Devices, Patient Valuables Contact lenses Admission Note-Nursing Procedure/Therapy Intake . Assessment and Plan [place] [employer]hesi[employer] (ASA) physical status classification: Class III. Anesthetic Preoperative Plan Anesthetic technique: MAC. Postoperative pain management: Per surgeon. Risks discussed: nausea, vomiting, sore throat, dental injury, hypotension, allergic reaction, serious complications. Informed consent: signed by patient. Digitally Signed by ENOC OLSON on 05/05/2023 08:07 AM [facility] 04-14-2022 Note [facility] Pap Smear Specimen Adequacy April 14, 2022 5:17pm Comment . Satisfactory for evaluation. Endocervical and/or squamous metaplasticcells (endocervical component) are present. Comment on above: Satisfactory for nakita luation. Endocervical and/or squamous metaplasticcells (endocervical component) are present. 04-14-2022 Note [facility] Pap Smear Specimen Adequacy April 14, 2022 5:17pm Comment . Satisfactory for evaluation. Endocervical and/or squamous metaplasticcells (endocervical component) are present. Comment on above: Satisfactory for nakita luation. Endocervical and/or squamous metaplasticcells (endocervical component) are present. 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 Achalasia Achalasia and cardiospasm Regurgitation of stomach contents documented in this encounter [facility] Work Phone: Evaluation note* Diagnosis Achalasia- Primary Achalasia and cardiospasm documented in this encounter [facility] Work Phone: Evaluation note* Diagnosis Dysphagia, unspecified Gastro-esophageal reflux disease without esophagitis documented in this encounter [facility] Work Phone: Evaluation note* Diagnosis Achalasia- Primary Achalasia and cardiospasm Weight loss Loss of weight Generalized abdominal pain Abdominal pain, generalized documented in this encounter [facility] Work Phone: Evaluation note* Diagnosis Achalasia- Primary Achalasia and cardiospasm Weight loss Loss of weight Generalized abdominal pain Abdominal pain, generalized Achalasia Achalasia and cardiospasm Weight loss Loss of weight Generalized abdominal pain Abdominal pain, generalized documented in this encounter [facility] Work Phone: Evaluation note* Diagnosis Achalasia- Primary Achalasia and cardiospasm Weight loss Loss of weight Generalized abdominal pain Abdominal pain, generalized Achalasia Achalasia and cardiospasm documented in this encounter [facility] Work Phone: Evaluation note* Diagnosis Achalasia- Primary Achalasia and cardiospasm Weight loss Loss of weight Generalized abdominal pain Abdominal pain, generalized Achalasia Achalasia and cardiospasm documented in this encounter [facility] Work Phone: Evaluation note* Diagnosis Achalasia Achalasia and cardiospasm documented in this encounter [facility] Work Phone: Evaluation note* Diagnosis Dysphagia, unspecified Gastro-esophageal reflux disease without esophagitis documented in this encounter [facility] Work Phone: Evaluation note* Diagnosis Achalasia Achalasia and cardiospasm documented in this encounter [facility] Work Phone: Instructions* Name Dates Details Patient Instructions Indication:Nonsmoker Start:10-Aug-2020 Instruction Type:Provider Instructions for Treatment How to Access Health Informa tion Online using Patient Portal and [email or web address] Apps Indication:Nonsmoker Start:10-Aug-2020 Instruction Type:Patient Education How to access health informa tion online Indication:Nonsmoker Start:10-May-2019 Instruction Type:Patient Education How to access health informa tion online - Detail Indication:Nonsmoker Start:10-May-2019 Instruction Type:Patient Education Patient Instructions Indication:Nonsmoker Start:10-May-2019 Instruction Type:Provider Instructions for Treatment How to access health informa tion online Indication:Nonsmoker Start:01-Oct-2018 Instruction Type:Patient Education How to access health informa tion online - Detail Indication:Nonsmoker Start:01-Oct-2018 Instruction Type:Patient Education Patient Instructions Indication:Nonsmoker Start:01-Oct-2018 Instruction Type:Provider Instructions for Treatment How to access health informa tion online Indication:Nonsmoker Start:09-Apr-2018 Instruction Type:Patient Education How to access health informa tion online - Detail Indication:Nonsmoker Start:09-Apr-2018 Instruction Type:Patient Education Patient Instructions Indication:Nonsmoker Start:09-Apr-2018 Instruction Type:Provider Instructions for Treatment How to access health informa tion online Indication:BMI 45.0-49.9, adult Start:15-Nov-2017 Instruction Type:Patient Education How to access health informa tion online - Detail Indication:BMI 45.0-49.9, adult Start:15-Nov-2017 Instruction Type:Patient Education Patient Instructions Indication:BMI 45.0-49.9, adult Start:15-Nov-2017 Instruction Type:Provider Instructions for Treatment How to access health informa tion online Indication:Nonsmoker Start:12-Oct-2017 Instruction Type:Patient Education How to access health informa tion online - Detail Indication:Nonsmoker Start:12-Oct-2017 Instruction Type:Patient Education Patient Instructions Indication:Nonsmoker Start:12-Oct-2017 Instruction Type:Provider Instructions for Treatment Patient Instructions Indication:Sore throat Start:06-May-2013 Instruction Type:Provider Instructions for Treatment [facility] Work Phone: Instructions* Name Dates Details Patient Instructions Indication:Nonsmoker Start:08-Apr-2021 Instruction Type:Provider Instructions for Treatment How to Access Health Informa tion Online using Patient Portal and [employer] Apps Indication:Nonsmoker Start:08-Apr-2021 Instruction Type:Patient Education Patient Instructions Indication:Nonsmoker Start:11-Jan-2021 Instruction Type:Provider Instructions for Treatment How to Access Health Informa tion Online using Patient Portal and [employer] Apps Indication:Nonsmoker Start:11-Jan-2021 Instruction Type:Patient Education Patient Instructions Indication:Nonsmoker Start:25-Dec-2020 Instruction Type:Provider Instructions for Treatment How to Access Health Informa tion Online using Patient Portal and [employer] Apps Indication:Nonsmoker Start:25-Dec-2020 Instruction Type:Patient Education Patient Instructions Indication:Nonsmoker Start:10-Aug-2020 Instruction Type:Provider Instructions for Treatment How to Access Health Informa tion Online using Patient Portal and [employer] Apps Indication:Nonsmoker Start:10-Aug-2020 Instruction Type:Patient Education How to access health informa tion online Indication:Nonsmoker Start:10-May-2019 Instruction Type:Patient Education How to access health informa tion online - Detail Indication:Nonsmoker Start:10-May-2019 Instruction Type:Patient Education Patient Instructions Indication:Nonsmoker Start:10-May-2019 Instruction Type:Provider Instructions for Treatment How to access health informa tion online Indication:Nonsmoker Start:01-Oct-2018 Instruction Type:Patient Education How to access health informa tion online - Detail Indication:Nonsmoker Start:01-Oct-2018 Instruction Type:Patient Education Patient Instructions Indication:Nonsmoker Start:01-Oct-2018 Instruction Type:Provider Instructions for Treatment How to access health informa tion online Indication:Nonsmoker Start:09-Apr-2018 Instruction Type:Patient Education How to access health informa tion online - Detail Indication:Nonsmoker Start:09-Apr-2018 Instruction Type:Patient Education Patient Instructions Indication:Nonsmoker Start:09-Apr-2018 Instruction Type:Provider Instructions for Treatment How to access health informa tion online Indication:BMI 45.0-49.9, adult Start:15-Nov-2017 Instruction Type:Patient Education How to access health informa tion online - Detail Indication:BMI 45.0-49.9, adult Start:15-Nov-2017 Instruction Type:Patient Education Patient Instructions Indication:BMI 45.0-49.9, adult Start:15-Nov-2017 Instruction Type:Provider Instructions for Treatment How to access health informa tion online Indication:Nonsmoker Start:12-Oct-2017 Instruction Type:Patient Education How to access health informa tion online - Detail Indication:Nonsmoker Start:12-Oct-2017 Instruction Type:Patient Education Patient Instructions Indication:Nonsmoker Start:12-Oct-2017 Instruction Type:Provider Instructions for Treatment Patient Instructions Indication:Sore throat Start:06-May-2013 Instruction Type:Provider Instructions for Treatment [facility]; [facility] Work Phone: Instructions* Name Dates Details Patient Instructions Indication:BMI 50.0-59.9, adult Start:20-Jan-2022 Instruction Type:Provider Instructions for Treatment How to Access Health Informa tion Online using Patient Portal and [employer] Apps Indication:BMI 50.0-59.9, adult Start:20-Jan-2022 Instruction Type:Patient Education Patient Instructions Indication:Nonsmoker Start:08-Apr-2021 Instruction Type:Provider Instructions for Treatment How to Access Health Informa tion Online using Patient Portal and [employer] Apps Indication:Nonsmoker Start:08-Apr-2021 Instruction Type:Patient Education Patient Instructions Indication:Nonsmoker Start:11-Jan-2021 Instruction Type:Provider Instructions for Treatment How to Access Health Informa tion Online using Patient Portal and [employer] Apps Indication:Nonsmoker Start:11-Jan-2021 Instruction Type:Patient Education Patient Instructions Indication:Nonsmoker Start:25-Dec-2020 Instruction Type:Provider Instructions for Treatment How to Access Health Informa tion Online using Patient Portal and [employer] Apps Indication:Nonsmoker Start:25-Dec-2020 Instruction Type:Patient Education Patient Instructions Indication:Nonsmoker Start:10-Aug-2020 Instruction Type:Provider Instructions for Treatment How to Access Health Informa tion Online using Patient Portal and [employer] Apps Indication:Nonsmoker Start:10-Aug-2020 Instruction Type:Patient Education How to access health informa tion online Indication:Nonsmoker Start:10-May-2019 Instruction Type:Patient Education How to access health informa tion online - Detail Indication:Nonsmoker Start:10-May-2019 Instruction Type:Patient Education Patient Instructions Indication:Nonsmoker Start:10-May-2019 Instruction Type:Provider Instructions for Treatment How to access health informa tion online Indication:Nonsmoker Start:01-Oct-2018 Instruction Type:Patient Education How to access health informa tion online - Detail Indication:Nonsmoker Start:01-Oct-2018 Instruction Type:Patient Education Patient Instructions Indication:Nonsmoker Start:01-Oct-2018 Instruction Type:Provider Instructions for Treatment How to access health informa tion online Indication:Nonsmoker Start:09-Apr-2018 Instruction Type:Patient Education How to access health informa tion online - Detail Indication:Nonsmoker Start:09-Apr-2018 Instruction Type:Patient Education Patient Instructions Indication:Nonsmoker Start:09-Apr-2018 Instruction Type:Provider Instructions for Treatment How to access health informa tion online Indication:BMI 45.0-49.9, adult Start:15-Nov-2017 Instruction Type:Patient Education How to access health informa tion online - Detail Indication:BMI 45.0-49.9, adult Start:15-Nov-2017 Instruction Type:Patient Education Patient Instructions Indication:BMI 45.0-49.9, adult Start:15-Nov-2017 Instruction Type:Provider Instructions for Treatment How to access health informa tion online Indication:Nonsmoker Start:12-Oct-2017 Instruction Type:Patient Education How to access health informa tion online - Detail Indication:Nonsmoker Start:12-Oct-2017 Instruction Type:Patient Education Patient Instructions Indication:Nonsmoker Start:12-Oct-2017 Instruction Type:Provider Instructions for Treatment Patient Instructions Indication:Sore throat Start:06-May-2013 Instruction Type:Provider Instructions for Treatment [facility]; [facility] Work Phone: Instructions* Name Dates Details Patient Instructions Indication:Nonsmoker Start:04-Feb-2022 Instruction Type:Provider Instructions for Treatment How to Access Health Informa tion Online using Patient Portal and [employer] Apps Indication:Nonsmoker Start:04-Feb-2022 Instruction Type:Patient Education Patient Instructions Indication:BMI 50.0-59.9, adult Start:20-Jan-2022 Instruction Type:Provider Instructions for Treatment How to Access Health Informa tion Online using Patient Portal and [employer] Apps Indication:BMI 50.0-59.9, adult Start:20-Jan-2022 Instruction Type:Patient Education Patient Instructions Indication:Nonsmoker Start:08-Apr-2021 Instruction Type:Provider Instructions for Treatment How to Access Health Informa tion Online using Patient Portal and [employer] Apps Indication:Nonsmoker Start:08-Apr-2021 Instruction Type:Patient Education Patient Instructions Indication:Nonsmoker Start:11-Jan-2021 Instruction Type:Provider Instructions for Treatment How to Access Health Informa tion Online using Patient Portal and [employer] Apps Indication:Nonsmoker Start:11-Jan-2021 Instruction Type:Patient Education Patient Instructions Indication:Nonsmoker Start:25-Dec-2020 Instruction Type:Provider Instructions for Treatment How to Access Health Informa tion Online using Patient Portal and [employer] Apps Indication:Nonsmoker Start:25-Dec-2020 Instruction Type:Patient Education Patient Instructions Indication:Nonsmoker Start:10-Aug-2020 Instruction Type:Provider Instructions for Treatment How to Access Health Informa tion Online using Patient Portal and [employer] Apps Indication:Nonsmoker Start:10-Aug-2020 Instruction Type:Patient Education How to access health informa tion online Indication:Nonsmoker Start:10-May-2019 Instruction Type:Patient Education How to access health informa tion online - Detail Indication:Nonsmoker Start:10-May-2019 Instruction Type:Patient Education Patient Instructions Indication:Nonsmoker Start:10-May-2019 Instruction Type:Provider Instructions for Treatment How to access health informa tion online Indication:Nonsmoker Start:01-Oct-2018 Instruction Type:Patient Education How to access health informa tion online - Detail Indication:Nonsmoker Start:01-Oct-2018 Instruction Type:Patient Education Patient Instructions Indication:Nonsmoker Start:01-Oct-2018 Instruction Type:Provider Instructions for Treatment How to access health informa tion online Indication:Nonsmoker Start:09-Apr-2018 Instruction Type:Patient Education How to access health informa tion online - Detail Indication:Nonsmoker Start:09-Apr-2018 Instruction Type:Patient Education Patient Instructions Indication:Nonsmoker Start:09-Apr-2018 Instruction Type:Provider Instructions for Treatment How to access health informa tion online Indication:BMI 45.0-49.9, adult Start:15-Nov-2017 Instruction Type:Patient Education How to access health informa tion online - Detail Indication:BMI 45.0-49.9, adult Start:15-Nov-2017 Instruction Type:Patient Education Patient Instructions Indication:BMI 45.0-49.9, adult Start:15-Nov-2017 Instruction Type:Provider Instructions for Treatment How to access health informa tion online Indication:Nonsmoker Start:12-Oct-2017 Instruction Type:Patient Education How to access health informa tion online - Detail Indication:Nonsmoker Start:12-Oct-2017 Instruction Type:Patient Education Patient Instructions Indication:Nonsmoker Start:12-Oct-2017 Instruction Type:Provider Instructions for Treatment Patient Instructions Indication:Sore throat Start:06-May-2013 Instruction Type:Provider Instructions for Treatment [facility]; [facility] Work Phone: Instructions* Name Dates Details Patient Instructions Indication:Nonsmoker Start:04-Feb-2022 Instruction Type:Provider Instructions for Treatment How to Access Health Informa tion Online using Patient Portal and [employer] Indication:Nonsmoker Start:04-Feb-2022 Instruction Type:Patient Education Patient Instructions Indication:BMI 50.0-59.9, adult Start:20-Jan-2022 Instruction Type:Provider Instructions for Treatment How to Access Health Informa tion Online using Patient Portal and [employer] Indication:BMI 50.0-59.9, adult Start:20-Jan-2022 Instruction Type:Patient Education Patient Instructions Indication:Nonsmoker Start:08-Apr-2021 Instruction Type:Provider Instructions for Treatment How to Access Health Informa tion Online using Patient Portal and [employer] Indication:Nonsmoker Start:08-Apr-2021 Instruction Type:Patient Education Patient Instructions Indication:Nonsmoker Start:11-Jan-2021 Instruction Type:Provider Instructions for Treatment How to Access Health Informa tion Online using Patient Portal and [employer] Indication:Nonsmoker Start:11-Jan-2021 Instruction Type:Patient Education Patient Instructions Indication:Nonsmoker Start:25-Dec-2020 Instruction Type:Provider Instructions for Treatment How to Access Health Informa tion Online using Patient Portal and [employer] Indication:Nonsmoker Start:25-Dec-2020 Instruction Type:Patient Education Patient Instructions Indication:Nonsmoker Start:10-Aug-2020 Instruction Type:Provider Instructions for Treatment How to Access Health Informa tion Online using Patient Portal and [employer] Indication:Nonsmoker Start:10-Aug-2020 Instruction Type:Patient Education How to access health informa tion online Indication:Nonsmoker Start:10-May-2019 Instruction Type:Patient Education How to access health informa tion online - Detail Indication:Nonsmoker Start:10-May-2019 Instruction Type:Patient Education Patient Instructions Indication:Nonsmoker Start:10-May-2019 Instruction Type:Provider Instructions for Treatment How to access health informa tion online Indication:Nonsmoker Start:01-Oct-2018 Instruction Type:Patient Education How to access health informa tion online - Detail Indication:Nonsmoker Start:01-Oct-2018 Instruction Type:Patient Education Patient Instructions Indication:Nonsmoker Start:01-Oct-2018 Instruction Type:Provider Instructions for Treatment How to access health informa tion online Indication:Nonsmoker Start:09-Apr-2018 Instruction Type:Patient Education How to access health informa tion online - Detail Indication:Nonsmoker Start:09-Apr-2018 Instruction Type:Patient Education Patient Instructions Indication:Nonsmoker Start:09-Apr-2018 Instruction Type:Provider Instructions for Treatment How to access health informa tion online Indication:BMI 45.0-49.9, adult Start:15-Nov-2017 Instruction Type:Patient Education How to access health informa tion online - Detail Indication:BMI 45.0-49.9, adult Start:15-Nov-2017 Instruction Type:Patient Education Patient Instructions Indication:BMI 45.0-49.9, adult Start:15-Nov-2017 Instruction Type:Provider Instructions for Treatment How to access health informa tion online Indication:Nonsmoker Start:12-Oct-2017 Instruction Type:Patient Education How to access health informa tion online - Detail Indication:Nonsmoker Start:12-Oct-2017 Instruction Type:Patient Education Patient Instructions Indication:Nonsmoker Start:12-Oct-2017 Instruction Type:Provider Instructions for Treatment Patient Instructions Indication:Sore throat Start:06-May-2013 Instruction Type:Provider Instructions for Treatment [facility] Work Phone: Instructions* Name Dates Details Patient Instructions Indication:BMI 50.0-59.9, adult Start:11-Jan-2023 Instruction Type:Provider Instructions for Treatment How to Access Health Informa tion Online using Patient Portal and [employer] Indication:BMI 50.0-59.9, adult Start:11-Jan-2023 Instruction Type:Patient Education Patient Instructions Indication:Nonsmoker Start:04-Feb-2022 Instruction Type:Provider Instructions for Treatment How to Access Health Informa tion Online using Patient Portal and [employer] Indication:Nonsmoker Start:04-Feb-2022 Instruction Type:Patient Education Patient Instructions Indication:BMI 50.0-59.9, adult Start:20-Jan-2022 Instruction Type:Provider Instructions for Treatment How to Access Health Informa tion Online using Patient Portal and [employer] Indication:BMI 50.0-59.9, adult Start:20-Jan-2022 Instruction Type:Patient Education Patient Instructions Indication:Nonsmoker Start:08-Apr-2021 Instruction Type:Provider Instructions for Treatment How to Access Health Informa tion Online using Patient Portal and [employer] Indication:Nonsmoker Start:08-Apr-2021 Instruction Type:Patient Education Patient Instructions Indication:Nonsmoker Start:11-Jan-2021 Instruction Type:Provider Instructions for Treatment How to Access Health Informa tion Online using Patient Portal and [employer] Indication:Nonsmoker Start:11-Jan-2021 Instruction Type:Patient Education Patient Instructions Indication:Nonsmoker Start:25-Dec-2020 Instruction Type:Provider Instructions for Treatment How to Access Health Informa tion Online using Patient Portal and [employer] Indication:Nonsmoker Start:25-Dec-2020 Instruction Type:Patient Education Patient Instructions Indication:Nonsmoker Start:10-Aug-2020 Instruction Type:Provider Instructions for Treatment How to Access Health Informa tion Online using Patient Portal and [employer] Indication:Nonsmoker Start:10-Aug-2020 Instruction Type:Patient Education How to access health informa tion online Indication:Nonsmoker Start:10-May-2019 Instruction Type:Patient Education How to access health informa tion online - Detail Indication:Nonsmoker Start:10-May-2019 Instruction Type:Patient Education Patient Instructions Indication:Nonsmoker Start:10-May-2019 Instruction Type:Provider Instructions for Treatment How to access health informa tion online Indication:Nonsmoker Start:01-Oct-2018 Instruction Type:Patient Education How to access health informa tion online - Detail Indication:Nonsmoker Start:01-Oct-2018 Instruction Type:Patient Education Patient Instructions Indication:Nonsmoker Start:01-Oct-2018 Instruction Type:Provider Instructions for Treatment How to access health informa tion online Indication:Nonsmoker Start:09-Apr-2018 Instruction Type:Patient Education How to access health informa tion online - Detail Indication:Nonsmoker Start:09-Apr-2018 Instruction Type:Patient Education Patient Instructions Indication:Nonsmoker Start:09-Apr-2018 Instruction Type:Provider Instructions for Treatment How to access health informa tion online Indication:BMI 45.0-49.9, adult Start:15-Nov-2017 Instruction Type:Patient Education How to access health informa tion online - Detail Indication:BMI 45.0-49.9, adult Start:15-Nov-2017 Instruction Type:Patient Education Patient Instructions Indication:BMI 45.0-49.9, adult Start:15-Nov-2017 Instruction Type:Provider Instructions for Treatment How to access health informa tion online Indication:Nonsmoker Start:12-Oct-2017 Instruction Type:Patient Education How to access health informa tion online - Detail Indication:Nonsmoker Start:12-Oct-2017 Instruction Type:Patient Education Patient Instructions Indication:Nonsmoker Start:12-Oct-2017 Instruction Type:Provider Instructions for Treatment Patient Instructions Indication:Sore throat Start:06-May-2013 Instruction Type:Provider Instructions for Treatment [facility] Work Phone: reason for referral (narrative)* Consultation (Routine) - Authorized Specialty Diagnoses / Procedures Referred By Contac t Referred To Contact Gastroenterology Diagnoses Achalasia Weight loss Generalized abdominal pain Procedures Follow Up In Gastroenterology Alejandro Segovia MD [address] [place] [address] Referral ID Status Reason Start Date Expiration Date V isits Requested Visits Authorized [id number] Authorized 11/23/2023 11/22/2024 1 1 * Imaging (Routine) - Pending Review Specialty Diagnoses / Procedures Referred By Contac t Referred To Contact Radiology Diagnoses Achalasia Weight loss Generalized abdominal pain Procedures CT chest w IV contrast Mar[place] [id number] [facility] [place] [address] Referral ID Status Reason Start Date Expiration Date Visits Requested Visits Authorized [id number] Pending Review Perform Procedure 11/23/2023 11/22/2024 1 1 * Imaging (Routine) - Pending Review Specialty Diagnoses / Procedures Referred By Contac t Referred To Contact Radiology Diagnoses Generalized abdominal pain Procedures CT abdomen [place] [address] [facility] [place] [address] Referral ID Status Reason Start Date Expiration Date Visits Requested Visits Authorized [id number] Pending Review Perform Procedure 11/23/2023 11/22/2024 1 1 [facility] Work Phone: Reason for referral (narrative)No reason for referral [facility] Reason for visit Narrative* Auth/Cert Specialty Diagnoses / Procedures Referred By Inderjit ramon Referred To Contact Diagnoses Achalasia of cardia Achalasia of cardia [K22.0] Procedures TN TRANSORAL LOWER [place] [address] [place] [address] Phone: tel: fax: [facility] [address] [place] [address] fax: Referral ID Status Reason Start Date Expiration Date Visits Re quested Visits Authorized [id number] 1 1 [facility] Work Phone: Reuumd for visit Narrative* Consultation (Routine) - Authorized Specialty Diagnoses / Procedures Referred By Inderjit ramon Referred To Contact Gastroenterology [place] [address] [address] [facility] [place] [address] Referral ID Status Reason Start Date Expiration Date Visits Requested Visits Authorized [id number] Authorized Specialty Services Required 11/01/2023 10/31/2024 1 1 [facility] Work Phone: Refjkt for visit Narrative* Consultation (Routine) - Authorized Specialty Diagnoses / Procedures Referred By Inderjit ramon Referred To Contact General Surgery [place] [address] [facility] [place] [address] [place] [address] [address] [place] [address] Referral ID Status Reason Start Date Expiration Date Visits Requested Visits Authorized [id number] Authorized Specialty Services Required 11/01/2023 10/31/2024 1 1 [facility] Work Phone: Reason for visit Narrative* Endoscopy (Routine) - Authorized Specialty Diagnoses / Procedures Referred By Contact Referred To Contact Gastroenterology Diagnoses Achalasia Procedures Esophagogastroduodenoscopy (EGD) TN ESOPHAGOGASTRODUODENOSCOPY TRANSORAL DIAGNOSTIC TN EGD TRANSORAL BIOPSY SINGLE[place] [address] [address] [facility] [place] [address] Phone: tel:[phone] fax:[phone] Referral ID Status Reason Start Date Expiration Date V isits Requested Visits Authorized [id number] Authorized 08/12/2024 08/12/2025 1 1 [facility] Work Phone: Reason for visit Narrative* Gastroenterology (Routine) - Authorized Specialty Diagnoses / Procedures Referred By Contac t Referred To Contact Gastroenterology Diagnoses Dysphagia, unspecified Gastro-esophageal reflux disease without esophagitis Procedures Esophageal Manometry Kali Winslow MD [address] [address] Phone: tel: fax: Referral ID Status Reason Start Date Expiration Date V isits Requested Visits Authorized [id number] Authorized 10/13/2023 10/12/2024 1 1 [facility] Work Phone: Reason for visit Narrative* Endoscopy (Routine) - Authorized Specialty Diagnoses / Procedures Referred By Contact Referred To Contact Gastroenterology Diagnoses Achalasia Procedures Esophagogastroduodenoscopy (EGD) TN ESOPHAGOGASTRODUODENOSCOPY TRANSORAL DIAGNOSTIC TN EGD TRANSORAL BIOPSY SINGLE/[place] [address] [address] [facility] [place] [id number] Phone: tel: fax:[phone] Referral ID Status Reason Start Date Expiration Date V isits Requested Visits Authorized [id number] Authorized 08/12/2024 08/12/2025 1 1 [facility] Work Phone: Instructions Name Dates Details Nonsmoker : How to access he alth information online Indication:Nonsmoker Nonsmoker : How to access he alth information online - Detail Indication:Nonsmoker Nonsmoker : Patient Instruct ions Indication:Nonsmoker BMI 45.0-49.9, adult : How t o access health information online Indication:BMI 45.0-49.9, adult BMI 45.0-49.9, adult : How t o access health information online - Detail Indication:BMI 45.0-49.9, adult BMI 45.0-49.9, adult : Patie nt Instructions Indication:BMI 45.0-49.9, adult Sore throat : Patient Instru ctions Indication:Sore throat Name Dates Details Nonsmoker : How to access he alth information online Indication:Nonsmoker Nonsmoker : How to access he alth information online - Detail Indication:Nonsmoker Nonsmoker : Patient Instruct ions Indication:Nonsmoker BMI 45.0-49.9, adult : How t o access health information online Indication:BMI 45.0-49.9, adult BMI 45.0-49.9, adult : How t o access health information online - Detail Indication:BMI 45.0-49.9, adult BMI 45.0-49.9, adult : Patie nt Instructions Indication:BMI 45.0-49.9, adult Sore throat : Patient Instru ctions Indication:Sore throat Name Dates Details How to access health informa tion online Indication:Nonsmoker Start:01-Oct-2018 Instruction Type:Patient Education How to access health informa tion online - Detail Indication:Nonsmoker Start:01-Oct-2018 Instruction Type:Patient Education Patient Instructions Indication:Nonsmoker Start:01-Oct-2018 Instruction Type:Provider Instructions for Treatment How to access health informa tion online Indication:Nonsmoker Start:09-Apr-2018 Instruction Type:Patient Education How to access health informa tion online - Detail Indication:Nonsmoker Start:09-Apr-2018 Instruction Type:Patient Education Patient Instructions Indication:Nonsmoker Start:09-Apr-2018 Instruction Type:Provider Instructions for Treatment How to access health informa tion online Indication:BMI 45.0-49.9, adult Start:15-Nov-2017 Instruction Type:Patient Education How to access health informa tion online - Detail Indication:BMI 45.0-49.9, adult Start:15-Nov-2017 Instruction Type:Patient Education Patient Instructions Indication:BMI 45.0-49.9, adult Start:15-Nov-2017 Instruction Type:Provider Instructions for Treatment How to access health informa tion online Indication:Nonsmoker Start:12-Oct-2017 Instruction Type:Patient Education How to access health informa tion online - Detail Indication:Nonsmoker Start:12-Oct-2017 Instruction Type:Patient Education Patient Instructions Indication:Nonsmoker Start:12-Oct-2017 Instruction Type:Provider Instructions for Treatment Patient Instructions Indication:Sore throat Start:06-May-2013 Instruction Type:Provider Instructions for Treatment Name Dates Details How to access health informa tion online Indication:Nonsmoker Start:01-Oct-2018 Instruction Type:Patient Education How to access health informa tion online - Detail Indication:Nonsmoker Start:01-Oct-2018 Instruction Type:Patient Education Patient Instructions Indication:Nonsmoker Start:01-Oct-2018 Instruction Type:Provider Instructions for Treatment How to access health informa tion online Indication:Nonsmoker Start:09-Apr-2018 Instruction Type:Patient Education How to access health informa tion online - Detail Indication:Nonsmoker Start:09-Apr-2018 Instruction Type:Patient Education Patient Instructions Indication:Nonsmoker Start:09-Apr-2018 Instruction Type:Provider Instructions for Treatment How to access health informa tion online Indication:BMI 45.0-49.9, adult Start:15-Nov-2017 Instruction Type:Patient Education How to access health informa tion online - Detail Indication:BMI 45.0-49.9, adult Start:15-Nov-2017 Instruction Type:Patient Education Patient Instructions Indication:BMI 45.0-49.9, adult Start:15-Nov-2017 Instruction Type:Provider Instructions for Treatment How to access health informa tion online Indication:Nonsmoker Start:12-Oct-2017 Instruction Type:Patient Education How to access health informa tion online - Detail Indication:Nonsmoker Start:12-Oct-2017 Instruction Type:Patient Education Patient Instructions Indication:Nonsmoker Start:12-Oct-2017 Instruction Type:Provider Instructions for Treatment Patient Instructions Indication:Sore throat Start:06-May-2013 Instruction Type:Provider Instructions for Treatment Summary Purpose Family History No Family History Records Found Relationship Condition Age at Onset Recorded Date/T norbert father Congestive heart failure Unknown mother Abdominal aortic aneurysm (AAA) Unknown Advance Directives No Advanced Directives Records FoundDocuments on File Type Date Recorded Patient Home Assessment Nurse Expl anation Advance Directives and Living Will Power of Language Instructor Latest Code Status on File Code Status Date Activated Date Inactivated Comments Full Code 02/12/2019 6:58 AM Advance Directive Response Recorded Date/ Time Living Will Yes February 24, 021 2:50am Power of Language Instructor Yes February 24, 2021 2:50am Advance Directive Response Recorded Date/ Time Living Will Yes February 24, 021 3:50am Power of Language Instructor Yes February 24, 2021 3:50am Date Activated Date Inactivated Comments 10/30/2023 2:34 AM Question Answer Comments Plan of Care: Code Status Discussion Not Compl eted Decision Maker: Provider Rationale: Patient condition does not warra nt discussion Date Activated Date Inactivated Comments 10/30/2023 2:34 AM Question Answer Comments Plan of Care: Code Status Discussion Not Compl eted Decision Maker: Provider Rationale: Patient condition does not warra nt discussion Discharge Instructions * Instructions* Delaney Ann RN - 02/12/2019 Colonoscopy: What to expect at home ACTIVITY: DO NOT DRIVE, OPERATE MACHINERY, OR DRINK ANY ALCOHOL TODAY. Avoid making critical decisions, signing legal documents, or performing any activity that requires alertness for the rest of the day. You may be bloated or have gas pains since air was introduced into the colon for the procedure. Youmay need to pass the gas throughout the day. You may experience a small amount of rectal bleeding; this can be normal after your colonoscopy. Notify your physician if the bleeding is enough to saturate your clothes. Rest the remainder of the day. You may resume normal activity tomorrow. You may return to work tomorrow. DIET: You may resume a normal diet unless notified or recommended by your physician. You may be eager to eat a large meal after fasting, but it is a good idea to start with light mealsand ease into solid foods the first day. (*) If your stomach is upset, try clear liquids and bland, low-fat foods like plain toast or rice. Drink plenty of fluids for the first 24 hours (unless your physician states otherwise). MEDICATION: Resume your normal home medications unless notified or recommended by your physician. If you take blood thinners (such as Coumadin, Eliquis, Plavix, Aspirin, etc.) or anti-inflammatory medications (Advil, Motrin, Aleve, etc.), ask your physician when you may resume these medications. FOLLOW-UP APPOINTMENT: Follow up with or call your physician as needed. When to call for help: Call your doctor IMMEDIATELY or seek medical care if you experience: ? Severe pain or vomiting ? A large amount (filling the toilet) of maroon, bloody stools or tar-like stools ? Your belly is swollen and firm with severe pain ? A fever greater than 101 degrees ? Redness or swelling of arm from the IV site for more than 48 hours ? Sudden onset of chest pain or shortness of breath ? If you become extremely dizzy or pass out (lose consciousness) IF YOU ARE UNABLE TO REACH YOUR PHYSICIAN GO TO NEAREST EMERGENCY DEPARTMENT Colon Polyps You must carefully read the Consumer Information Use and Disclaimer below in order to understand and correctly use this information The Basics Written by the doctors and editors at [facility] What are colon polyps? Colon polyps are tiny growths that form on the inside of the large intestine(also known as the colon) (figure 1). Polyps are very common. Roughly one-third to one-half of all adults have them. They do not usually cause symptoms. But some polyps can be or become cancer, so doctors sometimes remove them. What are the symptoms of colon polyps? Colon polyps do not usually cause symptoms. How do doctors find colon polyps? Doctors usually find colon polyps when they are doing screening tests to check for colon or rectal cancer. Cancer screening tests are tests that are done to try and find cancer early, before a person has symptoms. The screening tests for colon and rectal cancer include: ?Colonoscopy Before having a colonoscopy, you will get medicine to help you relax. Then a doctor will put a thin tube into your anus and advance it into your colon (figure 2). The tube has a camera attached to it, so the doctor can look inside your colon. The tube also has tools on the end, so the doctor can remove pieces of tissue, including polyps. After polyps are removed, they usually go to [facility] to be tested for cancer and other problems. ?Sigmoidoscopy A sigmoidoscopy is very similar to a colonoscopy. The only difference is that this test looks only at the first part of the colon, and a colonoscopy looks at the whole colon. ?CT colonography (also known as virtual colonoscopy) For a virtual colonoscopy, you have a special kind of X-ray taken, called a CT scan. This test creates pictures of the colon. ?Barium enema During a barium enema, a doctor or nurse squirts a fluid that shows up on X-rays intoyour rectum. Then he or she takes X-rays to create pictures of the colon. ?Stool test Stool is another word for bowel movements. Stool tests check for blood or abnormal genes in samples of stool. If a stool test indicates that something might be wrong with the colon, doctors usually follow up with a colonoscopy. Then doctors find polyps, if they are there. How are colon polyps treated? Doctors remove polyps using the same tools they use for a colonoscopy. They can remove polyps either by snipping them off with a special cutting tool, or by catching thepolyps in a noose (figure 3). Most polyps can be removed during a colonoscopy. But sometimes, largepolyps need to be removed at a later time. What happens after I have polyps removed? You might need to have a colonoscopy every few years to check for more polyps. In some people polyps come back. And if you had the kind of polyps that could become cancer, your doctor will want to remove them as they appear. Also, if the polyps you had removed were the kind that could become cancer, people in your family might need to be checked for polyps and colon cancer, too. Can colon polyps be prevented? To reduce your chances of getting (more) polyps or colon cancer: ?Eat a diet that is low in fat and high in fruits, vegetables, and fiber ?Lose weight, if you are overweight ?Do not smoke ?Limit the amount of alcohol you drink All topics are updated as new evidence becomes available and our peer review process is complete. Topic 31680 Version 5.0 Release: 25.3 - C25.127 2017 [employer]. All rights reserved. Diverticulosis Discharge Instructions You must carefully read the Consumer Information Use and Disclaimer below in order to understand and correctly use this information About this topic Diverticulosis is a problem of the large bowel or colon. The wall of the bowel becomes weak and pushes outward. They form balloon-like pouches called diverticula or tics. When you have hard stool, you strain to have a bowel movement. This raises the pressure in the bowel and causes pouches or bulges to form. Most often, they do not cause a problem. If they become infected, you have diverticulitis. If you have both bleeding and infection it is diverticular disease. What care is needed at home? ? Ask your doctor what you need to do when you go home. Make sure you ask questions if you do not understand what the doctor says. ? Eat more whole grains, vegetables, and fruits. ? Do not wait to have a bowel movement. Go as soon as you have the urge. ? Drink 8 to 10 glasses of water each day. Talk to your doctor if you are drinking less fluids due to a health problem. ? Get regular exercise. What follow-up care is needed? Your doctor may ask you to make visits to the office to check on your progress. Be sure to keep these visits. What drugs may be needed? Most often with diverticulosis you will not need to take any drugs. Will physical activity be limited? When you are in pain, you may need to rest in bed. To ease the pain, use a heat compress on your belly. This should last only for a few days. What changes to diet are needed? Talk to your doctor about any changes you need to make to your diet. ? You do not need to avoid seeds, nuts, corn, or other similar foods. ? You will need to eat food rich in fiber and drink more water. o Eat 5 or more servings of fresh fruits and vegetables every day. o Eat 6 or more servings of whole-wheat grain breads and cereals. o Try to get 25 to 30 grams of fiber every day. Read the labels to learn how much fiber is in foods. ? Do not drink coffee, tea, or beer, wine, and mixed drinks (alcohol). What problems could happen? You may develop diverticulitis, which may cause: ? Pockets or pouches in your bowel may be infected or filled with pus. ? Hole or tear in your bowel ? Part of your bowel to become narrow ? You to need surgery What can be done to prevent this health problem? The best way to keep from having diverticulosis is to keep your bowel movements soft and normal. Tokeep more pouches from forming: ? Talk with your doctor about adding an ncro-cmv-evynnhc (OTC) fiber product to keep your stools soft. ? Limit how much pain drugs you take. Overuse of some pain drugs can cause hard stools; talk with your doctor. When do I need to call the doctor? ? Signs of infection. These include a fever of 100.4 F (38 C) or higher, chills. ? Mild pain or cramping in the lower part of the belly ? A feeling of bloating in the belly ? Belly pain that gets worse ? Blood in your stool ? Upset stomach or throwing up ? Stools get too loose or too hard ? Long-term hard stools Teach Back: Helping You Understand The Teach Back Method helps you understand the information we are giving you. After you talk with the staff, tell them in your own words what you learned. This helps to make sure the staff has described each thing clearly. It also helps to explain things that may have been confusing. Before going home, make sure you are able to do these: ? I can tell you about my condition. ? I can tell you what changes I need to make with my diet or drugs. ? I can tell you what I will do if I have pain or cramping in my lower belly or I have more belly pain. Where can I learn more? [employer] http://patients.gi.org/topics/fsrceutekuvizc-rpy-rvtftdacsksfia/ FamilyDoctor.org http://familydoctor.org/familydoctor/en/diseases-conditions/diverticular-disease .html National Digestive Diseases Information Clearinghouse http://digestive.niddk.nih.gov/ddiseases/pubs/diverticulosis/index.aspx National Organization for Rare Disorders http://www.rarediseases.org/mrdm-brqaodn-xhaimuivazu/rare-diseases/byID/464/view Abstract Consumer Information Use and Disclaimer: This information is not specific medical advice and does not replace information you receive from your health care provider. This is only a brief summary of general information. It does NOT include all information about conditions, illnesses, injuries, tests, procedures, treatments, therapies, discharge instructions or life-style choices that may apply to you. You must talk with your health care provider for complete information about your health and treatment options. This information should not be used to decide whether or not to accept your health care provider s advice, instructions or recommendations. Only your health care provider has the knowledge and training to provide advice that is right for you. 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) SCREENING Reason for Visit Uterine procidentia Encounter for routine gynecological examination Chief Complaint Dysphagia, unspecifi ed Chief Complaint Admit Date August 15, 2024 8:48am Chief Complaint Admit Date August 15, 2024 8:48am SCREENING November 26, 2024 2: 43pm Reason for Referral Specialty Diagnoses / Procedures Referred By Contac t Referred To Contact Radiology Diagnoses Achalasia [place] [id number] [address] [facility] [place] [address] Referral ID Status Reason Start Date Expiration Date Visits Requested Visits Authorized [id number] Authorized Perform Procedure 11/01/2023 10/31/2024 1 1 Specialty Diagnoses / Procedures Referred By Contac t Referred To Contact Gastroenterology Diagnoses Dysphagia, unspecified Gastro-esophageal reflux disease without esophagitis Procedures Esophageal Manometry Kali Winslow MD [address] [place] [address] Referral ID Status Reason Start Date Expiration Date V isits Requested Visits Authorized [id number] Authorized 10/13/2023 10/12/2024 1 1 Additional Source Comments INFORMATION SOURCE (unrecogn ized section and content) DATE CREATED AUTHOR 04/17/2018 [facility] DATE CREATED AUTHOR AUTHOR'S ORGANIZ ATION 02/20/2019 [facility] DATE CREATED AUTHOR AUTHOR'S ORGANIZ ATION 02/03/2022 [facility] [place] [facility] tern[facility] DATE CREATED AUTHOR AUTHOR'S ORGANIZ ATION 05/06/2023 [facility] ([place]) DATE CREATED AUTHOR AUTHOR'S ORGANIZ ATION 07/30/2023 [facility] DATE CREATED AUTHOR AUTHOR'S ORGANIZ ATION 08/09/2023 [facility] DATE CREATED AUTHOR AUTHOR'S ORGANIZ ATION 11/03/2023 [facility] DATE CREATED AUTHOR AUTHOR'S ORGANIZ ATION 12/06/2023 [facility] DATE CREATED AUTHOR AUTHOR'S ORGANIZ ATION 02/28/2024 [facility] DATE CREATED AUTHOR AUTHOR'S ORGANIZ ATION 09/29/2024 [facility] DATE CREATED AUTHOR AUTHOR'S ORGANIZ ATION [facility]/02/20[facility] Care Teams (unrecognized sec tion and content) Team Status: Active Member Role Status Dates Dr. Kristen Santiago DO Family Provider Active Dr. Kristen Santiago DO Primary Care Provider Active Team Status: Inactive Member Role Status Dates Dr. Kristen Santiago DO Primary Care Provider, Referr ing Provider Active Dr. Pat Castro MD Attending Provider Active Team Status: Inactive Member Role Status Dates Dr. Kristen Santiago DO Primary Care Provider Active Dr. Pat Castro MD Attending Provider Active Team Status: Active Member Role Status Dates Dr. Kristen Santiago DO Primary Care Provider Active Dr. Pat Castro MD Attending Provider, Referr ing Provider Active Team Status: Inactive Member Role Status Dates Dr. Kristen Santiago DO Primary Care Provider Active Dr. Pat Castro MD Attending Provider, Referr ing Provider Active Team Status: Inactive Member Role Status Dates Dr. Kristen Santiago DO Primary Care Pr ovider, Attending Provider, Referring Provider Active Mathematician Research Relationship Specialty Start Date End Date Kristen Santiago DO PCP - General Internal Medicine 10/02/12 Mathematician Research Relationship Specialty Start Date End Date Kristen Santiago DO PCP - General Internal Medicine 10/02/12 Mathematician Research Relationship Specialty Start Date End Date Kristen Santiago DO [address] [facility] [address] [place], [place] [id number] [phone] PCP - MMO ACO PCP 08/08/22 Kristen Santiago DO [address] [facility] [address] [place], [place] [id number] PCP - General Internal Medicine 12/04/23 Mathematician Research Relationship Specialty Start Date End Date Kristen Santiago DO [address] [facility] [address] [place] [address] PCP - MMO ACO PCP 08/08/22 Kristen Santiago DO [address] [facility] [address] [place] [address] PCP - General Internal Medicine 12/04/23 Mathematician Research Relationship Specialty Start Date End Date Kristen Santiago DO [address] [facility] [address] [place] [address] PCP - MMO ACO PCP 08/08/22 Mathematician Research Relationship Specialty Start Date End Date Kristen Santiago DO [address] [facility] [address] [place] [address] PCP - MMO ACO PCP 08/08/22 Pretty Gonzales, loans consultantJanitorial Maintenance Worker 11/02/23 Mathematician Research Relationship Specialty Start Date End Date Kristen Santiago DO [address] [facility] [address] [place] [address] PCP - MMO ACO PCP 08/08/22 Kristen Santiago DO [address] [facility] [address] [place] [address] PCP - General Internal Medicine 12/04/23 Mathematician Research Relationship Specialty Start Date End Date Kristen Santiago DO [address] [facility] [address] [place] [address] PCP - MMO ACO PCP 08/08/22 Kristen Santiago DO [address] [facility] [address] [place] [address] PCP - General Internal Medicine 12/04/23 Mathematician Research Relationship Specialty Start Date End Date Kristen Santiago DO [address] [facility] [address] [place] [address] PCP - MMO ACO PCP 08/08/22 Kristen Santiago DO [address] [facility] [address] [place], [place] [id number] PCP - General Internal Medicine 12/04/23 Mathematician Research Relationship Specialty Start Date End Date Kristen Santiago DO [address] [facility] [address] [place] [address] PCP - General Internal Medicine 12/04/23 Team Status: Active Member Role Status Dates Dr. Kristen Santiago DO Primary Care Provider Active Team Status: Inactive Member Role Status Dates Dr. Kristen Santiago DO Primary Care Provider Active Start: August 15, 2024 End: September 07, 2024 Self Referred Attending Provider Active Start: Dre johnson 2024 End: September 07, 2024 Team Status: Active Member Role/Relationship Status Dates Dr. Kristen Santiago DO Primary Care Provider Active Team Status: Inactive Member Role/Relationship Status Dates Dr. Kristen Santiago DO Primary Care Provider Active Start: August 15, 2024 End: September 07, 2024 Self Referred Attending Provider Active Start: M alex 2024 End: September 07, 2024 Team Status: Inactive Member Role/Relationship Status Dates Dr. Kristen Santiago DO Primary Care Provider Active Start: November 26, 2024 End: November 26, 2024 Dr. Kristen Santiago DO Attending Provider Active Start: November 26, 2024 End: November 26, 2024 Dr. Kristen Santiago DO Referring Provider Active Start: November 26, 2024 End: November 26, 2024 Mathematician Research Relationship Specialty Start Date End Date Kristen Santiago DO [address] [facility] [address] [place] [address] PCP - MMO ACO PCP 08/08/22 05/10/24 Mathematician Research Relationship Specialty Start Date End Date Kristen Santiago DO [address] [facility] [address] [place] [address] PCP - General Internal Medicine 12/04/23 Goals (unrecognized section and content) Goals may be documented in a n alternate sectionGoals may be documented in an alternate sectionGoals may be documented in an alternate sectionGoals may be documented in an alternate section No data available for this sectionGoals may be documented in an alternate sectionGoals may be documented in an alternate section (unrecognized sect ion and content) No Status Records Found Source Comments (unrecognize d section and content) In the event this informatio n is protected by the Federal Confidentiality of Alcohol and Drug Abuse Patient Records regulations: The Federal rules restrict any use of the information to criminally investigate or prosecute any alcohol or drug abuse patient.[facility] the event this information is protected by the Federal Confidentiality of Alcohol and Drug Abuse Patient Records regulations: The Federal rules restrict any use of the information to criminally investigate or prosecute any alcohol or drug abuse patient.[facility] DaytonIn the event this information is protected by the Federal Confidentiality of Alcohol and Drug Abuse Patient Records regulations: The Federal rules restrict any use of the information to criminally investigate or prosecute any alcohol or drug abuse patient.[facility] Reason for Visit (unrecogniz ed section and content) Reason Comments Future Appointment Esophageal mano Reason Comments Future Appointment Esophageal manometry not covered-OON Specialty Diagnoses / Procedures Referred By Inderjit ramon Referred To Contact Gastroenterology Diagnoses Dysphagia, unspecified Gastro-esophageal reflux disease without esophagitis Procedures Esophageal Manometry Kali Winslow MD [address] [place] [address] Referral ID Status Reason Start Date Expiration Date V isits Requested Visits Authorized [id number] Authorized 10/13/2023 10/12/2024 1 1 Specialty Diagnoses / Procedures Referred By Inderjit ramon Referred To Contact Radiology Diagnoses Achalasia Weight loss Generalized abdominal pain Procedures CT chest abdomen pelvis wo IV contrast CT chest abdomen pelvis w IV contrast [place] chest [place] [address] [address] [facility] [place] [address] Referral ID Status Reason Start Date Expiration Date Visits Requested Visits Authorized [id number] Authorized Perform Procedure 11/23/2023 11/22/2024 1 1 Specialty Diagnoses / Procedures Referred By Inderjit ramon Referred To Contact Radiology Diagnoses Achalasia [place] [address] [address] [facility] [id number] Referral ID Status Reason Start Date Expiration Date Visits Requested Visits Authorized [id number] Authorized Perform Procedure 11/01/2023 10/31/2024 1 1 Scheduled Active and Recently Administ ered Medications (unrecognized section and content) Medication Order 02/08/2024 02/09/2024 02/10/2024 acetaminophen (Tylenol) tablet 650 mg 650 mg, oral, Every 6 hours, First dose on Mon02/09/24 at 1845, If ordered PRN for pain, nurse is permitted to administer this medication for higher pain scores based on patient preference? Yes 190 (Not Given - Provider: Fritz Messer RN - Reason: Patient/family refused) 001 (Not Given - Provider: Isis Watkins RN - Reason: Patient/family refused)0615 (Given - Provider: Isis Watkins, RN)1215 (Not Given - Provider: Jimmie Bah RN - Reason: Patient/family refused - Comment: pt being dcd)1845 (Due) enoxaparin (Lovenox) syringe 40 mg 40 mg, subcutaneous, Daily, First dose on 02/10/24 at 0900 0920 (Given - Provid er: Jimmie Bah RN) furosemide (Lasix) tablet 20 mg 20 mg, oral, Daily, First dose on 02/10/24 at 0900 0919 (Not Given - Provider: Jimmie Bah RN - Reason: Patient/family refused) levothyroxine (Synthroid, Levoxyl) tablet 75 mcg 75 mcg, oral, Daily, First dose on 02/10/24 at 0600 0615 (Given - Provid er: Isis Watkins RN) methocarbamol (Robaxin) injection 1,000 mg (COMPLETED) 1,000 mg, intravenous, Administer over 5 Minutes, Once, On Mon02/09/24 at 1100, For 1 dose, Recovery (only) 1048 (Given - Provider: Sebastian Frias, RAÚL) oxygen (O2) therapy (CANCELED) inhalation, Continuous - Inhalation, First dose on Mon02/09/24 at 1045, Recovery (only), Device: Nasal Cannula, Rate in liters per minute: Other, Custom Value: 1-6 LPM, Keep O2 Sat Above: 92% 1045 (Start - Provider: Sebastian Frias, RN) pantoprazole (ProtoNix) EC tablet 40 mg 40 mg, oral, Daily before breakfast, First dose on Sat 24 at 0700, Do not crush, chew, or split. 0614 (Given - Provid er: Isis Watkins RN) sennosides-docusate sodium (Cecelia-Colace) 8.6-50 mg per tablet 2 tablet 2 tablet, oral, 2 times daily, First dose on Mon02/09/24 at 2100, Bowel Regimen - for prevention of constipation Hold for loose stools 2103 (Not Given - Provider: Isis Watkins RN - Reason: Patient/family refused) 0919 (Not Given - Provider: Jimmie Bah RN - Reason: Patient/family refused)2100 (Due) Continuous Medication Order 02/08/2024 02/09/2024 02/10/2024 lactated Ringer's infusion () 100 mL/hr, intravenous, Continuous, Starting on Mon02/09/24 at 1045, For 2 hours, Recovery (only) 1037 (New Bag - Provider: Sebastian Frias RN) lactated Ringer's infusion 50 mL/hr, intravenous, Continuous, Starting on Mon02/09/24 at 1900, For 10 hours, To finish current bag that's already running 1901 (New Bag - Provider: Fritz Messer RN)2306 (Rate/Dose Verify - Provider: Isis Watkins RN) PRN Medication Order 02/08/2024 02/09/2024 02/10/2024 HYDROmorphone (Dilaudid) injection 0.5 mg (CANCELED) 0.5 mg, intravenous, Every 5 min PRN, pain severe (7-10), first line, Starting on Mon02/09/24 at 1023, Recovery (only), Max total of 4 mg regardless of dose. 1039 (Given - Provider: Nicolas Frias RN)1117 (Given - Provider: Sebastian Frias RN) naloxone (Narcan) injection 0.2 mg 0.2 mg, intravenous, Every 5 min PRN, respiratory depression, Starting on Mon02/09/24 at 1825, If respiratory rate is less than 8 breaths/minute or patient is difficult to arouse stop any narcotics and contact physician. Administer slow IV push. Repeat as ordered until patient's respiratory rate is greater than 12 breaths/minute. ondansetron (Zofran) injection 4 mg(Linked Group 1) 4 mg, intravenous, Every 8 hours PRN, nausea/vomiting, first line, Starting on Mon02/09/24 at 1825, 1st Line. Give IV if patient is unable to take orally. If inadequate response within 60 minutes, proceed to next-line agent for same PRN reason or contact provider if no further options ordered. When administering via IV Push, administer over 3-5 minutes. ondansetron (Zofran) tablet 4 mg(Linked Group 1) 4 mg, oral, Every 8 hours PRN, nausea/vomiting, first line, Starting on Mon02/09/24 at 1825, 1st Line. Use oral route first, if possible. If inadequate response within 60 minutes, proceed to next-line agent for same PRN reason or contact provider if no further options ordered. oxyCODONE (Roxicodone) immediate release tablet 5 mg 5 mg, oral, Every 4 hours PRN, pain severe (7-10), first line, Starting on Mon02/09/24 at 1825 sterile water irrigation solution (CANCELED) As needed, Starting on Mon02/09/24 at 0933, Intraprocedure 0933 (Given - Provider: Steven Cobian MD - Comment: op site via gastroscope) surgical lubricant gel (CANCELED) As needed, Starting on Mon02/09/24 at 0934, Intraprocedure 0934 (Given - Provider: Steven Cobian MD - Comment: topical to gastroscope) traMADol (Ultram) tablet 50 mg 50 mg, oral, Every 6 hours PRN, pain moderate (4-6), first line, Starting on Mon02/09/24 at 1825, If ordered PRN for pain, nurse is permitted to administer this medication for higher pain scores based on patient preference? Yes Unable to Find (CANCELED) As needed, Starting on Mon02/09/24 at 0937, Intraprocedure 0937 (Given - Provider: Steven Cobian MD - Comment: site: esophagus musclesPOEM Solution Medication: methylene blue 62.5mg, epinephrine 1.25 mg in D5W 250 ml) Linked Groups Order Group 1: ondansetron (Zofran) tablet 4 mgJump to med 4 mg, oral, Every 8 hours PRN, nausea/vomiting, first line, Starting on Mon02/09/24 at 1825, 1st Line. Use oral route first, if possible. If inadequate response within 60 minutes, proceed to next-line agent for same PRN reason or contact provider if no further options ordered. Or ondansetron (Zofran) injection 4 mgJump to med 4 mg, intravenous, Every 8 hours PRN, nausea/vomiting, first line, Starting on Mon02/09/24 at 1825, 1st Line. Give IV if patient is unable to take orally. If inadequate response within 60 minutes, proceed to next-line agent for same PRN reason or contact provider if no further options ordered. When administering via IV Push, administer over 3-5 minutes. FOR RECORDS PERTAINING TO PATIENTS WHO ARE OR HAVE BEEN ENROLLED IN A CHEMICAL DEPENDENCY/SUBSTANCEABUSE PROGRAM, SOME INFORMATION MAY BE OMITTED. This clinical summary was aggregated from multiple sources. Caution should be exercised in using it in the provision of clinical care. This summary normalizes information from multiple sources, and as a consequence, information in this document may materially change the coding, format and clinical context of patient data. In addition, data may be omitted in some cases. CLINICAL DECISIONS SHOULD BE BASED ON THE PRIMARY CLINICAL RECORDS. [employer] [facility]. provides no warranty or guarantee of the accuracy or completeness of information in this document.
[2025-02-05 08:58] LABS: Hepatitis C Antibody Nonreactive (Nonreactive)
== END | disposition home or self-care (01) ==
LOC: LAB 06:49
PROVIDERS: PCP Internal Medicine; Referring Provider Internal Medicine; Visit Provider Internal Medicine
DX: R79.89 Other specified abnormal findings of blood chemistry (principal); Z11.59 Encounter for screening for other viral diseases
CPT/HCPCS: 36415; 84443; 86803